=== PATIENT | male | born 1945 | race Caucasian/White ===

== ENCOUNTER 2016-09-02 19:45 | Emergency (ER) | payer MEDICARE, OTHER ==
[~2016-09-02] VITALS: Ht 175.3 cm; Wt 79.4 kg
[~2016-09-02 19:45] MED LIST: APIX5TAB PO; ASP81TEC PO; ASPI-586 PO; CARV12.53 PO; CARV3.122 PO; CHOL10003 PO; CHOL20002 PO; DOXY100C2 PO; DOXY100T61 PO; ENAL10TA PO; ENAL5TAB PO; LOPE2CAP29 PO; LOSA100T7 PO; NF-VAL40T PO; OXYC-12 PO; PHEN100T17 PO; PNT40TEC PO; TAMS0.4C2 PO; TERA5CAP10 PO; TESTOSTERONE CREAM TP; TMSL.4C PO
--- OUTSIDE RECORDS SUMMARY | 2016-09-02 19:51 | XMS REPORT | Continuity of Care Document ---
Author Author [facility] Organization [facility] Address Unknown Phone Unavailable Care Team Providers Care Locomotive Observer Name Role Phone Fiordaliza Galindo PCP [phone] Source Comments Some departments are not documenting in the electronic medical record. If you do not see the information that you expected, contact Release of Information in the Health Information Management department at [phone] for further assistance in locating additional records.[facility] Active Allergies and Adverse Reactions Allergen Noted Date Severity Reactions Comments Floxin 04/13/2012 HIVES, RASH Sulfa (Sulfonamide 04/13/2012 REDNESS "red spot on leg" Antibiotics) Tetracycline 04/13/2012 SEE COMMENTS "yeast infection" Current Medications Prescription Sig. Disp. Refills Start End Date Status Date enalapril (VASOTEC) 5 mg Take 5 mg by mouth daily. Active tablet carvedilol (COREG) 12.5 Take 3.125 mg by mouth Active mg tablet twice daily with meals. LOPERAMIDE HCL (IMODIUM Take 1 Tab by mouth Active PO) daily. aspirin EC 81 mg tablet Take 325 mg by mouth Active daily. tamsulosin (FLOMAX) 0.4 Take 0.4 mg by mouth Active mg capsule daily. metoclopramide HCl Take 10 mg by mouth as Active (REGLAN) 10 mg tablet Needed. cholecalciferol (Vitamin Take 1,000 Units by mouth Active D3) (VITAMIN D-3) 1,000 daily. units tablet ALPRAZolam (XANAX) 0.25 Take 0.25 mg by mouth as Active mg tablet Needed. MELATONIN PO Take 8 mg by mouth. Active doxycycline (VIBRAMYCIN) Take 100 mg by mouth Active 100 mg tablet daily. Patient takes off and on for blisters in mouth when needed Testosterone Propionate 2 Apply to top of skin as 08/13/19 Discontin % Crea directed daily. 17 ued losartan(+) (COZAAR) 100 Take 100 mg by mouth 08/18/19 Discontin mg tablet daily. 17 ued Active Problems Problem Noted Date Renal mass 08/13/2016 Overview: 70 year old male with CKD 3 and newly diagnosed right upper pole 3.2 cm renal mass. We discussed the options for management of a clinical T1 renal mass, which include observation, partial nephrectomy, radical nephrectomy, cryoablation, radiofrequency ablation in detail. I explained the relative merits, advantages, and disadvantages of each option. The patient would like to proceed with renal biopsy and possible cryoablation of his renal mass, as his primary goal is a treatment that will preserve his renal function. We will plan to refer Mr. Pacheco to Interventional Radiology for renal biopsy with possible cryoablation. 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 Orthostatic hypotension 04/13/2012 Weight loss, non-intentional 04/13/2012 Most Recent Encounters Date Type Specialty Providers Description 09/01/2016 Hospital Radiology Lio Lay, CKD (chronic kidney Encounter MD disease) stage 3, GFR Pranav Ardon RN 30-59 ml/min Ken Santoyo MD 09/01/2016 [facility] Catherine Holder MD Illness, unspecified Encounter 09/01/2016 Orders Only Oncology Lio Lay MD 09/01/2016 Ancillary Oncology Lio Lay Renal mass, right Orders (Primary Dx) 09/01/2016 Ancillary Urology Lio Lay Renal mass ( Primary Dx) Orders 08/31/2016 Anesthesia Radiology Jose Cesar, SRNA Event 08/20/2016 Telephone Radiology Karla Aguilar RN 08/18/2016 Ancillary Oncology Lio Lay Renal mass, right Orders (Primary Dx) 08/18/2016 Telephone Radiology Karla Aguilar RN 08/13/2016 Office Visit Urology Lio Lay Renal mass ( Primary Dx) 08/13/2016 Telephone Radiology Karla Aguilar RN 08/08/2016 Ancillary Radiology Outpatient, Radiologist Diagnosis unknown Orders (Primary Dx) 07/31/2016 Telephone Urology Lio Lay, Navigation Assessment 07/30/2016 Hospital Radiology Encounter 07/28/2016 Hospital Radiology Encounter Social History Tobacco Use Types Packs/Day Years Used Date Former Smoker Cigarettes 1 Quit: 08/02/1982 Smokeless Tobacco: Former Snuff User Alcohol Use Drinks/Week oz/Week Comments Yes 14 Glasses of 16.8 wine 14 Shots of liquor Last Filed Vital Signs Vital Sign Reading Time Taken Blood Pressure 146/64 09/01/2016 7:30 PM PSYCHIATRIC CLINICAL NURSE SPECIALIST Pulse 72 09/01/2016 7:30 PM PSYCHIATRIC CLINICAL NURSE SPECIALIST Temperature 36.4 C (97.5 F) 09/01/2016 7:30 PM PSYCHIATRIC CLINICAL NURSE SPECIALIST Respiratory Rate - - Height 1.753 m (5' 9") 08/13/2016 8:08 AM PSYCHIATRIC CLINICAL NURSE SPECIALIST Weight 81.738 kg (180 lb 3.2 oz) 08/13/2016 8:08 AM PSYCHIATRIC CLINICAL NURSE SPECIALIST Body Mass Index 26.6 08/13/2016 8:08 AM PSYCHIATRIC CLINICAL NURSE SPECIALIST Oxygen Saturation 98% 09/01/2016 7:30 PM PSYCHIATRIC CLINICAL NURSE SPECIALIST Plan of Care Health Maintenance Due Date Last Done Comments Physical (Comprehensive) 10/04/1950 Exam Pertussis Vaccine 10/04/1954 Tetanus Vaccine 10/04/1960 Colorectal Cancer 10/04/1993 Screening Shingles Vaccine 2003 Prevnar/Pneumovax (#1) 10/04/2008 Influenza Vaccine 04/02/2016 Procedures from Last 3 Months Procedure Name Priority Date/Time Associated Diagnosis Comments TELEMETRY STRIPS-SCAN 09/02/2016 Results for this 1:23 PM PSYCHIATRIC CLINICAL NURSE SPECIALIST procedure are in the results section. Results from Last 3 Months TELEMETRY STRIPS-SCAN (09/02/2016 1:23 PM) Narrative Ordered by an unspecified provider. BLOOD TYPE CONFIRMATION - ORDER ONLY IF REQUESTED BY LAB (09/01/2016 2:30 PM) Component Value Range ABO/RH(D) A POS TYPE & CROSSMATCH (09/01/2016 2:00 PM) Component Value Range Units Ordered 0 Crossmatch Expires 09/04/2016 Record Check 2ND TYPE REQUIRED ABO/RH(D) A POS Antibody Screen NEG Electronic Crossmatch YES CBC AND DIFF (09/01/2016 2:00 PM) Component Value Range White Blood Cells 8.4 4.5-11.0 K/UL RBC 5.13 4.4-5.5 M/UL Hemoglobin 15.7 13.5-16.5 GM/DL Hematocrit 47.3 40-50 % MCV 92.3 80-100 FL MCH 30.6 26-34 PG MCHC 33.1 32.0-36.0 G/DL RDW 12.7 11-15 % Platelet Count 162 150-400 K/UL MPV 7.8 7-11 FL Neutrophils 68 41-77 % Lymphocytes 21 (L) 24-44 % Monocytes 7 4-12 % Eosinophils 3 0-5 % Basophils 1 0-2 % Absolute Neutrophil Count 5.80 1.8-7.0 K/UL Absolute Lymph Count 1.70 1.0-4.8 K/UL Absolute Monocyte Count 0.60 0-0.80 K/UL Absolute Eosinophil Count 0.20 0-0.45 K/UL Absolute Basophil Count 0.10 0-0.20 K/UL BASIC METABOLIC PANEL (09/01/2016 2:00 PM) Component Value Range Sodium 139 137-147 MMOL/L Potassium 4.4 3.5-5.1 MMOL/L Chloride 106 98-110 MMOL/L CO2 26 21-30 MMOL/L Anion Gap 7 3-12 Glucose 89 70-100 MG/DL Blood Urea Nitrogen 29 (H) 7-25 MG/DL Creatinine 2.16 (H) 0.4-1.24 MG/DL Calcium 9.5 8.5-10.6 MG/DL eGFR Non 30 (L)Comment: >60 mL/min The eGFR is not validated for use in drug dosing adjustments. Continue to use estimated creatinine clearance per dosing reference text. Please contact the Clinical Pharmacist for questions. eGFR 37 (L)Comment: >60 mL/min The eGFR is not validated for use in drug dosing adjustments. Continue to use estimated creatinine clearance per dosing reference text. Please contact the Clinical Pharmacist for questions. POC GLUCOSE (09/01/2016 1:20 PM) Component Value Range Glucose, POC 94 70-100 MG/DL CT ABD/PEL EXTERNAL IMAGING (07/30/2016) Narrative This order has been auto finalized and does not contain a result. US ABDOMEN EXTERNAL IMAGING (07/28/2016) Narrative This order has been auto finalized and does not contain a result.
[2016-09-02] MEDS ORDERED: ASPI-808 PO (19:58)
[2016-09-02] MEDS ORDERED: ALPR0.25 PO (19:58)
[2016-09-02] MEDS ORDERED: MELA10CA2 PO (19:58)
[2016-09-02] MEDS ORDERED: LIDOCAINE UROJET 2% GEL 10 ML PKG ONE (20:25)
[2016-09-02] MEDS ORDERED: LIDOCAINE UROJET 2% GEL 10 ML PKG TOP ONE (20:45)
[2016-09-02 21:14] LABS: BASOPHILS % (AUTO) 0 % (0-10); BILIRUBIN,URINE NEGATIVE (NEGATIVE); EOSINOPHILS # (AUTO) 0.2 10^3/uL (0.0-0.3); EOSINOPHILS % (AUTO) 2 % (0-10); KETONES,URINE NEGATIVE (NEGATIVE); LEUKOCYTE ESTERASE ,URINE NEGATIVE (NEGATIVE); LYMPHOCYTES # (AUTO) 1.6 X 10^3 (1.0-4.0); LYMPHOCYTES % (AUTO) 16 % (12-44); MEAN CORPUSCULAR HEMOGLOBIN 31 PG (25-34); MEAN CORPUSCULAR HGB CONC 35 G/DL (32-36); MEAN CORPUSCULAR VOLUME 88 FL (80-99); MEAN PLATELET VOLUME 10.3 FL (7.4-10.4); MONOCYTES # (AUTO) 1.1 X 10^3 (0.0-1.0); MONOCYTES % (AUTO) 11 % (0-12); NEUTROPHILS % (AUTO) 71 % (42-75); NITRITE,URINE NEGATIVE (NEGATIVE); PH,URINE 5 (5-9); PLATELET COUNT 156 10^3/uL (130-400); PROTEIN,URINE 3+ (NEGATIVE); RED BLOOD COUNT 5.04 10^6/uL (4.35-5.85); RED CELL DISTRIBUTION WIDTH 12.6 % (10.0-14.5); UROBILINOGEN,URINE NORMAL (NORMAL); WHITE BLOOD COUNT 9.9 10^3/uL (4.3-11.0)
[2016-09-02 21:22] LABS: SQUAMOUS EPITHELIAL CELL,UR RARE /HPF
[2016-09-02 21:42] LABS: PROTHROMBIN TIME PATIENT 12.8 SEC (12.2-14.7)
--- NOTE | 2016-09-02 21:59 | Diagnostic Imaging Report ---
INDICATION: Fever. COMPARISON: None available. TECHNIQUE: Single frontal radiograph of the chest dated September 02, 2016. FINDINGS: The cardiac silhouette is within normal limits. No significant pulmonary vascular congestion. Vascular calcifications within the aortic arch. Mild obscuration of the left hemidiaphragm is noted. Otherwise, the lungs appear clear. No significant pleural effusion. No pneumothorax. No acute osseous abnormality with scattered osseous degenerative changes. IMPRESSION: Slight obscuration of the left hemithorax likely relates to mild left lower lobe atelectasis and/or infiltrate. This could be confirmed with frontal and lateral radiographs of the chest. Dictated by: Dictated on workstation # [id number]
[2016-09-02 22:07] LABS: ALBUMIN 3.9 G/DL (3.2-4.5); BILIRUBIN,TOTAL 1.2 MG/DL (0.1-1.0); CALCIUM 8.9 MG/DL (8.5-10.1); CREATININE SERUM 2.51 MG/DL (0.60-1.30); POTASSIUM 4.3 MMOL/L (3.6-5.0); TOTAL PROTEIN 6.1 G/DL (6.4-8.2)
--- NOTE | 2016-09-02 22:56 | ED GU-Male ---
General Chief Complaint: -Male Stated Complaint: CANT URINATE Nursing Triage Note: Pt reports inability to urinate after having kidney ablation done yesterday at [facility]. Pt reports he has had small dribbles of urine but hasn't been able to empty bladder. Source: patient Exam Limitations: no limitations History of Present Illness Time seen by provider: 19:58 Initial Comments This 70-year-old gentleman presents to the emergency room with inability to urinate. He had a procedure performed at [facility] yesterday for ablation of a renal mass presumed to be renal cell carcinoma. He has only been able to dribble since then. Temperature was 100.3 and he feels warm and flushed. He denies any respiratory symptoms, nausea, vomiting, diarrhea, or other symptoms of acute illness. He has had prostate problems in the past and is on Flomax. He denies any recent medications that would exacerbate prostate problems or retention. Allergies and Home Medications Allergies Coded Allergies: Sulfa (Sulfonamide Antibiotics) (Verified Allergy, Severe, 08/16/15) ofloxacin (Verified Allergy, Unknown, 04/02/06) tetracycline (Unverified Allergy, Unknown, 09/02/16) Home Medications Alprazolam 0.25 Mg Tablet 0.25 MG PO PRN (Reported) Aspirin 325 Mg Tablet 325 MG PO DAILY (Reported) Carvedilol 3.125 Mg Tablet 3.125 MG PO BID (Reported) Cefdinir 300 Mg Capsule #7 300 MG PO ONCE Prescribed by: JOEY HALL on 09/02/16 [id number] Cholecalciferol (Vitamin D3) 2,000 Unit Capsule 2,000 UNIT PO HS (Reported) Enalapril Maleate 5 Mg Tablet 5 MG PO DAILY (Reported) Loperamide Hcl 2 Mg Capsule 2 MG PO DAILY (Reported) Melatonin 10 Mg Capsule 8 MG PO HS (Reported) Tamsulosin HCl 0.4 Mg Cap.er.24h 0.4 MG PO HS (Reported) Constitutional: no symptoms reported EENTM: no symptoms reported Respiratory: no symptoms reported Cardiovascular: no symptoms reported Gastrointestinal: see HPI Genitourinary: see HPI Musculoskeletal: no symptoms reported Skin: no symptoms reported Psychiatric/Neurological: No Symptoms Reported Endocrine: No Symptoms Reported Past Wcsxhsj-Wnpwdd-Qgaxzv Hx Patient Social History Recent Foreign Travel: No Contact w/Someone Who Travel: No Recent Infectious Disease Expo: No Recent Hopitalizations: No Immunizations Up To Date Date of Pneumonia Vaccine: Nov 01, 2008 Seasonal Allergies Seasonal Allergies: No Surgeries HX Surgeries: Yes (KIDNEY ABLATION, HERNIA REPAIR) Surgeries: Abdominal, Orthopedic Respiratory Hx Respiratory Disorders: No Cardiovascular Hx Cardiac Disorders: Yes (right bundle branch block) Cardiac Disorders: Hypertension, Irregular Heartbeat Neurological Hx Neurological Disorders: No Reproductive System Hx Reproductive Disorders: No Sexually Transmitted Disease: No HIV/AIDS: No Genitourinary Hx Genitourinary Disorders: Yes ("kidneys are only functioning at 40%"; ENLARGED PROSTATE) Genitourinary Disorders: Prostate Problems, Renal Failure Gastrointestinal Hx Gastrointestinal Disorders: Yes Gastrointestinal Disorders: Gastroesophageal Reflux, Hiatal Hernia, Irritable Bowel Musculoskeletal Hx Musculoskeletal Disorders: Yes (arthritis-knees need to be replaced) Musculoskeletal Disorders: Arthritis Endocrine Hx Endocrine Disorders: No HEENT HX ENT Disorders: No Loss of Vision: Denies Hearing Impairment: Hard of Hearing Cancer Hx Cancer: Yes Cancer: Skin, Kidney Psychosocial Hx Psychiatric Problems: No Integumentary HX Skin/Integumentary Disorder: Yes (MILD ECZEMA) Skin/Integumentary Disorders: Eczema Blood Transfusions Hx Blood Disorders: No Adverse Reaction to a Blood Tr: No Family Medical History Family Medial History: Cardiovascular disease G8 BROTHER FH: breast cancer 19 MOTHER FH: lung cancer 19 FATHER Kidney disease G8 BROTHER (ON DIALYSIS) Pacemaker 19 MOTHER Physical Exam Vital Signs Vital Sign - Last 12Hours 09/02/16 19:53 Temp 99.0 Pulse 94 Resp 18 B/P 137/95 Pulse Ox 95 O2 Delivery Room Air Capillary Refill : Less Than 3 Seconds General Appearance: WD/WN mild distress HEENT: normal ENT inspection Neck: normal inspection Cardiovascular: regular rate, rhythm no edema no murmur Respiratory: lungs clear normal breath sounds no respiratory distress no accessory muscle use Gastrointestinal: normal bowel sounds distended tenderness Extremities: normal inspection 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 no motor/sensory deficits alert normal mood/affect oriented x 3 Skin: normal color warm/dry Progress/Results/Core Measures Results/Orders Lab Results Laboratory Tests Test 09/02/16 20:48 Range/Units Activated Partial Thromboplast Time 26 24-35 SEC Alanine Aminotransferase (ALT/SGPT) 10 0-55 U/L Albumin 3.9 3.2-4.5 G/DL Alkaline Phosphatase 63 40-136 U/L Anion Gap 11 5-14 MMOL/L Aspartate Amino Transf (AST/SGOT) 27 5-34 U/L BUN/Creatinine Ratio 13 Basophils # (Auto) 0.0 0.0-0.1 10^3/uL Basophils (%) (Auto) 0 0-10 % Blood Urea Nitrogen 33 H 7-18 MG/DL C-Reactive Protein High Sensitivity 1.94 H 0.00-0.50 MG/DL Calcium Level 8.9 8.5-10.1 MG/DL Carbon Dioxide Level 23 21-32 MMOL/L Chloride Level 105 98-107 MMOL/L Creatinine 2.51 H 0.60-1.30 MG/DL Eosinophils # (Auto) 0.2 0.0-0.3 10^3/uL Eosinophils (%) (Auto) 2 0-10 % Estimat Glomerular Filtration Rate 25 Glucose Level 116 H 70-105 MG/DL Hematocrit 44 40-54 % Hemoglobin 15.6 13.3-17.7 G/DL INR Comment 1.0 0.8-1.4 Lactic Acid Level 0.8 0.5-2.0 MMOL/L Lymphocytes # (Auto) 1.6 1.0-4.0 X 10^3 Lymphocytes (%) (Auto) 16 12-44 % Mean Corpuscular Hemoglobin 31 25-34 PG Mean Corpuscular Hemoglobin Concent 35 32-36 G/DL Mean Corpuscular Volume 88 80-99 FL Mean Platelet Volume 10.3 7.4-10.4 FL Monocytes # (Auto) 1.1 H 0.0-1.0 X 10^3 Monocytes (%) (Auto) 11 0-12 % Neutrophils # (Auto) 7.0 1.8-7.8 X 10^3 Neutrophils (%) (Auto) 71 42-75 % Platelet Count 156 130-400 10^3/uL Potassium Level 4.3 3.6-5.0 MMOL/L Prothrombin Time 12.8 12.2-14.7 SEC Red Blood Count 5.04 4.35-5.85 10^6/uL Red Cell Distribution Width 12.6 10.0-14.5 % Sodium Level 139 135-145 MMOL/L Total Bilirubin 1.2 H 0.1-1.0 MG/DL Total Protein 6.1 L 6.4-8.2 G/DL Urine Bacteria NONE /HPF Urine Bilirubin NEGATIVE NEGATIVE Urine Casts NONE /LPF Urine Clarity SLIGHTLY CLOUDY Urine Color YELLOW Urine Crystals NONE /LPF Urine Culture Indicated NO Urine Glucose (UA) NEGATIVE NEGATIVE Urine Ketones NEGATIVE NEGATIVE Urine Leukocyte Esterase NEGATIVE NEGATIVE Urine Mucus NEGATIVE /LPF Urine Nitrite NEGATIVE NEGATIVE Urine Protein 3+ H NEGATIVE Urine RBC 5-10 H /HPF Urine RBC (Auto) 2+ H NEGATIVE Urine Specific [place] 1.015 L 1.016-1.022 Urine Squamous Epithelial Cells RARE /HPF Urine Urobilinogen NORMAL NORMAL MG/DL Urine WBC NONE /HPF Urine pH 5 5-9 White Blood Count 9.9 4.3-11.0 10^3/uL Micro Results Microbiology 09/02/16 Influenza Types A,B Antigen (NADEGE) - Final, Complete My Orders Orders-JOEY LIPSCOMB MD Bladder Scan (09/02/16 19:57) Lidocaine 2% (Urojet) (Xylocaine Urojet) (09/02/16 20:25) Cbc With Automated Diff (09/02/16 20:31) Comprehensive Metabolic Panel (09/02/16 20:31) Lactic Acid Analyzer (09/02/16 20:31) Blood Culture (09/02/16 20:31) Ua Culture If Indicated (09/02/16 20:31) Protime With Inr (09/02/16 20:31) Partial Thromboplastin Time (09/02/16 20:31) Chest 1 View, Ap/Pa Only (09/02/16 20:31) Saline Lock/Iv-Start (09/02/16 20:31) Saline Lock/Iv-Start (09/02/16 20:31) Vital Signs Adult Sepsis Patie Q1HR (09/02/16 20:31) Remove Rings In Anticipation O (09/02/16 20:31) Burdick Cath Insertion (09/02/16 20:31) Lidocaine 2% (Urojet) (Xylocaine Urojet) (09/02/16 20:45) Hs C Reactive Protein (09/02/16 21:55) Influenza A And B Antigens (09/02/16 21:55) Chest Pa/Lat (2 View) (09/02/16 22:56) Oxycodone/Apap 5/325mg Tablet (Percocet (09/02/16 23:00) Cefdinir Capsule (Omnicef Capsule) (09/02/16 23:30) Medications Given in ED Current Medications Medications Dose Ordered Sig/Lewis Route Start Time Stop Time Status Last Admin Dose Admin Cefdinir 300 mg ONCE ONCE PO 09/02/16 23:30 09/02/16 23:31 DC 09/02/16 23:27 300 MG Lidocaine HCl 10 ml ONCE ONCE TOP 09/02/16 20:45 09/02/16 20:46 DC 09/02/16 20:34 10 ML Oxycodone/ Acetaminophen 1 tab ONCE ONCE PO 09/02/16 23:00 09/02/16 23:01 DC 09/02/16 23:04 1 TAB Vital Signs/I&O Vital Sign - Last 12Hours 09/02/16 09/02/16 09/02/16 19:53 20:30 23:31 Temp 99.0 100.3 99.1 Pulse 94 94 72 Resp 18 18 18 B/P 137/95 137/95 Pulse Ox 95 95 97 O2 Delivery Room Air Room Air Blood Pressure Mean: 109 Progress Note #1: Progress Note Bladder scan demonstrated more than 1 liter urinary residual. Burdick was placed and yielded more than 1500 ml urine. Patient was noted to have fever. Septic work up was therefore initiated due to his recent invasive procedure and urinary retention. Progress Note #2: Progress Note Septic workup was unremarkable. There was questionable left lower lobe infiltrate identified by the radiologist on the portable chest x-ray. A repeat two-view x-ray was obtained. There is no obvious infiltrate or consolidation on the repeat x-ray. Omnicef was started as a precaution. Diagnostic Imaging Diagonstic Imaging: Xray Plain Films/CT/US/NM/MRI: chest Comments Chest x-ray viewed by me and report reviewed. See report below: NAME: MICHEAL SESAY [facility] REC#: [id number] PT STATUS: REG ER : 1945 PHYSICIAN: JOEY LIPSCOMB MD ADMIT DATE: 09/02/16/ER Signed Date of Exam: 09/02/16 CHEST 1 VIEW, AP/PA ONLY INDICATION: Fever. COMPARISON: None available. TECHNIQUE: Single frontal radiograph of the chest dated September 02, 2016. FINDINGS: The cardiac silhouette is within normal limits. No significant pulmonary vascular congestion. Vascular calcifications within the aortic arch. Mild obscuration of the left hemidiaphragm is noted. Otherwise, the lungs appear clear. No significant pleural effusion. No pneumothorax. No acute osseous abnormality with scattered osseous degenerative changes. IMPRESSION: Slight obscuration of the left hemithorax likely relates to mild left lower lobe atelectasis and/or infiltrate. This could be confirmed with frontal and lateral radiographs of the chest. Dictated by: Dictated on workstation # [id number] Dict: 09/02/162151 Trans: 09/02/162230 PJE [id number] Interpreted by: TIMOTHY OCASIO MD Electronically signed by:TIMOTHY OCASIO MD 09/02/162232 Diagonstic Imaging: Xray Plain Films/CT/US/NM/MRI: chest Comments Two-view chest x-ray viewed by me. Report not yet available. No definite consolidation or infiltrate appreciated. Departure Impression Impression: Primary Impression: Fever Qualified Code: R50.9 - Fever, unspecified Additional Impression: Urinary retention Disposition: HOME, SELF-CARE Condition: Improved Departure-Patient Inst. Decision time for Depature: 23:15 Referrals: GARRICK NICK MD (PCP/Family) Primary Care Physician Patient Instructions: Burdick Catheter, Male Add. Discharge Instructions: Empty your catheter bag frequently. Complete your antibiotics as prescribed. Follow-up with your primary care provider soon as possible. Follow-up with your urologist as soon as possible. Return to the emergency room if symptoms worsen. All discharge instructions reviewed with patient and/or family. Voiced understanding. Scripts Cefdinir 300 Mg [id number] Mg PO ONCE #7 CAP Prov:JOEY LIPSCOMB MD 09/02/16 Copy Copies To 1: GARRICK NICK MD Copies To 2: ERICA PRITCHETT MD, JOSHUA T MD Sep 02, 2016 22:56
[2016-09-02] MEDS ORDERED: oxyCODONE/APAP 5/325MG (PERCOCET 5) TABLET PO ONE (23:00)
[2016-09-02] MEDS ORDERED: CEFD300C3 PO (23:27)
[2016-09-02] MEDS ORDERED: CEFDINIR 300 MG (OMNICEF) CAP PO ONE (23:30)
[2016-09-02 23:31] VITALS: BP 157/89
--- NOTE | 2016-09-03 07:02 | Diagnostic Imaging Report ---
CLINICAL INDICATION: Patient running a fever and has history of recent ablation procedure on kidney. EXAM: Chest x-ray PA and lateral views. COMPARISONS: Chest x-ray dated 09/02/2016 at 2120 hrs. FINDINGS: Lungs/pleura: There is mild left basilar atelectasis. Otherwise, lungs are clear. There is no pneumothorax. There is no pleural effusion. Mediastinum: Unremarkable. Pulmonary vasculature: Unremarkable. Heart: Unremarkable. Bones/extrathoracic soft tissue: Unremarkable. IMPRESSION: Mild left basilar atelectasis. Otherwise, there is no radiographic evidence of acute cardiopulmonary process. Dictated by: Dictated on workstation # [id number]
== END 2016-09-02 23:31 | disposition home or self-care (01) ==
LOC: EDUNIT# 19:45 → ER 19:47
DX: R33.9 Retention of urine, unspecified (principal); R50.9 Fever, unspecified; Z98.890 Other specified postprocedural states
CPT/HCPCS: 36415; 51702; 71010; 71020; 80053; 81000; 83605; 85025; 85610; 85730; 86141; 87040; 87804

== ENCOUNTER → 2016-09-29 | Outpatient (CLI) | payer MEDICARE, OTHER ==
[~2016-09-29] MED LIST changes: +ALPR0.25 PO; +ASPI-808 PO; +CEFD300C3 PO; +MELA10CA2 PO
--- NOTE | 2016-09-29 15:27 | Diagnostic Imaging Report ---
EXAMINATION: PA and lateral views of the chest. INDICATION: Followup pneumonia. COMPARISON: 09/02/2016. FINDINGS: The previously seen mild left basilar infiltrate appears improved with no significant focal consolidation identified. The heart size is normal. No effusion or pneumothorax. The mediastinum and gemma appear unremarkable. IMPRESSION: Unremarkable exam. Dictated by: Dictated on workstation # [id number]
== END ==
LOC: RAD 11:35
PROVIDERS: ATTEND Family Medicine
DX: J18.9 Pneumonia, unspecified organism (principal)
CPT/HCPCS: 71020

== ENCOUNTER 2016-10-12 13:26 | Outpatient (RCR) | payer MEDICARE ==
--- OUTSIDE RECORDS SUMMARY | 2016-10-12 13:30 | XMS REPORT | Continuity of Care Document ---
Author Author [facility] Organization [facility] Address Unknown Phone Unavailable Care Team Providers Care Lab[address] Name Role Phone Fiordaliza Galindo PCP [phone] Source Comments Some departments are not documenting in the electronic medical record. If you do not see the information that you expected, contact Release of Information in the Health Information Management department at [phone] for further assistance in locating additional records.[facility] Active Allergies and Adverse Reactions Allergen Noted [...] daily. aspirin EC 81 mg tablet Take 81 mg by mouth Active daily. tamsulosin (FLOMAX) 0.4 Take 0.4 mg by mouth Active mg capsule daily. ALPRAZolam (XANAX) 0.25 Take 0.25 mg by mouth as Active mg tablet Needed. MELATONIN PO Take 8 mg by mouth. Active doxycycline (VIBRAMYCIN) Take 100 mg by mouth Active 100 mg tablet daily. Patient takes off and on for blisters in mouth when needed ERGOCALCIFEROL (VITAMIN Take by mouth. Active D2) (VITAMIN D2 PO) Indications: 2000 iu finasteride (PROSCAR) 5 Take 5 mg by mouth daily. Active mg tablet metoclopramide HCl Take 10 mg by mouth as 10/10/19 Discontin (REGLAN) 10 mg tablet Needed. 17 ued cholecalciferol (Vitamin Take 1,000 Units by mouth 10/10/19 Discontin D3) (VITAMIN D-3) 1,000 daily. 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 Path: cT1a; Chromophobe renal cell carcinoma. 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 Orthostatic hypotension 04/13/2012 Weight loss, non-intentional 04/13/2012 Most Recent Encounters Date Type Specialty Providers Description 10/09/2016 Office Visit Urology Lio Lay, Renal cancer , unspecified MD laterality (Primary Dx) 10/09/2016 [facility] Radiology Warren Reyna PA-C Arrived Encounter 10/08/2016 Screening Form 09/09/2016 Orders Only UrologLio Virgen Renal cell carcinoma, right (Primary Dx); Renal cell carcinoma of right kidney (HCC) 09/08/2016 Telephone Radiology Karla Aguilar, CRICKET Results 09/03/2016 Telephone Radiology Karla Aguilar, CRICKET 09/01/2016 [facility] Radiology Lio Lay, CKD (chronic kidney Encounter MD disease) stage 3, GFR Pranav Ardon RN 30-59 ml/min Ken Santoyo MD 09/01/2016 [facility] Catherine West MD Illness, unspecified Encounter 09/01/2016 Orders Only Oncology Lio Lay MD 09/01/2016 Ancillary Oncology Lio Lay, Renal mass, right Orders (Primary Dx) 09/01/2016 Ancillary Urology Lio Lay Renal mass ( Primary Dx) Orders 08/31/2016 Anesthesia Radiology Jose Cesar, SRNA Event 08/20/2016 Telephone Radiology Karla Aguilar RN 08/18/2016 Ancillary Oncology Lio Lay Renal mass, right Orders (Primary Dx) 08/18/2016 Telephone Radiology Karla Aguilar RN 08/13/2016 Office Visit UrologLio Virgen, Renal mass ( Primary Dx) 08/13/2016 Telephone Radiology Karla Aguilar RN 08/08/2016 Ancillary Radiology Outpatient, Radiologist Diagnosis unknown Orders (Primary Dx) 07/31/2016 Telephone Lio Otto, Navigation Assessment 07/30/2016 Hospital Radiology Encounter 07/28/2016 Hospital Radiology Encounter Social History Tobacco Use Types Packs/Day Years Used Date Former Smoker Cigarettes 1 Quit: 08/02/1982 Smokeless Tobacco: Former Snuff User Alcohol Use Drinks/Week oz/Week Comments Yes 14 Glasses of 16.8 wine 14 Shots of liquor Last Filed Vital Signs Vital Sign Reading Time Taken Blood Pressure 153/89 10/09/2016 3:10 PM HEALTH S[employer]ETY IN[employer]CTOR Pulse 60 10/09/2016 3:10 PM HEALTH SAFETY IN[employer]CTOR Temperature 36.4 C (97.5 F) 09/01/2016 7:30 PM HEALTH SAFETY IN[employer]CTOR Respiratory Rate - - Height 1.753 m (5' 9") 10/09/2016 3:10 PM HEALTH SAFETY IN[employer]CTOR Weight 79.652 kg (175 lb 9.6 oz) 10/09/2016 3:10 PM HEALTH SAFETY INSTRUCTOR Body Mass Index 25.92 10/09/2016 3:10 PM HEALTH SAFETY INSTRUCTOR Oxygen Saturation 98% 09/01/2016 7:30 PM HEALTH SAFETY IN[employer]CTOR Plan of Care Date Type Specialty Providers Description 04/09/2017 Appointment Radiology Lio Lay MD [address] [place] [address] [phone] (Fax) 04/09/2017 Appointment UrologLio Virgen MD [address] [facility] [address] [place] [address] [phone] (Fax) Health Maintenance Due Date Last Done Comments Physical (Comprehensive) 10/04/1950 Exam Pertussis Vaccine 10/04/1954 Tetanus Vaccine 10/04/1960 Colorectal Cancer 10/04/1993 Screening Shingles Vaccine 2003 Prevnar/Pneumovax (#1) 10/04/2008 Influenza Vaccine 04/02/2017 Procedures from Last 3 Months Procedure Name Priority Date/Time Associated Diagnosis Comments TELEMETRY STRIPS-SCAN 09/02/2016 Results for this 1:23 PM HEALTH SAFETY INSTRUCTOR procedure are in the results section. Results from Last [address] ABDOMEN WO/W CONTRAST (10/09/2016 12:43 PM) Impressions Interval cryoablation of a right renal mass without evidence for residual/ recurrent tumor or abdominal metastatic disease. Approved by Carmelina Hanna M.D. on 10/09/2016 2:37 PM By my electronic signature, I attest that I have personally reviewed the images for this examination and formulated the interpretations and opinions expressed in this report Finalized by Iraj Valdovinos D.O. on 10/09/2016 5:29 PM. Dictated by Carmelina Hanna M.D. on 10/09/2016 1:[address] ABDOMEN Clinical Indication:Male, 71 years old. Renal cell carcinoma status post cryoablation on 09/01/2016 Technique:Multiple contiguous axial images were obtained through the abdomen following the administration of IV contrast material. Noncontrast as well as hepatic arterial, portal venous and delayed imaging was obtained through the abdomen. Post processing coronal and sagittal reconstruction images were made from the axial images. IV contrast: Isovue-370 Bowel contrast:None Comparison: July 30, 2016 FINDINGS: Lower Thorax: Stable scarring in the left lung base. Heart size is normal. Liver and Biliary system: Unremarkable. Spleen: Unremarkable. Adrenal Glands and Kidneys: The adrenal glands are unremarkable. There is mild bilateral renal cortical atrophy with tiny low-density cortical lesions which are too small to characterize. Interval cryoablation of the mid right renal mass which measures 3.3 x 2.6 cm on image 3/33. No definite nodular enhancement is identified to suggest residual/recurrent tumor. Pancreas and Retroperitoneum: Unremarkable. Aorta and Major Vessels: Normal caliber abdominal aorta with mild to moderate aortoiliac calcified plaque. Bowel, Mesentery and Peritoneal space: Unremarkable. Abdominal wall and Osseous Structures: Thoracolumbar spondylosis without destructive osseous lesion. Tiny fat-containing umbilical hernia. Procedure Note Interface, Radiant Results - WedOct 09, 2016 5:32 [address]AFETY IN[employer]CTOR CT ABDOMEN Clinical Indication: Male, 71 years old. Renal cell carcinoma status post cryoablation on 09/01/2016 Technique: Multiple contiguous axial images were obtained through the abdomen following the administration of IV contrast material. Noncontrast as well as hepatic arterial, portal venous and delayed imaging was obtained through the abdomen. Post processing coronal and sagittal reconstruction images were made from the axial images. IV contrast: Isovue-370 Bowel contrast: None Comparison: July 30, 2016 FINDINGS: Lower Thorax: Stable scarring in the left lung base. Heart size is normal. Liver and Biliary system: Unremarkable. Spleen: Unremarkable. Adrenal Glands and Kidneys: The adrenal glands are unremarkable. There is mild bilateral renal cortical atrophy with tiny low-density cortical lesions which are too small to characterize. Interval cryoablation of the mid right renal mass which measures 3.3 x 2.6 cm on image 3/33. No definite nodular enhancement is identified to suggest residual/recurrent tumor. Pancreas and Retroperitoneum: Unremarkable. Aorta and Major Vessels: Normal caliber abdominal aorta with mild to moderate aortoiliac calcified plaque. Bowel, Mesentery and Peritoneal space: Unremarkable. Abdominal wall and Osseous Structures: Thoracolumbar spondylosis without destructive osseous lesion. Tiny fat-containing umbilical hernia. IMPRESSION Interval cryoablation of a right renal mass without evidence for residual/ recurrent tumor or abdominal metastatic disease. Approved by Carmelina Hanna M.D. on 10/09/2016 2:37 PM By my electronic signature, I attest that I have personally reviewed the images for this examination and formulated the interpretations and opinions expressed in this report Finalized by Iraj Valdovinos D.O. on 10/09/2016 5:29 PM. Dictated by Carmelina Hanna M.D. on 10/09/2016 1:37 PM. TELEMETRY STRIPS-SCAN (09/02/2016 1:23 PM) Narrative Ordered by an unspecified provider. SURGICAL PATHOLOGY (09/01/2016 5:30 PM) Component Value Range PATHOLOGY REPORT [facility] [email or web address] Imelda Magdaleno MD, PhD, Director of Anatomic Pathology Department of Pathology and Laboratory Medicine [address] [place] [id number] Surgical Pathology Office: [phone] SURGICAL PATHOLOGY REPORT NAME: CHAPIN SESAY SURG PATH #: [id number] MR #: [id number] SPECIMEN CLASS: SR BILLING #: [id number] ALT ID #: LOCATION: [facility] DATE OF PROCEDURE: 09/01/2016 AGE: 70 SEX: M DATE RECEIVED: 09/01/2016 : 1945 TIME RECEIVED: 17:30 PHYSICIAN: CATHERINE WEST MD DATE OF REPORT: 09/03/2016 COPY TO: DATE OF PRINTIN09/03/2016 ################################################## ###################### Final Diagnosis: A. Kidney, "right kidney", needle core biopsy: Chromophobe renal cell carcinoma. See comment. Comment: Immunohistochemical stains performed on block A1 show the tumor cells are strongly positive for CK7, weakly positive CD117, and negative for CA IX, and CD10. Silva's Colloidal Iron stain is weakly positive. These findings support the above diagnosis. Pursuant to the [employer] at the [facility] Pathology Department, selected slides from this case have been concurrently reviewed by the following pathologist: Dr. Price, who agrees with the final diagnosis. Attestation: By this signature, I attest that I have personally formulated the final interpretation expressed in this report and that the above diagnosis is based upon my examination of the slides and/or other material indicated in this report. +++Electronically Signed Out By+++ b/09/01/2016 Interpreted by: Aaron Ortega M.D. Resident 09/03/2016 ################################################## ###################### Material Received: A: right kidney History: 70-year-old male with a history of chronic kidney disease, 3 cm solid right renal mass. Gross Description: A. Received in formalin labeled "right kidney" is a 1.2 cm in length by 0.2 cm in diameter core of corrigan-red tissue. The specimen is entirely submitted in cassette A1. ([facility]) [facility]/09/01/2016 Martina Brown, M.D. Resident If immunohistochemical stains and/or in situ hybridization are cited in this report, the performance characteristics were determined by the Department of Pathology and Laboratory Medicine of the [facility] ([employer]) in compliance with CLIA'88 regulations. Some of these tests rely on the use of "analyte specific reagents" and are subject to specific labeling requirements by the FDA. Known positive and negative control tissues demonstrate appropriate staining. This testing was developed by the Department of Pathology and Laboratory Medicine of the [facility]. It has not been cleared or approved by the FDA. The FDA has determined that such clearance or approval is not necessary. CT GUIDE FOR RF ABLATION PERC (09/01/2016 5:06 PM) Impressions 1. Successful CT-guided right renal mass biopsy. 2. Technically successful Cryoablation of the right renal tumor as described above. Plan: Follow up cross-sectional imaging will be performed at 1 month, 3 months, 6 months, and 1 year for evaluation of treatment response and local control. Approved by Elidia Grove M.D. on 09/02/2016 9:56 AM By my electronic signature, I attest that I have personally reviewed the images for this examination and formulated the interpretations and opinions expressed in this report Finalized by George Alexander M.D. on 09/03/2016 8:17 AM. Dictated by Elidia Grove M.D. on 09/02/2016 9:48 AM. Narrative PROCEDURE: CT-GUIDED RIGHT RENAL MASS BIOPSY AND CRYOABLATION OF SOLITARY RIGHT RENAL TUMOR Procedure date: 09/01/2016 History: Right renal mass Operators: Elidia Grove MD; Fabián Xie M.D.; Orville Alexander MD Medications: General endotracheal anesthesia Procedure and Findings: I, Orville Alexander M.D, the attending radiologist, was present for the critical and arce portions of the procedure with a midlevel, resident, and/or fellow participating.Overlapping portions were non arce and I was immediately available.I interpret the critical and arce portion of this procedure to have been needle access. The risks, benefits, and alternatives to the procedure and sedation were explained to the patient, and written informed consent obtained. The lesion in the right kidney was localized on the initial non- contrast CT and the dermotomy entrance site marked on the skin. Utilizing usual sterile technique, the site was prepped and draped. A subcutaneous needle was positioned over the site of the lesion in the right kidney and the positioning was confirmed using CT. Lidocaine was then injected in the subcutaneous tissues at this site. Position of the right renal mass was confirmed by CT measurements. A 15 cm 20/22 Temno introducer needle was then advanced into the right renal mass and placement was confirmed by CT. 1 core biopsy was then obtained using 22-gauge Temno needle. The sample was sent to cytology and surgical pathology for analysis. Following cryoablation needle testing, one 15-cm long, cryoablation needle with 5 cm treatment zone, was placed into the lesion and optimally positioned under CT guidance.The needle placement was confirmed under CT and two 10 minute cryotherapy freezes were performed interspace by a 5 minutes of active thaw. A mid therapy CT of the treatment area was performed to confirm initial needle placement and satisfactory treatment zone.Recorded temperature measurements were deemed technically satisfactory and consistent with successful cryoablation.The cryotherapy needle was removed after the measured temperature was above [address] demonstrated low attenuation changes completely surrounding the renal tumor, with at least a 5 mm excess treatment margin involving the superior, lateral and medial aspects of the lesion. These findings are compatible with technically successful cryoablation. There is no evidence of post procedure complication was noted. The patient left the department in stable condition. Procedure Note Interface, Radiant Results - [facility] Sep 03, 2016 8:20 AM HEALTH SAFETY INSTRUCTOR PROCEDURE: CT-GUIDED RIGHT RENAL MASS BIOPSY AND CRYOABLATION OF SOLITARY RIGHT RENAL TUMOR Procedure date: 09/01/2016 History: Right renal mass Operators: Elidia Grove MD; Fabián Xie M.D.; Orville Alexander MD Medications: General endotracheal anesthesia Procedure and Findings: Orville Polanco M.D, the attending radiologist, was present for the critical and arce portions of the procedure with a midlevel, resident, and/or fellow participating. Overlapping portions were non arce and Sherri was immediately available. I interpret the critical and arce portion of this procedure to have been needle access. The risks, benefits, and alternatives to the procedure and sedation were explained to the patient, and written informed consent obtained. The lesion in the right kidney was localized on the initial non- contrast CT and the dermotomy entrance site marked on the skin. Utilizing usual sterile technique, the site was prepped and draped. A subcutaneous needle was positioned over the site of the lesion in the right kidney and the positioning was confirmed using CT. Lidocaine was then injected in the subcutaneous tissues at this site. Position of the right renal mass was confirmed by CT measurements. A 15 cm 20/22 Temno introducer needle was then advanced into the right renal mass and placement was confirmed by CT. 1 core biopsy was then obtained using 22-gauge Temno needle. The sample was sent to cytology and surgical pathology for analysis. Following cryoablation needle testing, one 15-cm long, cryoablation needle with 5 cm treatment zone, was placed into the lesion and optimally positioned under CT guidance. The needle placement was confirmed under CT and two 10 minute cryotherapy freezes were performed interspace by a 5 minutes of active thaw. A mid therapy CT of the treatment area was performed to confirm initial needle placement and satisfactory treatment zone. Recorded temperature measurements were deemed technically satisfactory and consistent with successful cryoablation. The cryotherapy needle was removed after the measured temperature was above [address] procedure [address] demonstrated low attenuation changes completely surrounding the renal tumor, with at least a 5 mm excess treatment margin involving the superior, lateral and medial aspects of the lesion. These findings are compatible with technically successful cryoablation. There is no evidence of post procedure complication was noted. The patient left the department in stable condition. IMPRESSION 1. Successful CT-guided right renal mass biopsy. 2. Technically successful Cryoablation of the right renal tumor as described above. Plan: Follow up cross-sectional imaging will be performed at 1 month, 3 months, 6 months, and 1 year for evaluation of treatment response and local control. Approved by Elidia Grove M.D. on 09/02/2016 9:56 AM By my electronic signature, I attest that I have personally reviewed the images for this examination and formulated the interpretations and opinions expressed in this report Finalized by George Alexander M.D. on 09/03/2016 8:17 AM. Dictated by Elidia Grove M.D. on 09/02/2016 9:[address] GUIDE NEEDLE PLACEMENT (09/01/2016 5:06 PM) Impressions 1. Successful CT-guided right renal mass biopsy. 2. Technically successful Cryoablation of the right renal tumor as described above. Plan: Follow up cross-sectional imaging will be performed at 1 month, 3 months, 6 months, and 1 year for evaluation of treatment response and local control. Approved by Elidia Grove M.D. on 09/02/2016 9:56 AM By my electronic signature, I attest that I have personally reviewed the images for this examination and formulated the interpretations and opinions expressed in this report Finalized by George Alexander M.D. on 09/03/2016 8:17 AM. Dictated by Elidia Grove M.D. on 09/02/2016 9:48 AM. Narrative PROCEDURE: CT-GUIDED RIGHT RENAL MASS BIOPSY AND CRYOABLATION OF SOLITARY RIGHT RENAL TUMOR Procedure date: 09/01/2016 History: Right renal mass Operators: Elidia Grove MD; Fabián Xie M.D.; Orville Alexander MD Medications: General endotracheal anesthesia Procedure and Findings: I, Orville Alexander M.D, the attending radiologist, was present for the critical and arce portions of the procedure with a midlevel, resident, and/or fellow participating.Overlapping portions were non arce and I was immediately available.I interpret the critical and arce portion of this procedure to have been needle access. The risks, benefits, and alternatives to the procedure and sedation were explained to the patient, and written informed consent obtained. The lesion in the right kidney was localized on the initial non- contrast CT and the dermotomy entrance site marked on the skin. Utilizing usual sterile technique, the site was prepped and draped. A subcutaneous needle was positioned over the site of the lesion in the right kidney and the positioning was confirmed using CT. Lidocaine was then injected in the subcutaneous tissues at this site. Position of the right renal mass was confirmed by CT measurements. A 15 cm 20/22 Temno introducer needle was then advanced into the right renal mass and placement was confirmed by CT. 1 core biopsy was then obtained using 22-gauge Temno needle. The sample was sent to cytology and surgical pathology for analysis. Following cryoablation needle testing, one 15-cm long, cryoablation needle with 5 cm treatment zone, was placed into the lesion and optimally positioned under CT guidance.The needle placement was confirmed under CT and two 10 minute cryotherapy freezes were performed interspace by a 5 minutes of active thaw. A mid therapy CT of the treatment area was performed to confirm initial needle placement and satisfactory treatment zone.Recorded temperature measurements were deemed technically satisfactory and consistent with successful cryoablation.The cryotherapy needle was removed after the measured temperature was above [address] procedure [address] demonstrated low attenuation changes completely surrounding the renal tumor, with at least a 5 mm excess treatment margin involving the superior, lateral and medial aspects of the lesion. These findings are compatible with technically successful cryoablation. There is no evidence of post procedure complication was noted. The patient left the department in stable condition. Procedure Note Interface, Radiant Results - [facility] Sep 03, 2016 8:20 AM HEALTH SAFETY INSTRUCTOR PROCEDURE: CT-GUIDED RIGHT RENAL MASS BIOPSY AND CRYOABLATION OF SOLITARY RIGHT RENAL TUMOR Procedure date: 09/01/2016 History: Right renal mass Operators: Elidia Grove MD; Fabián Xie M.D.; Orville Alexander MD Medications: General endotracheal anesthesia Procedure and Findings: I, Orville Alexander M.D, the attending radiologist, was present for the critical and arce portions of the procedure with a midlevel, resident, and/or fellow participating. Overlapping portions were non arce and I was immediately available. I interpret the critical and arce portion of this procedure to have been needle access. The risks, benefits, and alternatives to the procedure and sedation were explained to the patient, and written informed consent obtained. The lesion in the right kidney was localized on the initial non- contrast CT and the dermotomy entrance site marked on the skin. Utilizing usual sterile technique, the site was prepped and draped. A subcutaneous needle was positioned over the site of the lesion in the right kidney and the positioning was confirmed using CT. Lidocaine was then injected in the subcutaneous tissues at this site. Position of the right renal mass was confirmed by CT measurements. A 15 cm 20/22 Temno introducer needle was then advanced into the right renal mass and placement was confirmed by CT. 1 core biopsy was then obtained using 22-gauge Temno needle. The sample was sent to cytology and surgical pathology for analysis. Following cryoablation needle testing, one 15-cm long, cryoablation needle with 5 cm treatment zone, was placed into the lesion and optimally positioned under CT guidance. The needle placement was confirmed under CT and two 10 minute cryotherapy freezes were performed interspace by a 5 minutes of active thaw. A mid therapy CT of the treatment area was performed to confirm initial needle placement and satisfactory treatment zone. Recorded temperature measurements were deemed technically satisfactory and consistent with successful cryoablation. The cryotherapy needle was removed after the measured temperature was above [address] demonstrated low attenuation changes completely surrounding the renal tumor, with at least a 5 mm excess treatment margin involving the superior, lateral and medial aspects of the lesion. These findings are compatible with technically successful cryoablation. There is no evidence of post procedure complication was noted. The patient left the department in stable condition. IMPRESSION 1. Successful CT-guided right renal mass biopsy. 2. Technically successful Cryoablation of the right renal tumor as described above. Plan: Follow up cross-sectional imaging will be performed at 1 month, 3 months, 6 months, and 1 year for evaluation of treatment response and local control. Approved by Elidia Grove M.D. on 09/02/2016 9:56 AM By my electronic signature, I attest that I have personally reviewed the images for this examination and formulated the interpretations and opinions expressed in this report Finalized by George Alexander M.D. on 09/03/2016 8:17 AM. Dictated by Elidia Grove M.D. on 09/02/2016 9:48 AM. BLOOD TYPE CONFIRMATION - ORDER ONLY IF [...]
== END 2017-01-10 | disposition home or self-care (01) ==
LOC: ONC 13:26
PROVIDERS: ATTEND Internal Medicine Hematology & Oncology
DX: C64.1 Malignant neoplasm of right kidney, except renal pelvis (principal); D68.61 Antiphospholipid syndrome; I12.9 Hypertensive chronic kidney disease with stage 1 through stage 4 chronic kidney disease, or unspecified chronic kidney disease; N18.3 Chronic kidney disease, stage 3 (moderate); Z86.718 Personal history of other venous thrombosis and embolism; Z87.891 Personal history of nicotine dependence; Z79.82 Long term (current) use of aspirin
CPT/HCPCS: 99213

== ENCOUNTER → 2016-12-23 | Outpatient (CLI) | payer MEDICARE, OTHER ==
--- NOTE | 2016-12-23 10:27 | Diagnostic Imaging Report ---
PROCEDURE: US left lower extremity venous. TECHNIQUE: Multiple real-time grayscale images were obtained over the left lower extremity in various projections. Additional duplex Doppler and color Doppler images were also obtained. INDICATION: Pain in the posterior lateral aspect of the left calf. FINDINGS: The femoropopliteal segments of the veins in the left lower extremity demonstrates compressibility and venous color flow and waveforms compatible with patency. There is a also patent posterior tibial and peroneal veins. There is an intramuscular deep vein within the mid to posterior lateral aspect of the calf approximately 7 cm long demonstrating no compressibility and no flow compatible with deep venous thrombosis. IMPRESSION: There is a DVT involving about 7 cm segment of an intramuscular vein along the posterior lateral aspect of the mid left calf. The findings on this exam were communicated to nurse practitioner taking care of the patient Michaela Weiss by Mr. Lanza, the technologist who performed the exam at 10:15 AM. Dictated by: Dictated on workstation # [id number]
== END ==
LOC: RAD 09:10
PROVIDERS: ATTEND Nurse Practitioner Family
DX: I82.4Z2 Acute embolism and thrombosis of unspecified deep veins of left distal lower extremity (principal)

== ENCOUNTER → 2017-03-11 | Outpatient (CLI) | payer MEDICARE, OTHER ==
[~2017-03-11] VITALS: Ht 175.3 cm; Wt 74.8 kg
== END ==
LOC: PREOP 06:37
PROVIDERS: ATTEND Surgery
DX: Z01.818 Encounter for other preprocedural examination (principal); K21.9 Gastro-esophageal reflux disease without esophagitis; R11.0 Nausea; Z79.01 Long term (current) use of anticoagulants

== ENCOUNTER → 2017-03-15 | Day surgery (SDC) | payer MEDICARE, OTHER ==
[~2017-03-15] VITALS: Ht 175.3 cm; Wt 74.8 kg
[~2017-03-15] MED LIST changes: +APIX2.5T PO; +FINA5TAB PO; +HURRICAINE EXT TUBE (BENZOCAINE) ONE; +HURRICAINE EXT TUBE (BENZOCAINE) XX PRN; +MIDAZOLAM 2 MG/2 ML (VERSED) VIAL ONE; +NS IV 500 ML 500 ML IV PRN; +NS IV 500 ML 500 ML ONE; +fentaNYL INJECTION 100 MCG/2 ML AMP ONE
--- OUTSIDE RECORDS SUMMARY | 2017-03-15 12:07 | XMS REPORT | Clinical Summary ---
Author Author [facility] Organization [facility] Address Unknown Phone Unavailable Care Team Providers Care Flash Welding Machine Operator Name Role Phone PCP Unavailable Source Comments Some departments are not documenting in the electronic medical record. If you do not see the information that you expected, contact Release of Information in the Health Information Management department at [phone] for further assistance in locating additional records.[facility] Allergies Active Allergy Reactions Severity Noted Date Comments Ofloxacin HIVES, RASH 04/13/2012 Sulfa (Sulfonamide REDNESS 04/13/2012 "red spot on leg" Antibiotics) Tetracycline SEE COMMENTS 04/13/2012 "yeast infection" Current Medications Prescription Sig. Disp. [...] Take by mouth. Active D2) (VITAMIN D2 Indications: 2000 iu PO)Indications: 2000 iu finasteride (PROSCAR) 5 Take 5 mg by mouth daily. Active mg tablet Active Problems Problem Noted Date Renal cell carcinoma of right kidney (HCC) 09/01/2016 Overview: (R) Renal mass bx & cryoablation -- 09/01/2016. Path: cT1a; Chromophobe renal cell carcinoma. 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 Orthostatic hypotension 04/13/2012 Weight loss, non-intentional 04/13/2012 Encounters Date Type Specialty Care Team Description 12/21/2016 Telephone Urology Lio Lay, Follow-up Phone Call from Last 3 Months Family History Medical History Relation Name Comments Cancer Father Relation Name Status Comments Father Social History Tobacco Use Types Packs/Day Years Used Date Former Smoker Cigarettes 1 Quit: 08/02/1982 Smokeless Tobacco: Former Snuff User Alcohol Use Drinks/Week oz/Week Comments Yes 14 Glasses of 16.8 wine 14 Shots of liquor Sex Assigned at Date Recorded Not on file Last Filed Vital Signs Vital Sign Reading Time Taken Blood Pressure 153/89 10/09/2016 3:10 PM BALANCE WHEEL ARM BURNISHER Pulse 60 10/09/2016 3:10 PM BALANCE WHEEL ARM BURNISHER Temperature 36.4 C (97.5 F) 09/01/2016 7:30 PM BALANCE WHEEL ARM BURNISHER Respiratory Rate - - Oxygen Saturation 98% 09/01/2016 7:30 PM BALANCE WHEEL ARM BURNISHER Inhaled Oxygen - - Concentration Weight 79.7 kg (175 lb 9.6 oz) 10/09/2016 3:10 PM BALANCE WHEEL ARM BURNISHER Height 175.3 cm (5' 9") 10/09/2016 3:10 PM [employer]ANCE WHEEL ARM BURNISHER Body Mass Index 25.93 10/09/2016 3:10 PM BALANCE WHEEL ARM BURNISHER Plan of Treatment Health Maintenance Due Date Last Done Comments PHYSICAL (COMPREHENSIVE) 10/04/1950 EXAM PERTUSSIS VACCINE 10/04/1954 TETANUS VACCINE 10/04/1960 COLORECTAL CANCER 10/04/1993 SCREENING SHINGLES VACCINE 2003 ABDOMINAL AORTIC ANEURYSM 10/04/2008 SCREENING PREVNAR/PNEUMOVAX (#1) 10/04/2008 INFLUENZA VACCINE 04/02/2017 Results Not on filefrom Last 3 Months
--- OUTSIDE RECORDS SUMMARY | 2017-03-15 12:07 | XMS REPORT | Encounter Summary ---
Author Author [facility] Organization [facility] Address Unknown Phone Unavailable Care Team Providers Care Barrel Tester Name Role Phone PCP Unavailable Reason for Visit * Reason Comments Follow-up Phone Call Encounter Details Date Type Department Care Team Description 12/21/2016 Telephone [facility] Lio Lay, Follow-up Phone Call Physicians - Urology [address] MED [address] [place] [address] [place] [address] [phone] Social History Tobacco Use Types Packs/Day Years Used Date Former Smoker Cigarettes 1 Quit: 08/02/1982 Smokeless Tobacco: Former Snuff User Alcohol Use Drinks/Week oz/Week Comments Yes 14 Glasses of 16.8 wine 14 Shots of liquor Sex Assigned at Date Recorded Not on file as of this encounter Plan of Treatment Not on fileas of this encounter Visit Diagnoses Not on filein this encounter
--- NOTE | 2017-03-15 12:41 | History & Physicial ---
History of Present Illness History of Present Illness Reason for visit/HPI to undergo an upper endoscopy regarding epigastric pain and nausea and symptoms of reflux disease. Date of Admission Date Seen by Provider: Mar 15, 2017 Time Seen by Provider: 12:40 I consulted on this patient on 03/15/17 12:39 Attending Physician Eliezer Ac MD Admitting Physician Ruthann Galindo MD Consult Allergies and Home Medications Allergies Coded Allergies: Sulfa (Sulfonamide Antibiotics) (Verified Allergy, Severe, 03/11/17) ofloxacin (Verified Allergy, Unknown, 03/11/17) tetracycline (Unverified Allergy, Unknown, 03/11/17) Home Medications Alprazolam 0.25 Mg Tablet, 0.25 MG PO PRN, (Reported) Apixaban 2.5 Mg Tablet, 2.5 MG PO BID, (Reported) Carvedilol 3.125 Mg Tablet, 3.125 MG PO BID, (Reported) Cholecalciferol (Vitamin D3) 2,000 Unit Capsule, 2,000 UNIT PO HS, (Reported) Enalapril Maleate 5 Mg Tablet, 5 MG PO DAILY, (Reported) Finasteride 5 Mg Tablet, 5 MG PO DAILY, (Reported) Loperamide Hcl 2 Mg Capsule, 2 MG PO DAILY, (Reported) Melatonin 10 Mg Capsule, 8 MG PO HS, (Reported) Tamsulosin HCl 0.4 Mg Cap.er.24h, 0.4 MG PO HS, (Reported) Past Xwqstlp-Jbatnn-Cekwvl Hx Patient Social History Recent Foreign Travel: No Contact w/other who traveled: No Recent Hopitalizations: No Immunizations Up To Date Tetanus Booster (TDap): Unknown Date of Pneumonia Vaccine: Aug 19, 2015 Date of Influenza Vaccine: May 11, 2016 Seasonal Allergies Seasonal Allergies: No Surgeries HX Surgeries: Yes (KIDNEY ABLATION, HIATAL HERNIA REPAIR, ELBOW, RECTAL FISSURE ) Surgeries: Orthopedic Respiratory Hx Respiratory Disorders: Yes Cardiovascular Hx Cardiovascular Disorders: Yes (right bundle branch block) Cardiac Disorders: Deep Vein Thrombosis, Hypertension, Irregular Heartbeat Neurological Hx Neurological Disorders: No Reproductive System Hx Reproductive Disorders: No Sexually Transmitted Disease: No HIV/AIDS: No Genitourinary Hx Genitourinary Disorders: Yes ("kidneys are only functioning at 40%") Genitourinary Disorders: Benign Prostatic Hyperpl, Prostate Problems, Renal Failure Gastrointestinal Hx Gastrointestinal Disorders: Yes Gastrointestinal Disorders: Irritable Bowel Musculoskeletal Hx Musculoskeletal Disorders: Yes (arthritis-knees need to be replaced) Musculoskeletal Disorders: Arthritis Endocrine Hx Endocrine Disorders: No HEENT HX ENT Disorders: Yes (READING GLASSES) Loss of Vision: Denies Hearing Impairment: Hard of Hearing Cancer Hx Cancer: Yes Cancer: Skin, Kidney Psychosocial Hx Psychiatric Problems: No Integumentary HX Skin/Integumentary Disorder: Yes (MILD ECZEMA) Skin/Integumentary Disorders: Eczema Blood Transfusions Hx Blood Disorders: No Adverse Reaction to a Blood Tr: No (N/A) Family Medical History Family Hx: Cardiovascular disease G8 BROTHER FH: breast cancer 19 MOTHER FH: lung cancer 19 FATHER Kidney disease G8 BROTHER (ON DIALYSIS) Pacemaker 19 MOTHER Constitutional: no symptoms reported EENTM: no symptoms reported Respiratory: no symptoms reported Cardiovascular: no symptoms reported Gastrointestinal: abdominal pain (RUQ), nausea Genitourinary: no symptoms reported Musculoskeletal: no symptoms reported Skin: no symptoms reported Psychiatric/Neurological: Anxiety Physical Exam Vital Signs Capillary Refill : General Appearance: Anxious Neck: Normal Inspection Respiratory: Lungs Clear Cardiovascular: Regular Rate, Rhythm Gastrointestinal: Non Tender, Soft Extremity: Normal Inspection Neurologic/Psychiatric: Alert, Oriented x3 Assessment/Plan Assessment and Plan epigastric pain, heartburn and nausea. For upper endoscopy. Problems: ELIEZER AC MD Mar 15, 2017 12:41 pm
--- NOTE | 2017-03-15 12:41 | Conscious Sedation/ASA ---
Conscious Sedation Pre-Proced Time Reviewed: 12:41 ASA Class: 2 Airway Mallampati Classification: ([place] appropriate class) I. II. III, IV Lungs Heart ASA score ASA 1: a normal healthy patient ASA 2: a patient with a mild systemic disease (mid diabetes, controlled hypertension, obesity ASA 3: a patient with a severe systemic disease that limits activity (angina , COPD, prior Myocardial infarction) ASA 4: a patient with an incapacitating disease that is a constant threat to life (CHF, renal failure) ASA 5: a moribund patient not expected to survive 24 hrs. (ruptured aneurysm) ASA 6: a declared brain patient whose organs are being harvested. For emergent operations, add the letter E after the classification Grade 2 Sedation Plan: Discussed options with patient/fam Note The patient is an appropriate candidate to undergo the planned procedure, sedation, and anesthesia. The patient immediately re-assessed prior to indication. ELIEZER GONZALES MD Mar 15, 2017 12:41 pm
[2017-03-15 13:01] VITALS: BP 100/81
[2017-03-15] MEDS: fentaNYL INJECTION 100 MCG/2 ML AMP IVP PRN ×2 (13:30→13:34)
[2017-03-15] MEDS: MIDAZOLAM 2 MG/2 ML (VERSED) VIAL IVP PRN ×4 (13:33→13:38)
--- NOTE | 2017-03-15 13:48 | Endo Procedure Record ---
Endo Procedure Report Date of Procedure Mar 15, 2017 Surgeon (s) ELIEZER GONZALES MD Post Procedure/Op Diagnosis Esophagitis. Intact fundoplication Procedure Performed EGD with antral biopsy Description of Procedure Anesthesia Type: Conscious Sedation Specimen(s) collected/removed Antral mucosa Description of the Procedure Indication for the procedure: This gentleman had undergone fundoplication to manage reflux years ago, and received therapeutic benefit. Quite recently, he has developed nausea and occasional heartburn and therefore performing an upper endoscopy was felt to be reasonable. Informed consent was obtained after reviewing the procedure in detail. Description of the procedure: She was placed in left lateral decubitus position and his vital signs were monitored. Conscious sedation was achieved using Versed and fentanyl. The flexible gastroscope was introduced down the esophagus , past the stomach, into the proximal duodenum Findings Esophagus: Grade 2 esophagitis. Fundoplication itself was intact. Stomach and duodenum where normal. Due to nausea, and antral biopsy was obtained for Helicobacter status He he tolerated the procedure well and was taken back to the nursing area in a stable condition. Impression: Intact fundoplication. Minimal esophagitis. Helicobacter status pending Copies To: GARRICK NICK MD,ELIEZER Arnold MD Mar 15, 2017 1:48 pm
--- NOTE | 2017-03-15 13:49 | Discharge Inst-Simple/Standard ---
Discharge Inst-Standard Discharge Medications New, Converted or Re-Newed RX: Other Patient Instructions/Follow Up Plan of Care/Instructions/FU: follow up with his primary physician Activity as Tolerated: Yes Discharge Diet: No Restrictions ELIEZER GONZALES MD Mar 15, 2017 1:49 pm
[2017-03-15 14:10] VITALS: BP 100/60
[2017-03-15 14:36] VITALS: BP 126/78
[2017-03-15 14:45] VITALS: BP 126/78
== END | disposition home or self-care (01) ==
LOC: ENDO 12:02
PROVIDERS: ATTEND Surgery
DX: K20.9 Esophagitis, unspecified (principal); I12.9 Hypertensive chronic kidney disease with stage 1 through stage 4 chronic kidney disease, or unspecified chronic kidney disease; N18.9 Chronic kidney disease, unspecified; I45.10 Unspecified right bundle-branch block; N40.0 Benign prostatic hyperplasia without lower urinary tract symptoms; M17.0 Bilateral primary osteoarthritis of knee; L30.9 Dermatitis, unspecified; Z79.899 Other long term (current) drug therapy; Z86.718 Personal history of other venous thrombosis and embolism
CPT/HCPCS: 88305

== ENCOUNTER 2017-04-23 10:25 | Outpatient (RCR) | payer MEDICARE, OTHER ==
[~2017-04-23 10:25] MED LIST changes: -HURRICAINE EXT TUBE (BENZOCAINE) ONE; -HURRICAINE EXT TUBE (BENZOCAINE) XX PRN; -MIDAZOLAM 2 MG/2 ML (VERSED) VIAL ONE; -NS IV 500 ML 500 ML IV PRN; -NS IV 500 ML 500 ML ONE; -fentaNYL INJECTION 100 MCG/2 ML AMP ONE
[2017-04-23 11:00] LABS: BASOPHILS % (AUTO) 0 % (0-10); EOSINOPHILS # (AUTO) 0.2 10^3/uL (0.0-0.3); EOSINOPHILS % (AUTO) 2 % (0-10); LYMPHOCYTES # (AUTO) 1.5 X 10^3 (1.0-4.0); LYMPHOCYTES % (AUTO) 21 % (12-44); MEAN CORPUSCULAR HEMOGLOBIN 31 PG (25-34); MEAN CORPUSCULAR HGB CONC 34 G/DL (32-36); MEAN CORPUSCULAR VOLUME 90 FL (80-99); MEAN PLATELET VOLUME 10.4 FL (7.4-10.4); MONOCYTES # (AUTO) 0.6 X 10^3 (0.0-1.0); MONOCYTES % (AUTO) 8 % (0-12); NEUTROPHILS # (AUTO) 4.8 X 10^3 (1.8-7.8); NEUTROPHILS % (AUTO) 68 % (42-75); PLATELET COUNT 165 10^3/uL (130-400); RED BLOOD COUNT 4.82 10^6/uL (4.35-5.85); WHITE BLOOD COUNT 7.1 10^3/uL (4.3-11.0)
[2017-04-23 11:07] LABS: ALBUMIN 3.7 GM/DL (3.2-4.5); CALCIUM 8.7 MG/DL (8.5-10.1); CREATININE SERUM 2.1 MG/DL (0.60-1.30); POTASSIUM 4.9 MMOL/L (3.6-5.0); TOTAL PROTEIN 6.2 GM/DL (6.4-8.2)
== END 2017-05-01 | disposition home or self-care (01) ==
LOC: ONC 10:25
PROVIDERS: ATTEND Internal Medicine Hematology & Oncology
DX: C64.1 Malignant neoplasm of right kidney, except renal pelvis (principal); D68.61 Antiphospholipid syndrome; I12.9 Hypertensive chronic kidney disease with stage 1 through stage 4 chronic kidney disease, or unspecified chronic kidney disease; N18.3 Chronic kidney disease, stage 3 (moderate); Z86.718 Personal history of other venous thrombosis and embolism; Z87.891 Personal history of nicotine dependence; Z79.82 Long term (current) use of aspirin
CPT/HCPCS: 36415; 80053; 83615; 85025; 99213

== ENCOUNTER → 2017-07-27 | Outpatient (CLI) | payer MEDICARE, OTHER ==
--- NOTE | 2017-07-27 10:59 | Diagnostic Imaging Report ---
INDICATION: Right leg pain. COMPARISON: None. TECHNIQUE: Duplex, lorenzo-scale and color-flow imaging of the right lower extremity venous system was performed. FINDINGS: The common femoral vein, superficial femoral vein, profunda femoris, and popliteal veins are normal. These vessels show normal compressibility, color flow, and doppler augmentation. The deep calf veins, although not very well seen, demonstrate no distinct intraluminal thrombus. IMPRESSION: Negative venous Doppler of the right lower extremity. Dictated by: Dictated on workstation # [id number]
== END ==
LOC: RAD 10:20
PROVIDERS: ATTEND Nurse Practitioner Family
DX: M79.604 Pain in right leg (principal); Z86.718 Personal history of other venous thrombosis and embolism

== ENCOUNTER 2017-08-15 08:23 | Emergency (ER) | payer MEDICARE, OTHER ==
[~2017-08-15] VITALS: Ht 172.7 cm; Wt 77.1 kg
--- OUTSIDE RECORDS SUMMARY | 2017-08-15 08:28 | XMS REPORT | Clinical Summary ---
Author Author [facility] Organization [facility] Address Unknown Phone Unavailable Care Team Providers Care Hogshead Opener Name Role Phone PCP Unavailable Source Comments Some departments are not documenting in the electronic medical record. If you do not see the information that you expected, contact Release of Information in the Health Information Management department at [phone] for further assistance in locating additional records.[facility] Allergies Active Allergy Reactions Severity Noted [...] 1 Tab by mouth Active PO) daily. tamsulosin (FLOMAX) 0.4 Take 0.4 mg [...] mg by mouth daily. Active mg tablet ELIQUIS 2.5 mg tablet twice daily. 03/26/20 Active 17 Active Problems Problem Noted Date Renal cell carcinoma of right kidney (HCC) 09/01/2016 Overview: (R) Renal mass bx & cryoablation -- 09/01/2016. Path: cT1a; Chromophobe renal cell carcinoma. 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 Orthostatic hypotension 04/13/2012 Weight loss, non-intentional 04/13/2012 Family History Medical History Relation Name Comments [...] Vital Sign Reading Time Taken Blood Pressure 133/79 04/14/2017 1:01 PM CDT Pulse 54 04/14/2017 1:01 PM CDT Temperature 36.7 C (98 F) 04/14/2017 12:54 PM CDT Respiratory Rate - - Oxygen Saturation 98% 09/01/2016 7:30 PM FILAMENT WOUND PARTS FABRICATOR Inhaled Oxygen - - Concentration Weight 78.2 kg (172 lb 6.4 oz) 04/14/2017 12:54 PM CDT Height 175.3 cm (5' 9") 04/14/2017 12:54 PM CDT Body Mass Index 25.46 04/14/2017 12:54 PM CDT Plan of Treatment Health Maintenance Due Date Last Done Comments PHYSICAL (COMPREHENSIVE) 10/04/1950 EXAM PERTUSSIS VACCINE 10/04/1954 TETANUS VACCINE 10/04/1960 COLORECTAL CANCER 10/04/1993 SCREENING SHINGLES VACCINE 2003 ABDOMINAL AORTIC ANEURYSM 10/04/2008 SCREENING PREVNAR/PNEUMOVAX (#1) 10/04/2008 INFLUENZA VACCINE 03/02/2017 Results Not on filefrom Last 3 Months
--- OUTSIDE RECORDS SUMMARY | 2017-08-15 08:28 | XMS REPORT | Continuity of Care Document ---
Author Author [facility] Organization [facility] Address Unknown Phone Unavailable Care Team Providers Care Senior Security Analyst Name Role Phone [employer] Unavailable Unavailable Problems Medications Allergies, Adverse Reactions, Alerts Immunizations Results Vital Signs Encounters Location Location Details Encounter Type Encounter Number Reason For Visit Attending Provider ADM Date DC Date Status Source SPECIMEN [id number] [facility] 09/01/2016 09/01/2016 Active [facility] OUTPATIENT [id number] [place] 10/09/20162016 Active [facility] SPECIMEN [id number] JOAQUINA NDIAYE 04/09/201703/2017 Active [facility] SPECIMEN [id number] JOAQUINA NDIAYE 04/09/2017 Active [facility] Phill AGARWAL Active [facility] OP SURGERY [id number] Active [facility] Procedures Plan of Care Social History Assessment and Plan Family History Advance Directives Functional Status
--- OUTSIDE RECORDS SUMMARY | 2017-08-15 08:30 | XMS REPORT | Continuity of Care Document ---
Author Author [facility] Organization [facility] Address Unknown Phone Unavailable Allergies Active Description Code Type Severity Reaction Onset Reported/Identified Relationship to Patient Clinical Status Yes Sulfa (Sulfonamide Antibiotics) [id number] Drug Allergy Severe N/A 2016 Yes ofloxacin [id number] Drug Allergy Unknown N/A 03/11/2017 Yes tetracycline [id number] Drug Allergy Unknown N/A 03/11/2017 Medications There is no data. Problems Date Dx Coded Attending Type Code Diagnosis Diagnosed By 11/01/2012 Ot 562.10 DIVERTICULOSIS COLON (W/O MENT OF HEMORR 11/01/2012 Ot 600.00 HYPERTROPHY (BENIGN) OF PROSTATE W/O URI 11/01/2014 Ot 414.00 11/01/2014 Ot 427.81 11/01/2014 Ot 447.9 11/01/2014 Ot 585.9 11/01/2014 Ot 780.4 11/01/2014 Ot 414.00 11/01/2014 Ot 427.81 11/01/2014 Ot 447.9 11/01/2014 Ot 530.81 11/01/2014 Ot 585.9 11/01/2014 Ot 600.90 11/01/2014 Ot 715.90 11/01/2014 Ot 780.4 11/01/2014 Ot 784.7 11/01/2014 Ot 785.1 11/09/2014 Ot 414.00 11/09/2014 Ot 427.81 11/09/2014 Ot 447.9 11/09/2014 Ot 585.9 11/09/2014 Ot 780.4 11/09/2014 Ot 414.00 11/09/2014 Ot 427.81 11/09/2014 Ot 447.9 11/09/2014 Ot 530.81 11/09/2014 Ot 585.9 11/09/2014 Ot 600.90 11/09/2014 Ot 715.90 11/09/2014 Ot 780.4 11/09/2014 Ot 784.7 11/09/2014 Ot 785.1 11/26/2014 QUENTIN MD FACC, ALI FACP CCDS Ot 414.00 11/26/2014 QUENTIN MD FACC, ALI FACP CCDS Ot 427.81 11/26/2014 QUENTIN MD FACC, ALI FACP CCDS Ot 447.9 11/26/2014 QUENTIN FACC, ALI FACP CCDS Ot 530.81 11/26/2014 QUENTIN FACC, ALI FACP CCDS Ot 585.9 11/26/2014 QUENTIN MD FACC, ALI FACP CCDS Ot 600.90 11/26/2014 QUENTIN FACC, ALI FACP CCDS Ot 715.90 11/26/2014 QUENTIN FACC, ALI FACP CCDS Ot 780.4 11/26/2014 QUENTIN FACC, ALI FACP CCDS Ot 784.7 11/26/2014 QUENTIN FACC, ALI FACP CCDS Ot 414.00 11/26/2014 QUENTIN FACC, ALI FACP CCDS Ot 427.81 11/26/2014 [facility] FACC, ALI FACP CCDS Ot 447.9 11/26/2014 QUENTIN FACC, ALI FACP CCDS Ot 530.81 11/26/2014 QUENTIN FACC, ALI FACP CCDS Ot 585.9 11/26/2014 [facility] FACC, ALI FACP CCDS Ot 600.90 11/26/2014 [facility] FACC, ALI FACP CCDS Ot 715.90 11/26/2014 QUENTIN FACC, ALI FACP CCDS Ot 780.4 11/26/2014 [facility] FACC, ALI FACP CCDS Ot 784.7 06/20/2015 MELANIA VIDAL APRN Ot M79.89 06/20/2015 MELANIA VIDAL FELLING BUCKING SUPERVISOR Ot S80.12XA 06/20/2015 MELANIA VIDAL FELLING BUCKING SUPERVISOR Ot W10.9XXA 06/20/2015 MELANIA VIDAL FELLING BUCKING SUPERVISOR Ot Y92.009 06/20/2015 MELANIA VIDAL FELLING BUCKING SUPERVISOR Ot Y99.8 07/02/2015 MELANIA VIDAL APRN Ot M79.89 07/02/2015 MELANIA VIDAL FELLING BUCKING SUPERVISOR Ot S80.12XA 07/02/2015 MELANIA VIDAL FELLING BUCKING SUPERVISOR Ot W10.9XXA 07/02/2015 MELANIA VIDAL FELLING BUCKING SUPERVISOR Ot Y92.009 07/02/2015 MELANIA VIDAL FELLING BUCKING SUPERVISOR Ot Y99.8 08/20/2015 GARRICK NICK MD Ot E78.0 PURE HYPERCHOLESTEROLEMIA 08/20/2015 GARRICK NICK MD Ot I10 ESSENTIAL (PRIMARY) HYPERTENSION 08/20/2015 GARRICK NICK MD Ot I12.9 HYPERTENSIVE CHRONIC KIDNEY DISEASE W ST 08/20/2015 GARRICK NICK MD, Ot I82.411 ACUTE EMBOLISM AND THROMBOSIS OF RIGHT F 08/20/2015 GARRICK NICK MD Ot I82.431 ACUTE EMBOLISM AND THROMBOSIS OF RIGHT P 08/20/2015 GARRICK NICK MD Ot I83.893 VARICOSE VEINS OF BI LOW EXTREM W OTH CO 08/20/2015 GARRICK NICK MD Ot K58.9 IRRITABLE BOWEL SYNDROME WITHOUT DIARRHE 08/20/2015 GARRICK NICK MD Ot M17.0 BILATERAL PRIMARY OSTEOARTHRITIS OF KNEE 08/20/2015 GARRICK NICK MD Ot N18.3 CHRONIC KIDNEY DISEASE, STAGE 3 (MODERAT 08/20/2015 GARRICK NICK MD Ot N40.0 ENLARGED PROSTATE WITHOUT LOWER URINARY 08/20/2015 GARRICK NICK MD Ot R06.00 DYSPNEA, UNSPECIFIED 08/20/2015 GARRICK NICK MD Ot R07.1 CHEST PAIN ON BREATHING 08/20/2015 GARRICK NICK MD Ot Z23 ENCOUNTER FOR IMMUNIZATION 10/22/2015 NAOMY SAM Ot I12.9 10/22/2015 NAOMY SAM N Ot I82.411 10/22/2015 NAOMY SAM N Ot I82.431 10/22/2015 NAOMY SAM N Ot N18.3 10/22/2015 NAOMY SAM N Ot Z79.01 10/22/2015 NAOMY SAM N Ot Z87.891 12/19/2015 NAOMY SAM N Ot I12.9 HYPERTENSIVE CHRONIC KIDNEY DISEASE W ST 12/19/2015 NAOMY SAM N Ot I82.411 ACUTE EMBOLISM AND THROMBOSIS OF RIGHT F 12/19/2015 FLACO, BOBAN N Ot I82.431 ACUTE EMBOLISM AND THROMBOSIS OF RIGHT P 12/19/2015 NAOMY SAM N Ot N18.3 CHRONIC KIDNEY DISEASE, STAGE 3 (MODERAT 12/19/2015 FLACONAOMY LEUNG N Ot 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 12/19/2015 NAOMY SAM N Ot Z87.891 PERSONAL HISTORY OF NICOTINE DEPENDENCE 02/05/2016 NAOMY SAM N Ot I12.9 HYPERTENSIVE CHRONIC KIDNEY DISEASE W ST 02/05/2016 NAOMY SAM N Ot I82.411 ACUTE EMBOLISM AND THROMBOSIS OF RIGHT F 02/05/2016 NAOMY SAM N Ot I82.431 ACUTE EMBOLISM AND THROMBOSIS OF RIGHT P 02/05/2016 NAOMY SAM N Ot N18.3 CHRONIC KIDNEY DISEASE, STAGE 3 (MODERAT 02/05/2016 NAOMY SAM N Ot Z79.01 HALF-WAY (CURRENT) USE OF ANTICOAGULANT 02/05/2016 NAOMY SAM N Ot Z87.891 PERSONAL HISTORY OF NICOTINE DEPENDENCE 02/18/2016 NAOMY SAM N Ot I12.9 HYPERTENSIVE CHRONIC KIDNEY DISEASE W ST 02/18/2016 NAOMY SAM N Ot I82.411 ACUTE EMBOLISM AND THROMBOSIS OF RIGHT F 02/18/2016 FLACONAOMY LEUNG N Ot I82.431 ACUTE EMBOLISM AND THROMBOSIS OF RIGHT P 02/18/2016 NAOMY SAM N Ot N18.3 CHRONIC KIDNEY DISEASE, STAGE 3 (MODERAT 02/18/2016 FLACONAOMY LEUNG N Ot 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 02/18/2016 NAOMY SAM N Ot Z87.891 PERSONAL HISTORY OF NICOTINE DEPENDENCE 03/12/2016 MELANIA VIDAL FELLING BUCKING SUPERVISOR Ot M79.661 PAIN IN RIGHT LOWER LEG 03/12/2016 MELANIA VIDAL FELLING BUCKING SUPERVISOR Ot M79.661 PAIN IN RIGHT LOWER LEG 03/16/2016 MELANIA VIDAL FELLING BUCKING SUPERVISOR Ot M79.661 PAIN IN RIGHT LOWER LEG 03/16/2016 MELANIA VIDAL FELLING BUCKING SUPERVISOR Ot Z86.718 PERSONAL HISTORY OF OTHER VENOUS THROMBO 03/24/2016 NAOMY SAM N Ot I12.9 HYPERTENSIVE CHRONIC KIDNEY DISEASE W ST 03/24/2016 FLACONAOMY LEUNG N Ot I82.411 ACUTE EMBOLISM AND THROMBOSIS OF RIGHT F 03/24/2016 FLACO, BOBAN N Ot I82.431 ACUTE EMBOLISM AND THROMBOSIS OF RIGHT P 03/24/2016 FLACO, NIDHIAN N Ot N18.3 CHRONIC KIDNEY DISEASE, STAGE 3 (MODERAT 03/24/2016 FLACO BOBAN N Ot 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 03/24/2016 FLACO, BOBAN N Ot Z87.891 PERSONAL HISTORY OF NICOTINE DEPENDENCE 04/03/2016 MELANIA VIDAL APRN Ot M79.661 PAIN IN RIGHT LOWER LEG 04/03/2016 MELANIA VIDAL FELLING BUCKING SUPERVISOR Ot Z86.718 PERSONAL HISTORY OF OTHER VENOUS THROMBO 05/06/2016 PARK HURLEY, GARRICK Mancera Ot I12.9 HYPERTENSIVE CHRONIC KIDNEY DISEASE W ST 05/06/2016 GARRICK NICK MD Ot N18.4 CHRONIC KIDNEY DISEASE, STAGE 4 (SEVERE) 05/17/2016 NIDHI SAMAN N Ot C64.1 MALIGNANT NEOPLASM OF RIGHT KIDNEY, EXCE 05/17/2016 NAOMY SAM N Ot D68.61 ANTIPHOSPHOLIPID SYNDROME 05/17/2016 NIDHI SAMAN N Ot I12.9 HYPERTENSIVE CHRONIC KIDNEY DISEASE W ST 05/17/2016 FLACO BOBAN N Ot I82.411 ACUTE EMBOLISM AND THROMBOSIS OF RIGHT F 05/17/2016 FLACO, BOBAN N Ot I82.431 ACUTE EMBOLISM AND THROMBOSIS OF RIGHT P 05/17/2016 FLACO, BOBAN N Ot N18.3 CHRONIC KIDNEY DISEASE, STAGE 3 (MODERAT 05/17/2016 FLACO BOBAN N Ot Z79.01 HALF-WAY (CURRENT) USE OF ANTICOAGULANT 05/17/2016 FLACONIDHIAN N Ot Z87.891 PERSONAL HISTORY OF NICOTINE DEPENDENCE 05/18/2016 FLACO BOBAN N Ot I12.9 HYPERTENSIVE CHRONIC KIDNEY DISEASE W ST 05/18/2016 FLACO BOBAN N Ot I82.411 ACUTE EMBOLISM AND THROMBOSIS OF RIGHT F 05/18/2016 FLACO, BOBAN N Ot I82.431 ACUTE EMBOLISM AND THROMBOSIS OF RIGHT P 05/18/2016 FLACO, BOBAN N Ot N18.3 CHRONIC KIDNEY DISEASE, STAGE 3 (MODERAT 05/18/2016 FLACO BOBAN N Ot 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 05/18/2016 FLACO BOBAN N Ot Z87.891 PERSONAL HISTORY OF NICOTINE DEPENDENCE 07/24/2016 Ot 780.94 EARLY SATIETY 07/24/2016 Ot 783.21 LOSS OF WEIGHT 07/24/2016 Ot 787.20 DYSPHAGIA, UNSPECIFIED 07/24/2016 Ot 530.85 JOHNSON'S ESOPHAGUS 07/24/2016 Ot 536.3 GASTROPARESIS 07/24/2016 Ot V45.89 POSTSURGICAL STATES NEC 07/24/2016 Ot V72.84 EXAM PRE- OPERATIVE NOS 07/24/2016 Ot V72.84 EXAM PRE- OPERATIVE NOS 07/24/2016 Ot 414.00 CORON ATHEROSCLER NOS TYPE VESSEL, NATIV 07/24/2016 Ot 427.81 SINOATRIAL NODE DYSFUNCT 07/24/2016 Ot 447.9 ARTERIAL DISEASE NOS 07/24/2016 Ot 585.9 CHRONIC KIDNEY DISEASE, UNSPECIFIED 07/24/2016 Ot 780.4 DIZZINESS AND GIDDINESS 07/24/2016 QUENTIN HURLEY FACC, ALI FACP CCDS Ot 414.00 CORON ATHEROSCLER NOS TYPE VESSEL, NATIV 07/24/2016 QUENTIN HURLEY FACC, ALI FACP CCDS Ot 427.81 SINOATRIAL NODE DYSFUNCT 07/24/2016 QUENTIN HURLEY FACC, ALI FACP CCDS Ot 447.9 ARTERIAL DISEASE NOS 07/24/2016 QUENTIN HURLEY FACC, ALI FACP CCDS Ot 530.81 ESOPHAGEAL REFLUX 07/24/2016 QUENTIN HURLEY FACC, ALI FACP CCDS Ot 585.9 CHRONIC KIDNEY DISEASE, UNSPECIFIED 07/24/2016 QUENTIN HURLEY FACC, ALI FACP CCDS Ot 600.90 HYPERPLASIA OF PROSTATE, UNSPEC, W/O URI 07/24/2016 QUENTIN HURLEY FACC, ALI FACP CCDS Ot 715.90 OSTEOARTHROS NOS-UNSPEC 07/24/2016 QUENTIN HURLEY FACC, ALI FACP CCDS Ot 780.4 DIZZINESS AND GIDDINESS 07/24/2016 QUENTIN HURLEY FACC, ALI FACP CCDS Ot 784.7 EPISTAXIS 07/24/2016 Ot 414.00 CORON ATHEROSCLER NOS TYPE VESSEL, NATIV 07/24/2016 Ot 427.81 SINOATRIAL NODE DYSFUNCT 07/24/2016 Ot 447.9 ARTERIAL DISEASE NOS 07/24/2016 Ot 530.81 ESOPHAGEAL REFLUX 07/24/2016 Ot 585.9 CHRONIC KIDNEY DISEASE, UNSPECIFIED 07/24/2016 Ot 600.90 HYPERPLASIA OF PROSTATE, UNSPEC, W/O URI 07/24/2016 Ot 715.90 OSTEOARTHROS NOS-UNSPEC 07/24/2016 Ot 780.4 DIZZINESS AND GIDDINESS 07/24/2016 Ot 784.7 EPISTAXIS 07/24/2016 Ot 785.1 PALPITATIONS 07/24/2016 MELANIA VIDAL APRN Ot M79.89 OTHER SPECIFIED SOFT TISSUE DISORDERS 07/24/2016 MELANIA VIDAL APRN Ot S80.12XA CONTUSION OF LEFT LOWER LEG, INITIAL ENC 07/24/2016 MELANIA VIDAL APRN Ot W10.9XXA FALL (ON) (FROM) UNSPECIFIED STAIRS AND 07/24/2016 MELANIA VIDAL APRN Ot Y92.[address] IN [facility] NON-INST[facility] PRIVATE 07/24/2016 MELANIA VIDAL APRN Ot Y99.8 OTHER EXTERNAL CAUSE STATUS 07/24/2016 MELANIA VIDAL APRN Ot M79.661 PAIN IN RIGHT LOWER LEG 07/24/2016 MELANIA VIDAL APRN Ot Z86.718 PERSONAL HISTORY OF OTHER VENOUS THROMBO 07/24/2016 PARK HURLEY, GARRICK Mancera Ot I12.9 HYPERTENSIVE CHRONIC KIDNEY DISEASE W ST 07/24/2016 PARK HURLEY, GARRICK Mancera Ot N18.4 CHRONIC KIDNEY DISEASE, STAGE 4 (SEVERE) 07/24/2016 NAOMY SAM Ot I12.9 HYPERTENSIVE CHRONIC KIDNEY DISEASE W ST 07/24/2016 NAOMY SAM Ot I82.411 ACUTE EMBOLISM AND THROMBOSIS OF RIGHT F 07/24/2016 NAOMY SAM Ot I82.431 ACUTE EMBOLISM AND THROMBOSIS OF RIGHT P 07/24/2016 NAOMY SAM Ot N18.3 CHRONIC KIDNEY DISEASE, STAGE 3 (MODERAT 07/24/2016 NAOMY SAM Ot 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 07/24/2016 NAOMY SAM Ot Z87.891 PERSONAL HISTORY OF NICOTINE DEPENDENCE 07/24/2016 MELANIA VIDAL APRN Ot I11.0 HYPERTENSIVE HEART DISEASE WITH HEART FA 07/28/2016 MELANIA VIDAL APRN Ot I10 ESSENTIAL (PRIMARY) HYPERTENSION 07/29/2016 MELANIA VIDAL APRN Ot I12.9 HYPERTENSIVE CHRONIC KIDNEY DISEASE W ST 07/29/2016 MELANIA VIDAL FELLING BUCKING SUPERVISOR Ot I12.9 HYPERTENSIVE CHRONIC KIDNEY DISEASE W ST 07/29/2016 MELANIA VIDAL FELLING BUCKING SUPERVISOR Ot N28.89 OTHER SPECIFIED DISORDERS OF KIDNEY AND 07/29/2016 MELANIA VIDAL FELLING BUCKING SUPERVISOR Ot I12.9 HYPERTENSIVE CHRONIC KIDNEY DISEASE W ST 07/29/2016 MELANIA VIDAL FELLING BUCKING SUPERVISOR Ot N28.89 OTHER SPECIFIED DISORDERS OF KIDNEY AND 07/31/2016 GERTRUDIS MCGINNIS CARPENTER LABOR SUPERVISOR Ot K57.30 DVRTCLOS OF LG INT W/O PERFORATION OR AB 07/31/2016 GERTRUDIS MCGINNIS CARPENTER LABOR SUPERVISOR Ot N28.89 OTHER SPECIFIED DISORDERS OF KIDNEY AND 08/03/2016 MELANIA VIDAL APRN Ot I12.9 HYPERTENSIVE CHRONIC KIDNEY DISEASE W ST 08/03/2016 MELANIA VIDAL FELLING BUCKING SUPERVISOR Ot N28.89 OTHER SPECIFIED DISORDERS OF KIDNEY AND 08/03/2016 MELANIA VIDAL FELLING BUCKING SUPERVISOR Ot I12.9 HYPERTENSIVE CHRONIC KIDNEY DISEASE W ST 08/03/2016 MELANIA VIDAL FELLING BUCKING SUPERVISOR Ot N28.89 OTHER SPECIFIED DISORDERS OF KIDNEY AND 08/04/2016 MELANIA VIDAL FELLING BUCKING SUPERVISOR Ot I10 ESSENTIAL (PRIMARY) HYPERTENSION 08/20/2016 GERTRUDIS MCGINNIS CARPENTER LABOR SUPERVISOR Ot K57.30 DVRTCLOS OF LG INT W/O PERFORATION OR AB 08/20/2016 GERTRUDIS MCGINNIS CARPENTER LABOR SUPERVISOR Ot N28.89 OTHER SPECIFIED DISORDERS OF KIDNEY AND 08/21/2016 MELANIA VIDAL FELLING BUCKING SUPERVISOR Ot I12.9 HYPERTENSIVE CHRONIC KIDNEY DISEASE W ST 08/21/2016 MELANIA VIDAL FELLING BUCKING SUPERVISOR Ot N28.89 OTHER SPECIFIED DISORDERS OF KIDNEY AND 09/02/2016 NAOMY SAM Ot I12.9 HYPERTENSIVE CHRONIC KIDNEY DISEASE W ST 09/02/2016 NAOMY SAM Ot I82.411 ACUTE EMBOLISM AND THROMBOSIS OF RIGHT F 09/02/2016 NAOMY SAM Ot I82.431 ACUTE EMBOLISM AND THROMBOSIS OF RIGHT P 09/02/2016 NAOMY SAM Ot N18.3 CHRONIC KIDNEY DISEASE, STAGE 3 (MODERAT 09/02/2016 NAOMY SAM Ot Z79.01 HALF-WAY (CURRENT) USE OF ANTICOAGULANT 09/02/2016 NAOMY SAM Ot Z87.891 PERSONAL HISTORY OF NICOTINE DEPENDENCE 09/02/2016 RUEL HURLEY, JOEY [place] Ot R33.9 RETENTION OF URINE, UNSPECIFIED 09/02/2016 RUEL HURLEY, JOEY [place] Ot R50.9 FEVER, UNSPECIFIED 09/02/2016 RUEL HURLEY, JOEY [place] Ot Z98.890 OTHER SPECIFIED POSTPROCEDURAL STATES 09/29/2016 Ot 780.94 EARLY SATIETY 09/29/2016 Ot 783.21 LOSS OF WEIGHT 09/29/2016 Ot 787.20 DYSPHAGIA, UNSPECIFIED 09/29/2016 Ot 530.85 JOHNSON'S ESOPHAGUS 09/29/2016 Ot 536.3 GASTROPARESIS 09/29/2016 Ot V45.89 POSTSURGICAL STATES NEC 09/29/2016 Ot V72.84 EXAM PRE- OPERATIVE NOS 09/29/2016 Ot V72.84 EXAM PRE- OPERATIVE NOS 09/29/2016 Ot 414.00 CORON ATHEROSCLER NOS TYPE VESSEL, NATIV 09/29/2016 Ot 427.81 SINOATRIAL NODE DYSFUNCT 09/29/2016 Ot 447.9 ARTERIAL DISEASE NOS 09/29/2016 Ot 585.9 CHRONIC KIDNEY DISEASE, UNSPECIFIED 09/29/2016 Ot 780.4 DIZZINESS AND GIDDINESS 09/29/2016 QUENTIN HURLEY FACC, ALI FACP CCDS Ot 414.00 CORON ATHEROSCLER NOS TYPE VESSEL, NATIV 09/29/2016 QUENTIN HURLEY FACC, ALI FACP CCDS Ot 427.81 SINOATRIAL NODE DYSFUNCT 09/29/2016 QUENTIN HURLEY FACC, ALI FACP CCDS Ot 447.9 ARTERIAL DISEASE NOS 09/29/2016 QUENTIN HURLEY FACC, ALI FACP CCDS Ot 530.81 ESOPHAGEAL REFLUX 09/29/2016 QUENTIN HURLEY FACC, ALI FACP CCDS Ot 585.9 CHRONIC KIDNEY DISEASE, UNSPECIFIED 09/29/2016 QUENTIN HURLEY FACC, ALI FACP CCDS Ot 600.90 HYPERPLASIA OF PROSTATE, UNSPEC, W/O URI 09/29/2016 QUENTIN HURLEY FACC, ALI FACP CCDS Ot 715.90 OSTEOARTHROS NOS-UNSPEC 09/29/2016 QUENTIN HURLEY FACC, ALI FACP CCDS Ot 780.4 DIZZINESS AND GIDDINESS 09/29/2016 QUENTIN HURLEY FACC, ALI FACP CCDS Ot 784.7 EPISTAXIS 09/29/2016 Ot 414.00 CORON ATHEROSCLER NOS TYPE VESSEL, NATIV 09/29/2016 Ot 427.81 SINOATRIAL NODE DYSFUNCT 09/29/2016 Ot 447.9 ARTERIAL DISEASE NOS 09/29/2016 Ot 530.81 ESOPHAGEAL REFLUX 09/29/2016 Ot 585.9 CHRONIC KIDNEY DISEASE, UNSPECIFIED 09/29/2016 Ot 600.90 HYPERPLASIA OF PROSTATE, UNSPEC, W/O URI 09/29/2016 Ot 715.90 OSTEOARTHROS NOS-UNSPEC 09/29/2016 Ot 780.4 DIZZINESS AND GIDDINESS 09/29/2016 Ot 784.7 EPISTAXIS 09/29/2016 Ot 785.1 PALPITATIONS 09/29/2016 MELANIA VIDAL APRN Ot M79.89 OTHER SPECIFIED SOFT TISSUE DISORDERS 09/29/2016 MELANIA VIDAL APRN Ot S80.12XA CONTUSION OF LEFT LOWER LEG, INITIAL ENC 09/29/2016 MELANIA VIDAL APRN Ot W10.9XXA FALL (ON) (FROM) UNSPECIFIED STAIRS AND 09/29/2016 MELANIA VIDAL APRN Ot Y92.[address] IN [facility] NON-[facility] (PRIVATE 09/29/2016 MELANIA VIDAL APRN Ot Y99.8 OTHER EXTERNAL CAUSE STATUS 09/29/2016 MELANIA VIDAL APRN Ot M79.661 PAIN IN RIGHT LOWER LEG 09/29/2016 MELANIA VIDAL APRN Ot Z86.718 PERSONAL HISTORY OF OTHER VENOUS THROMBO 09/29/2016 GARRICK NICK MD Ot I12.9 HYPERTENSIVE CHRONIC KIDNEY DISEASE W ST 09/29/2016 GARRICK NICK MD Ot N18.4 CHRONIC KIDNEY DISEASE, STAGE 4 (SEVERE) 09/29/2016 NAOMY SAM Ot I12.9 HYPERTENSIVE CHRONIC KIDNEY DISEASE W ST 09/29/2016 NAOMY SAM Ot I82.411 ACUTE EMBOLISM AND THROMBOSIS OF RIGHT F 09/29/2016 NAOMY SAM Ot I82.431 ACUTE EMBOLISM AND THROMBOSIS OF RIGHT P 09/29/2016 NAOMY SAM Ot N18.3 CHRONIC KIDNEY DISEASE, STAGE 3 (MODERAT 09/29/2016 NAOMY SAM Ot Z79.01 HALF-WAY (CURRENT) USE OF ANTICOAGULANT 09/29/2016 NAOMY SAM Ot Z87.891 PERSONAL HISTORY OF NICOTINE DEPENDENCE 09/29/2016 MELANIA VIDAL FELLING BUCKING SUPERVISOR Ot I10 ESSENTIAL (PRIMARY) HYPERTENSION 09/29/2016 MELANIA VIDAL FELLING BUCKING SUPERVISOR Ot I12.9 HYPERTENSIVE CHRONIC KIDNEY DISEASE W ST 09/29/2016 MELANIA VDIAL FELLING BUCKING SUPERVISOR Ot N28.89 OTHER SPECIFIED DISORDERS OF KIDNEY AND 09/29/2016 GERTRUDIS MCGINNIS CARPENTER LABOR SUPERVISOR Ot K57.30 DVRTCLOS OF LG INT W/O PERFORATION OR AB 09/29/2016 GERTRUDIS MCGINNIS CARPENTER LABOR SUPERVISOR Ot N28.89 OTHER SPECIFIED DISORDERS OF KIDNEY AND 09/30/2016 PARK HURLEY, GARRICK Mancera Ot J18.9 PNEUMONIA, UNSPECIFIED ORGANISM 09/30/2016 PARK HURLEY, GARRICK Mancera Ot J18.9 PNEUMONIA, UNSPECIFIED ORGANISM 10/13/2016 NAOMY SAM N Ot I12.9 HYPERTENSIVE CHRONIC KIDNEY DISEASE W ST 10/13/2016 NAOMY SAM N Ot I82.411 ACUTE EMBOLISM AND THROMBOSIS OF RIGHT F 10/13/2016 NAOMY SAM N Ot I82.431 ACUTE EMBOLISM AND THROMBOSIS OF RIGHT P 10/13/2016 FLACO BOBAN N Ot N18.3 CHRONIC KIDNEY DISEASE, STAGE 3 (MODERAT 10/13/2016 NAOMY SAM N Ot 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 10/13/2016 NAOMY SAM N Ot Z87.891 PERSONAL HISTORY OF NICOTINE DEPENDENCE 10/20/2016 PARK HURLEY, GARRICK Mancera Ot J18.9 PNEUMONIA, UNSPECIFIED ORGANISM 10/22/2016 NAOMY SAM N Ot C64.1 MALIGNANT NEOPLASM OF RIGHT KIDNEY, EXCE 10/22/2016 NAOMY SAM N Ot D68.61 ANTIPHOSPHOLIPID SYNDROME 10/22/2016 NAOMY SAM N Ot I12.9 HYPERTENSIVE CHRONIC KIDNEY DISEASE W ST 10/22/2016 FLACONAOMY LEUNG N Ot I82.411 ACUTE EMBOLISM AND THROMBOSIS OF RIGHT F 10/22/2016 FLACO BOBJAIRO N Ot I82.431 ACUTE EMBOLISM AND THROMBOSIS OF RIGHT P 10/22/2016 FLACO BOBAN N Ot N18.3 CHRONIC KIDNEY DISEASE, STAGE 3 (MODERAT 10/22/2016 FLACONAOMY LEUNG N Ot 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 10/22/2016 NAOMY SAM N Ot Z87.891 PERSONAL HISTORY OF NICOTINE DEPENDENCE 10/22/2016 NAOMY SAM Ira Ot C64.1 MALIGNANT NEOPLASM OF RIGHT KIDNEY, EXCE 10/22/2016 NAOMY SAM N Ot D68.61 ANTIPHOSPHOLIPID SYNDROME 10/22/2016 NAOMY SAM N Ot I12.9 HYPERTENSIVE CHRONIC KIDNEY DISEASE W ST 10/22/2016 NAMOY SAM N Ot I82.411 ACUTE EMBOLISM AND THROMBOSIS OF RIGHT F 10/22/2016 FLACO NIDHIJAIRO N Ot I82.431 ACUTE EMBOLISM AND THROMBOSIS OF RIGHT P 10/22/2016 NAOMY SAM N Ot N18.3 CHRONIC KIDNEY DISEASE, STAGE 3 (MODERAT 10/22/2016 NAOMY SAM N Ot 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 10/22/2016 NAOMY SAM N Ot Z87.891 PERSONAL HISTORY OF NICOTINE DEPENDENCE 11/23/2016 NAOMY SAM Ira Ot C64.1 MALIGNANT NEOPLASM OF RIGHT KIDNEY, EXCE 11/23/2016 NAOMY SAM N Ot D68.61 ANTIPHOSPHOLIPID SYNDROME 11/23/2016 NAOMY SAM N Ot I12.9 HYPERTENSIVE CHRONIC KIDNEY DISEASE W ST 11/23/2016 NAOMY SAM N Ot N18.3 CHRONIC KIDNEY DISEASE, STAGE 3 (MODERAT 11/23/2016 NAOMY SAM N Ot 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 11/23/2016 NAOMY SAM N Ot Z86.718 PERSONAL HISTORY OF OTHER VENOUS THROMBO 11/23/2016 NAOMY SAM [place] Ot Z87.891 PERSONAL HISTORY OF NICOTINE DEPENDENCE 12/23/2016 MELANIA VIDAL FELLING BUCKING SUPERVISOR Ot M79.605 PAIN IN LEFT LEG 12/23/2016 MELANIA VIDAL FELLING BUCKING SUPERVISOR Ot M79.605 PAIN IN LEFT LEG 12/23/2016 MELANIA VIDAL FELLING BUCKING SUPERVISOR Ot M79.605 PAIN IN LEFT LEG 12/25/2016 MELANIA VIDAL FELLING BUCKING SUPERVISOR Ot I82.4Z2 AC EMBLSM AND THOMBOS UNSP DEEP VEINS OF 01/07/2017 MELANIA VIDAL FELLING BUCKING SUPERVISOR Ot I82.4Z2 AC EMBLSM AND THOMBOS UNSP DEEP VEINS OF 01/10/2017 FLACO, BOBAN N Ot C64.1 MALIGNANT NEOPLASM OF RIGHT KIDNEY, EXCE 01/10/2017 NAOMY SAM N Ot D68.61 ANTIPHOSPHOLIPID SYNDROME 01/10/2017 NAOMY SAM N Ot I12.9 HYPERTENSIVE CHRONIC KIDNEY DISEASE W ST 01/10/2017 NAOMY SAM Ot N18.3 CHRONIC KIDNEY DISEASE, STAGE 3 (MODERAT 01/10/2017 NAOMY SAM N Ot 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 01/10/2017 NAOMY SAM N Ot Z86.718 PERSONAL HISTORY OF OTHER VENOUS THROMBO 01/10/2017 NAOMY SAM N Ot Z87.891 PERSONAL HISTORY OF NICOTINE DEPENDENCE 01/16/2017 NAOMY SAM N Ot C64.1 MALIGNANT NEOPLASM OF RIGHT KIDNEY, EXCE 01/16/2017 NAOMY SAM N Ot D68.61 ANTIPHOSPHOLIPID SYNDROME 01/16/2017 NAOMY SAM N Ot I12.9 HYPERTENSIVE CHRONIC KIDNEY DISEASE W ST 01/16/2017 NAOMY SAM N Ot N18.3 CHRONIC KIDNEY DISEASE, STAGE 3 (MODERAT 01/16/2017 NAOMY SAM N Ot 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 01/16/2017 NAOMY SAM N Ot Z86.718 PERSONAL HISTORY OF OTHER VENOUS THROMBO 01/16/2017 NAOMY SAM N Ot Z87.891 PERSONAL HISTORY OF NICOTINE DEPENDENCE 02/13/2017 Ot 780.94 EARLY SATIETY 02/13/2017 Ot 783.21 LOSS OF WEIGHT 02/13/2017 Ot 787.20 DYSPHAGIA, UNSPECIFIED 02/13/2017 Ot 530.85 JOHNSON'S ESOPHAGUS 02/13/2017 Ot 536.3 GASTROPARESIS 02/13/2017 Ot V45.89 POSTSURGICAL STATES NEC 02/13/2017 Ot V72.84 EXAM PRE- OPERATIVE NOS 02/13/2017 Ot V72.84 EXAM PRE- OPERATIVE NOS 02/13/2017 Ot 414.00 CORON ATHEROSCLER NOS TYPE VESSEL, NATIV 02/13/2017 Ot 427.81 SINOATRIAL NODE DYSFUNCT 02/13/2017 Ot 447.9 ARTERIAL DISEASE NOS 02/13/2017 Ot 585.9 CHRONIC KIDNEY DISEASE, UNSPECIFIED 02/13/2017 Ot 780.4 DIZZINESS AND GIDDINESS 02/13/2017 QUENTIN HURLEY FACC, ALI FACP CCDS Ot 414.00 CORON ATHEROSCLER NOS TYPE VESSEL, NATIV 02/13/2017 QUENTIN HURLEY FACC, ALI FACP CCDS Ot 427.81 SINOATRIAL NODE DYSFUNCT 02/13/2017 QUENTIN HURLEY FACC, ALI FACP CCDS Ot 447.9 ARTERIAL DISEASE NOS 02/13/2017 QUENTIN HURLEY FACC, ALI FACP CCDS Ot 530.81 ESOPHAGEAL REFLUX 02/13/2017 QUENTIN HURLEY FACC, ALI FACP CCDS Ot 585.9 CHRONIC KIDNEY DISEASE, UNSPECIFIED 02/13/2017 QUENTIN MD FACC, ALI FACP CCDS Ot 600.90 HYPERPLASIA OF PROSTATE, UNSPEC, W/O URI 02/13/2017 QUENTIN HURLEY FACC, ALI FACP CCDS Ot 715.90 OSTEOARTHROS NOS-UNSPEC 02/13/2017 QUENTIN HURLEY FAC, ALI FACP CCDS Ot 780.4 DIZZINESS AND GIDDINESS 02/13/2017 QUENTIN HURLEY FACC, ALI FACP CCDS Ot 784.7 EPISTAXIS 02/13/2017 Ot 414.00 CORON ATHEROSCLER NOS TYPE VESSEL, NATIV 02/13/2017 Ot 427.81 SINOATRIAL NODE DYSFUNCT 02/13/2017 Ot 447.9 ARTERIAL DISEASE NOS 02/13/2017 Ot 530.81 ESOPHAGEAL REFLUX 02/13/2017 Ot 585.9 CHRONIC KIDNEY DISEASE, UNSPECIFIED 02/13/2017 Ot 600.90 HYPERPLASIA OF PROSTATE, UNSPEC, W/O URI 02/13/2017 Ot 715.90 OSTEOARTHROS NOS-UNSPEC 02/13/2017 Ot 780.4 DIZZINESS AND GIDDINESS 02/13/2017 Ot 784.7 EPISTAXIS 02/13/2017 Ot 785.1 PALPITATIONS 02/13/2017 MELANIA 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 (PRIVATE 02/13/2017 MELANIA VIDAL APRN Ot Y99.8 OTHER EXTERNAL CAUSE STATUS 02/13/2017 MELANIA VIDAL APRN Ot M79.661 PAIN IN RIGHT LOWER LEG 02/13/2017 MELANIA VIDAL APRN Ot Z86.718 PERSONAL HISTORY OF OTHER VENOUS THROMBO 02/13/2017 PARK HURLEY, GARRICK Mancera Ot I12.9 HYPERTENSIVE CHRONIC KIDNEY DISEASE W ST 02/13/2017 GARRICK NICK MD Ot N18.4 CHRONIC KIDNEY DISEASE, STAGE 4 (SEVERE) 02/13/2017 MELANIA VIDAL APRN Ot I10 ESSENTIAL (PRIMARY) HYPERTENSION 02/13/2017 MELANIA VIDAL APRN Ot I12.9 HYPERTENSIVE CHRONIC KIDNEY DISEASE W ST 02/13/2017 MELANIA VIDAL APRN Ot N28.89 OTHER SPECIFIED DISORDERS OF KIDNEY AND 02/13/2017 GERTRUDIS MCGINNIS Ot K57.30 DVRTCLOS OF LG INT W/O PERFORATION OR AB 02/13/2017 GERTRUDIS MCGINNIS Ot N28.89 OTHER SPECIFIED DISORDERS OF KIDNEY AND 02/13/2017 GARRICK NICK MD, Ot J18.9 PNEUMONIA, UNSPECIFIED ORGANISM 02/13/2017 MELANIA VIDAL APRN Ot I82.4Z2 AC EMBLSM AND THOMBOS UNSP DEEP VEINS OF 02/13/2017 NAOMY SAM Ot C64.1 MALIGNANT NEOPLASM OF RIGHT KIDNEY, EXCE 02/13/2017 NAOMY SAM Ot D68.61 ANTIPHOSPHOLIPID SYNDROME 02/13/2017 NAOMY SAM Ot I12.9 HYPERTENSIVE CHRONIC KIDNEY DISEASE W ST 02/13/2017 NAOMY SAM Ot N18.3 CHRONIC KIDNEY DISEASE, STAGE 3 (MODERAT 02/13/2017 NAOMY SAM Ot Z79.82 HALF-WAY (CURRENT) USE OF ASPIRIN 02/13/2017 NAOMY SAM Ot Z86.718 PERSONAL HISTORY OF OTHER VENOUS THROMBO 02/13/2017 NAOMY SAM Ot Z87.891 PERSONAL HISTORY OF NICOTINE DEPENDENCE 03/11/2017 ELIEZER GONZALES MD, Ot K21.9 GASTRO-ESOPHAGEAL REFLUX DISEASE WITHOUT 03/11/2017 JANET HURLEY, ELIEZER Arnold Ot R11.0 NAUSEA 03/11/2017 ELIEZER GONZALES MD, Ot Z01.818 ENCOUNTER FOR OTHER PREPROCEDURAL EXAMIN 03/11/2017 ELIEZER GONZALES MD Ot Z79.01 HALF-WAY (CURRENT) USE OF ANTICOAGULANT 03/11/2017 NAOMY SAM Ira Ot C64.1 MALIGNANT NEOPLASM OF RIGHT KIDNEY, EXCE 03/11/2017 NAOMY SAM Ira Ot D68.61 ANTIPHOSPHOLIPID SYNDROME 03/11/2017 FLACO, NAOMY Roth Ot I12.9 HYPERTENSIVE CHRONIC KIDNEY DISEASE W ST 03/11/2017 FLACO, NAOMY Roth Ot N18.3 CHRONIC KIDNEY DISEASE, STAGE 3 (MODERAT 03/11/2017 FLACO, NAOMY Roth Ot Z79.82 HALF-WAY (CURRENT) USE OF ASPIRIN 03/11/2017 FLACO, NAOMY Roth Ot Z86.718 PERSONAL HISTORY OF OTHER VENOUS THROMBO 03/11/2017 FLACONAOMY Ot Z87.891 PERSONAL HISTORY OF NICOTINE DEPENDENCE 03/11/2017 ELIEZER GONZALES MD Ot K21.9 GASTRO-ESOPHAGEAL REFLUX DISEASE WITHOUT 03/11/2017 ELIEZER GONZALES MD Ot R11.0 NAUSEA 03/11/2017 ELIEZER GONZALES MD Ot Z01.818 ENCOUNTER FOR OTHER PREPROCEDURAL EXAMIN 03/11/2017 ELIEZER GONZALES MD Ot 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 03/17/2017 ELIEZER GONZALES MD Ot I12.9 HYPERTENSIVE CHRONIC KIDNEY DISEASE W ST 03/17/2017 ELIEZER GONZALES MD Ot I45.10 UNSPECIFIED RIGHT BUNDLE-BRANCH BLOCK 03/17/2017 ELIEZER GONZALES MD Ot K20.9 ESOPHAGITIS, UNSPECIFIED 03/17/2017 ELIEZER GONZALES MD Ot L30.9 DERMATITIS, UNSPECIFIED 03/17/2017 ELIEZER GONZALES MD Ot M17.0 BILATERAL PRIMARY OSTEOARTHRITIS OF KNEE 03/17/2017 ELIEZER GONZALES MD Ot N18.9 CHRONIC KIDNEY DISEASE, UNSPECIFIED 03/17/2017 ELIEZER GONZALES MD Ot N40.0 BENIGN PROSTATIC HYPERPLASIA WITHOUT LOW 03/17/2017 ELIEZER GONZALES MD Ot Z79.899 OTHER HALF-WAY (CURRENT) DRUG THERAPY 03/17/2017 ELIEZER GONZALES MD Ot Z86.718 PERSONAL HISTORY OF OTHER VENOUS THROMBO 03/17/2017 ELIEZER GONZALES MD Ot I12.9 HYPERTENSIVE CHRONIC KIDNEY DISEASE W ST 03/17/2017 JANET HURLEY, ELIEZER Arnold Ot I45.10 UNSPECIFIED RIGHT BUNDLE-BRANCH BLOCK 03/17/2017 JANET HURLEY, ELIEZER Arnold Ot K20.9 ESOPHAGITIS, UNSPECIFIED 03/17/2017 JANET HURLEY, ELIEZER Arnold Ot L30.9 DERMATITIS, UNSPECIFIED 03/17/2017 JANET HURLEY, ELIEZER Arnold Ot M17.0 BILATERAL PRIMARY OSTEOARTHRITIS OF KNEE 03/17/2017 JANET HURLEY, ELIEZER Arnold Ot N18.9 CHRONIC KIDNEY DISEASE, UNSPECIFIED 03/17/2017 JANET HURLEY, ELIEZER Arnold Ot N40.0 BENIGN PROSTATIC HYPERPLASIA WITHOUT LOW 03/17/2017 JANET HURLEY, ELIEZER Arnold Ot Z79.899 OTHER HALF-WAY (CURRENT) DRUG THERAPY 03/17/2017 JANET HURLEY, ELIEZER Arnold Ot Z86.718 PERSONAL HISTORY OF OTHER VENOUS THROMBO 03/26/2017 MELANIA VIDAL APRN Ot I82.4Z2 AC EMBLSM AND THOMBOS UNSP DEEP VEINS OF 04/26/2017 NAOMY SAM Ot C64.1 MALIGNANT NEOPLASM OF RIGHT KIDNEY, EXCE 04/26/2017 NAOMY SAM N Ot D68.61 ANTIPHOSPHOLIPID SYNDROME 04/26/2017 NAOMY SAM N Ot I12.9 HYPERTENSIVE CHRONIC KIDNEY DISEASE W ST 04/26/2017 NAOMY SAM N Ot N18.3 CHRONIC KIDNEY DISEASE, STAGE 3 (MODERAT 04/26/2017 NAOMY SAM N Ot Z79.82 HALF-WAY (CURRENT) USE OF ASPIRIN 04/26/2017 NAOMY SAM N Ot Z86.718 PERSONAL HISTORY OF OTHER VENOUS THROMBO 04/26/2017 NAOMY SAM N Ot Z87.891 PERSONAL HISTORY OF NICOTINE DEPENDENCE 05/01/2017 NAOMY SAM N Ot C64.1 MALIGNANT NEOPLASM OF RIGHT KIDNEY, EXCE 05/01/2017 NAOMY SAM N Ot D68.61 ANTIPHOSPHOLIPID SYNDROME 05/01/2017 NAOMY SAM N Ot I12.9 HYPERTENSIVE CHRONIC KIDNEY DISEASE W ST 05/01/2017 NAOMY SAM N Ot N18.3 CHRONIC KIDNEY DISEASE, STAGE 3 (MODERAT 05/01/2017 NAOMY SAM N Ot Z79.82 HALF-WAY (CURRENT) USE OF ASPIRIN 05/01/2017 NAOMY SAM N Ot Z86.718 PERSONAL HISTORY OF OTHER VENOUS THROMBO 05/01/2017 NAOMY SAM Ira Ot Z87.891 PERSONAL HISTORY OF NICOTINE DEPENDENCE 05/04/2017 ELIEZER GONZALES MD Ot I12.9 HYPERTENSIVE CHRONIC KIDNEY DISEASE W ST 05/04/2017 ELIEZER GONZALES MD Ot I45.10 UNSPECIFIED RIGHT BUNDLE-BRANCH BLOCK 05/04/2017 ELIEZER GONZALES MD Ot K20.9 ESOPHAGITIS, UNSPECIFIED 05/04/2017 ELIEZER GONZALES MD, Ot L30.9 DERMATITIS, UNSPECIFIED 05/04/2017 ELIEZER GONZALES MD, Ot M17.0 BILATERAL PRIMARY OSTEOARTHRITIS OF KNEE 05/04/2017 ELIEZER GONZALES MD, Ot N18.9 CHRONIC KIDNEY DISEASE, UNSPECIFIED 05/04/2017 ELIEZER GONZALES MD, Ot N40.0 BENIGN PROSTATIC HYPERPLASIA WITHOUT LOW 05/04/2017 ELIEZER GONZALES MD, Ot Z79.899 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 Results Test Result Range Comprehensive metabolic panel - 04/13/16 11:24 Serum or plasma sodium measurement (moles/volume) 139 mmol/L 135-145 Serum or plasma potassium measurement (moles/volume) 5.0 mmol/L 3.6-5.0 Serum or plasma chloride measurement (moles/volume) 106 mmol/L 98-107 Carbon dioxide 25 mmol/L 21-32 Serum or plasma anion gap determination (moles/volume) 8 mmol/L 5-14 Serum or plasma urea nitrogen measurement (mass/volume) 26 mg/dL 7-18 Serum or plasma creatinine measurement (mass/volume) 1.99 mg/dL 0.60-1.30 Serum or plasma urea nitrogen/creatinine mass ratio 13 NRG Serum or plasma creatinine measurement with calculation of estimated glomerular filtration rate 33 NRG Serum or plasma glucose measurement (mass/volume) 96 mg/dL 70-105 Serum or plasma calcium measurement (mass/volume) 9.0 mg/dL 8.5-10.1 Serum or plasma total bilirubin measurement (mass/volume) 0.8 mg/dL 0.1-1.0 Serum or plasma alkaline phosphatase measurement (enzymatic activity/volume) 52 U/L 40-136 Serum or plasma aspartate aminotransferase measurement (enzymatic activity/ volume) 19 U/L 5-34 Serum or plasma alanine aminotransferase measurement (enzymatic activity/volume ) 21 U/L 0-55 Serum or plasma protein measurement (mass/volume) 5.9 g/dL 6.4-8.2 Serum or plasma albumin measurement (mass/volume) 3.8 g/dL 3.2-4.5 Complete blood count (CBC) with automated white blood cell (WBC) differential - 09/02/16 20:48 Blood leukocytes automated count (number/volume) 9.9 10*3/uL 4.3-11.0 Blood erythrocytes automated count (number/volume) 5.04 10*6/uL 4.35-5.85 Venous blood hemoglobin measurement (mass/volume) 15.6 g/dL 13.3-17.7 Blood hematocrit (volume fraction) 44 % 40-54 Automated erythrocyte mean corpuscular volume 88 [foz_us] 80-99 Automated erythrocyte mean corpuscular hemoglobin (mass per erythrocyte) 31 pg 25-34 Automated erythrocyte mean corpuscular hemoglobin concentration measurement ( mass/volume) 35 g/dL 32-36 Automated erythrocyte distribution width ratio 12.6 % 10.0-14.5 Automated blood platelet count (count/volume) 156 10*3/uL 130-400 Automated blood platelet mean volume measurement 10.3 [foz_us] 7.4-10.4 Automated blood neutrophils/100 leukocytes 71 % 42-75 Automated blood lymphocytes/100 leukocytes 16 % 12-44 Blood monocytes/100 leukocytes 11 % 0-12 Automated blood eosinophils/100 leukocytes 2 % 0-10 Automated blood basophils/100 leukocytes 0 % 0-10 Blood neutrophils automated count (number/volume) 7.0 10*3 1.8-7.8 Blood lymphocytes automated count (number/volume) 1.6 10*3 1.0-4.0 Blood monocytes automated count (number/volume) 1.1 10*3 0.0-1.0 Automated eosinophil count 0.2 10*3/uL 0.0-0.3 Automated blood basophil count (count/volume) 0.0 10*3/uL 0.0-0.1 Complete urinalysis with reflex to culture - 09/02/16 20:48 Urine color determination YELLOW NRG Urine clarity determination SLIGHTLY CLOUDY NRG Urine pH measurement by test strip 5 5-9 Specific gravity of urine by test strip 1.015 1.016- 1.022 Urine protein assay by test strip, semi-quantitative 3+ NEGATIVE Urine glucose detection by automated test strip NEGATIVE NEGATIVE Erythrocytes detection in urine sediment by light microscopy 2+ NEGATIVE Urine ketones detection by automated test strip NEGATIVE NEGATIVE Urine nitrite detection by test strip NEGATIVE NEGATIVE Urine total bilirubin detection by test strip NEGATIVE NEGATIVE Urine urobilinogen measurement by automated test strip (mass/volume) NORMAL NORMAL Urine leukocyte esterase detection by dipstick NEGATIVE NEGATIVE Automated urine sediment erythrocyte count by microscopy (number/high power field) [HPF] NRG Automated urine sediment leukocyte count by microscopy (number/high power field ) NONE NRG Bacteria detection in urine sediment by light microscopy NONE NRG Squamous epithelial cells detection in urine sediment by light microscopy RARE NRG Crystals detection in urine sediment by light microscopy NONE NRG Casts detection in urine sediment by light microscopy NONE NRG Mucus detection in urine sediment by light microscopy NEGATIVE NRG Complete urinalysis with reflex to culture NO NRG PT panel in platelet poor plasma by coagulation assay - 09/02/16 20:48 Prothrombin time (PT) in platelet poor plasma by coagulation assay 12.8 s 12.2-14.7 INR in platelet poor plasma or blood by coagulation assay 1.0 0.8-1.4 Activated partial thromboplastin time (aPTT) in platelet poor plasma bycoagulation assay - 09/02/16 20:48 Activated partial thromboplastin time (aPTT) in platelet poor plasma bycoagulation assay 26 s 24-35 Blood lactic acid measurement (moles/volume) - 09/02/16 20:48 Blood lactic acid measurement (moles/volume) 0.8 mmol/L 0.5-2.0 Comprehensive metabolic panel - 09/02/16 20:48 Serum or plasma sodium measurement (moles/volume) 139 mmol/L 135-145 Serum or plasma potassium measurement (moles/volume) 4.3 mmol/L 3.6-5.0 Serum or plasma chloride measurement (moles/volume) 105 mmol/L 98-107 Carbon dioxide 23 mmol/L 21-32 Serum or plasma anion gap determination (moles/volume) 11 mmol/L 5-14 Serum or plasma urea nitrogen measurement (mass/volume) 33 mg/dL 7-18 Serum or plasma creatinine measurement (mass/volume) 2.51 mg/dL 0.60-1.30 Serum or plasma urea nitrogen/creatinine mass ratio 13 NRG Serum or plasma creatinine measurement with calculation of estimated glomerular filtration rate 25 NRG Serum or plasma glucose measurement (mass/volume) 116 mg/dL 70-105 Serum or plasma calcium measurement (mass/volume) 8.9 mg/dL 8.5-10.1 Serum or plasma total bilirubin measurement (mass/volume) 1.2 mg/dL 0.1-1.0 Serum or plasma alkaline phosphatase measurement (enzymatic activity/volume) 63 U/L 40-136 Serum or plasma aspartate aminotransferase measurement (enzymatic activity/ volume) 27 U/L 5-34 Serum or plasma alanine aminotransferase measurement (enzymatic activity/volume ) 10 U/L 0-55 Serum or plasma protein measurement (mass/volume) 6.1 g/dL 6.4-8.2 Serum or plasma albumin measurement (mass/volume) 3.9 g/dL 3.2-4.5 Serum or plasma C reactive protein measurement (mass/volume) - 09/02/16 20:48 Serum or plasma C reactive protein measurement (mass/volume) 1.94 mg /dL 0.00-0.50 Bacterial blood culture - 09/02/16 20:59 Bacterial blood culture NG NRG Bacterial blood culture - 09/02/16 21:21 Bacterial blood culture NG NRG Influenza virus A and B antigen detection - 09/02/16 21:58 FLU RESULT NEGATIVE FOR INFLUENZA A AND B ANTIGENS BY IA NRG Encounters ACCT No. Visit Date/Time Discharge Status Pt. Type Provider Facility Loc./Unit Complaint [id number] 07/27/2017 10:20:00 07/27/2017 23:59:59 CLS Outpatient MELANIA VIDAL APRN [facility] RAD HX OF DVT, RIGHT LEG PAIN [id number] 05/02/2017 02:58:00 05/02/2017 23:59:59 CLS Preadmit NAOMY SAM [facility] ONC [id number] 04/23/2017 10:25:00 05/01/2017 00:01:00 DIS Outpatient NAOMY SAM [facility] ONC [id number] 03/15/2017 12:02:00 03/15/2017 23:59:59 CLS Outpatient ELIEZER GONZALES MD [facility] ENDO REFLUX, NAUSEA [id number] 03/11/2017 06:37:00 03/11/2017 23:59:59 CLS Outpatient ELIEZER GONZALES MD [facility] PREOP REFLUX/NAUSEA [id number] 10/12/2016 13:26:00 01/10/2017 00:01:00 DIS Outpatient NAOMY SAM [facility] ONC [id number] 12/23/2016 09:10:00 12/23/2016 23:59:59 CLS Outpatient MELANIA VIDAL APRN [facility] RAD LEFT LEG PAIN, HX OF BLOOD CLOTS [id number] 09/29/2016 11:35:00 09/29/2016 23:59:59 CLS Outpatient GARRICK NICK MD [facility] RAD PNEUMONIA FOLLOWUP [id number] 09/02/2016 19:47:00 09/02/2016 23:31:00 DIS Emergency RUEL HURLEY, JOEY [place] [facility] ER CAN'T URINATE [id number] 07/30/2016 08:09:00 07/30/2016 23:59:59 CLS Outpatient GERTRUDIS MCGINNIS [facility] RAD R RENAL MASS [id number] 07/28/2016 08:38:00 07/28/2016 23:59:59 CLS Outpatient MELANIA VIDAL APRN [facility] RAD HTN [id number] 07/24/2016 08:42:00 07/24/2016 23:59:59 CLS Outpatient MELANIA VIDAL APRN [facility] RAD HTN [id number] 04/28/2016 16:16:00 05/17/2016 00:01:00 DIS Outpatient NAOMY SAM [facility] ONC [id number] 04/13/2016 10:54:00 04/13/2016 23:59:59 CLS Outpatient GARRICK NICK MD [facility] LAB [id number] 03/12/2016 14:58:00 03/12/2016 23:59:59 CLS Outpatient MELANIA VIDAL APRN [facility] RAD HX OF DVT, LEG PAIN [id number] 09/20/2015 09:26:00 12/19/2015 00:01:00 DIS Outpatient NAOMY SAM Ira [facility] ONC [id number] 08/16/2015 11:31:00 08/20/2015 14:50:00 DIS Inpatient GARRICK NICK MD [facility] 4TH DVT, POSSIBLE PE [id number] 08/16/2015 11:34:00 08/16/2015 23:59:59 CLS Preadmit GARRICK NICK MD DVT, Possible PE [id number] 05/08/2015 10:14:00 05/08/2015 23:59:59 CLS Outpatient MELANIA VIDAL APRN [facility] RAD SWELLING AND BRUISING POST FALL [id number] 10/25/2014 13:45:00 10/25/2014 23:59:59 CLS Outpatient QUENTIN HURLEY FACC, KONG DIAZ CCDS [facility] CARD CAD [id number] 08/15/2017 08:24:00 ACT Emergency RUEL HURLEY, JOEY [place] [facility] ER LOW BP, FAINTNESS [id number] 11/01/2014 13:46:00 Document Registration [id number] 10/08/2014 12:04:00 Document Registration [id number] 11/01/2012 08:34:00 Document Registration [id number] 10/27/2012 07:48:00 Document Registration [id number] 04/29/2012 08:22:00 Document Registration [id number] 04/28/2012 08:10:00 Document Registration [id number] 04/20/2012 08:53:00 Document Registration
[2017-08-15] MEDS ORDERED: ONDANSETRON 4 MG/2 ML (SDV) Z0FRAN IVP ONE (09:00)
[2017-08-15] MEDS ORDERED: NS IV 1000 ML 1,000 ML IV ONE (09:06)
--- NOTE | 2017-08-15 09:15 | ED General ---
General Chief Complaint: General Problems/Pain Stated Complaint: LOW BP, FAINTNESS Nursing Triage Note: c/o feeling of indigestion/hypotension and feeling of tightness in his neck. Claims the BP monitor was unable to detect this BP. Numerous stools reported. Nursing Sepsis Screen: No Definite Risk (ACACIA POLANCO MEDICAL STUDENT) History of Present Illness Time Seen by Provider: 09:11 Initial Comments Pt is a 71 yo male with a PMH of DVT and PE and is currently on Eliquis who presents to the ED with his via PV c/o a near syncopal episode with 4/10 CP onset this AM. Pt got out of bed this AM and immediately felt that he was going to pass out, walking around makes it worse and lying down makes it better. He has never felt like this before. Pt also reports that he has had feelings of nausea, indigestion, and "burping" since 0100 this AM and a "tightness in his neck." Tried to take his BP at home and they were initially unable to get a reading, finally after a dozen or so times it was in the 70's systolic. States that he feels like he needs to have a bowel movement but was only able to get out "rabbit pellets." Pt has also been sick with a cold for the past 2 weeks but denies any fevers, chills. Pt denies any vomitting, constipation, diarrhea, fevers, chills, or any other associated sx. (ACACIA POLANCO MEDICAL STUDENT) Allergies and Home Medications Allergies Coded Allergies: Sulfa (Sulfonamide Antibiotics) (Verified Allergy, Severe, 03/11/17) ofloxacin (Verified Allergy, Unknown, 03/11/17) tetracycline (Unverified Allergy, Unknown, 03/11/17) Home Medications Alprazolam 0.25 Mg Tablet, 0.25 MG PO PRN, (Reported) Apixaban 2.5 Mg Tablet, 2.5 MG PO BID, (Reported) Carvedilol 3.125 Mg Tablet, 3.125 MG PO BID, (Reported) Cholecalciferol (Vitamin D3) 2,000 Unit Capsule, 2,000 UNIT PO HS, (Reported) Enalapril Maleate 5 Mg Tablet, 5 MG PO DAILY, (Reported) Finasteride 5 Mg Tablet, 5 MG PO DAILY, (Reported) Loperamide Hcl 2 Mg Capsule, 2 MG PO DAILY, (Reported) Melatonin 10 Mg Capsule, 8 MG PO HS, (Reported) Tamsulosin HCl 0.4 Mg Cap.er.24h, 0.4 MG PO HS, (Reported) Constitutional: No chills, dizziness, No fever, weakness EENTM: other (Bilat neck pain), No blurred vision, No eye pain, No vision loss , No mouth pain, No throat pain Respiratory: no symptoms reported, No cough, No short of breath Cardiovascular: chest pain, No edema, No palpitations Gastrointestinal: no symptoms reported, No abdominal pain, No constipation, No diarrhea, nausea, No vomiting, other (Indigestion/belching) Musculoskeletal: no symptoms reported, No back pain, No joint swelling, No muscle stiffness Skin: no symptoms reported, No change in color, No dryness (ACACIA POLANCO MEDICAL STUDENT) All Other Systems Reviewed Negative Unless Noted: Yes (Negative excepted noted.) (ACACIA POLANCO MEDICAL STUDENT) Past Lgtpkgd-Xjvbko-Ajwodm Hx Patient Social History Alcohol Use: Denies Use Number of Drinks Today: Alcohol Beverage of Choice: Scotch, Wine Recreational Drug Use: No Smoking Status: Current Everyday Smoker Type Used: Cigarettes Former Smoker, Quit: Mar 11, 1985 2nd Hand Smoke Exposure: No Recent Foreign Travel: No Contact w/Someone Who Travel: No Recent Infectious Disease Expo: No Recent Hopitalizations: No (ACACIA POLANCO MEDICAL STUDENT) Immunizations Up To Date Tetanus Booster (TDap): Unknown Date of Pneumonia Vaccine: Aug 19, 2015 Date of Influenza Vaccine: May 11, 2016 (ACACIA POLANCO MEDICAL STUDENT) Seasonal Allergies Seasonal Allergies: No (ACACIA POLANCO MEDICAL STUDENT) Surgeries History of Surgeries: Yes (KIDNEY ABLATION, HIATAL HERNIA REPAIR, ELBOW, RECTAL FISSURE) Surgeries: Orthopedic (ACACIA POLANCO MEDICAL STUDENT) Surgeries: Abdominal (EGD, gastropexy or fundoplication) (JOEY LIPSCOMB MD) Respiratory History of Respiratory Disorde: Yes Respiratory Disorders: Pulmonary Embolism (ACACIA POLANCO MEDICAL STUDENT) Cardiovascular History of Cardiac Disorders: Yes (right bundle branch block) Cardiac Disorders: Deep Vein Thrombosis, Hypertension, Irregular Heartbeat (ACACIA POLACNO MEDICAL STUDENT) Neurological History of Neurological Disord: No (ACACIA POLANCO MEDICAL STUDENT) Reproductive System Hx Reproductive Disorders: No Sexually Transmitted Disease: No HIV/AIDS: No (ACACIA POLANCO MEDICAL STUDENT) Genitourinary Genitourinary Disorders: Benign Prostatic Hyperpl, Prostate Problems, Renal Failure (ACACIA POLANCO MEDICAL STUDENT) Gastrointestinal History of Gastrointestinal Di: Yes Gastrointestinal Disorders: Irritable Bowel (ACACIA POLANCO MEDICAL STUDENT) History of Gastrointestinal Di: Yes Gastrointestinal Disorders: Abdominal Hernia, Gastroesophageal Reflux (JOEY LIPSCOMB MD) Musculoskeletal History of Musculoskeletal Dis: Yes (arthritis-knees need to be replaced) Musculoskeletal Disorders: Arthritis (ACACIA POLANCO MEDICAL STUDENT) Endocrine History of Endocrine Disorders: No (ACACIA POLANCO STUDENT) HEENT Loss of Vision: Denies Hearing Impairment: Hard of Hearing (ACACIA POLANCO MEDICAL STUDENT) Cancer History of Cancer: Yes Cancer: Skin, Kidney (ACACIA POLANCO MEDICAL STUDENT) History of Cancer: Yes Cancer: Kidney (Renal cell carcinoma) (JOEY LIPSCOMB MD) Psychosocial History of Psychiatric Problem: No (ACACIA POLANCO STUDENT) Integumentary History of Skin or Integumenta: Yes (MILD ECZEMA) Skin/Integumentary Disorders: Eczema (ACACIA POLANCO STUDENT) Blood Transfusions History of Blood Disorders: No Adverse Reaction to a Blood Tr: No (N/A) (ACACIA POLANCO STUDENT) Family Medical History Family Medial History: Cardiovascular disease G8 BROTHER FH: breast cancer 19 MOTHER FH: lung cancer 19 FATHER Kidney disease G8 BROTHER (ON DIALYSIS) Pacemaker 19 MOTHER (ACACIA POLANCO MEDICAL STUDENT) Family Medial History: Cardiovascular disease G8 BROTHER FH: breast cancer 19 MOTHER FH: lung cancer 19 FATHER Kidney disease G8 BROTHER (ON DIALYSIS) Pacemaker 19 MOTHER (JOEY LIPSCOMB MD) Physical Exam Vital Signs Vital Sign - Last 12Hours 08/15/17 08:30 Temp 98.5 Pulse 65 Resp 16 B/P (MAP) 109/64 (79) Pulse Ox 99 O2 Delivery Room Air (JOEY LIPSCOMB MD) Vital Signs Capillary Refill : Less Than 3 Seconds (ACACIA POLANCO MEDICAL STUDENT) General Appearance: No Apparent Distress, WD/WN HEENT: PERRL/EOMI, TMs Normal, Normal ENT Inspection, Pharynx Normal Neck: Full Range of Motion, Normal Inspection, Non Tender, Supple, No Carotid Bruit Respiratory: Lungs Clear, Normal Breath Sounds, No Accessory Muscle Use, No Respiratory Distress, No Crackles, No Rales, No Respiratory Distress, No Rhonci , No Stridor, No Wheezing Cardiovascular: Regular Rate, Rhythm, No No Edema, No Gallop, No No JVD, No No Murmur, Normal Peripheral Pulses Gastrointestinal: Normal Bowel Sounds, Non Tender, Soft, No Guarding, No Rebound Extremity: Normal Capillary Refill, Normal Inspection, Non Tender, No Calf Tenderness, No Pedal Edema Neurologic/Psychiatric: Alert, Oriented x3, Normal Mood/Affect Skin: Normal Color, Warm/Dry (ACACIA POLANCO MEDICAL STUDENT) Progress/Results/Core Measures Suspected Sepsis Recent Fever Within 48 Hours: No Infection Criteria Present: Suspected New Infection New/Unexplained Altered Menta: No Sepsis Screen: No Definite Risk Sepsis Diagnosis: SIRS Temperature:98.5 Pulse: 65 Respiratory Rate: 16 Laboratory Tests 08/15/17 10:05: White Blood Count 9.2 Blood Pressure 109 /64 Mean: 79 Laboratory Tests 08/15/17 10:05: Creatinine 2.23H, INR Comment 1.1, Platelet Count 218, Total Bilirubin 0.6 (ACACIA POLANCO MEDICAL STUDENT) Results/Orders Lab Results Laboratory Tests Test 08/15/17 10:05 08/15/17 11:10 Range/Units White Blood Count 9.2 4.3-11.0 10^3/uL Red Blood Count 4.90 4.35-5.85 10^6/uL Hemoglobin 15.1 13.3-17.7 G/DL Hematocrit 43 40-54 % Mean Corpuscular Volume 88 80-99 FL Mean Corpuscular Hemoglobin 31 25-34 PG Mean Corpuscular Hemoglobin Concent 35 32-36 G/DL Red Cell Distribution Width 12.5 10.0-14.5 % Platelet Count 218 130-400 10^3/uL Mean Platelet Volume 9.8 7.4-10.4 FL Neutrophils (%) (Auto) 77 H 42-75 % Lymphocytes (%) (Auto) 15 12-44 % Monocytes (%) (Auto) 7 0-12 % Eosinophils (%) (Auto) 2 0-10 % Basophils (%) (Auto) 0 0-10 % Neutrophils # (Auto) 7.0 1.8-7.8 X 10^3 Lymphocytes # (Auto) 1.3 1.0-4.0 X 10^3 Monocytes # (Auto) 0.6 0.0-1.0 X 10^3 Eosinophils # (Auto) 0.2 0.0-0.3 10^3/uL Basophils # (Auto) 0.0 0.0-0.1 10^3/uL Prothrombin Time 14.0 12.2-14.7 SEC INR Comment 1.1 0.8-1.4 Activated Partial Thromboplast Time 33 24-35 SEC Sodium Level 141 135-145 MMOL/L Potassium Level 5.0 3.6-5.0 MMOL/L Chloride Level 108 H 98-107 MMOL/L Carbon Dioxide Level 24 21-32 MMOL/L Anion Gap 9 5-14 MMOL/L Blood Urea Nitrogen 26 H 7-18 MG/DL Creatinine 2.23 H 0.60-1.30 MG/DL Estimat Glomerular Filtration Rate 29 BUN/Creatinine Ratio 12 Glucose Level 105 70-105 MG/DL Calcium Level 9.2 8.5-10.1 MG/DL Magnesium Level 1.9 1.8-2.4 MG/DL Total Bilirubin 0.6 0.1-1.0 MG/DL Aspartate Amino Transf (AST/SGOT) 18 5-34 U/L Alanine Aminotransferase (ALT/SGPT) 17 0-55 U/L Alkaline Phosphatase 68 40-136 U/L Myoglobin 142.4 H 10.0-92.0 NG/ML Troponin I < 0.30 <0.30 NG/ML B-Type Natriuretic Peptide 308.7 H <100.0 PG/ML Total Protein 6.0 L 6.4-8.2 GM/DL Albumin 3.4 3.2-4.5 GM/DL Urine Color YELLOW Urine Clarity CLEAR Urine pH 6 5-9 Urine Specific [place] 1.010 L 1.016-1.022 Urine Protein 3+ H NEGATIVE Urine Glucose (UA) NEGATIVE NEGATIVE Urine Ketones NEGATIVE NEGATIVE Urine Nitrite NEGATIVE NEGATIVE Urine Bilirubin NEGATIVE NEGATIVE Urine Urobilinogen NORMAL NORMAL MG/DL Urine Leukocyte Esterase NEGATIVE NEGATIVE Urine RBC (Auto) NEGATIVE NEGATIVE Urine RBC NONE /HPF Urine WBC RARE /HPF Urine Crystals NONE /LPF Urine Bacteria TRACE /HPF Urine Casts NONE /LPF Urine Mucus NEGATIVE /LPF Urine Culture Indicated NO (JOEY LIPSCOMB MD) Micro Results Microbiology 08/15/17 Influenza Types A,B Antigen (NADEGE) - Final, Complete (JOEY LIPSCOMB MD) My Orders Orders - JOEY LIPSCOMB MD Continuous Ekg Monitoring (08/15/17 08:41) Ekg Tracing (08/15/17 08:41) Cbc With Automated Diff (08/15/17 08:53) Magnesium (08/15/17 08:53) Chest 1 View, Ap/Pa Only (08/15/17 08:53) Cardiac Profile 1 (08/15/17 08:53) Comprehensive Metabolic Panel (08/15/17 08:53) Myoglobin Serum (08/15/17 08:53) Protime With Inr (08/15/17 08:53) Partial Thromboplastin Time (08/15/17 08:53) O2 (08/15/17 08:53) Monitor-Rhythm Ecg Trace Only (08/15/17 08:53) Saline Lock/Iv-Start (08/15/17 08:53) BNP (08/15/17 08:53) Ondansetron Injection (Zofran Injectio (08/15/17 09:00) Ns Iv 1000 Ml (Sodium Chloride 0.9%) (08/15/17 09:06) Influenza A And B Antigens (08/15/17 09:07) Ua Culture If Indicated (08/15/17 09:47) Us Carotid Lesly Complete 06501 (08/15/17 11:02) Lidocaine 2% Viscous 15 Ml (Xylocaine Vi (08/15/17 11:45) Antacid Suspension (Mylanta Suspension (08/15/17 11:45) (JOEY LIPSCOMB MD) Medications Given in ED (JOEY LIPSCOMB MD) Vital Signs/I&O (JOEY LIPSCOMB MD) Vital Signs/I&O Capillary Refill : Less Than 3 Seconds (ACACIA POLANCO MEDICAL STUDENT) Blood Pressure Mean: 79 Progress Note : Progress Note This patient was seen, interviewed, and examined along with Acacia Polanco, MS4. Patient reports a vague feeling of discomfort in his upper chest and neck associated with excessive belching. He is reluctant to call this sensation a pain. He rates the discomfort as 4/10. He denies shortness of air, fever, vomiting, cough, or other signs or symptoms of acute illness. He did recently have cold symptoms for about 2 weeks. He reports having low blood pressure at home with systolic blood pressures as low as the 70s. His blood pressure is normal here. Patient denies any history of heart disease. He does have hypertension and acid reflux. His history of DVT and pulmonary embolus. He also has a history of fundoplication or gastropexy. On exam patient was found to be alert and oriented and in no acute distress. Heart was regular rate and rhythm without murmur. Chest was clear to auscultation bilaterally with normal effort. Chest was nontender. Abdomen soft, nontender, normal bowel sounds. Extremities were normal to inspection with no edema. Neck exam revealed no carotid bruits. Patient was found have no significant change in blood pressure upon standing although heart rate did increase. He received a liter of IV fluids with some improvement in his symptoms. Carotid ultrasound was performed and revealed no stenosis. Chest x-ray was unremarkable. Troponin and EKG were negative. Patient eventually received a GI cocktail which improved his discomfort. He was reexamined multiple times and gradually improved throughout his ER stay. He never had any abdominal pain or tenderness. He then requested to return home. He was dismissed with return precautions. (JOEY LIPSCOMB MD) ECG Initial ECG Impression Date: Aug 15, 2017 Initial ECG Impression Time: 08:44 Initial ECG Rate: 56 Initial ECG Rhythm: Normal Sinus Initial ECG Comparisson: Unchanged Comment Sinus rhythm with no ST elevation or depression. No axis deviation. Right bundle branch block by automated read. Unchanged from prior. (JOEY LIPSCOMB MD) Diagnostic Imaging Diagonstic Imaging: Xray Plain Films/CT/US/NM/MRI: chest Comments Chest x-ray viewed by me and report reviewed. See report below: NAME: MICHEAL SESAY [facility] REC#: [id number] PT STATUS: REG ER : 1945 PHYSICIAN: JOEY LIPSCOMB MD ADMIT DATE: 08/15/17/ER Signed Date of Exam: 08/15/17 CHEST 1 VIEW, AP/PA ONLY INDICATION: Cough COMPARISON: 09/29/2016 FINDINGS: Single view of the chest demonstrates clear lungs bilaterally. The heart is normal. There is no pneumothorax. The osseous structures normal. IMPRESSION: Negative chest Dictated by: Dictated on workstation # [id number] Dict: 08/15/17 0920 Trans: 08/15/17 0934 Interpreted by: ALY CLAY Electronically signed by: ALY CLAY 08/15/17 0934 Diagonstic Imaging: Ultrasound Comments Carotid ultrasound report reviewed. See report below: NAME: MICHEAL SESAY [facility] REC#: [id number] PT STATUS: REG ER : 1945 PHYSICIAN: JOEY LIPSCOMB MD ADMIT DATE: 08/15/17/ER Signed Date of Exam: 08/15/17 US CAROTID LESLY COMPLETE [id number] PROCEDURE: US Carotid Duplex Bilateral. TECHNIQUE: Multiple real-time grayscale images were obtained over the carotid arteries in various projections bilaterally. Additional duplex Doppler and color Doppler images were also obtained. INDICATION: Dizziness. COMPARISON: None. FINDINGS: Minimal atherosclerosis is seen in the carotid bulbs. There is no stenosis or occlusion. Peak systolic velocities and ratios are normal. Flow in the vertebral arteries is antegrade. IMPRESSION: Minimal carotid atherosclerosis without stenosis. Dictated by: Dictated on workstation # [id number] Dict: 08/15/17 1213 Trans: 08/15/17 1224 Interpreted by: ALY CLAY Electronically signed by: ALY CLAY 08/15/17 1224 (JOEY LIPSCOMB MD) Departure Impression Impression: Primary Impression: Atypical chest pain Additional Impression: Lightheadedness Disposition: 01 HOME, SELF-CARE Condition: Improved Departure-Patient Inst. Decision time for Depature: 12:45 (JOEY LIPSCOMB MD) Referrals: GARRICK NICK MD (PCP/Family) Primary Care Physician Patient Instructions: Chest Pain Add. Discharge Instructions: Continue your usual medications as previously prescribed. Follow-up with your primary care provider this week. Return to the emergency room promptly if symptoms worsen. You may take Pepcid (famotidine) 20 mg daily until your symptoms of belching and discomfort resolved. All discharge instructions reviewed with patient and/or family. Voiced understanding. Copy Copies To 1: GARRICK NICK MD, ROSS MEDICAL STUDENT Aug 15, 2017 09:15 JOEY LIPSCOMB MD Aug 15, 2017 12:48
--- NOTE | 2017-08-15 09:31 | Diagnostic Imaging Report ---
INDICATION: Cough COMPARISON: 09/29/2016 FINDINGS: Single view of the chest demonstrates clear lungs bilaterally. The heart is normal. There is no pneumothorax. The osseous structures normal. IMPRESSION: Negative chest Dictated by: Dictated on workstation # [id number]
[2017-08-15 10:25] LABS: INR 1.1 (0.8-1.4)
[2017-08-15 10:30] LABS: BASOPHILS % (AUTO) 0 % (0-10); EOSINOPHILS # (AUTO) 0.2 10^3/uL (0.0-0.3); EOSINOPHILS % (AUTO) 2 % (0-10); HEMATOCRIT 43 % (40-54); HEMOGLOBIN 15.1 G/DL (13.3-17.7); LYMPHOCYTES # (AUTO) 1.3 X 10^3 (1.0-4.0); LYMPHOCYTES % (AUTO) 15 % (12-44); MEAN CORPUSCULAR HEMOGLOBIN 31 PG (25-34); MEAN CORPUSCULAR HGB CONC 35 G/DL (32-36); MEAN CORPUSCULAR VOLUME 88 FL (80-99); MEAN PLATELET VOLUME 9.8 FL (7.4-10.4); MONOCYTES # (AUTO) 0.6 X 10^3 (0.0-1.0); MONOCYTES % (AUTO) 7 % (0-12); NEUTROPHILS % (AUTO) 77 % (42-75); PLATELET COUNT 218 10^3/uL (130-400); RED CELL DISTRIBUTION WIDTH 12.5 % (10.0-14.5); WHITE BLOOD COUNT 9.2 10^3/uL (4.3-11.0)
[2017-08-15 10:35] LABS: ALANINE AMINOTRANSFERASE 17 U/L (0-55); ALBUMIN 3.4 GM/DL (3.2-4.5); ALKALINE PHOSPHATASE 68 U/L (40-136); BILIRUBIN,TOTAL 0.6 MG/DL (0.1-1.0); BUN/CREATININE RATIO 12; CALCIUM 9.2 MG/DL (8.5-10.1); CARBON DIOXIDE 24 MMOL/L (21-32); CHLORIDE 108 MMOL/L (98-107); CREATININE SERUM 2.23 MG/DL (0.60-1.30); GFR ESTIMATED 29; GLUCOSE 105 MG/DL (70-105); MAGNESIUM 1.9 MG/DL (1.8-2.4); SODIUM 141 MMOL/L (135-145)
[2017-08-15 10:42] LABS: MYOGLOBIN SERUM 142.4 NG/ML (10.0-92.0)
[2017-08-15 11:15] LABS: BILIRUBIN,URINE NEGATIVE (NEGATIVE); CLARITY,URINE CLEAR; COLOR,URINE YELLOW; GLUCOSE, URINE (UA) NEGATIVE (NEGATIVE); KETONES,URINE NEGATIVE (NEGATIVE); LEUKOCYTE ESTERASE ,URINE NEGATIVE (NEGATIVE); NITRITE,URINE NEGATIVE (NEGATIVE); PH,URINE 6 (5-9); PROTEIN,URINE 3+ (NEGATIVE); UROBILINOGEN,URINE NORMAL (NORMAL)
[2017-08-15 11:22] LABS: BACTERIA,URINE TRACE /HPF; WBC,URINE RARE /HPF
[2017-08-15] MEDS ORDERED: ANTACID SUSP 30 ML UDC (MYLANTA) PO ONE (11:45)
[2017-08-15] MEDS ORDERED: LIDOCAINE 2% VISCOUS 15 ML UDC PO ONE (11:45)
--- NOTE | 2017-08-15 12:22 | Diagnostic Imaging Report ---
PROCEDURE: US Carotid Duplex Bilateral. TECHNIQUE: Multiple real-time grayscale images were obtained over the carotid arteries in various projections bilaterally. Additional duplex Doppler and color Doppler images were also obtained. INDICATION: Dizziness. COMPARISON: None. FINDINGS: Minimal atherosclerosis is seen in the carotid bulbs. There is no stenosis or occlusion. Peak systolic velocities and ratios are normal. Flow in the vertebral arteries is antegrade. IMPRESSION: Minimal carotid atherosclerosis without stenosis. Dictated by: Dictated on workstation # [id number]
[2017-08-15 12:52] VITALS: BP 112/68
== END 2017-08-15 12:52 | disposition home or self-care (01) ==
LOC: EDUNIT# 08:23 → ER 08:24
DX: R07.89 Other chest pain (principal); R42 Dizziness and giddiness; I10 Essential (primary) hypertension; N40.0 Benign prostatic hyperplasia without lower urinary tract symptoms; K21.9 Gastro-esophageal reflux disease without esophagitis; M17.0 Bilateral primary osteoarthritis of knee; F17.210 Nicotine dependence, cigarettes, uncomplicated; Z86.718 Personal history of other venous thrombosis and embolism; Z96.653 Presence of artificial knee joint, bilateral; Z85.828 Personal history of other malignant neoplasm of skin; Z85.528 Personal history of other malignant neoplasm of kidney; Z80.3 Family history of malignant neoplasm of breast; Z80.1 Family history of malignant neoplasm of trachea, bronchus and lung; Z82.49 Family history of ischemic heart disease and other diseases of the circulatory system; Z87.448 Personal history of other diseases of urinary system; Z87.19 Personal history of other diseases of the digestive system; Z79.01 Long term (current) use of anticoagulants
CPT/HCPCS: 36415; 71045; 80053; 81000; 83735; 83874; 83880; 84484; 85025; 85610; 85730; 87804; 93005; 93041; 93880

== ENCOUNTER 2017-10-25 10:54 | Outpatient (RCR) | payer MEDICARE, OTHER ==
[2017-10-25 11:08] LABS: BASOPHILS % (AUTO) 0 % (0-10); EOSINOPHILS # (AUTO) 0.2 10^3/uL (0.0-0.3); EOSINOPHILS % (AUTO) 3 % (0-10); HEMATOCRIT 44 % (40-54); HEMOGLOBIN 15.2 G/DL (13.3-17.7); LYMPHOCYTES # (AUTO) 1.4 X 10^3 (1.0-4.0); LYMPHOCYTES % (AUTO) 19 % (12-44); MEAN CORPUSCULAR HEMOGLOBIN 31 PG (25-34); MEAN CORPUSCULAR HGB CONC 35 G/DL (32-36); MEAN CORPUSCULAR VOLUME 89 FL (80-99); MEAN PLATELET VOLUME 9.8 FL (7.4-10.4); MONOCYTES # (AUTO) 0.6 X 10^3 (0.0-1.0); MONOCYTES % (AUTO) 8 % (0-12); NEUTROPHILS # (AUTO) 5.3 X 10^3 (1.8-7.8); NEUTROPHILS % (AUTO) 70 % (42-75); PLATELET COUNT 168 10^3/uL (130-400); RED BLOOD COUNT 4.92 10^6/uL (4.35-5.85); RED CELL DISTRIBUTION WIDTH 13.2 % (10.0-14.5); WHITE BLOOD COUNT 7.6 10^3/uL (4.3-11.0)
[2017-10-25 11:38] LABS: POTASSIUM 4.7 MMOL/L (3.6-5.0)
[2017-10-25 11:39] LABS: ALBUMIN 3.9 GM/DL (3.2-4.5); BILIRUBIN,TOTAL 1.2 MG/DL (0.1-1.0); CALCIUM 9.3 MG/DL (8.5-10.1); CREATININE SERUM 2.34 MG/DL (0.60-1.30); TOTAL PROTEIN 6.3 GM/DL (6.4-8.2)
== END 2018-01-23 | disposition home or self-care (01) ==
LOC: ONC 10:54
PROVIDERS: ATTEND Internal Medicine Hematology & Oncology
DX: C64.1 Malignant neoplasm of right kidney, except renal pelvis (principal); D68.61 Antiphospholipid syndrome; I12.9 Hypertensive chronic kidney disease with stage 1 through stage 4 chronic kidney disease, or unspecified chronic kidney disease; N18.3 Chronic kidney disease, stage 3 (moderate); Z86.718 Personal history of other venous thrombosis and embolism; Z87.891 Personal history of nicotine dependence; Z79.82 Long term (current) use of aspirin
CPT/HCPCS: 36415; 80053; 83615; 85025; 99213

== ENCOUNTER → 2017-10-28 | Outpatient (CLI) | payer MEDICARE, OTHER | LOC: CARD 12:49 | PROVIDERS: ATTEND Internal Medicine Cardiovascular Disease | DX: I25.10 Atherosclerotic heart disease of native coronary artery without angina pectoris (principal); I10 Essential (primary) hypertension; C64.1 Malignant neoplasm of right kidney, except renal pelvis; D68.61 Antiphospholipid syndrome; I82.411 Acute embolism and thrombosis of right femoral vein; R79.89 Other specified abnormal findings of blood chemistry | CPT/HCPCS: 93306 ==

== ENCOUNTER → 2017-12-13 | Outpatient (CLI) | payer MEDICARE, OTHER ==
--- NOTE | 2017-12-13 12:33 | Diagnostic Imaging Report ---
CLINICAL INDICATION: Patient with neck pain on left side x1 month. COMPARISONS: None. FINDINGS: THYROID NODULES: There is a 4 mm hypoechoic nodule involving the midportion of the right thyroid gland. There is a 7 mm solid and cystic and hypoechoic nodule within the inferior portion of the right thyroid gland. There is a 6 mm slightly hypoechoic nodule involving the upper pole the left thyroid gland. There is a 5 mm solid and cystic nodule within the mid portion of the left thyroid gland. None of these thyroid nodules demonstrate significant central Doppler flow. THYROID GLAND: Besides the thyroid nodules, the thyroid gland has normal size, shape and echogenicity. The right lobe measures 5.9 cm x 2.0 cm x 1.9 cm and the left lobe measures 4.8 cm x 1.7 cm x 1.5 cm in their three dimensions. ISTHMUS: The isthmus is unremarkable and measures 3 mm in thickness. IMPRESSION: There is multiple subcentimeter bilateral thyroid gland nodules. Otherwise, unremarkable thyroid ultrasound. Dictated by: Dictated on workstation # [id number]
== END ==
LOC: RAD 10:47
PROVIDERS: ATTEND Nurse Practitioner Family
DX: E04.2 Nontoxic multinodular goiter (principal); R49.0 Dysphonia
CPT/HCPCS: 76536

== ENCOUNTER → 2018-04-21 | Outpatient (CLI) | payer MEDICARE, OTHER ==
[~2018-04-21] MED LIST changes: +CARV6.252 PO; +LOPE2TAB64 PO
--- NOTE | 2018-04-21 15:39 | Diagnostic Imaging Report ---
PROCEDURE: CT abdomen and pelvis without contrast. TECHNIQUE: Multiple contiguous axial images were obtained through the abdomen and pelvis without the use of intravenous contrast. INDICATION: Right-sided abdominal pain, nausea. FINDINGS: This study was compared to the prior exam of 04/09/2017 performed at [facility]. That exam did note a 2.7 x 2.1 cm renal mass on the right. Reportedly, this mass had undergone a prior ablation procedure. This exam is limited in the evaluation of that mass due to the absence of intravenous contrast. Even so, there does not appear to have been any significant adverse change since the prior exam. If further evaluation is desired and if the patient cannot tolerate intravenous contrast, then MRI would be recommended for further study. The left kidney is stable in appearance when compared to the prior exam. The liver, spleen, pancreas, adrenals, gallbladder, aorta, and inferior vena cava are unremarkable for an acute abnormality. There is a 3.8 x 3.9 cm soft tissue density along the left lateral aspect of the gastric fundus. This finding is more conspicuous than on the prior exam. I suspect that this is related to a paraesophageal hernia and not to a mass lesion. There is no pelvic mass or free fluid collection evident. There is diverticulosis of the sigmoid colon but there is no sign of acute diverticulitis. The urinary bladder is grossly unremarkable. The prostate gland is at the upper limits of normal. The appendix was not well visualized but there are no indirect signs of acute appendicitis. The bone windows show no sign of a fracture or of a destructive lesion. The lung bases are generally clear. In the interval since the prior study however, a small 0.7 x 1.3 cm area of increased density has developed near the lateral aspect of the left hemidiaphragm. I suspect that this is secondary to scar formation and/or fibrosis and not to a neoplastic mass. Even so, it may prove worthwhile to have a short-term (three-month) followup CT chest exam for further study. IMPRESSION: 1. There is no evidence for an acute abnormality of the abdomen or pelvis. 2. The lesion associated with the right kidney seen previously is difficult to assess on this study due to the absence of intravenous contrast. There does not appear to have been any significant adverse change. Recommendations as above. 3. The soft tissue density along the left lateral aspect of the gastric fundus may represent a paraesophageal hernia. If further study is desired, then either an upper GI exam or endoscopy would be recommended. 4. The small area of increased density near left hemidiaphragm is more likely due to scar formation/fibrosis than to a parenchymal neoplasm. Recommendations as above. Dictated by: Dictated on workstation # [id number]
== END ==
LOC: RAD 12:51
PROVIDERS: ATTEND Family Medicine
DX: K31.89 Other diseases of stomach and duodenum (principal); K57.30 Diverticulosis of large intestine without perforation or abscess without bleeding; J98.6 Disorders of diaphragm
CPT/HCPCS: 74176

== ENCOUNTER 2018-04-27 07:14 | Outpatient (CLI) | payer MEDICARE, OTHER ==
[~2018-04-27] VITALS: Ht 175.3 cm; Wt 77.1 kg
[~2018-04-27 07:14] MED LIST changes: -CARV6.252 PO; -LOPE2TAB64 PO
[2018-04-27] MEDS ORDERED: LOPE2TAB64 PO (15:09)
[2018-04-27] MEDS ORDERED: CARV6.252 PO (15:09)
== END 2018-04-27 15:22 | disposition home or self-care (01) ==
LOC: PREOP 07:14
PROVIDERS: ATTEND Surgery
DX: Z01.818 Encounter for other preprocedural examination (principal)

== ENCOUNTER 2018-05-02 09:19 | Day surgery (SDC) | payer MEDICARE, OTHER ==
[~2018-05-02] VITALS: Ht 175.3 cm; Wt 77.1 kg
[~2018-05-02 09:19] MED LIST changes: +CARV6.252 PO; +LOPE2TAB64 PO
[2018-05-02 09:30] VITALS: BP 151/85
[2018-05-02] MEDS ORDERED: NS IV 500 ML 500 ML IV PRN (09:31)
[2018-05-02] MEDS ORDERED: MIDAZOLAM 2 MG/2 ML (VERSED) VIAL IVP ONE (09:45)
[2018-05-02] MEDS ORDERED: HURRICAINE EXT TUBE (BENZOCAINE) XX PRN (09:45)
[2018-05-02] MEDS ORDERED: fentaNYL INJECTION 100 MCG/2 ML AMP IVP ONE (09:45)
[2018-05-02] MEDS ORDERED: fentaNYL INJECTION 100 MCG/2 ML AMP ONE (12:07)
[2018-05-02] MEDS ORDERED: HURRICAINE EXT TUBE (BENZOCAINE) ONE (12:08)
[2018-05-02] MEDS ORDERED: MIDAZOLAM 2 MG/2 ML (VERSED) VIAL ONE ×6 (12:08→12:21)
--- NOTE | 2018-05-02 12:12 | Conscious Sedation/ASA ---
Conscious Sedation Pre-Proced Time 12:12 ASA Score 2 For ASA 3 and 4: Consider anesthesia and medical clearance. Also, for patients with a history of failed moderate sedation consider anesthesia. Airway Lungs Heart ASA score ASA 1: a normal healthy patient ASA 2: a patient with a mild systemic disease (mid diabetes, controlled hypertension, obesity ASA 3: a patient with a severe systemic disease that limits activity (angina , COPD, prior Myocardial infarction) ASA 4: a patient with an incapacitating disease that is a constant threat to life (CHF, renal failure) ASA 5: a moribund patient not expected to survive 24 hrs. (ruptured aneurysm) ASA 6: a declared brain patient whose organs are being harvested. For emergent operations, add the letter E after the classification Mallampati Classification Grade 1 Sedation Plan Discussed options with patient/fam The patient is an appropriate candidate to undergo the planned procedure, sedation, and anesthesia. The patient immediately re-assessed prior to indication. ELIEZER GONZALES MD May 02, 2018 12:12
--- NOTE | 2018-05-02 12:12 | History & Physicial ---
History of Present Illness History of Present Illness Reason for visit/HPI to undergo an upper endoscopy regarding nausea and an abnormality found on a CT scan, reported to be a paraesophageal hernia. Previous endoscopy showed intactness of the fundoplication that had been performed before. Date of Admission 05/02/18 Date Seen by a Provider: May 02, 2018 Time Seen by a Provider: 12:10 I consulted on this patient on 05/02/18 12:09 Attending Physician Eliezer Ac MD Admitting Physician Ruthann Galindo MD Consult Allergies and Home Medications Allergies Coded Allergies: Sulfa (Sulfonamide Antibiotics) (Verified Allergy, Severe, 04/27/18) ofloxacin (Verified Allergy, Unknown, 04/27/18) tetracycline (Unverified Allergy, Unknown, 04/27/18) Home Medications Alprazolam 0.25 Mg Tablet, 0.25 MG PO PRN, (Reported) Apixaban 2.5 Mg Tablet, 2.5 MG PO BID, (Reported) Carvedilol 6.25 Mg Tablet, 6.25 MG PO BID, (Reported) Cholecalciferol (Vitamin D3) 2,000 Unit Capsule, 2,000 UNIT PO HS, (Reported) Finasteride 5 Mg Tablet, 5 MG PO DAILY, (Reported) Loperamide HCl 2 Mg Tablet, 2 MG PO DAILY, (Reported) Melatonin 10 Mg Capsule, 8 MG PO HS, (Reported) Tamsulosin HCl 0.4 Mg Cap.er.24h, 0.4 MG PO HS, (Reported) Patient Home Medication List Home Medication List Reviewed: Yes Past Bbfmdfx-Zhlpfv-Pvzuek Hx Patient Social History Marrital Status: Employed/Student: retired Alcohol Use: Occasionally Uses Number of Drinks Today: EE Alcohol Beverage of Choice: Scotch, Wine Recreational Drug Use: No Smoking Status: Former Smoker Former Smoker, Quit: Mar 11, 1985 Type Used: Cigarettes 2nd Hand Smoke Exposure: No Recent Foreign Travel: No Contact w/other who traveled: No Recent Hopitalizations: No Recent Infectious Disease Expo: No Immunizations Up To Date Tetanus Booster (TDap): Unknown Date of Pneumonia Vaccine: Aug 19, 2015 Date of Influenza Vaccine: May 17, 2017 Seasonal Allergies Seasonal Allergies: No Surgeries Yes (KIDNEY ABLATION, HIATAL HERNIA REPAIR, ELBOW, RECTAL FISSURE) Abdominal Respiratory Yes Cardiovascular Yes (right bundle branch block) Deep Vein Thrombosis, Hypertension, Irregular Heartbeat Neurological No Reproductive System Hx Reproductive Disorders: No Sexually Transmitted Disease: No HIV/AIDS: No Genitourinary Benign Prostatic Hyperpl, Prostate Problems, Renal Failure Gastrointestinal Yes Gastroesophageal Reflux, Chronic Diarrhea, Hiatal Hernia, Irritable Bowel Musculoskeletal Yes (arthritis-knees need to be replaced) Arthritis Endocrine History of Endocrine Disorders: No HEENT Loss of Vision: Bilateral Hearing Impairment: Hard of Hearing Cancer Yes Kidney Type of Treatment: Surgical Intervention Psychosocial History of Psychiatric Problem: No Integumentary History of Skin or Integumenta: Yes (MILD ECZEMA) Skin/Integumentary Disorders: Eczema Blood Transfusions History of Blood Disorders: No Adverse Reaction to a Blood Tr: No (N/A) Family Medical History Family Hx: Cardiovascular disease G8 BROTHER FH: breast cancer 19 MOTHER FH: lung cancer 19 FATHER Kidney disease G8 BROTHER (ON DIALYSIS) Pacemaker 19 MOTHER Review of Systems Constitutional: no symptoms reported EENTM: no symptoms reported Respiratory: no symptoms reported Cardiovascular: no symptoms reported Gastrointestinal: see HPI Genitourinary: no symptoms reported Musculoskeletal: no symptoms reported Skin: no symptoms reported Psychiatric/Neurological: No Symptoms Reported Physical Exam Vital Signs Vital Signs - First Documented 05/02/18 09:30 Temp 97.9 Pulse 57 Resp 18 B/P (MAP) 151/85 (107) Pulse Ox 98 O2 Delivery Room Air Capillary Refill : Height, Weight, BMI Height: 5'9.00" Weight: 170lbs. 0.0oz. 77.112224tg; 25.1 BMI Method:Estimated General Appearance: No Apparent Distress Neck: Normal Inspection Respiratory: Lungs Clear Cardiovascular: Regular Rate, Rhythm Gastrointestinal: Non Tender, Soft Neurologic/Psychiatric: Alert, Oriented x3 Skin: Warm/Dry Assessment/Plan Assessment and Plan gentleman with nausea and epigastric discomfort. Previous fundoplication. For upper endoscopy Admission Diagnosis Admission Status: Other (Outpt Proc) ELIEZER AC MD May 02, 2018 12:12
--- NOTE | 2018-05-02 12:42 | Endo Procedure Record ---
Endo Procedure Report Date of Procedure Last Colonoscopy: Yes (2012) May 02, 2018 Surgeon (s) ELIEZER GONZALES MD Post Procedure/Op Diagnosis intact fundoplication. No mucosal lesions identified Procedure Performed upper GI endoscopy Description of Procedure Anesthesia Type: Conscious Sedation Specimen(s) collected/removed none Description of the Procedure Indication for the procedure: This gentleman had undergone fundoplication to manage reflux disease, some years ago, with resolution of his symptoms. Over the last few months, he has developed epigastric discomfort and nausea, to the point he could not maintain normal eating. a CT scan showed abnormalities outside the gastric fundus, with concern about migration of the wrap into the mediastinum. It was felt reasonable to perform an upper endoscopy first. Informed consent was obtained after reviewing the procedure in detail. Description of procedure: He was placed in left lateral decubitus position and his vital signs were monitored. Conscious sedation was achieved using Versed and fentanyl. The flexible gastroscope was then introduced down the esophagus, past the stomach, into the proximal duodenum. Findings: Esophagus: Intact fundoplication with no mucosal abnormalities. Stomach: Configuration of fundoplication with no mucosal changes. I could not ascertain whether the wrap itself had migrated into the mediastinum by conventional endoscopy. Should be clarified further using an endoscopic ultrasound. Duodenum: Normal. He tolerated the procedure well and was taken back to the nursing area in a stable condition. Impression: Epigastric discomfort and nausea. Abnormal CT scan. No mucosal lesions identified on upper endoscopy. Endoscopic ultrasound would be arranged for further evaluation. Copy Copies To 1: GARRICK NICK MD,ELIEZER Arnold MD May 02, 2018 12:42
--- NOTE | 2018-05-02 12:44 | Discharge Inst-Simple/Standard ---
Discharge Inst-Standard Discharge Medications New, Converted or Re-Newed RX: Other Patient Instructions/Follow Up Plan of Care/Instructions/FU: my office staff will arrange an endoscopic ultrasound and contact him directly Activity as Tolerated: Yes Discharge Diet: No Restrictions ELIEZER GONZALES MD May 02, 2018 12:44
[2018-05-02 12:55] VITALS: BP 116/66
[2018-05-02 13:25] VITALS: BP 133/82
[2018-05-02 13:32] VITALS: BP 133/82
== END 2018-05-02 13:32 | disposition home or self-care (01) ==
LOC: ENDO 09:19
PROVIDERS: ATTEND Surgery
DX: R10.13 Epigastric pain (principal); R11.0 Nausea; Z87.891 Personal history of nicotine dependence; Z86.718 Personal history of other venous thrombosis and embolism; I10 Essential (primary) hypertension; I49.9 Cardiac arrhythmia, unspecified; N40.0 Benign prostatic hyperplasia without lower urinary tract symptoms; N19 Unspecified kidney failure; K21.9 Gastro-esophageal reflux disease without esophagitis; K58.0 Irritable bowel syndrome with diarrhea; M17.0 Bilateral primary osteoarthritis of knee; H91.90 Unspecified hearing loss, unspecified ear; Z98.890 Other specified postprocedural states

== ENCOUNTER 2018-06-02 13:28 | Outpatient (RCR) | payer MEDICARE, OTHER ==
[2018-06-02 13:41] LABS: BASOPHILS % (AUTO) 0 % (0-10); EOSINOPHILS # (AUTO) 0.2 10^3/uL (0.0-0.3); EOSINOPHILS % (AUTO) 2 % (0-10); HEMATOCRIT 44 % (40-54); HEMOGLOBIN 14.8 G/DL (13.3-17.7); LYMPHOCYTES # (AUTO) 1.4 X 10^3 (1.0-4.0); LYMPHOCYTES % (AUTO) 18 % (12-44); MEAN CORPUSCULAR HEMOGLOBIN 31 PG (25-34); MEAN CORPUSCULAR HGB CONC 34 G/DL (32-36); MEAN CORPUSCULAR VOLUME 91 FL (80-99); MEAN PLATELET VOLUME 10.2 FL (7.4-10.4); MONOCYTES # (AUTO) 0.7 X 10^3 (0.0-1.0); MONOCYTES % (AUTO) 9 % (0-12); NEUTROPHILS # (AUTO) 5.5 X 10^3 (1.8-7.8); NEUTROPHILS % (AUTO) 71 % (42-75); PLATELET COUNT 132 10^3/uL (130-400); RED CELL DISTRIBUTION WIDTH 13.5 % (10.0-14.5); WHITE BLOOD COUNT 7.7 10^3/uL (4.3-11.0)
[2018-06-02 14:05] LABS: ALBUMIN 3.8 GM/DL (3.2-4.5); BILIRUBIN,TOTAL 0.8 MG/DL (0.1-1.0); CALCIUM 9.1 MG/DL (8.5-10.1); CREATININE SERUM 2.35 MG/DL (0.60-1.30); TOTAL PROTEIN 6.3 GM/DL (6.4-8.2)
== END 2018-08-31 | disposition home or self-care (01) ==
LOC: ONC 13:28
PROVIDERS: ATTEND Internal Medicine Hematology & Oncology
DX: C64.1 Malignant neoplasm of right kidney, except renal pelvis (principal); D68.61 Antiphospholipid syndrome; I82.5Z1 Chronic embolism and thrombosis of unspecified deep veins of right distal lower extremity; I27.82 Chronic pulmonary embolism; I12.9 Hypertensive chronic kidney disease with stage 1 through stage 4 chronic kidney disease, or unspecified chronic kidney disease; N18.3 Chronic kidney disease, stage 3 (moderate); N40.1 Benign prostatic hyperplasia with lower urinary tract symptoms; R33.8 Other retention of urine; Z87.891 Personal history of nicotine dependence; Z79.82 Long term (current) use of aspirin; Z79.01 Long term (current) use of anticoagulants
CPT/HCPCS: 36415; 80053; 83615; 85025; 99213

== ENCOUNTER → 2018-07-22 | Outpatient (CLI) | payer MEDICARE, OTHER ==
--- NOTE | 2018-07-22 11:55 | Diagnostic Imaging Report ---
INDICATION: Nontraumatic neck pain of 4 weeks' duration greatest on the right. FINDINGS: Cervical body heights are maintained. The alignment is anatomic. There is degenerative disc space narrowing, endplate sclerosis, and osteophytes anterior greater than posterior at the C5-C6, C6-C7, and C7-T1 levels. There is sclerotic hypertrophy and facet arthrosis at the [id number] cervical levels. The prevertebral space appears normal. The odontoid is intact. On the AP view, the facet disease is asymmetric greater right than left. IMPRESSION: Substantial spondylosis and asymmetric facet arthrosis. Given the severity of the disease if there is radiculopathy or as otherwise indicated MRI of the cervical spine may provide additional utility. Dictated by: Dictated on workstation # [id number]
== END ==
LOC: RAD 09:59
PROVIDERS: ATTEND Nurse Practitioner Family
DX: M47.812 Spondylosis without myelopathy or radiculopathy, cervical region (principal); M46.82 Other specified inflammatory spondylopathies, cervical region
CPT/HCPCS: 72040

== ENCOUNTER → 2018-09-19 | Outpatient (CLI) | payer MEDICARE, OTHER ==
--- NOTE | 2018-09-19 15:41 | Diagnostic Imaging Report ---
INDICATION: Left hand pain and swelling. Time of exam 1:30 p.m. FINDINGS: Three views of the left hand were obtained. Metacarpals and phalanges appear to be intact. No fractures are seen. There are some degenerative changes at the first CMC joint. Soft tissues are unremarkable. There are some generalized degenerative changes of the interphalangeal joints as well as the second MCP joint. IMPRESSION: Chronic changes. No acute bony abnormality is detected. Dictated by: Dictated on workstation # [id number]
--- NOTE | 2018-09-19 15:56 | Diagnostic Imaging Report ---
INDICATION: Left wrist pain. Time of exam 1:34 p.m. Three views of the left wrist were obtained. FINDINGS: Distal radius and ulna are intact. There are triscaphe and first CMC joint degenerative changes with joint space narrowing and spurring. No fractures are identified. IMPRESSION: Degenerative changes. No acute bony abnormality is detected. Dictated by: Dictated on workstation # [id number]
== END ==
LOC: RAD 13:20
PROVIDERS: ATTEND Nurse Practitioner Family
DX: M19.032 Primary osteoarthritis, left wrist (principal); M19.042 Primary osteoarthritis, left hand
CPT/HCPCS: 73110; 73130

== ENCOUNTER → 2019-01-17 | Outpatient (CLI) | payer MEDICARE, OTHER ==
--- NOTE | 2019-01-17 13:01 | Diagnostic Imaging Report ---
PROCEDURE: CT abdomen and pelvis without contrast. TECHNIQUE: Multiple contiguous axial images were obtained through the abdomen and pelvis without the use of intravenous contrast. Auto Exposure Controls were utilized during the CT exam to meet ALARA standards for radiation dose reduction. INDICATION: 12-pound unintentional weight loss. Patient does have a history of renal carcinoma. COMPARISON: Comparison is made with prior CT from 04/21/2018. FINDINGS: Imaging through the lung bases demonstrates a calcified granuloma in the left lower lobe. There is some scarring in the lateral aspect of the left base as well, similar to prior study. No discrete liver mass is detected. Gallbladder is unremarkable. No biliary ductal dilatation is seen. The pancreas and spleen are unremarkable. No adrenal mass is detected. Renal evaluation is limited without intravenous contrast, but no discrete renal mass is detected. No hydronephrosis is seen. Aorta is calcified but nonaneurysmal. No central retroperitoneal or mesenteric lymphadenopathy is detected. Bowel loops appear to be nonobstructed. There is some diverticulosis of the sigmoid, but no evidence of acute diverticulitis. Bladder is unremarkable. Prostate gland is unremarkable. No definite pelvic lymphadenopathy is seen. No osteolytic lesions are detected. IMPRESSION: Stable noncontrast CT abdomen and pelvis when compared with study dating back to 04/21/2018. No abdominal or pelvic mass or lymphadenopathy is detected. Dictated by: Dictated on workstation # [id number]
== END ==
LOC: RAD 12:26
PROVIDERS: ATTEND Family Medicine
DX: R63.4 Abnormal weight loss (principal); Z85.528 Personal history of other malignant neoplasm of kidney
CPT/HCPCS: 74176

== ENCOUNTER → 2019-05-29 | Outpatient (CLI) | payer MEDICARE, OTHER ==
--- NOTE | 2019-05-29 14:38 | Diagnostic Imaging Report ---
PROCEDURE: CT chest, abdomen, and pelvis without contrast. TECHNIQUE: Multiple contiguous axial images were obtained through the chest, abdomen, and pelvis without the use of intravenous contrast. Auto Exposure Controls were utilized during the CT exam to meet ALARA standards for radiation dose reduction. INDICATION: Unexplained weight loss since October. COMPARISON: Prior CT abdomen and pelvis study from 01/17/2019. FINDINGS: CT CHEST: No axillary lymphadenopathy is identified. Mediastinal and hilar evaluation is limited without intravenous contrast but no gross abnormality is seen apart from some calcified lymph nodes in the subcarinal region, consistent with prior granulomatous exposure. No pericardial or pleural fluid is detected. Parenchymal evaluation does show a 5 mm right upper lobe nodule on image 21, indeterminate. No other pulmonary nodules are identified. No infiltrates are seen. IMPRESSION: There is a 5 mm right upper lobe nodule, indeterminate. A followup CT chest in 6 months could be performed to confirm stability. The study is otherwise unremarkable. CT ABDOMEN AND PELVIS: No discrete liver mass is identified. The gallbladder appears unremarkable. No biliary ductal dilatation is seen. There is fullness in the pancreatic head region which is indeterminate. This could be secondary to overlapping bowel. A dedicated CT with intravenous and oral contrast would be useful. The pancreatic body and tail are unremarkable. The spleen is unremarkable. No adrenal mass is detected. The left kidney demonstrates some atrophy. No definite calculi or hydronephrosis is seen. The aorta is heavily calcified but nonaneurysmal. The small and large bowel loops are of normal caliber. There is no obstruction. There is moderate stool in the colon. There is diverticulosis of the sigmoid but no evidence of acute diverticulitis. No free fluid or fluid collection is seen. The bladder and prostate are unremarkable. No definite abdominal or pelvic lymphadenopathy is seen. IMPRESSION: 1. There is some soft tissue fullness in the region of the pancreatic head, indeterminate. Repeat CT with IV and oral contrast would be useful for further characterization. 2. Uncomplicated diverticulosis. 3. No other significant abnormality is seen. Dictated by: Dictated on workstation # [id number]
[2019-05-29 14:45] LABS: CALCIUM 8.8 MG/DL (8.5-10.1); CREATININE SERUM 2.29 MG/DL (0.60-1.30); POTASSIUM 5.1 MMOL/L (3.6-5.0)
[2019-05-29 15:07] LABS: FREE T4 (FREE THYROXINE) 0.98 NG/DL (0.70-1.48)
== END ==
LOC: RAD 13:27
PROVIDERS: ATTEND Nurse Practitioner Family
DX: K57.30 Diverticulosis of large intestine without perforation or abscess without bleeding (principal); R63.4 Abnormal weight loss; K86.89 Other specified diseases of pancreas
CPT/HCPCS: 36415; 71250; 74176; 80048; 83036; 84439; 84443

== ENCOUNTER → 2019-06-02 | Outpatient (CLI) | payer MEDICARE, OTHER ==
[~2019-06-02] MED LIST changes: -ENAL5TAB PO; +ENLP5T PO
--- NOTE | 2019-06-02 09:13 | Diagnostic Imaging Report ---
INDICATION: Fullness in the region of the pancreatic head on recent CT. Study is performed for further evaluation. COMPARISON: Correlation is made with recent CT study from 05/29/2019. FINDINGS: The pancreatic body and tail are unremarkable. The pancreatic head is not as well seen due to overlying bowel gas. No discrete mass is seen. No peripancreatic fluid collection is identified. IMPRESSION: Limited study due to bowel gas. No definite pancreatic mass is detected. Since the patient cannot receive IV contrast, consideration could be given to performance of a noncontrast MRI of the abdomen to further evaluate the pancreatic head region. Dictated by: Dictated on workstation # [id number]
== END ==
LOC: RAD 07:48
PROVIDERS: ATTEND Family Medicine
DX: K86.89 Other specified diseases of pancreas (principal); R63.4 Abnormal weight loss
CPT/HCPCS: 76705

== ENCOUNTER 2019-06-05 12:56 | Outpatient (RCR) | payer MEDICARE, OTHER ==
[2019-06-05 13:09] LABS: BASOPHILS % (AUTO) 0 % (0-10); EOSINOPHILS # (AUTO) 0.2 10^3/uL (0.0-0.3); EOSINOPHILS % (AUTO) 2 % (0-10); HEMATOCRIT 44 % (40-54); HEMOGLOBIN 14.8 G/DL (13.3-17.7); LYMPHOCYTES # (AUTO) 1.1 X 10^3 (1.0-4.0); LYMPHOCYTES % (AUTO) 11 % (12-44); MEAN CORPUSCULAR HEMOGLOBIN 31 PG (25-34); MEAN CORPUSCULAR HGB CONC 34 G/DL (32-36); MEAN CORPUSCULAR VOLUME 92 FL (80-99); MEAN PLATELET VOLUME 9.7 FL (7.4-10.4); MONOCYTES # (AUTO) 0.6 X 10^3 (0.0-1.0); MONOCYTES % (AUTO) 6 % (0-12); NEUTROPHILS # (AUTO) 8.1 X 10^3 (1.8-7.8); NEUTROPHILS % (AUTO) 81 % (42-75); PLATELET COUNT 171 10^3/uL (130-400); RED CELL DISTRIBUTION WIDTH 13.4 % (10.0-14.5)
[2019-06-05 13:36] LABS: ALBUMIN 3.7 GM/DL (3.2-4.5); BILIRUBIN,TOTAL 0.5 MG/DL (0.1-1.0); CALCIUM 8.7 MG/DL (8.5-10.1); CREATININE SERUM 2.31 MG/DL (0.60-1.30); POTASSIUM 5.3 MMOL/L (3.6-5.0); TOTAL PROTEIN 6.4 GM/DL (6.4-8.2)
== END 2019-09-03 | disposition home or self-care (01) ==
LOC: ONC 12:56
PROVIDERS: ATTEND Internal Medicine Hematology & Oncology
DX: C64.1 Malignant neoplasm of right kidney, except renal pelvis (principal); I26.99 Other pulmonary embolism without acute cor pulmonale; I12.9 Hypertensive chronic kidney disease with stage 1 through stage 4 chronic kidney disease, or unspecified chronic kidney disease; N18.4 Chronic kidney disease, stage 4 (severe); D68.59 Other primary thrombophilia; I82.401 Acute embolism and thrombosis of unspecified deep veins of right lower extremity; Z79.899 Other long term (current) drug therapy; Z79.01 Long term (current) use of anticoagulants
CPT/HCPCS: 36415; 80053; 83615; 85025; 99213

== ENCOUNTER → 2019-08-08 | Outpatient (CLI) | payer MEDICARE, OTHER ==
[~2019-08-08] VITALS: Ht 174 cm; Wt 71.0 kg
[~2019-08-08] MED LIST changes: +CATHETER FLUSH 10 ML SYR IV PRN; +ENAL5TAB PO; -ENLP5T PO; +REGADENOSON 0.4 MG/5 ML SYR (LEXISCAN) IV ONE
[2019-08-08 08:29] VITALS: BP 150/92
--- NOTE | 2019-08-08 12:02 | STRESS TEST ---
DATE OF SERVICE: 08/08/2019 RESTING AND POST REGADENOSON TECHNETIUM-99M TETROFOSMIN SPECT CT IMAGING ORDERING PHYSICIAN: Dr. Sher. PRIMARY PHYSICIAN: Dr. Galindo. CLINICAL DIAGNOSIS: Coronary artery disease, chronic kidney disease, stage IV. Baseline images were carried out after injection of 10.51 mCi of technetium-99m Tetrofosmin. This was followed by 0.4 mg regadenoson and 32.2 mCi of technetium-99m Tetrofosmin for stress imaging. The electrocardiogram showed sinus rhythm with right bundle branch block and left anterior fascicular block. The electrocardiogram did not change significantly with the regadenoson infusion. The patient noted mild shortness of breath following regadenoson infusion, which resolved in a few minutes. Review of images at rest and following stress does not indicate any significant perfusion defects consistent with myocardial ischemia or infarction. Gated images showed normal global left ventricular systolic function with normal regional wall motion. Left ventricular ejection fraction is calculated to be 79%. Left ventricular end diastolic volume is 51 mL. TID is absent (0.99). CONCLUSIONS: 1. No evidence of any significant myocardial ischemia or infarction on this study. 2. Normal regional wall motion. 3. Normal global left ventricular systolic function with a calculated ejection fraction of 79%. Job ID: [id number] DocumentID: [id number] Dictated Date: 08/08/2019 10:32:06 Digital Account Supervisor Date: 08/08/2019 12:02:12 Dictated By: KONG SHER MD, MA, FACP, FACC,
== END ==
LOC: CARD 06:43
PROVIDERS: ATTEND Internal Medicine Cardiovascular Disease
DX: I25.10 Atherosclerotic heart disease of native coronary artery without angina pectoris (principal); N18.4 Chronic kidney disease, stage 4 (severe)
CPT/HCPCS: 78452; 93017

== ENCOUNTER 2019-10-18 12:57 | Outpatient (RCR) | payer MEDICARE, OTHER ==
[~2019-10-18 12:57] MED LIST changes: -CATHETER FLUSH 10 ML SYR IV PRN; -ENAL5TAB PO; +ENLP5T PO; -REGADENOSON 0.4 MG/5 ML SYR (LEXISCAN) IV ONE
== END 2019-11-28 | disposition home or self-care (01) ==
PROVIDERS: ATTEND Orthopaedic Surgery
DX: Z98.890 Other specified postprocedural states (principal); M19.91 Primary osteoarthritis, unspecified site; M81.0 Age-related osteoporosis without current pathological fracture; I10 Essential (primary) hypertension

== ENCOUNTER → 2019-11-23 | Outpatient (CLI) | payer MEDICARE, OTHER ==
--- NOTE | 2019-11-23 11:53 | Diagnostic Imaging Report ---
PROCEDURE: CT chest without contrast. TECHNIQUE: Multiple contiguous axial images were obtained through the chest without the use of intravenous contrast. Auto Exposure Controls were utilized during the CT exam to meet ALARA standards for radiation dose reduction. INDICATION: Right lung nodule COMPARISON: CT dated 05/29/2019 FINDINGS: Left shoulder arthroplasty is in place. Calcified mediastinal and left hilar lymph nodes are present. No pathologically enlarged lymph nodes within the chest. Mild scattered vascular calcifications. No aneurysmal dilatation of the thoracic aorta. The heart is within normal limits in size. Trace pericardial fluid. No significant pleural effusion. No pneumothorax. Calcified granuloma within the left lower lobe. Mild scarring within the inferior left lower lobe. Stable 5 mm groundglass right upper lobe pulmonary nodule. The lungs are otherwise clear. Trachea is patent. Decreased fullness about the head of the pancreas with several loops of gas containing bowel within the region. No acute osseous abnormality with scattered osseous degenerative changes present. IMPRESSION: Stable 6 mm groundglass right upper lobe pulmonary nodule. This remains indeterminate though is unchanged in the past 6 months. Recommend a follow-up CT of the chest in 12-18 months to reevaluate. No new pulmonary nodules. Previously noted fullness about the pancreatic head appears improved. This is favored to have related to decompressed loops of bowel on the prior examination. Evidence of chronic granulomatous disease. Additional findings as above. Dictated by: Dictated on workstation # [id number]
== END ==
LOC: RAD 11:14
PROVIDERS: ATTEND Family Medicine
DX: R91.1 Solitary pulmonary nodule (principal)
CPT/HCPCS: 71250

== ENCOUNTER 2021-01-15 11:48 | Outpatient (RCR) | payer MEDICARE, OTHER ==
[2021-01-13 16:10] VITALS: BP 130/75
[2021-01-13 17:45] VITALS: BP 130/75
[2021-01-14 11:55] VITALS: BP 117/83
[~2021-01-15] VITALS: Ht 175.3 cm; Wt 62.3 kg
[~2021-01-15 11:48] MED LIST changes: +NS IV 1000 ML 1,000 ML IV SCH; +NS IV 1000 ML 1,000 ML ONE
[2021-01-15 13:15] VITALS: BP 117/83
[2021-01-15] MEDS ORDERED: NS IV 1000 ML 1,000 ML IV SCH (16:00)
== END 2021-01-15 13:15 | disposition home or self-care (01) ==
LOC: SDC 11:48
PROVIDERS: ATTEND Family Medicine
DX: E86.0 Dehydration (principal); I95.9 Hypotension, unspecified
CPT/HCPCS: 96360

== ENCOUNTER → 2021-01-30 | Outpatient (CLI) | payer MEDICARE, OTHER ==
[~2021-01-30] MED LIST changes: -NS IV 1000 ML 1,000 ML IV SCH; -NS IV 1000 ML 1,000 ML ONE
--- NOTE | 2021-01-30 15:18 | Diagnostic Imaging Report ---
PROCEDURE: CT head and CT cervical spine without contrast. TECHNIQUE: Multiple contiguous axial images were obtained through the brain and cervical spine without the use of intravenous contrast. Sagittal and coronal reformations through the cervical spine were then performed. Auto Exposure Controls were utilized during the CT exam to meet ALARA standards for radiation dose reduction. INDICATION: Fall with head and neck pain. No prior studies are available for comparison. CT HEAD: The ventricles and sulci are within normal limits. No sulcal effacement or midline shift is identified. No acute intra-axial or extra-axial hemorrhage is detected. Cisterns are patent. Visualized paranasal sinuses are clear. IMPRESSION: No acute intracranial process is detected. CT CERVICAL SPINE: Curvature and alignment of the cervical spine is normal. There is multilevel degenerative disc and facet disease. There is significant hypertrophic facet changes particularly right-sided facets. No fracture is seen. The prevertebral tissues are within normal limits. Odontoid is intact. IMPRESSION: Cervical spondylosis. No acute bony abnormality is detected. Dictated by: Dictated on workstation # [id number]
== END ==
LOC: RAD 14:45
PROVIDERS: ATTEND Family Medicine
DX: S09.90XA Unspecified injury of head, initial encounter (principal); M47.812 Spondylosis without myelopathy or radiculopathy, cervical region; W19.XXXA Unspecified fall, initial encounter
CPT/HCPCS: 70450; 72125

== ENCOUNTER 2021-02-28 13:36 | Outpatient (RCR) | payer MEDICARE, OTHER | END 2021-03-26 15:10 | disposition home or self-care (01) | PROVIDERS: ATTEND Orthopaedic Surgery | DX: Z47.1 Aftercare following joint replacement surgery (principal); I10 Essential (primary) hypertension; Z96.651 Presence of right artificial knee joint ==

== ENCOUNTER → 2021-02-28 | Outpatient (CLI) | payer MEDICARE, OTHER ==
--- NOTE | 2021-03-01 08:18 | Diagnostic Imaging Report ---
EXAMINATION: MRI of the abdomen without contrast. TECHNIQUE: Multiplanar, multisequence MR images of the abdomen were obtained without intravenous contrast. HISTORY: Renal cell cancer, pancreatic fullness COMPARISON: None available. FINDINGS: Study quality is diminished by respiratory motion. The liver is normal without steatosis. No suspicious liver lesions are seen. No surface nodularity. Gallbladder is normal. There is no biliary ductal dilation. No stricture or filling defect is seen. The pancreatic duct is normal. Pancreas is normal. Spleen is normal. Adrenal glands are normal. Kidneys are normal without hydronephrosis. Visualized bowel is normal. No lymphadenopathy is seen. Lung bases are clear. No osseus lesions are seen. IMPRESSION: 1. Normal pancreas. Dictated by: Dictated on workstation # [id number]
--- NOTE | 2021-03-01 08:19 | Diagnostic Imaging Report ---
PROCEDURE: MRI pelvis without contrast. TECHNIQUE: Multiplanar, multisequence MRI of the pelvis was performed without contrast. INDICATION: Pancreatic fullness COMPARISON: None available. FINDINGS: Bladder is normal. Visualized bowel is normal. No free fluid is seen. Small amount of fluid is present along the right iliopsoas tendon. Vasculature is unremarkable. There is no lymphadenopathy in the pelvis. There is no pelvic mass. Bones are normal. IMPRESSION: 1. No acute abnormality in the pelvis. Dictated by: Dictated on workstation # [id number]
== END ==
LOC: RAD 14:45
PROVIDERS: ATTEND Family Medicine
DX: K86.89 Other specified diseases of pancreas (principal); R63.4 Abnormal weight loss; R10.9 Unspecified abdominal pain; Z85.528 Personal history of other malignant neoplasm of kidney
CPT/HCPCS: 72195; 74181

== ENCOUNTER → 2021-11-12 | Outpatient (CLI) | payer MEDICARE, OTHER ==
[~2021-11-12] MED LIST changes: -DOXY100C2 PO; +DOXY100C5 PO
--- NOTE | 2021-11-12 13:52 | Diagnostic Imaging Report ---
INDICATION: Right breast pain. COMPARISON: Correlation is made with the diagnostic mammogram from earlier this same day. FINDINGS: Sonographic interrogation of the retroareolar right breast was performed. No sonographic abnormality is seen. No mass is detected. IMPRESSION: No sonographic abnormality is seen. The findings mammographically were consistent with gynecomastia. ACR BI-RADS Category 1: Negative. Result letter will be mailed to the patient. Note: At least 10% of breast cancer is not imaged by mammography. Dictated by: Dictated on workstation # [id number]
--- NOTE | 2021-11-12 15:58 | Diagnostic Imaging Report ---
Indication: Pain on the right breast. Unilateral right 2-D and 3-D diagnostic mammography was performed with CAD. CAD is utilized. The current study was also evaluated with a Computer Aided Detection (CAD) system. CAD is utilized. There is some mild density in the retroareolar right breast, suggestive of gynecomastia. No discrete mass is seen. No malignant-appearing microcalcifications are identified. Right axilla is unremarkable. IMPRESSION: BI-RADS 0 Features most consistent with gynecomastia. Even so, directed sonographic interrogation of the retroareolar right breast is recommended and will be performed today. ACR BI-RADS Category 0: Incomplete. (Needs additional imaging evaluation). Result letter will be mailed to the patient. Note: At least 10% of breast cancer is not imaged by mammography. Dictated by: Dictated on workstation # [id number]
== END ==
LOC: RAD 13:15
PROVIDERS: ATTEND Family Medicine
DX: N64.4 Mastodynia (principal)
CPT/HCPCS: 76642; 77065; G0279

== ENCOUNTER → 2022-05-18 | Outpatient (CLI) | payer MEDICARE, OTHER | LOC: CARD 11:05 | PROVIDERS: ATTEND Internal Medicine Cardiovascular Disease | DX: I34.0 Nonrheumatic mitral (valve) insufficiency (principal); I50.31 Acute diastolic (congestive) heart failure | CPT/HCPCS: 93306 ==

== ENCOUNTER 2022-11-02 13:09 | Inpatient (IN) | payer MEDICARE, OTHER ==
[~2022-11-02] VITALS: Ht 175.3 cm; Wt 74.3 kg
[~2022-11-02 13:09] MED LIST changes: +ENAL-66 PO; -ENLP5T PO
--- NOTE | 2022-11-02 13:37 | ED Lower Extremity ---
General Chief Complaint: Trauma-Non Activation Stated Complaint: FALL | RT HIP AND RT KNEE INJ Source: patient Exam Limitations: no limitations History of Present Illness Date Seen by Provider: Nov 02, 2022 Time Seen by Provider: 13:33 Initial Comments Patient is a 77-year-old male who presents to the ED for right hip right and knee pain after a mechanical fall. Around 1130 today patient was climbing over a doggy door inside their house when he tripped and fell directly on the right hip. Patient states he did hit his right knee. History of bilateral total knee replacements. Patient was not able to stand or bear weight. Attempted for 1 hour. Patient was brought to ED by POV. He denies history of hip replacement. Patient denies of any swelling or bruising of the knee. No obvious shortening. Patient took oxycodone 5 mg and Tylenol around 12:00 today. Denies of any bowel or urine incontinence, saddle paresthesia, head injury, back pain. Patient also reports hitting the right elbow with a small skin abrasion but denies of any pain to this location. Applied bandage. GCS 15. Alert and orient x3. Allergies and Home Medications Allergies Coded Allergies: Sulfa (Sulfonamide Antibiotics) (Verified Allergy, Severe, 04/27/18) ofloxacin (Verified Allergy, Unknown, 04/27/18) tetracycline (Unverified Allergy, Unknown, 04/27/18) Patient Home Medication List Home Medication List Reviewed: Yes Alprazolam (Xanax) 0.25 Mg Tablet, 0.25 MG PO PRN, (Reported) Entered as Reported by: JENNIFER LANCASTER on 09/02/161957 Apixaban (Eliquis) 2.5 Mg Tablet, 2.5 MG PO BID, (Reported) Entered as Reported by: AMADOR CHAVIS on 03/15/17 1233 Carvedilol (Carvedilol) 6.25 Mg Tablet, 6.25 MG PO BID, (Reported) Entered as Reported by: RUCHI MILLER on 04/27/18 1509 Cholecalciferol (Vitamin D3) (Vitamin D-3) 2,000 Unit Capsule, 2,000 UNIT PO HS, (Reported) Entered as Reported by: MARIANNE MERAZ on 08/16/15 1308 Finasteride (Proscar) 5 Mg Tablet, 5 MG PO DAILY, (Reported) Entered as Reported by: AMADOR CHAVIS on 03/15/17 1233 Loperamide HCl (Anti-Diarrhea) 2 Mg Tablet, 2 MG PO DAILY, (Reported) Entered as Reported by: RUCHI MILLER on 04/27/18 1509 Melatonin (Melatonin) 10 Mg Capsule, 8 MG PO HS, (Reported) Entered as Reported by: JENNIFER LANCASTER on 09/02/16 195 Tamsulosin HCl (Tamsulosin HCl) 0.4 Mg Cap.er.24h, 0.4 MG PO HS, (Reported) Entered as Reported by: MARIANNE MERAZ on 08/16/15 1308 Review of Systems Constitutional: No chills, No diaphoresis, No malaise, No weakness EENTM: No ear pain, No blurred vision, No double vision Respiratory: No cough, No dyspnea on exertion, No short of breath, No stridor, No wheezing Cardiovascular: No chest pain Gastrointestinal: No abdominal pain, No diarrhea, No nausea, No vomiting Genitourinary: No decreased output, No discharge Musculoskeletal: No back pain; joint pain, joint swelling, muscle pain Skin: No change in color, No change in hair/nails All Other Systems Reviewed Negative Unless Noted: Yes Past Cpxvlbu-Joggaf-Xcnecn Hx Patient Social History Tobacco Use?: No Use of E-Cig and/or Vaping dev: No Substance use?: No Alcohol Use?: Yes Alcohol type: Wine Alcohol Frequency: Daily Pt feels they are or have been: No Immunizations Up To Date Tetanus Booster (TDap): Unknown Seasonal Allergies Seasonal Allergies: No Past Medical History Surgeries: Yes (KIDNEY ABLATION, HIATAL HERNIA REPAIR, ELBOW, RECTAL FISSURE) Abdominal Respiratory: Yes Pulmonary Embolism Cardiac: Yes (right bundle branch block) Deep Vein Thrombosis, Hypertension, Irregular Heartbeat Neurological: No Reproductive Disorders: No Sexually Transmitted Disease: No HIV/AIDS: No Benign Prostatic Hyperpl, Prostate Problems, Renal Failure Gastrointestinal: Yes Gastroesophageal Reflux, Chronic Diarrhea, Hiatal Hernia, Irritable Bowel Musculoskeletal: Yes (arthritis-knees need to be replaced) Arthritis Endocrine: No Loss of Vision: Bilateral Hearing Impairment: Hard of Hearing Cancer: Yes Kidney What Type of Treatment Did You: Surgical Intervention Psychosocial: No Integumentary: Yes (MILD ECZEMA) Eczema Blood Disorders: No Adverse Reaction/Blood Tranf: No (N/A) Family Medical History Cardiovascular disease G8 BROTHER FH: breast cancer 19 MOTHER FH: lung cancer 19 FATHER Kidney disease G8 BROTHER (ON DIALYSIS) Pacemaker 19 MOTHER Physical Exam Vital Signs Vital Signs - First Documented 11/02/22 13:22 Pulse 54 Resp 16 B/P (MAP) 184/91 (122) Pulse Ox 95 O2 Delivery Room Air Capillary Refill : Height, Weight, BMI Height: 5'9.00" Weight: 170lbs. 0.0oz. [id number]; 23.45 BMI Method:Estimated General Appearance: WD/WN, no apparent distress HEENT: PERRL/EOMI, normal ENT inspection, TMs normal, pharynx normal Neck: non-tender, full range of motion, supple Cardiovascular: regular rate, rhythm, no edema, no gallop, no JVD Respiratory: chest non-tender, lungs clear, normal breath sounds, no respiratory distress, no accessory muscle use Gastrointestinal: normal bowel sounds, non tender, soft, no organomegaly Back: normal inspection, no CVA tenderness Hips: bilateral hip non-tender; right hip limited range of motion (Decreased passive and active range of motion right hip.), right hip pain (Tenderness to palpate right lateral hip), right hip soft tissue tenderness Legs: right leg limited range of motion, right leg pain, right leg soft tissue tenderness (Tenderness to palpate right lateral hip) Knees: right knee pain, right knee soft tissue tenderness, right knee other (Limited range of motion of the right knee without swelling, redness.) Neurologic/Psychiatric: 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 parole 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 aide II-XII nml as tested, no motor/sensory deficits, alert, normal mood/affect, oriented x 3 Progress/Results/Core Measures Results/Orders Lab Results Laboratory Tests Test 11/02/22 16:25 Range/Units White Blood Count 9.5 4.3-11.0 10^3/uL Red Blood Count 4.05 L 4.30-5.52 10^6/uL Hemoglobin 12.6 L 13.3-17.7 g/dL Hematocrit 37 L 40-54 % Mean Corpuscular Volume 92 80-99 fL Mean Corpuscular Hemoglobin 31 25-34 pg Mean Corpuscular Hemoglobin Concent 34 32-36 g/dL Red Cell Distribution Width 12.6 10.0-14.5 % Platelet Count 145 130-400 10^3/uL Mean Platelet Volume 10.0 9.0-12.2 fL Immature Granulocyte % (Auto) 1 % Neutrophils (%) (Auto) 84 H 42-75 % Lymphocytes (%) (Auto) 8 L 12-44 % Monocytes (%) (Auto) 7 0-12 % Eosinophils (%) (Auto) 1 0-10 % Basophils (%) (Auto) 0 0-10 % Neutrophils # (Auto) 8.0 H 1.8-7.8 10^3/uL Lymphocytes # (Auto) 0.8 L 1.0-4.0 10^3/uL Monocytes # (Auto) 0.7 0.0-1.0 10^3/uL Eosinophils # (Auto) 0.1 0.0-0.3 10^3/uL Basophils # (Auto) 0.0 0.0-0.1 10^3/uL Immature Granulocyte # (Auto) 0.1 0.0-0.1 10^3/uL Prothrombin Time 15.9 H 12.2-14.7 SEC INR Comment 1.2 0.8-1.4 Activated Partial Thromboplast Time 36 H 24-35 SEC Sodium Level 138 135-145 MMOL/L Potassium Level 5.3 H 3.6-5.0 MMOL/L Chloride Level 108 H 98-107 MMOL/L Carbon Dioxide Level 22 21-32 MMOL/L Anion Gap 8 5-14 MMOL/L Blood Urea Nitrogen 45 H 7-18 MG/DL Creatinine 3.28 H 0.60-1.30 MG/DL Estimat Glomerular Filtration Rate 18 BUN/Creatinine Ratio 14 Glucose Level 90 70-105 MG/DL Calcium Level 8.5 8.5-10.1 MG/DL Corrected Calcium 9.0 8.5-10.1 MG/DL Total Bilirubin 0.6 0.1-1.0 MG/DL Aspartate Amino Transf (AST/SGOT) 19 5-34 U/L Alanine Aminotransferase (ALT/SGPT) 17 0-55 U/L Alkaline Phosphatase 85 40-136 U/L Total Protein 6.0 L 6.4-8.2 GM/DL Albumin 3.4 3.2-4.5 GM/DL My Orders Orders - FLORA BARAHONA Hip, Right, 2 Views (11/02/22 13:30) Knee, Right, 3 Views (11/02/22 13:30) Fentanyl Inj (Sublimaze Injection) (11/02/22 13:45) Fentanyl Inj (Sublimaze Injection) (11/02/22 13:47) Ketorolac Injection (Toradol Injection) (11/02/22 14:15) Orphenadrine Inj (Ed Only) (Norflex Inje (11/02/22 14:15) Ct Pelvis Wo (11/02/22 14:48) Cbc With Automated Diff (11/02/22 16:17) Comprehensive Metabolic Panel (11/02/22 16:17) Partial Thromboplastin Time (11/02/22 16:25) Protime With Inr (11/02/22 16:25) Chest 1 View, Ap/Pa Only (11/02/22 16:25) Ekg Tracing (11/02/22 16:25) Ns Iv 1000 Ml (Sodium Chloride 0.9%) (11/02/22 17:14) Ns Iv 1000 Ml (Sodium Chloride 0.9%) (11/02/22 17:16) Medications Given in ED Current Medications Medications Dose Ordered Sig/Lewis Route Start Time Stop Time Status Last Admin Dose Admin Ketorolac Tromethamine 30 mg ONCE ONCE IVP 11/02/22 14:15 11/02/22 14:16 DC 11/02/22 14:19 30 MG Orphenadrine Citrate 60 mg ONCE ONCE IM 11/02/22 14:15 11/02/22 14:16 DC 11/02/22 14:22 60 MG Vital Signs/I&O 11/02/22 13:22 Pulse 54 Resp 16 B/P (MAP) 184/91 (122) Pulse Ox 95 O2 Delivery Room Air Comment Sinus bradycardia with arrhythmia, right bundle branch block, left anterior fascicular block. 53 bpm, QRS duration 139 MS, QTc 428 MS Departure Communication (PCP) Reviewed previous visits, H&P, lab testing. Patient with a mechanical fall landing on the right hip and right knee. No evidence of shortening or rotation noted on exam. Differential diagnosis of right hip fracture, right knee fracture, right hip contusion. Patient has no thoracic or lumbar midline tenderness. No neurological red flag findings. Brought to ED by POV. Patient was given IV fentanyl, Toradol and Norflex with improvement of pain. X-ray of the right hip concerning for impacted fracture of the right femoral neck. X-ray of the right knee without evidence of acute fracture. Recommended CT scan for further evaluation. CT scan shows a acute, minimally impacted subcapital fracture of the right femoral neck. Patient with a history of stage IV kidney disease, DVT, PE, hypertension. Discussed patient with Dr. Orozco who recommended admission to his primary care physician and consult. Discussed patient with Dr. NICK his primary care physician who accepts patient. Stop Elimcis. Patient agrees with admission at this time. Preop CBC, CMP, EKG and chest x-ray was ordered. Patient will be admitted to medical floor. Dr. Orozco recommends no Lovenox. We will fix his fracture with cannulated screws tomorrow morning. N.p.o. after midnight Impression Primary Impression: Hip fracture Disposition: ADMITTED INPATIENT Condition: Stable Admissions Decision to Admit Reason: Admit from ER (General) Decision to Admit/Date: Nov 02, 2022 Time/Decision to Admit Time: 16:23 Departure-Patient Inst. Referrals: GARRICK NICK MD (PCP/Family) Primary Care Physician FLORA BARAHONA Nov 02, 2022 13:37
[2022-11-02] MEDS ORDERED: fentaNYL INJ 100 MCG/2 ML AMP IVP STA (13:45)
[2022-11-02] MEDS ORDERED: fentaNYL INJ 100 MCG/2 ML AMP ONE (13:47)
[2022-11-02] MEDS ORDERED: KETOROLAC 30 MG/ML VIAL IVP ONE (14:15)
[2022-11-02] MEDS ORDERED: ORPHENADRINE 60 MG/2 ML (NORFLEX) AMP (ED ONLY) IM ONE (14:15)
--- NOTE | 2022-11-02 14:30 | Diagnostic Imaging Report ---
INDICATION: Right knee pain. COMPARISON: None available. TECHNIQUE: Three radiographs of the right knee dated 11/02/2022. FINDINGS: Right total knee arthroplasty is in place without evidence of hardware complication. No acute fracture or dislocation. No destructive osseous process. Mild background vascular calcifications. No suspicious radiopaque foreign body. IMPRESSION: Right total knee arthroplasty and minimal vascular calcifications without hardware complication or acute osseous abnormality. Dictated by: Dictated on workstation # [id number]
--- NOTE | 2022-11-02 14:34 | Diagnostic Imaging Report ---
INDICATION: Hip pain. COMPARISON: 02/28/2021 and 05/29/2019. TECHNIQUE: Two radiographs of the right hip dated 11/02/2022. FINDINGS: An impacted essentially nondisplaced right femoral neck fracture is identified. No additional fracture or dislocation. No destructive osseous process. Mild degenerative changes of the right hip joint. The right sacroiliac joint appears intact. No suspicious radiopaque foreign body. IMPRESSION: Suspected slightly impacted though not significantly displaced right femoral neck fracture. This could be confirmed with a CT of the pelvis. Mild degenerative changes of the right hip. Dictated by: Dictated on workstation # [id number]
--- NOTE | 2022-11-02 16:06 | Diagnostic Imaging Report ---
PROCEDURE: CT pelvis without contrast. TECHNIQUE: Multiple contiguous axial images were obtained through the pelvis without the use of intravenous contrast. Sagittal and coronal reformations were performed. Auto Exposure Controls were utilized during the CT exam to meet ALARA standards for radiation dose reduction. INDICATION: Right hip pain. COMPARISON: MRI pelvis from 02/28/2021. FINDINGS: There is an acute, mildly impacted simple transverse fracture in the subcapital region of the right femoral neck. No rotation of the femoral shaft. No additional acute fracture within the pelvis. SI joints are normal in alignment. No avascular necrosis of the femoral heads. No free pelvic fluid or pelvic hematoma. Urinary bladder is normal in appearance. A small amount of fluid is seen in the right iliopsoas bursa, and this could be from intra-articular fluid directly communicating with the bursa and insinuating from the acute intra-articular fracture. IMPRESSION: 1. CT confirms the presence of an acute, minimally impacted subcapital fracture of the right femoral neck. Dictated by: Dictated on workstation # [id number]
[2022-11-02 16:36] LABS: BASOPHILS % (AUTO) 0 % (0-10); EOSINOPHILS # (AUTO) 0.1 10^3/uL (0.0-0.3); EOSINOPHILS % (AUTO) 1 % (0-10); HEMATOCRIT 37 % (40-54); HEMOGLOBIN 12.6 g/dL (13.3-17.7); LYMPHOCYTES # (AUTO) 0.8 10^3/uL (1.0-4.0); LYMPHOCYTES % (AUTO) 8 % (12-44); MEAN CORPUSCULAR HEMOGLOBIN 31 pg (25-34); MEAN CORPUSCULAR HGB CONC 34 g/dL (32-36); MEAN CORPUSCULAR VOLUME 92 fL (80-99); MONOCYTES # (AUTO) 0.7 10^3/uL (0.0-1.0); MONOCYTES % (AUTO) 7 % (0-12); NEUTROPHILS % (AUTO) 84 % (42-75); PLATELET COUNT 145 10^3/uL (130-400); WHITE BLOOD COUNT 9.5 10^3/uL (4.3-11.0)
[2022-11-02 16:45] LABS: ALBUMIN 3.4 GM/DL (3.2-4.5); INR 1.2 (0.8-1.4); PROTHROMBIN TIME PATIENT 15.9 SEC (12.2-14.7)
[2022-11-02 16:46] LABS: POTASSIUM 5.3 MMOL/L (3.6-5.0)
--- NOTE | 2022-11-02 16:46 | Diagnostic Imaging Report ---
INDICATION: Preop for right hip fracture. Frontal chest obtained at 04:30 p.m. and compared to 08/15/2017. Heart and mediastinal silhouette are normal in appearance. The lungs are clear. There is no pneumothorax or pleural fluid. IMPRESSION: No acute process in the chest. Dictated by: Dictated on workstation # [id number]
[2022-11-02 16:47] LABS: CALCIUM 8.5 MG/DL (8.5-10.1)
[2022-11-02 16:50] LABS: BILIRUBIN,TOTAL 0.6 MG/DL (0.1-1.0)
[2022-11-02 16:51] LABS: CREATININE SERUM 3.28 MG/DL (0.60-1.30)
[2022-11-02] MEDS ORDERED: NS IV 1000 ML 1,000 ML IV STA ×2 (17:14→17:16)
[2022-11-02 18:03] VITALS: BP 189/88
[2022-11-02] MEDS ORDERED: CATHETER FLUSH 10 ML SYR IVP PRN (18:15)
[2022-11-02] MEDS: morphine INJ 4 MG/ML 1 ML (VIAL/SYRINGE) IV PRN ×2 (18:51→21:34)
[2022-11-02] MEDS: NS IV 1000 ML 1,000 ML IV SCH (20:09)
[2022-11-02 20:23] VITALS: BP 158/92
[2022-11-02] MEDS: CATHETER FLUSH 10 ML SYR IVP SCH ×2 (20:45→23:06)
[2022-11-02 23:52] VITALS: BP 174/84
[2022-11-03] VITALS (18 sets, daily range): BP systolic 127–186; BP diastolic 75–95
[2022-11-03] MEDS: morphine INJ 4 MG/ML 1 ML (VIAL/SYRINGE) IV PRN ×3 (01:12→08:21)
[2022-11-03 05:35] LABS: BASOPHILS % (AUTO) 1 % (0-10); EOSINOPHILS # (AUTO) 0.3 10^3/uL (0.0-0.3); EOSINOPHILS % (AUTO) 5 % (0-10); HEMATOCRIT 38 % (40-54); HEMOGLOBIN 12.7 g/dL (13.3-17.7); LYMPHOCYTES % (AUTO) 16 % (12-44); MEAN CORPUSCULAR HEMOGLOBIN 31 pg (25-34); MEAN CORPUSCULAR HGB CONC 34 g/dL (32-36); MEAN CORPUSCULAR VOLUME 92 fL (80-99); MEAN PLATELET VOLUME 9.8 fL (9.0-12.2); MONOCYTES # (AUTO) 0.5 10^3/uL (0.0-1.0); MONOCYTES % (AUTO) 9 % (0-12); NEUTROPHILS # (AUTO) 4.3 10^3/uL (1.8-7.8); NEUTROPHILS % (AUTO) 70 % (42-75); PLATELET COUNT 145 10^3/uL (130-400); WHITE BLOOD COUNT 6.2 10^3/uL (4.3-11.0)
[2022-11-03] MEDS: NS IV 1000 ML 1,000 ML IV SCH ×2 (05:56→20:45)
[2022-11-03] MEDS ORDERED: LACTATED RINGERS 1,000 ML IV PRN (08:15)
--- NOTE | 2022-11-03 08:24 | Consultation - Ortho ---
Consult - Ortho Subjective Date of Exam 11/03/22 Chief Complaint Right hip injury HPI/Events since last exam fall from standing height yesterday, landed on right side, ER eval demonstrated nondisplaced, impacted femoral neck fracture, I was asked to evaluate and treat the fracture Medical, Surgical History Surgeries: Yes (KIDNEY ABLATION, HIATAL HERNIA REPAIR, ELBOW, RECTAL FISSURE) Abdominal Respiratory: Yes Pulmonary Embolism Cardiac: Yes (right bundle branch block) Deep Vein Thrombosis, Hypertension, Irregular Heartbeat Neurological: No Reproductive Disorders: No Sexually Transmitted Disease: No HIV/AIDS: No Benign Prostatic Hyperpl, Prostate Problems, Renal Failure Gastrointestinal: Yes Gastroesophageal Reflux, Chronic Diarrhea, Hiatal Hernia, Irritable Bowel Musculoskeletal: Yes (arthritis-knees need to be replaced) Arthritis Endocrine: No Loss of Vision: Bilateral Hearing Impairment: Hard of Hearing Cancer: Yes Kidney What Type of Treatment Did You: Surgical Intervention Psychosocial: No Integumentary: Yes (MILD ECZEMA) Eczema Blood Disorders: No Social History - Family History - Review of Systems - Allergies: Coded Allergies: Sulfa (Sulfonamide Antibiotics) (Verified Allergy, Severe, 04/27/18) ofloxacin (Verified Allergy, Unknown, 04/27/18) tetracycline (Unverified Allergy, Unknown, 04/27/18) Home Meds Reported Medications Carvedilol (Carvedilol) 6.25 Mg Tablet, 6.25 MG PO BID, TAB 04/27/18 Loperamide HCl (Anti-Diarrhea) 2 Mg Tablet, 2 MG PO DAILY, TAB 04/27/18 Finasteride (Proscar) 5 Mg Tablet, 5 MG PO DAILY, TAB 03/15/17 Apixaban (Eliquis) 2.5 Mg Tablet, 2.5 MG PO BID, TAB 03/15/17 Melatonin (Melatonin) 10 Mg Capsule, 8 MG PO HS, CAP 09/02/16 Alprazolam (Xanax) 0.25 Mg Tablet, 0.25 MG PO PRN, TAB 09/02/16 Tamsulosin HCl (Tamsulosin HCl) 0.4 Mg Cap.er.24h, 0.4 MG PO HS 08/16/15 Cholecalciferol (Vitamin D3) (Vitamin D-3) 2,000 Unit Capsule, 2000 UNIT PO HS 08/16/15 Objective Exam Right leg: no shortening, normal rotation, +DF of ankle, pulses palpable, sensation grossly intact to light touch Vital Signs Vital Signs Date Time Temp Pulse Resp B/P (MAP) Pulse Ox O2 Delivery O2 Flow Rate FiO2 11/03/22 08:08 60 174/84 (114) 11/03/22 07:09 36.5 56 18 178/81 (113) 95 Room Air 11/03/22 04:29 37.2 66 16 167/89 (115) 96 Room Air 11/02/22 23:52 37.1 60 16 174/84 (114) 95 Room Air 11/02/22 20:48 Room Air 11/02/22 20:23 37.7 60 16 158/92 (114) 97 Room Air 11/02/22 18:45 Room Air 11/02/22 18:03 37.2 64 16 189/88 (121) 98 Room Air 11/02/22 17:45 71 16 169/103 98 Room Air 11/02/22 13:22 54 16 184/91 (122) 95 Room Air I & O 11/03/22 07:00 Intake Total 150 ml Output Total 1000 ml Balance -850 ml Lab Results Laboratory Tests 11/02/22 16:25: White Blood Count 9.5, Red Blood Count 4.05L, Hemoglobin 12.6L, Hematocrit 37L, Mean Corpuscular Volume 92, Mean Corpuscular Hemoglobin 31, Mean Corpuscular Hemoglobin Concent 34, Red Cell Distribution Width 12.6, Platelet Count 145, Mean Platelet Volume 10.0, Immature Granulocyte % (Auto) 1, Neutrophils (%) (Auto) 84H, Lymphocytes (%) (Auto) 8L, Monocytes (%) (Auto) 7, Eosinophils (%) (Auto) 1, Basophils (%) (Auto) 0, Neutrophils # (Auto) 8.0H, Lymphocytes # (Auto) 0.8L, Monocytes # (Auto) 0.7, Eosinophils # (Auto) 0.1, Basophils # (Auto) 0.0, Immature Granulocyte # (Auto) 0.1, Prothrombin Time 15.9H, INR Comment 1.2, Activated Partial Thromboplast Time 36H, Sodium Level 138, Potassium Level 5.3H, Chloride Level 108H, Carbon Dioxide Level 22, Anion Gap 8, Blood Urea Nitrogen 45H, Creatinine 3.28H, Estimat Glomerular Filtration Rate 18, BUN/Creatinine Ratio 14, Glucose Level 90, Calcium Level 8.5, Corrected Calcium 9.0, Total Bilirubin 0.6, Aspartate Amino Transf (AST/SGOT) 19, Alanine Aminotransferase (ALT/SGPT) 17, Alkaline Phosphatase 85, Total Protein 6.0L, Albumin 3.4 11/03/22 05:18: White Blood Count 6.2, Red Blood Count 4.11L, Hemoglobin 12.7L, Hematocrit 38L, Mean Corpuscular Volume 92, Mean Corpuscular Hemoglobin 31, Mean Corpuscular Hemoglobin Concent 34, Red Cell Distribution Width 12.5, Platelet Count 145, Mean Platelet Volume 9.8, Immature Granulocyte % (Auto) 0, Neutrophils (%) (Auto) 70, Lymphocytes (%) (Auto) 16, Monocytes (%) (Auto) 9, Eosinophils (%) (Auto) 5, Basophils (%) (Auto) 1, Neutrophils # (Auto) 4.3, Lymphocytes # (Auto) 1.0, Monocytes # (Auto) 0.5, Eosinophils # (Auto) 0.3, Basophils # (Auto) 0.0, Immature Granulocyte # (Auto) 0.0 Imaging Plain xray and CT reviewed and demonstrated nondisplaced right femoral neck fracture with some impaction Assessment and Plan Assessment Nondisplaced right femoral neck fracture Problem List Nondisplaced right femoral neck fracture Plan Reviewed injury and options. I have recommended proceeding with in situ pinning of nondisplaced right femoral neck fracture. Nature of the procedure and the postoperative course were discussed. Risks and benefits were discussed. Tentatively on the schedule for noon today. Final Diagonsis Nondisplaced right femoral neck fracture Level of the visit: Level 3 (preop) MARGOT HAYDEN MD Nov 03, 2022 08:24
[2022-11-03] MEDS ORDERED: hydrALAZINE (APESOLINE) 20 MG/ML VIAL IV NR ×2 (08:30→15:15)
--- NOTE | 2022-11-03 09:23 | History & Physical ---
History of Present Illness History of Present Illness Reason for visit/HPI Pt reports that he was attempting to step over a baby gate behind which he had his dogs, he was trying to avoid opening the gate and letting his dogs out. He reports that his leg got caught and he tipped over onto his hip. He denies dizziness, chest pain, shortness of breath, just the pain in his right groin/hip region. Date of Admission Nov 02, 2022 at 17:44 Date Seen by a Provider: Nov 03, 2022 Time Seen by a Provider: 08:30 Attending Physician Garrick Galindo MD Admitting Physician Admitting Physician: Garrick Galindo MD Attending Physician: Garrick Galindo MD Consult Dr. Pam Pendleton Allergies and Home Medications Allergies Coded Allergies: Sulfa (Sulfonamide Antibiotics) (Verified Allergy, Severe, 04/27/18) ofloxacin (Verified Allergy, Unknown, 04/27/18) tetracycline (Unverified Allergy, Unknown, 04/27/18) Patient Home Medication List Home Medication List Reviewed: Yes Acetaminophen (Tylenol Extra Strength) 500 Mg Tablet, 500 MG PO Q6H PRN for PAIN-MILD (1-4), (Reported) Entered as Reported by: ANDREW MAK on 11/03/221153 Last Action: Held Alprazolam (Alprazolam) 0.5 Mg Tablet, 0.5 MG PO DAILY PRN for ANXIETY, (Reported) Entered as Reported by: ANDREW MAK on 11/03/221153 Last Action: Continued Alprazolam (Alprazolam) 0.5 Mg Tablet, 0.5 MG PO HS, (Reported) Entered as Reported by: ANDREW MAK on 11/03/221153 Last Action: Continued Apixaban (Eliquis) 2.5 Mg Tablet, 2.5 MG PO BID, (Reported) Entered as Reported by: AMADOR CHAVIS on 03/15/17 1233 Last Action: Continued Carvedilol (Carvedilol) 25 Mg Tablet, 25 MG PO BID, (Reported) Entered as Reported by: ANDREW MAK on 11/03/221153 Last Action: Converted Cholecalciferol (Vitamin D3) (Vitamin D3) 50 Mcg (2000 Unit) Capsule, 50 MCG PO 1900, (Reported) Entered as Reported by: ANDREW MAK on 11/03/221153 Last Action: Held Diphenhydramine HCl (Benadryl Allergy) 25 Mg Tablet, 25 MG PO Q6H PRN for ALLERGY SYMPTOMS, (Reported) Entered as Reported by: ANDREW MAK on 11/03/221153 Last Action: Held Diphenoxylate HCl/Atropine (Diphenoxylate-Atrop 2.5-0.025) 2.5 Mg-0.025 Mg Tablet, 1 EA PO BID PRN for DIARRHEA, (Reported) Entered as Reported by: ANDREW MAK on 11/03/221153 Last Action: Continued Empagliflozin (Jardiance) 10 Mg Tablet, 10 MG PO DAILY, (Reported) Entered as Reported by: ANDREW MAK on 11/03/221153 Last Action: Continued Finasteride (Finasteride) 5 Mg Tablet, 5 MG PO DAILY, (Reported) Entered as Reported by: ANDREW MAK on 11/03/221153 Last Action: Continued Melatonin (Melatonin) 3 Mg Tablet, 3 MG PO HS, (Reported) Entered as Reported by: ANDREW MAK on 11/03/221153 Last Action: Continued Melatonin (Melatonin) 5 Mg Tablet, 5 MG PO HS, (Reported) Entered as Reported by: ANDREW MAK on 11/03/221153 Last Action: Reviewed Ondansetron (Ondansetron Odt) 4 Mg Tab.rapdis, 4 MG PO QID PRN for NAUSEA/VOMITING-1ST LINE, (Reported) Entered as Reported by: ANDREW MAK on 11/03/221153 Last Action: Reviewed Tamsulosin HCl (Flomax) 0.4 Mg Cap, 0.4 MG PO 1899, (Reported) Entered as Reported by: ANDREW MAK on 11/03/221153 Last Action: Continued Discontinued Medications Alprazolam (Xanax) 0.25 Mg Tablet, 0.25 MG PO PRN, (Reported) Discontinued Reason: Prescription changed Entered as Reported by: JENNIFER LANCASTER on 09/02/161957 Carvedilol (Carvedilol) 6.25 Mg Tablet, 6.25 MG PO BID, (Reported) Discontinued Reason: No Longer Taking Entered as Reported by: RUCHI MILLER on 04/27/18 1509 Last Action: Discontinued Cholecalciferol (Vitamin D3) (Vitamin D-3) 2,000 Unit Capsule, 2,000 UNIT PO HS, (Reported) Discontinued Reason: No Longer Taking Entered as Reported by: MARIANNE MERAZ on 08/16/15 1308 Last Action: Discontinued Finasteride (Proscar) 5 Mg Tablet, 5 MG PO DAILY, (Reported) Discontinued Reason: No Longer Taking Entered as Reported by: AMADOR CHAVIS on 03/15/17 1233 Last Action: Discontinued Loperamide HCl (Anti-Diarrhea) 2 Mg Tablet, 2 MG PO DAILY, (Reported) Discontinued Reason: No Longer Taking Entered as Reported by: RUCHI MILLER on 04/27/18 1509 Last Action: Discontinued Melatonin (Melatonin) 10 Mg Capsule, 8 MG PO HS, (Reported) Discontinued Reason: No Longer Taking Entered as Reported by: JENNIFER LANCASTER on 09/02/16 195 Last Action: Discontinued Tamsulosin HCl (Tamsulosin HCl) 0.4 Mg Cap.er.24h, 0.4 MG PO HS, (Reported) Discontinued Reason: No Longer Taking Entered as Reported by: MARIANNE MERAZ on 08/16/15 1308 Last Action: Discontinued Past Bvxzwdo-Lqjdcd-Lodplb Hx Patient Social History Marrital Status: Living Status: lives with spouse in their home in [place] Employed/Student: retired Tobacco Use?: No Use of E-Cig and/or Vaping dev: No Substance use?: No Alcohol Use?: Yes Alcohol type: Wine Alcohol Frequency: Daily Pt feels they are or have been: No Immunizations Up To Date Date of Influenza Vaccine: May 17, 2017 Tetanus Booster (TDap): Unknown Date of Pneumonia Vaccine: Aug 19, 2015 Seasonal Allergies Seasonal Allergies: No Current Status Advance Directives: No Communicates: Verbally Primary Language: Surinamese Preferred Spoken Language: Surinamese Implanted or Applied Medical D: Orthopedic hardware Past Medical History Surgeries: Abdominal, Orthopedic Pulmonary Embolism Currently Using CPAP: No Currently Using BIPAP: No Coronary Artery Disease, Deep Vein Thrombosis, Hypertension, Irregular Heartbeat Sexually Transmitted Disease: No HIV/AIDS: No Benign Prostatic Hyperpl, Prostate Problems, Renal Failure Gastroesophageal Reflux, Chronic Diarrhea, Hiatal Hernia, Irritable Bowel Arthritis Loss of Vision: Bilateral Hearing Impairment: Hard of Hearing Kidney What Type of Treatment Did You: Surgical Intervention Anxiety Eczema Blood Disorders: No Adverse Reaction/Blood Tranf: No (N/A) Family Medical History Reviewed Nursing Family Hx Cardiovascular disease G8 BROTHER FH: breast cancer 19 MOTHER FH: lung cancer 19 FATHER Kidney disease G8 BROTHER (ON DIALYSIS) Pacemaker 19 MOTHER Review of Systems Constitutional: No chills, No diaphoresis, No fever, No malaise, No weakness EENTM: No hoarseness, No throat pain Respiratory: No cough, No dyspnea on exertion, No short of breath Cardiovascular: No chest pain, No edema, No palpitations Gastrointestinal: No abdominal pain, No constipation; diarrhea (chronic intermittent); No nausea, No vomiting Genitourinary: no symptoms reported Musculoskeletal: joint pain (right hip) Skin: no symptoms reported Psychiatric/Neurological: Anxiety; Denies Weakness All Other Systems Reviewed Negative Unless Noted: Yes Physical Exam Vital Signs Vital Signs - First Documented 11/02/22 11/02/22 13:22 18:03 Temp 37.2 Pulse 54 Resp 16 B/P (MAP) 184/91 (122) Pulse Ox 95 O2 Delivery Room Air Capillary Refill : Less Than 3 Seconds Height, Weight, BMI Height: 5'9.00" Weight: 170lbs. 0.0oz. [id number]; 24.17 BMI Method:Estimated General Appearance: WD/WN, Mild Distress (due to pain) HEENT: PERRL/EOMI, Pharynx Normal Neck: Full Range of Motion, Supple Respiratory: Chest Non Tender, Lungs Clear, Normal Breath Sounds, No Accessory Muscle Use, No Respiratory Distress Cardiovascular: Regular Rate, Rhythm, Normal Peripheral Pulses Gastrointestinal: Normal Bowel Sounds, Non Tender, Soft Rectal: Deferred Extremity: Normal Capillary Refill, Non Tender, Pedal Edema (trace at ankles), Other (pain in right lateral hip) Neurologic/Psychiatric: Alert, Oriented x3, No Motor/Sensory Deficits, Normal Mood/Affect Skin: Normal Color, Warm/Dry Lymphatic: No Adenopathy Assessment/Plan Assessment and Plan Right hip fracture Hypertension Chronic Stage 4 renal failure Generalized Anxiety BPH Chronic Diarrhea Insomnia Chronic coronary artery disease Chronic Carotid artery disease Hx of DVT Chronic NOAC use Right hip fracture - defer to Dr. Orozco - planning pinning on the hip fx today - I would like to see [facility] arteaga on irf for rehabilitation after his surgery Hypertension - resume home regimen, monitor symptoms/pressure, pt given hydralazine IV today due to NPO status. Chronic Stage 4 renal failure - pt started on jardiance by his Nursing Faculty, monitor labs - anticipate improved creatinine to baseline at the 2.5 range after hydration. Generalized Anxiety - resume benzodiazpine for PRN use. BPH - resume flomax and proscar Chronic Diarrhea - pt uses prn imodium Insomnia - resume melatonin, Chronic coronary artery disease, Chronic Carotid artery disease supportive care. Hx of DVT - resume elqius tomorrow morning. dvt prophylaxis with eliquis, bhargavi hose gi prophylaxis with pepcid Chronic NOAC use Admission Diagnosis Right hip fracture Hypertension Chronic Stage 4 renal failure Generalized Anxiety BPH Chronic Diarrhea Insomnia Chronic coronary artery disease Chronic Carotid artery disease Hx of DVT Chronic NOAC use Admission Status: Inpatient Order (span 2 midnights) Reason for Inpatient Admission: inpatient admission for right hip fracture - will require at least 2-3 midnights for stabilization, treatment, and therapy GARRICK GALINDO MD Nov 03, 2022 09:23
[2022-11-03] MEDS ORDERED: ceFAZolin INJECTION 1,000 MG VIAL IV ONE (11:30)
[2022-11-03] MEDS ORDERED: CARV25TA PO (11:54)
[2022-11-03] MEDS ORDERED: CHOL20003 PO (11:54)
[2022-11-03] MEDS ORDERED: DIPH25TA65 PO (11:54)
[2022-11-03] MEDS ORDERED: MELA5TAB14 PO (11:54)
[2022-11-03] MEDS ORDERED: EMPA10TA PO (11:54)
[2022-11-03] MEDS ORDERED: ACET-2267 PO (11:54)
[2022-11-03] MEDS ORDERED: TMSL.4C PO (11:54)
[2022-11-03] MEDS ORDERED: MELA3TAB39 PO (11:54)
[2022-11-03] MEDS ORDERED: FINA5TAB6 PO (11:54)
[2022-11-03] MEDS ORDERED: ONDA4TAB11 PO (11:54)
[2022-11-03] MEDS ORDERED: ALPR0.5T7 PO ×2 (11:54)
[2022-11-03] MEDS ORDERED: DIPH1TAB25 PO (11:54)
[2022-11-03] MEDS ORDERED: proPOfol 200 MG/20 ML (DIPRIVAN) VIAL IV ONE (12:00)
[2022-11-03] MEDS ORDERED: fentaNYL INJ 100 MCG/2 ML AMP ONE (12:11)
[2022-11-03] MEDS ORDERED: GLYCOPYRROLATE 0.2 MG/ML (ROBINUL) 2 ML VIAL ONE (12:34)
[2022-11-03] MEDS ORDERED: LIDOCAINE PF 2% 5 ML (XYLOCAINE) VIAL ONE (12:34)
[2022-11-03] MEDS ORDERED: SEVOFLURANE (ULTANE) 15 ML INHAL SOLN ONE ×2 (12:34→13:13)
[2022-11-03] MEDS ORDERED: ROPIVACAINE 5MG/ML 30ML VIAL ONE (12:56)
--- NOTE | 2022-11-03 12:56 | Operative Report - Ortho ---
Operative Report Surgeon (s)/Veterinary Poultry Inspector (s) Surgeon MARGOT HAYDEN MD Veterinary Poultry Inspector n/a Pre-Operative Diagnosis Right Femoral Neck Fracture Post-Operative Diagnosis same Operative Report Date of Procedure: Nov 03, 2022 Name of Procedure Performed: Closed Reduction and Percutaneous Pinning of Right Femoral Neck Fracture Description & Findings After obtaining informed consent and marking the patient in the preoperative holding area, IV antibiotics were administered. Patient was taken to the operating room and general anesthesia was induced. Right leg was placed in the traction spar. Left leg was placed in the well leg pena. Surgical timeout was taken. The right lower extremity was prepped and draped in the usual sterile fashion. Initially a guidewire was placed in the calcar position and posteriorly in the femoral neck. C-arm was used to evaluate position of the wire. 2nd wire was placed more superiorly and anteriorly. A 3rd wire was placed posterior to the second wire. Position of the wires were confirmed on C- arm. Measurements were taken. A 100 mm calcar screw was placed, first by power and then seated by hand, the more superior screws were placed and measured 90 mm each. Wires were removed. Final AP and lateral images were obtained using C- arm and transferred to PACS. Images demonstrated maintained reduction of the femoral neck fracture and appropriate position of the screws. Wound was lavaged with normal saline. Subcutaneous layer was closed with 2-0 vicryl and skin was closed with mega. Wound was dressed with xeroform, 4x4s, and tape. Patient tolerated the procedure well and was stable to the recovery room. Anesthesia Type General Estimated Blood Loss minimal Specimen(s) collected/removed None MARGOT HAYDEN MD Nov 03, 2022 12:56
--- NOTE | 2022-11-03 13:17 | Diagnostic Imaging Report ---
INDICATION: Right hip fracture. Surgical repair. Fluoroscopic guidance. COMPARISON: Radiographs dated 11/02/2022. TOTAL FLUOROSCOPY TIME: 41 seconds. TOTAL NUMBER OF FLUOROSCOPIC IMAGES SAVED: 2. FINDINGS: Multiple intraoperative image intensifier views of the right hip were obtained. Images provided show multiple partially threaded screws traversing the right femoral head and neck. Static alignment appears appropriate. Please note, the interpreting radiologist was not present during the procedure. IMPRESSION: Fluoroscopic guidance provided intraoperatively as above. Dictated by: Dictated on workstation # [id number]
[2022-11-03] MEDS ORDERED: ONDANSETRON 4 MG/2 ML (SDV) Z0FRAN ONE ×2 (13:28→14:12)
[2022-11-03] MEDS ORDERED: morphine INJ 10 MG/ML 1ML (SYR OR VIAL) ONE (13:28)
[2022-11-03] MEDS: CATHETER FLUSH 10 ML SYR IVP SCH ×2 (13:37→20:42)
[2022-11-03] MEDS ORDERED: HYDROmorphone 2 MG/ML VIAL (DILAUDID) ONE (14:05)
[2022-11-03] MEDS ORDERED: morphine INJ 10 MG/ML 1ML (SYR OR VIAL) IVP ONE (14:15)
[2022-11-03] MEDS ORDERED: HYDROmorphone 2 MG/ML VIAL (DILAUDID) IV ONE (14:15)
[2022-11-03] MEDS ORDERED: ONDANSETRON 4 MG/2 ML (SDV) Z0FRAN IVP PRN (14:15)
--- NOTE | 2022-11-03 14:16 | Physical Therapy Progress Note ---
Therapy Progress Note PT to begin 11/04/2022. Patient currently in surgery. SAMEERA FARAH PT Nov 03, 2022 14:16
--- NOTE | 2022-11-03 15:25 | Occ Therapy Progress Note ---
Therapy Progress Note OT order received, OT to complete eval post op day 2 SHEY THOMPSON OT Nov 03, 2022 15:25
[2022-11-03] MEDS ORDERED: ALPRAZolam 0.5 MG (XANAX) TAB PO PRN (18:45)
[2022-11-03] MEDS ORDERED: RX-DIPHENO./ATROP. 2.5/0.25 MG (LOMOTIL) TAB PPK#4 PO PRN (18:45)
[2022-11-03] MEDS ORDERED: DIPHENOXYLATE/ATROPINE 2.5MG/0.025MG (LOMOTIL) TAB PO PRN (19:00)
[2022-11-03] MEDS: TAMSULOSIN 0.4 MG (FLOMAX) CAP PO SCH (20:40)
[2022-11-03] MEDS: MELATONIN 3 MG TABLET PO SCH (20:40)
[2022-11-03] MEDS: ALPRAZolam 0.5 MG (XANAX) TAB PO SCH (20:41)
[2022-11-03] MEDS: hydrALAZINE (APRESOLINE) 25 MG TAB PO SCH (20:41)
[2022-11-03] MEDS ORDERED: FAMOTIDINE 20 MG (PEPCID) TABLET PO SCH (21:00)
[2022-11-03] MEDS ORDERED: NON-FORMULARY MEDICATION 1 EA EA (Carvedilol 25 MG) PO SCH (21:00)
[2022-11-04 03:29] VITALS: BP 147/72
[2022-11-04 05:44] LABS: HEMATOCRIT 38 % (40-54); HEMOGLOBIN 12.3 g/dL (13.3-17.7); MEAN CORPUSCULAR HEMOGLOBIN 30 pg (25-34); MEAN CORPUSCULAR HGB CONC 33 g/dL (32-36); MEAN CORPUSCULAR VOLUME 93 fL (80-99); MEAN PLATELET VOLUME 9.9 fL (9.0-12.2); PLATELET COUNT 149 10^3/uL (130-400); WHITE BLOOD COUNT 7.1 10^3/uL (4.3-11.0)
[2022-11-04 05:58] LABS: POTASSIUM 5.3 MMOL/L (3.6-5.0)
[2022-11-04 05:59] LABS: CALCIUM 8.1 MG/DL (8.5-10.1)
[2022-11-04 06:00] LABS: TOTAL PROTEIN 5.2 GM/DL (6.4-8.2)
[2022-11-04 06:02] LABS: BILIRUBIN,TOTAL 0.7 MG/DL (0.1-1.0)
[2022-11-04 06:04] LABS: CREATININE SERUM 3.37 MG/DL (0.60-1.30)
[2022-11-04] MEDS: hydrALAZINE (APRESOLINE) 25 MG TAB PO SCH ×3 (06:11→20:59)
[2022-11-04] MEDS: CATHETER FLUSH 10 ML SYR IVP SCH ×3 (06:12→19:33)
[2022-11-04 08:42] VITALS: BP 175/81
[2022-11-04] MEDS ORDERED: FAMOTIDINE 20 MG (PEPCID) TABLET PO SCH (09:00)
[2022-11-04] MEDS: APIXABAN 2.5 MG (ELIQUIS) TABLET PO SCH ×2 (09:48→19:33)
[2022-11-04] MEDS: FINASTERIDE (PROSCAR) 5 MG TAB PO SCH (09:48)
[2022-11-04] MEDS: NS IV 1000 ML 1,000 ML IV SCH ×2 (09:48→19:33)
[2022-11-04] MEDS: EMPAGLIFLOZIN 10 MG TABLET (JARDIANCE) PO SCH (09:50)
--- NOTE | 2022-11-04 09:59 | Progress Note - Ortho ---
Progress Note Subjective Date of Exam 11/04/22 Chief Complaint POD #1 CRPP of R FN Fx HPI/Events since last exam doing well, concerned about bowels, pain controlled, anxious to get moving Review of Systems - Allergies: Coded Allergies: Sulfa (Sulfonamide Antibiotics) (Verified Allergy, Severe, 04/27/18) ofloxacin (Verified Allergy, Unknown, 04/27/18) tetracycline (Unverified Allergy, Unknown, 04/27/18) Home Meds Reported Medications Melatonin (Melatonin) 5 Mg Tablet, 5 MG PO HS, TAB TAKES 3MG +5MG TO EQUAL 8MG 11/03/22 Melatonin (Melatonin) 3 Mg Tablet, 3 MG PO HS, TAB TAKES 3MG +5MG TO EQUAL 8MG 11/03/22 Acetaminophen (Tylenol Extra Strength) 500 Mg Tablet, 500 MG PO Q6H PRN for PAIN-MILD (1-4), TAB 11/03/22 Diphenhydramine HCl (Benadryl Allergy) 25 Mg Tablet, 25 MG PO Q6H PRN for ALL ERGY SYMPTOMS, TAB 11/03/22 Cholecalciferol (Vitamin D3) (Vitamin D3) 50 Mcg (2000 Unit) Capsule, 50 MCG PO 1900, CAP 11/03/22 Tamsulosin HCl (Flomax) 0.4 Mg Cap, 0.4 MG PO 1900, CAP 11/03/22 Ondansetron (Ondansetron Odt) 4 Mg Tab.rapdis, 4 MG PO QID PRN for NAUSEA/VOMITING-1ST LINE, TAB 11/03/22 Alprazolam (Alprazolam) 0.5 Mg Tablet, 0.5 MG PO HS, TAB 11/03/22 Empagliflozin (Jardiance) 10 Mg Tablet, 10 MG PO DAILY, TAB 11/03/22 Finasteride (Finasteride) 5 Mg Tablet, 5 MG PO DAILY, TAB 11/03/22 Carvedilol (Carvedilol) 25 Mg Tablet, 25 MG PO BID, TAB 11/03/22 Diphenoxylate HCl/Atropine (Diphenoxylate-Atrop 2.5-0.025) 2.5 Mg-0.025 Mg Tablet, 1 EA PO BID PRN for DIARRHEA, TAB 11/03/22 Alprazolam (Alprazolam) 0.5 Mg Tablet, 0.5 MG PO DAILY PRN for ANXIETY, TAB 11/03/22 Apixaban (Eliquis) 2.5 Mg Tablet, 2.5 MG PO BID, TAB LAST FILLED 07-20-2021 #180/90 DAY SUPPLY 03/15/17 Discontinued Reported Medications Carvedilol (Carvedilol) 6.25 Mg Tablet, 6.25 MG PO BID, TAB 04/27/18 Loperamide HCl (Anti-Diarrhea) 2 Mg Tablet, 2 MG PO DAILY, TAB 04/27/18 Finasteride (Proscar) 5 Mg Tablet, 5 MG PO DAILY, TAB 03/15/17 Melatonin (Melatonin) 10 Mg Capsule, 8 MG PO HS, CAP 09/02/16 Alprazolam (Xanax) 0.25 Mg Tablet, 0.25 MG PO PRN, TAB 09/02/16 Tamsulosin HCl (Tamsulosin HCl) 0.4 Mg Cap.er.24h, 0.4 MG PO HS 08/16/15 Cholecalciferol (Vitamin D3) (Vitamin D-3) 2,000 Unit Capsule, 2000 UNIT PO HS 08/16/15 Objective Exam R Hip: Dressing C/D/I, +DF of ankle, no s/s of DVT Vital Signs Vital Signs Date Time Temp Pulse Resp B/P (MAP) Pulse Ox O2 Delivery O2 Flow Rate FiO2 11/04/22 08:42 37.7 93 20 175/81 (112) 92 Room Air 11/04/22 03:29 37.3 76 16 147/72 (97) 92 Room Air 11/03/22 23:43 37.2 69 18 167/78 (107) 93 Room Air 11/03/22 20:00 Room Air 11/03/22 19:28 37.3 80 20 146/84 (104) 93 Room Air 11/03/22 15:46 36.8 83 19 164/84 (110) 95 Room Air 11/03/22 14:33 36.4 70 18 186/86 (119) 96 Room Air 11/03/22 14:30 Room Air 11/03/22 14:30 37.0 20 172/90 (117) 96 Room Air 11/03/22 14:20 20 167/89 (115) 97 Room Air 11/03/22 14:15 Room Air 11/03/22 14:10 20 167/89 (115) 96 Room Air 11/03/22 14:00 Room Air 11/03/22 14:00 20 171/89 (116) 96 Room Air 11/03/22 13:50 20 153/95 (114) 98 OxyMask 2.00 11/03/22 13:45 OxyMask 2.00 11/03/22 13:40 20 149/81 (103) 98 OxyMask 3.00 11/03/22 13:30 20 172/90 (117) 100 OxyMask 6.00 11/03/22 13:30 OxyMask 4.00 11/03/22 13:20 20 134/76 (95) 100 OxyMask 6.00 11/03/22 13:14 37.3 20 127/75 (92) 100 OxyMask 6.00 11/03/22 13:14 OxyMask 6.00 11/03/22 11:03 36.6 59 18 170/84 (112) 96 Room Air I & O 11/04/22 07:00 Intake Total 1040 ml Output Total 1400 ml Balance -360 ml Lab Results Laboratory Tests 11/04/22 05:03: White Blood Count 7.1, Red Blood Count 4.05L, Hemoglobin 12.3L, Hematocrit 38L, Mean Corpuscular Volume 93, Mean Corpuscular Hemoglobin 30, Mean Corpuscular Hemoglobin Concent 33, Red Cell Distribution Width 12.7, Platelet Count 149, Mean Platelet Volume 9.9, Sodium Level 141, Potassium Level 5.3H, Chloride Level 112H, Carbon Dioxide Level 20L, Anion Gap 9, Blood Urea Nitrogen 44H, Creatinine 3.37H, Estimat Glomerular Filtration Rate 18, BUN/Creatinine Ratio 13, Glucose Level 84, Calcium Level 8.1L, Corrected Calcium 8.9, Total Bilirubin 0.7, As partate Amino Transf (AST/SGOT) 15, Alanine Aminotransferase (ALT/SGPT) 10, Alkaline Phosphatase 77, Total Protein 5.2L, Albumin 3.0L Microbiology 11/03/22 MRSA Screen - Final, Complete MRSA not isolated Assessment and Plan Assessment Nondisplaced Right Femoral Neck Fracture s/p CRPP Problem List Nondisplaced Right Femoral Neck Fracture s/p CRPP Plan PT/OT DVT Prophylaxis Final Diagonsis Nondisplaced Right Femoral Neck Fracture s/p CRPP Level of the visit: Level 3 (global postop) MARGOT HAYDEN MD Nov 04, 2022 09:59
--- NOTE | 2022-11-04 10:12 | Anesthesia-General Post-Op ---
General Patient Condition Mental Status/LOC: Same as Preop Cardiovascular: Satisfactory Nausea/Vomiting: Absent Respiratory: Satisfactory Pain: Controlled Complications: Absent Post Op Complications Complications None Follow Up Care/Instructions Patient Instructions None needed. Anesthesia/Patient Condition Patient Condition Patient is doing well, no complaints, stable vital signs, no apparent adverse anesthesia problems. No complications reported per nursing. FÉLIX SANTOS CRNA Nov 04, 2022 10:12
[2022-11-04 11:35] VITALS: BP 157/76
--- NOTE | 2022-11-04 12:13 | Progress Note ---
Subjective Date Seen by a Provider: Nov 04, 2022 Time Seen by a Provider: 08:30 Subjective/Events-last exam Fwup right femoral neck fracture--S/P pinning, HTN, chronic stage 4 renal failure. C/O wants catheter out. Also c/o nausea. Is concerned about IBS and having to get up quick to get to bathroom. Objective Exam Vital Signs Date Time Temp Pulse Resp B/P (MAP) Pulse Ox O2 Delivery O2 Flow Rate FiO2 11/04/22 11:35 36.8 64 20 157/76 (103) 95 Room Air 11/04/22 08:42 37.7 93 20 175/81 (112) 92 Room Air 11/04/22 08:00 Room Air 11/04/22 03:29 37.3 76 16 147/72 (97) 92 Room Air 11/03/22 23:43 37.2 69 18 167/78 (107) 93 Room Air 11/03/22 20:00 Room Air 11/03/22 19:28 37.3 80 20 146/84 (104) 93 Room Air 11/03/22 15:46 36.8 83 19 164/84 (110) 95 Room Air 11/03/22 14:33 36.4 70 18 186/86 (119) 96 Room Air 11/03/22 14:30 Room Air 11/03/22 14:30 37.0 20 172/90 (117) 96 Room Air 11/03/22 14:20 20 167/89 (115) 97 Room Air 11/03/22 14:15 Room Air 11/03/22 14:10 20 167/89 (115) 96 Room Air 11/03/22 14:00 Room Air 11/03/22 14:00 20 171/89 (116) 96 Room Air 11/03/22 13:50 20 153/95 (114) 98 OxyMask 2.00 11/03/22 13:45 OxyMask 2.00 11/03/22 13:40 20 149/81 (103) 98 OxyMask 3.00 11/03/22 13:30 20 172/90 (117) 100 OxyMask 6.00 11/03/22 13:30 OxyMask 4.00 11/03/22 13:20 20 134/76 (95) 100 OxyMask 6.00 11/03/22 13:14 37.3 20 127/75 (92) 100 OxyMask 6.00 11/03/22 13:14 OxyMask 6.00 I & O 11/04/22 07:00 Intake Total 1040 ml Output Total 1400 ml Balance -360 ml Capillary Refill : Less Than 3 SecondsLess Than 3 Seconds General Appearance: No Apparent Distress Respiratory: Lungs Clear Cardiovascular: Regular Rate, Rhythm Gastrointestinal: normal bowel sounds, non tender, soft Extremity: Non Tender, No Calf Tenderness, No Pedal Edema Neurologic/Psychiatric: Alert, Oriented x3 Skin: Warm/Dry (with dry dressing in place to right lateral hip) Results Lab Laboratory Tests 11/04/22 05:03: White Blood Count 7.1, Red Blood Count 4.05L, Hemoglobin 12.3L, Hematocrit 38L, Mean Corpuscular Volume 93, Mean Corpuscular Hemoglobin 30, Mean Corpuscular Hemoglobin Concent 33, Red Cell Distribution Width 12.7, Platelet Count 149, Mean Platelet Volume 9.9, Sodium Level 141, Potassium Level 5.3H, Chloride Level 112H, Carbon Dioxide Level 20L, Anion Gap 9, Blood Urea Nitrogen 44H, Creatinine 3.37H, Estimat Glomerular Filtration Rate 18, BUN/Creatinine Ratio 13, Glucose Level 84, Calcium Level 8.1L, Corrected Calcium 8.9, Total Bilirubin 0.7, Aspartate Amino Transf (AST/SGOT) 15, Alanine Aminotransferase (ALT/SGPT) 10, Alkaline Phosphatase 77, Total Protein 5.2L, Albumin 3.0L Microbiology 11/03/22 MRSA Screen - Final, Complete MRSA not isolated Assessment/Plan Assessment/Plan Assess & Plan/Chief Complaint 1. Right Femoral Neck Fracture--S/P pinning, pain control, DVT prophylaxis, DC faria catheter, start PT/OT, will need IRF or SNF for discharge 2. Hypertension--stable 3. Chronic Stage 4 Renal Failure 4. Dyspepsia/Nausea--change pepcid to protonix and use zofran prn, may be due to pain meds 5. IBS--patient hesitant about laxatives so will monitor with pain meds and start stool softener if needed BUBBA GROSS DO Nov 04, 2022 12:13
[2022-11-04] MEDS ORDERED: PANTOPRAZOLE 20 MG TABLET (PROTONIX) PO NR (12:15)
--- NOTE | 2022-11-04 12:32 | Physical Therapy Evaluation ---
PT Evaluation-General Medical Diagnosis Admission Date Nov 02, 2022 at 17:44 Medical Diagnosis: Right femoral neck fracture Onset Date: Nov 02, 2022 Therapy Diagnosis Therapy Diagnosis: Gait deficit, strength deficit Height/Weight Height (Feet): 5 Height (Inches): 9.00 Weight (Pounds): 170 Weight (Ounces): 0.0 Precautions Precautions/Isolations: Fall Prevention, Standard Precautions Weight Bear Status Right Lower Extremity: Right Partial Weight Bearing Left Lower Extremity: Left Full Weight Bearing 30 to 50 pounds on right leg Referral Physician: Dr. Orozco Reason for Referral: Evaluation/Treatment Medical History Reviewed History: Yes Social History Home: [facility] Current Living Status: Spouse Entry Into Home: Stairs With Railing PT Steps Into Home: 2 PT Steps Inside Home: 13 Prior Prior Level of Function SCALE: Activities may be completed with or without assistive devices. 0-Hqmqgxbnre-ycazxcq completes the activity by him/herself with no assistance f rom a helper. 5-Set-up or Clean-up Assistance-helper sets up or cleans up; patient completes activity. [place] assists only prior to or following the activity. 4-Supervision or Touching Assistance-helper provides verbal cues and/or touching/steadying and/or contact guard assistance as patient completes activity. Assistance may be provided throughout the activity or intermittently. 3-Partial/Moderate Assistance-helper does LESS THAN HALF the effort. [place] lifts, holds or supports trunk or limbs, but provides less than half the effort. 2-Substantial/Maximal Assistance-helper does MORE THAN HALF the effort. [place] lifts or holds trunk or limbs and provides more than half the effort. 9-Kckxzsptc-siuxac does ALL the effort. Patient does none of the effort to complete the activity. Or, the assistance of 2 or more helpers is required for the patient to complete the activity. If activity was not attempted, code reason: 7-Patient Refused. 9-Not Applicable-not attempted and the patient did not perform the activity before the current illness, exacerbation or injury. 10-Not Attempted due to Environmental Limitations-(lack of equipment, weather restraints, etc.). 88-Not Attempted due to Medical Conditions or Safety Concerns. Bed Mobility: 6 Transfers (B,C,W/C): 6 Gait: 6 Stairs: 6 Indoor Mobility (Ambulation): Independent Stairs: Independent Prior Devices Use: None PT Evaluation-Current Subjective Patient lying supine in bed upon PT arrival, agreeable to treatment. Patient rates pain currently at 5/10 in right hip. Objective Patient Orientation: Person, Place, Time, Situation Attachments: [place] Catheter, IV ROM/Strength ROM Lower Extremities Right LE limited all planes, Left LE WFLs all planes. Strength Lower Extremities Right hip 3-/5 all planes; all other right LE planes 3+/5, Left LE 4/5 all planes Sensory Vision: Wears Glasses Hearing: Impaired Sensation Right Lower Extremit: Intact Sensation Left Lower Extremity: Intact Transfers Roll Left to Right (QC): 3 Sit to Lying (QC): 3 Lying to Sitting/Side of Bed(Q: 3 Sit to Stand (QC): 3 Chair/Jpu-ei-Qjskq Xfer(QC): 3 Gait Does the Patient Walk?: Yes Mode of Locomotion: Walk Anticipated Mode of Locomotion: Walk Walk 10 feet (QC): 88 Distance: 5 feet Gait Assistive Device: FWW Comments/Gait Description Min A with verbal cues for progression, posture and safety. Balance Sitting Static: Good Sitting Dynamic: Good Standing Static: Fair Standing Dynamic: Fair Assessment/Needs Patient tolerated treatment well. He performs all bed mobility and transfers with min/mod A. He demonstrates difficulty moving the right LE. Patient ambulates 5 feet to the chair with FWW, with Min A with verbal cues for progression, posture and safety. Patient in chair post treatment with all needs met, nursing notified, call light in hand. Rehab Potential: Good PT Senior Living Goals Senior Living Goals PT Tax Staff Accountant Goals Time Frame: Nov 28, 2022 Roll Left & Right (QC): 6 Sit to Lying (QC): 6 Lying-Sitting on Side/Bed(QC): 6 Sit to Stand (QC): 6 Chair/Vgx-ye-[place] Xfer(QC): 6 Toilet Transfer (QC): 6 Car Transfer (QC): 6 Does the Patient Walk: Yes Walk 10 feet (QC): 6 Walk 50ft with 2 Turns (QC): 6 Walk 150 ft (QC): 6 1 Step (curb) (QC): 4 4 Steps (QC): 4 12 Steps (QC): 4 PT Plan Problem List Problem List: Activity Tolerance, Functional Strength, Safety, Balance, Gait, Transfer, Bed Mobility, ROM Treatment/Plan Treatment Plan: Continue Plan of Care Treatment Plan: Bed Mobility, Education, Functional Activity Jamey, Functional Strength, Group Therapy, Gait, Safety, Therapeutic Exercise, Transfers Treatment Duration: Nov 28, 2022 Frequency: 11 times per week Estimated Hrs Per Day: .25 hour per day Patient and/or Family Agrees t: Yes Safety Risks/Education Patient Education: Gait Training, Transfer Techniques Teaching Recipient: Patient Teaching Methods: Demonstration, Discussion Response to Teaching: Verbalize Understanding, Return Demonstration Time Time In: 911 Time Out: 935 DATE: Nov 04, 2022 Total Billed Treatment Time: 24 Total Billed Treatment Visit, GT, EX DIVYA MEDINA PT Nov 04, 2022 12:32
--- NOTE | 2022-11-04 14:51 | Physical Therapy Daily Note ---
PT Daily Note-Current Subjective Patient lying supine in bed upon PT arrival, agreeable to treatment. Patient rates pain in right hip at 6/10 currently. Pain Section J - Health Conditions 1. Rarely or not at all 2. Occasionally 3. Frequently 4. Almost constantly 8. Unable to answer Pain Effect on Sleep: 1 Pain Interference with Therapy: 2 Pain Interference w/Day-to-Day: 2 Transfers SCALE: Activities may be completed with or without assistive devices. 1-Ymkekneced-ifvvgyf completes the activity by him/herself with no assistance from a helper. 5-Set-up or Clean-up Assistance-helper sets up or cleans up; patient completes activity. [place] assists only prior to or following the activity. 4-Supervision or Touching Assistance-helper provides verbal cues and/or touching/steadying and/or contact guard assistance as patient completes activity. Assistance may be provided throughout the activity or intermittently. 3-Partial/Moderate Assistance-helper does LESS THAN HALF the effort. [place] lifts, holds or supports trunk or limbs, but provides less than half the effort. 2-Substantial/Maximal Assistance-helper does MORE THAN HALF the effort. [place] lifts or holds trunk or limbs and provides more than half the effort. 1-Igaxtlthy-bietmd does ALL the effort. Patient does none of the effort to complete the activity. Or, the assistance of 2 or more helpers is required for the patient to complete the activity. If activity was not attempted, code reason: 7-Patient Refused. 9-Not Applicable-not attempted and the patient did not perform the activity before the current illness, exacerbation or injury. 10-Not Attempted due to Environmental Limitations-(lack of equipment, weather restraints, etc.). 88-Not Attempted due to Medical Conditions or Safety Concerns. Roll Left & Right (QC): 3 Sit to Lying (QC): 3 Lying to Sitting/Side of Bed(Q: 3 Sit to Stand (QC): 3 Chair/Svg-kd-Mteuf Xfer(QC): 3 Weight Bearing Right Lower Extremity: Right Partial Weight Bearing Left Lower Extremity: Left Full Weight Bearing 30 to 50 pounds on right leg Gait Training Does the Patient Walk?: Yes Distance: 100 Walk 10 feet (QC): 4 Walk 50 ft with 2 Turns(QC): 4 Gait Persons Needed: 1 Gait Assistive Device: FWW Assessment Current Status: Good Progress Patient tolerated treatment well. He demonstrates min/mod A for all observed bed mobility and transfers. Patient ambulates 100 feet with FWW, with CGA and verbal cues for safety, progression, PWB right LE. Patient appears to be compliant with PWB right LE. Patient in bed post treatment with all needs met, nursing notified, call light in hand. PT Information Assurance Goals Skilled Nursing Goals PT Information Assurance Goals Time Frame: Nov 28, 2022 Roll Left & Right (QC): 6 Sit to Lying (QC): 6 Lying-Sitting on Side/Bed(QC): 6 Sit to Stand (QC): 6 Chair/Xfr-rv-Hqlht Xfer(QC): 6 Toilet Transfer (QC): 6 Car Transfer (QC): 6 Does the Patient Walk: Yes Walk 10 feet (QC): 6 Walk 50ft with 2 Turns (QC): 6 Walk 150 ft (QC): 6 1 Step (curb) (QC): 4 4 Steps (QC): 4 12 Steps (QC): 4 PT Plan Treatment/Plan Treatment Plan: Continue Plan of Care Treatment Plan: Bed Mobility, Education, Functional Activity Jamey, Functional Strength, Group Therapy, Gait, Safety, Therapeutic Exercise, Transfers Treatment Duration: Nov 28, 2022 Frequency: 11 times per week Estimated Hrs Per Day: .25 hour per day Patient and/or Family Agrees t: Yes Safety Risks/Education Patient Education: Gait Training, Transfer Techniques, Reviewed Precautions Teaching Recipient: Patient Teaching Methods: Demonstration, Discussion Response to Teaching: Verbalize Understanding, Return Demonstration Time Time In: 1435 Time Out: 1445 DATE: Nov 04, 2022 Total Billed Treatment Time: 10 Total Billed Treatment Visit, Gait DIVYA MEDINA PT Nov 04, 2022 14:51
--- NOTE | 2022-11-04 15:12 | Occupational Therapy Eval ---
OT Evaluation-General/PLF Medical Diagnosis Admission Date Nov 02, 2022 at 17:44 Medical Diagnosis: Right femoral neck fracture Onset Date: Nov 02, 2022 Therapy Diagnosis Therapy Diagnosis: weakness Height/Weight Height (Feet): 5 Height (Inches): 9.00 Weight (Pounds): 170 Weight (Ounces): 0.0 Precautions Precautions/Isolations: Fall Prevention, Standard Precautions Weight Bear Status Weight Bearing Restriction: Partial Weight Bearing Location Restriction: R LE unable to sustain PWB w/ ambulation, MMT appropriate however fatigues w/ mobility Referral Physician: Dr. Orozco Referral Reason: Activity Tolerance, Self Care, Evaluation/Treatment, Strengthening/ROM Medical History Additional Medical History Kidney failure Current History Fell over doggy gate, has 4 dogs at home w/ . Reviewed History: Yes Social History Home: Multilevel (basement finished and uses) Current Living Status: Spouse Entry Into Home: Stairs With Railing Steps Into Home: 2 Steps Inside Home: 13 ADL-Prior Level of Function SCALE: Activities may be completed with or without assistive devices. 7-Mpxiohptmn-qofdzwt completes the activity by him/herself with no assistance from a helper. 5-Set-up or Clean-up Assistance-helper sets up or cleans up; patient completes activity. [place] assists only prior to or following the activity. 4-Supervision or Touching Assistance-helper provides verbal cues and/or touching/steadying and/or contact guard assistance as patient completes activity. Assistance may be provided throughout the activity or intermittently. 3-Partial/Moderate Assistance-helper does LESS THAN HALF the effort. [place] lifts, holds or supports trunk or limbs, but provides less than half the effort. 2-Substantial/Maximal Assistance-helper does MORE THAN HALF the effort. [place] lifts or holds trunk or limbs and provides more than half the effort. 8-Rtkouinlt-hnpzib does ALL the effort. Patient does none of the effort to complete the activity. Or, the assistance of 2 or more helpers is required for the patient to complete the activity. If activity was not attempted, code reason: 7-Patient Refused. 9-Not Applicable-not attempted and the patient did not perform the activity before the current illness, exacerbation or injury. 10-Not Attempted due to Environmental Limitations-(lack of equipment, weather restraints, etc.). 88-Not Attempted due to Medical Conditions or Safety Concerns. Self Care: Independent Functional Cognition: Independent DME/Equipment: Shower (walk in shower in basement), Tub/Shower Patient reports fall to OT, fell down the stairs summer 2021 no acute medical visit, hit head Drive Self: Yes OT Current Status Subjective Relaxing in bed, agreeable to OT Mental Status/Objective Patient Orientation: Person, Place, Time, Situation Attachments: IV Current Upper Extremity ROM BUE ROM WFLS Upper Extremity Strength BUE WFLs 4/5 ADL-Treatment Eating (QC): 6 Oral Hygiene (QC): 5 (sitting up and set up) Shower/Bathe Self (QC): 88 (incision) Upper Body Dressing (QC): 5 Lower Body Dressing (QC): 3 On/Off Footwear (QC): 2 Toileting Hygiene (QC): 3 Education OT Patient Education: Correct positioning, Energy conservation, Exercise program, Modified ADL techniques, Progress toward Goal/Update tx plan, Purpose of tx/functional activities, Reviewed precautions, Rehab process, Safety issues, Transfer techniques, Use of adapted equipment Teaching Recipient: Patient Teaching Methods: Demonstration Response to Teaching: Verbalize Understanding, Reinforcement Needed OT Cytogenetic Technician Goals Assisted Goals Eating (QC): 6 Oral Hygiene (QC): 6 Toileting Hygiene (QC): 5 Shower/Bathe Self (QC): 4 Upper Body Dressing (QC): 6 Lower Body Dressing (QC): 5 On/Off Footwear (QC): 6 1=Demonstrate adherence to instructed precautions during ADL tasks. 2=Patient will verbalize/demonstrate understanding of assistive dev ices/modifications for ADL. 3=Patient will improve strength/tolerance for activity to enable patient to perform ADL's. OT Education/Plan Problem List/Assessment Assessment: Decreased Activ Tolerance, Decreased UE Strength, Impaired Funct Balance, Impaired Self-Care Skills Discharge Recommendations Plan/Recommendations: Continue POC Treatment Plan/Plan of Care Treatment,Training & Education: Yes Patient would benefit from OT for education, treatment and training to promote independence in ADL's, mobility, safety and/or upper extremity function for ADL's. Plan of Care: ADL Retraining, Concurrent Therapy, Functional Mobility, Group Exercise/Act as Ind, UE Funct Exercise/Act Treatment Duration: Nov 14, 2022 Frequency: 3 times per week (3-5 times per week) Estimated Hrs Per Day: .25 hour per day Agreement: Yes Rehab Potential: Good Remains in bed w/ all needs met, PCT to take vitals Time Start Time: 14:55 Stop Time: 15:35 DATE: Nov 04, 2022 Total Time Billed (hr/min): 40 Billed Treatment Time EVM, ADL 2 40 min SHEY THOMPSON OT Nov 04, 2022 15:12
[2022-11-04 15:36] VITALS: BP 171/81
[2022-11-04] MEDS: TAMSULOSIN 0.4 MG (FLOMAX) CAP PO SCH (18:04)
[2022-11-04 19:28] VITALS: BP 167/78
[2022-11-04] MEDS: MELATONIN 3 MG TABLET PO SCH (19:32)
[2022-11-04] MEDS: ALPRAZolam 0.5 MG (XANAX) TAB PO SCH (19:32)
[2022-11-04 23:59] VITALS: BP 139/68
[2022-11-05] MEDS: CATHETER FLUSH 10 ML SYR IVP SCH (04:47)
[2022-11-05 04:59] VITALS: BP 149/72
[2022-11-05] MEDS: hydrALAZINE (APRESOLINE) 25 MG TAB PO SCH (05:06)
[2022-11-05 06:02] LABS: POTASSIUM 4.9 MMOL/L (3.6-5.0)
[2022-11-05 06:03] LABS: CALCIUM 8.3 MG/DL (8.5-10.1)
[2022-11-05 06:08] LABS: CREATININE SERUM 3.2 MG/DL (0.60-1.30)
[2022-11-05 07:30] VITALS: BP 131/68
--- NOTE | 2022-11-05 08:07 | Progress Note - Ortho ---
Progress Note Subjective Date of Exam 11/05/22 Chief Complaint POD #2 CRPP of R FN Fx HPI/Events since last exam doing well, pain controlled, has been able to mobilize with therapy Review of Systems - Allergies: Coded Allergies: Sulfa (Sulfonamide Antibiotics) (Verified Allergy, Severe, 04/27/18) ofloxacin (Verified Allergy, Unknown, 04/27/18) tetracycline (Unverified Allergy, Unknown, 04/27/18) Home Meds Reported Medications Melatonin (Melatonin) 5 Mg Tablet, 5 MG PO HS, TAB TAKES 3MG +5MG TO EQUAL 8MG 11/03/22 Melatonin (Melatonin) 3 Mg Tablet, 3 MG PO HS, TAB TAKES 3MG +5MG TO EQUAL 8MG 11/03/22 Acetaminophen (Tylenol Extra Strength) 500 Mg Tablet, 500 MG PO Q6H PRN for PAIN-MILD (1-4), TAB 11/03/22 Diphenhydramine HCl (Benadryl Allergy) 25 Mg Tablet, 25 MG PO Q6H PRN for ALLERGY SYMPTOMS, TAB 11/03/22 Cholecalciferol (Vitamin D3) (Vitamin D3) 50 Mcg (2000 Unit) Capsule, 50 MCG PO 1900, CAP 11/03/22 Tamsulosin HCl (Flomax) 0.4 Mg Cap, 0.4 MG PO 1900, CAP 11/03/22 Ondansetron (Ondansetron Odt) 4 Mg Tab.rapdis, 4 MG PO QID PRN for NAUSEA/VOMITING-1ST LINE, TAB 11/03/22 Alprazolam (Alprazolam) 0.5 Mg Tablet, 0.5 MG PO HS, TAB 11/03/22 Empagliflozin (Jardiance) 10 Mg Tablet, 10 MG PO DAILY, TAB 11/03/22 Finasteride (Finasteride) 5 Mg Tablet, 5 MG PO DAILY, TAB 11/03/22 Carvedilol (Carvedilol) 25 Mg Tablet, 25 MG PO BID, TAB 11/03/22 Diphenoxylate HCl/Atropine (Diphenoxylate-Atrop 2.5-0.025) 2.5 Mg-0.025 Mg Tablet, 1 EA PO BID PRN for DIARRHEA, TAB 11/03/22 Alprazolam (Alprazolam) 0.5 Mg Tablet, 0.5 MG PO DAILY PRN for ANXIETY, TAB 11/03/22 Apixaban (Eliquis) 2.5 Mg Tablet, 2.5 MG PO BID, TAB LAST FILLED 07-20-2021 #180/90 DAY SUPPLY 03/15/17 Discontinued Reported Medications Carvedilol (Carvedilol) 6.25 Mg Tablet, 6.25 MG PO BID, TAB 04/27/18 Loperamide HCl (Anti-Diarrhea) 2 Mg Tablet, 2 MG PO DAILY, TAB 04/27/18 Finasteride (Proscar) 5 Mg Tablet, 5 MG PO DAILY, TAB 03/15/17 Melatonin (Melatonin) 10 Mg Capsule, 8 MG PO HS, CAP 09/02/16 Alprazolam (Xanax) 0.25 Mg Tablet, 0.25 MG PO PRN, TAB 09/02/16 Tamsulosin HCl (Tamsulosin HCl) 0.4 Mg Cap.er.24h, 0.4 MG PO HS 08/16/15 Cholecalciferol (Vitamin D3) (Vitamin D-3) 2,000 Unit Capsule, 2000 UNIT PO HS 08/16/15 Objective Exam R Leg: Incision C/D/I, +DF, no s/s of DVT Vital Signs Vital Signs Date Time Temp Pulse Resp B/P (MAP) Pulse Ox O2 Delivery O2 Flow Rate FiO2 11/05/22 07:30 37.0 88 18 131/68 (89) Room Air 11/05/22 04:59 36.8 71 18 149/72 (97) 93 Room Air 11/04/22 23:59 36.7 62 20 139/68 (91) 93 Room Air 11/04/22 19:32 Room Air 11/04/22 19:28 36.9 65 18 167/78 (107) 93 Room Air 11/04/22 15:36 36.8 18 171/81 (111) 96 Room Air 11/04/22 11:35 36.8 64 20 157/76 (103) 95 Room Air 11/04/22 08:42 37.7 93 20 175/81 (112) 92 Room Air I & O 11/05/22 07:00 Intake Total 2500 ml Output Total 700 ml Balance 1800 ml Lab Results Laboratory Tests 11/05/22 05:28: Sodium Level 140, Potassium Level 4.9, Chloride Level 113H, Carbon Dioxide Level 18L, Anion Gap 9, Blood Urea Nitrogen 38H, Creatinine 3.20H, Estimat Glomerular Filtration Rate 19, BUN/Creatinine Ratio 12, Glucose Level 91, Calcium Level 8.3L Microbiology 11/03/22 MRSA Screen - Final, Complete MRSA not isolated Assessment and Plan Assessment Nondisplaced Right Femoral Neck Fracture s/p CRPP Problem List Nondisplaced Right Femoral Neck Fracture s/p CRPP Plan PT/OT DVT Prophylaxis Will need mega out at 2 weeks (11/17/22) Final Diagonsis Nondisplaced Right Femoral Neck Fracture s/p CRPP Level of the visit: Level 3 (global postop) MARGOT HAYDEN MD Nov 05, 2022 08:07
--- NOTE | 2022-11-05 08:18 | Discharge Summary ---
Diagnosis/Chief Complaint Date of Admission Nov 02, 2022 at 17:44 Date of Discharge Reason Hospital Visit Pt reports that he was attempting to step over a baby gate behind which he had his dogs, he was trying to avoid opening the gate and letting his dogs out. He reports that his leg got caught and he tipped over onto his hip. He denies dizziness, chest pain, shortness of breath, just the pain in his right groin/hip region. Discharge Summary Discharge Physical Examination Allergies: Coded Allergies: Sulfa (Sulfonamide Antibiotics) (Verified Allergy, Severe, 04/27/18) ofloxacin (Verified Allergy, Unknown, 04/27/18) tetracycline (Unverified Allergy, Unknown, 04/27/18) Vitals & I&Os Vital Signs Date Time Temp Pulse Resp B/P (MAP) Pulse Ox O2 Delivery O2 Flow Rate FiO2 11/05/22 07:30 37.0 88 18 131/68 (89) Room Air 11/05/22 04:59 93 11/03/22 13:50 2.00 Hospital Course Pending Labs Laboratory Tests 11/05/22 05:28: Sodium Level 140, Potassium Level 4.9, Chloride Level 113, Carbon Dioxide Level 18, Anion Gap 9, Blood Urea Nitrogen 38, Creatinine 3.20, Estimat Glomerular Filtration Rate 19, BUN/Creatinine Ratio 12, Glucose Level 91, Calcium Level 8.3 Discharge Instructions to patient/family Please see electronic discharge instructions given to patient. Discharge Medications Reviewed and agree with Discharge Medication list on patient's Discharge Instruc tion sheet GARRICK NICK MD Nov 05, 2022 08:18
--- NOTE | 2022-11-05 08:20 | Discharge Inst-Simple/Standard ---
Discharge Inst-Standard Reconcile Patient Problems Problems Reviewed?: Yes Patient Instructions/Follow Up Plan of Care/Instructions/FU: DC TO IRF Activity as Tolerated: Yes Discharge Diet: Regular Diet GARRICK NICK MD Nov 05, 2022 08:19
[2022-11-05] MEDS ORDERED: PANTOPRAZOLE 20 MG TABLET (PROTONIX) PO SCH (09:00)
[2022-11-05] MEDS: FINASTERIDE (PROSCAR) 5 MG TAB PO SCH (09:08)
[2022-11-05] MEDS: EMPAGLIFLOZIN 10 MG TABLET (JARDIANCE) PO SCH (09:08)
[2022-11-05] MEDS: APIXABAN 2.5 MG (ELIQUIS) TABLET PO SCH (09:08)
== END 2022-11-05 09:55 | DRG 481 ==
LOC: EDUNIT# 13:09 → ER 13:12 → 4TH 17:44
PROVIDERS: ADMIT Family Medicine; ATTEND Family Medicine
PROC: 0QS634Z Reposition Right Upper Femur with Internal Fixation Device, Percutaneous Approach (ICD-10-PCS; principal; 2022-11-03 12:12)
DX: S72.011A Unspecified intracapsular fracture of right femur, initial encounter for closed fracture (principal); I45.2 Bifascicular block; N18.4 Chronic kidney disease, stage 4 (severe); M25.561 Pain in right knee; I12.9 Hypertensive chronic kidney disease with stage 1 through stage 4 chronic kidney disease, or unspecified chronic kidney disease; F41.1 Generalized anxiety disorder; I25.10 Atherosclerotic heart disease of native coronary artery without angina pectoris; N40.0 Benign prostatic hyperplasia without lower urinary tract symptoms; K58.0 Irritable bowel syndrome with diarrhea; K21.9 Gastro-esophageal reflux disease without esophagitis; H54.3 Unqualified visual loss, both eyes; H91.90 Unspecified hearing loss, unspecified ear; R10.13 Epigastric pain; G47.00 Insomnia, unspecified; Z85.528 Personal history of other malignant neoplasm of kidney; Z96.653 Presence of artificial knee joint, bilateral; Z86.711 Personal history of pulmonary embolism; Z86.718 Personal history of other venous thrombosis and embolism; Z79.01 Long term (current) use of anticoagulants; Z88.1 Allergy status to other antibiotic agents; Z88.2 Allergy status to sulfonamides; W01.0XXA Fall on same level from slipping, tripping and stumbling without subsequent striking against object, initial encounter; Y92.009 Unspecified place in unspecified non-institutional (private) residence as the place of occurrence of the external cause
CPT/HCPCS: 36415; 71045; 72192; 73502; 73562; 76000; 80048; 80053; 85025; 85027; 85610; 85730; 87081; 93005; 94664

== ENCOUNTER 2022-11-05 09:11 | Inpatient (IN) | payer MEDICARE, OTHER ==
[~2022-11-05] VITALS: Ht 175 cm; Wt 72.9 kg
[~2022-11-05 09:11] MED LIST changes: +ACET-2267 PO; +ALPR0.5T7 PO; +CARV25TA PO; +CHOL20003 PO; +DIPH1TAB25 PO; +DIPH25TA65 PO; +EMPA10TA PO; +FINA5TAB6 PO; +MELA3TAB39 PO; +MELA5TAB14 PO; +ONDA4TAB11 PO
--- NOTE | 2022-11-05 10:25 | Occupational Therapy Eval ---
OT Evaluation-General/PLF Medical Diagnosis Admission Date Nov 05, 2022 at 10:00 Medical Diagnosis: R hip fx s/p pinning Onset Date: Nov 03, 2022 Therapy Diagnosis Therapy Diagnosis: decreased ADL status Height/Weight Height (Feet): 5 Height (Inches): 9.00 Weight (Pounds): 170 Weight (Ounces): 0.0 Weight Bear Status Weight Bearing Restriction: Partial Weight Bearing Location Restriction: R LE Referral Physician: Jeremiah Referral Reason: Evaluation/Treatment Medical History Additional Medical History PE, CAD, DVT, HTN, BPH, GERD, IBS, Arthritis, anxiety, b/l knee replacement, L shoulder replacement. Current History trip over baby gate and fall resulting in R hip fx, s/p pinning 11/03/22. Pt admitted to ARU 11/05/22 Social History Home: Multilevel Current Living Status: Spouse Entry Into Home: Stairs With Railing Steps Into Home: 2 (with rails) Steps Inside Home: 13 (4-5" tall steps with rails) Pt has 13 steps into the basement, 4-5" tall steps. ADL-Prior Level of Function SCALE: Activities may be completed with or without assistive devices. 3-Wcipugjqyz-ymxngdu completes the activity by him/herself with no assistance from a helper. 5-Set-up or Clean-up Assistance-helper sets up or cleans up; patient completes activity. [place] assists only prior to or following the activity. 4-Supervision or Touching Assistance-helper provides verbal cues and/or touching/steadying and/or contact guard assistance as patient completes activity. Assistance may be provided throughout the activity or intermittently. 3-Partial/Moderate Assistance-helper does LESS THAN HALF the effort. [place] lifts, holds or supports trunk or limbs, but provides less than half the effort. 2-Substantial/Maximal Assistance-helper does MORE THAN HALF the effort. [place] lifts or holds trunk or limbs and provides more than half the effort. 8-Xjzrgpdav-tokjst does ALL the effort. Patient does none of the effort to complete the activity. Or, the assistance of 2 or more helpers is required for the patient to complete the activity. If activity was not attempted, code reason: 7-Patient Refused. 9-Not Applicable-not attempted and the patient did not perform the activity before the current illness, exacerbation or injury. 10-Not Attempted due to Environmental Limitations-(lack of equipment, weather restraints, etc.). 88-Not Attempted due to Medical Conditions or Safety Concerns. ADL PLOF Comments Pt reports IND with ADLS and functional mobility at PLOF, no AD. He completed yard work and laundry, cooks and cleans. Pt has 2 tub/shower combos on 1st level of house, walk in shower in basement, no SC. Self Care: Independent Functional Cognition: Independent DME/Equipment Comments owns walker from prior knee surgeries. OT Current Status Subjective Pt in w/c, agreeable to OT Tx. Mental Status/Objective Patient Orientation: Person, Place, Time, Situation Current Glasses/Contacts: Yes Hand Dominance: Right Upper Extremity ROM WFL, BUE shoulder flexion to approx 160 degrees Upper Extremity Coordination WFL Upper Extremity Sensation Pt reports numbness and coldness in L hand ulnar nerve distribution Upper Extremity Strength grossly 4-/5 ADL-Treatment Eating (QC): 6 Oral Hygiene (QC): 4 (SBA standing at sink.) Shower/Bathe Self (QC): 3 (assist with bilaterall feet) Upper Body Dressing (QC): 5 Lower Body Dressing (QC): 3 (assist with threading RLE) On/Off Footwear (QC): 3 (Mod A. Pt able to doff, assist to don) Toileting Hygiene (QC): 4 (CGA in stand.) Other Treatments OT evaluation complete [id number]. [id number] OT/PT cotreat due to skill of 2 clinicians required which a psychosocial rehabilitation counselor could not perform in order to increase BUE Strength and activity tolerance, decrease fall risk, and due to pt's limitations in strength, activity tolerance, mobility and strength. OT focused on ADLs, cues for sequencing and safety, and U E placement, PT focused on LE placement, gross overall movement, mobility and transfers. Pt donned clothes, difficulty reaching BLEs lower legs/feet during LBD. Pt then completed functional mobility and transfers, including bed mobility, functional mobility using FWW (even and uneven surface), car transfer. Post tx, pt in therapy gym with PT, all needs met. IND rolling, IND supine to sit, min A sit to supine when fatigued, CGA car transfer, CGA sit to stand as pt fatigues.CGA with functional mobility using FWW (max distance 150') cues required for safety and to maintain PWB. Education OT Patient Education: Correct positioning, Energy conservation, Modified ADL techniques, Progress toward Goal/Update tx plan, Purpose of tx/functional activities, Reviewed precautions, Rehab process Teaching Recipient: Patient Teaching Methods: Discussion Response to Teaching: Verbalize Understanding BIMS CAM BIMS Expression of Ideas and Wants: Without Difficulty Understanding Verbal Content: Understands Brief Interview/Mental Status: Yes IRF NIKKY BIMS: IRF NIKKY BIMS Response (Comments) Value Repitition of Three Words Three 3 Recalls Socks Yes, No Cue Required 2 Recalls Blue Yes, No Cue Required 2 Recalls Bed Yes, No Cue Required 2 Year Correct 3 Month Accurate Within 5 Days 2 Day Correct 1 Total 15 [address] Mental [address] No CAM Mental Status Change/Baseline: 0 Inattention: 0 Disorganized thinkin Altered level of consciousness: 0 OT Short Term Goals Short Term Goals Time Frame: Nov 13, 2022 Shower/bathe self: 5 Lower body dressin Putting on/taking off footwear: 5 OT Flat Breakdown Processor Goals Flat Breakdown Processor Goals Time Frame: Nov 27, 2022 Eating (QC): 6 Oral Hygiene (QC): 6 Toileting Hygiene (QC): 6 Shower/Bathe Self (QC): 6 Upper Body Dressing (QC): 6 Lower Body Dressing (QC): 6 On/Off Footwear (QC): 6 Additional Goals: 1-Demonstrate ADL Tasks, 2-Verbalize Understanding, 3- ImproveStrength/Jamey 1=Demonstrate adherence to instructed precautions during ADL tasks. 2=Patient will verbalize/demonstrate understanding of assistive devices/modifications for ADL. 3=Patient will improve strength/tolerance for activity to enable patient to perform ADL's. OT Education/Plan Problem List/Assessment Assessment: Decreased Activ Tolerance, Decreased UE Strength, Impaired Funct Balance, Impaired I ADL's, Impaired Self-Care Skills Discharge Recommendations Plan/Recommendations: Continue POC Equpiment Recommendations-D/C: Extended Bath Bench, Bath Chair Comment bath bench vs shower chair depending on which bathroom pt prefers to use. Treatment Plan/Plan of Care Patient would benefit from OT for education, treatment and training to promote independence in ADL's, mobility, safety and/or upper extremity function for ADL 's. Plan of Care: ADL Retraining, Functional Mobility, Group Exercise/Act as Ind, UE Funct Exercise/Act Treatment Duration: Nov 27, 2022 Frequency: At least 5 of 7 days/Wk (IRF) Estimated Hrs Per Day: 1.5 hours per day Agreement: Yes Rehab Potential: Good Time Start Time: 10:00 (0522-2031 OT eval) Stop Time: 11:00 ([id number] Cotreat) DATE: Nov 05, 2022 Total Time Billed (hr/min): 50 Billed Treatment Time OT eval 10' [id number], PT eval [id number] (not billed), cotreat x50' [id number] 1, EVM (10'), ADL (20'), FA (20') THOR COWAN OT Nov 05, 2022 10:25
[2022-11-05] MEDS ORDERED: ONDANSETRON 4 MG/2 ML (SDV) Z0FRAN IVP PRN (10:45)
[2022-11-05] MEDS ORDERED: CALCIUM CARBONATE 500 MG (TUMS) TAB.CHEW PO PRN (10:45)
[2022-11-05] MEDS ORDERED: ALPRAZolam 0.25 MG (XANAX) TAB PO PRN (10:45)
[2022-11-05] MEDS ORDERED: guaiFENesin/CODEINE (ROBITUSSIN AC) 10ML UDC PO PRN (10:45)
[2022-11-05] MEDS ORDERED: BISACODYL 10 MG SUPP (DULCOLAX) PR PRN (10:45)
[2022-11-05] MEDS ORDERED: diphenhydrAMINE 25 MG TAB (BENADRYL) PO PRN (10:45)
[2022-11-05] MEDS ORDERED: LACTULOSE SYRUP 10GM/15ML (ENULOSE) 30ML UDC PO PRN (10:45)
[2022-11-05] MEDS ORDERED: MELATONIN 3 MG TABLET PO PRN (10:45)
[2022-11-05] MEDS ORDERED: FLEET ENEMA ADULT 1 EA BTL PR PRN (10:45)
[2022-11-05] MEDS ORDERED: DOCUSATE SODIUM 100 MG (COLACE) CAP PO PRN (10:45)
[2022-11-05] MEDS ORDERED: morphine INJ 4 MG/ML 1 ML (VIAL/SYRINGE) IV PRN (10:45)
--- NOTE | 2022-11-05 10:50 | PM&R Post Admission Assessment ---
PM&R HP Date of Visit: Nov 05, 2022 Time of Visit: 10:45 History of Present Illness CC: Right hip fracture with residual debility HPI: This is a 77yoWM who presents to ARU with debility following right hip fracture. He has a h/o Stage IV CKD and multiple bowel issues including chronic constipation along with IBS. He is doing pretty well overall and will receive aggressive therapy in order to regain function and return to baseline function at home independently. I have reviewed his labs and meds. Constipation is noted and he needs more laxatives. Past Khfvbqh-Bmardu-Eihwzd Hx Past Med/Social Hx: Reviewed Nursing Past Med/Soc Hx, Reviewed and Corrections made Patient Social History Marrital Status: single Employed/Student: retired Alcohol Use: Occasionally Uses Alcohol Beverage of Choice: Scotch, Wine Smoking Status: Former Smoker Former Smoker, Quit: Mar 11, 1985 Type Used: Cigarettes 2nd Hand Smoke Exposure: No Recent Hopitalizations: No Immunizations Up To Date Tetanus Booster (TDap): Unknown Date of Pneumonia Vaccine: Aug 19, 2015 Date of Influenza Vaccine: May 17, 2017 Seasonal Allergies Seasonal Allergies: No Past Medical History Surgeries: Abdominal, Orthopedic Currently Using CPAP: No Currently Using BIPAP: No Cardiac: Coronary Artery Disease, Deep Vein Thrombosis, Hypertension, Irregular Heartbeat Reproductive: No Sexually Transmitted Disease: No HIV/AIDS: No Genitourinary: Benign Prostatic Hyperpl, Prostate Problems, Renal Failure Gastrointestinal: Gastroesophageal Reflux, Chronic Diarrhea, Hiatal Hernia, Irritable Bowel Musculoskeletal: Arthritis Loss of Vision: Bilateral Hearing Impairment: Hard of Hearing Cancer: Kidney What Type of Treatment Did You: Surgical Intervention Psychosocial: Anxiety Skin/Integumentary: Eczema History of Blood Disorders: No Adverse Reaction to Blood Kelsey: No (N/A) Family History Cardiovascular disease G8 BROTHER FH: breast cancer 19 MOTHER FH: lung cancer 19 FATHER Kidney disease G8 BROTHER (ON DIALYSIS) Pacemaker 19 MOTHER Self Care: Independent Functional Cognition: Independent Eatin Oral Hygiene: 5 Shower/Bathe Self: 3 (assist with bilaterall feet) Upper Body Dressin Lower Body Dressin (assist with threading RLE) PM&R Allergy/Meds/Data Review Allergies Coded Allergies: Sulfa (Sulfonamide Antibiotics) (Verified Allergy, Severe, 04/27/18) ofloxacin (Verified Allergy, Unknown, 04/27/18) tetracycline (Unverified Allergy, Unknown, 04/27/18) Home Medications Scheduled Alprazolam (Alprazolam), 0.5 MG PO HS, (Reported) Apixaban (Eliquis), 2.5 MG PO BID, (Reported) Carvedilol (Carvedilol), 25 MG PO BID, (Reported) Cholecalciferol (Vitamin D3) (Vitamin D3), 50 MCG PO 1900, (Reported) Empagliflozin (Jardiance), 10 MG PO DAILY, (Reported) Finasteride (Finasteride), 5 MG PO DAILY, (Reported) Melatonin (Melatonin), 3 MG PO HS, (Reported) Melatonin (Melatonin), 5 MG PO HS, (Reported) Tamsulosin HCl (Flomax), 0.4 MG PO 1900, (Reported) Scheduled PRN Acetaminophen (Tylenol Extra Strength), 500 MG PO Q6H PRN for PAIN-MILD (1-4), (Reported) Alprazolam (Alprazolam), 0.5 MG PO DAILY PRN for ANXIETY, (Reported) Diphenhydramine HCl (Benadryl Allergy), 25 MG PO Q6H PRN for ALLERGY SYMPTOMS, (Reported) Diphenoxylate HCl/Atropine (Diphenoxylate-Atrop 2.5-0.025), 1 EA PO BID PRN for DIARRHEA, (Reported) Ondansetron (Ondansetron Odt), 4 MG PO QID PRN for NAUSEA/VOMITING-1ST LINE, (Reported) Discontinued Medications Alprazolam (Xanax), 0.25 MG PO PRN, (Reported) Discontinued Reason: Prescription changed Carvedilol (Carvedilol), 6.25 MG PO BID, (Reported) Discontinued Reason: No Longer Taking Cholecalciferol (Vitamin D3) (Vitamin D-3), 2,000 UNIT PO HS, (Reported) Discontinued Reason: No Longer Taking Finasteride (Proscar), 5 MG PO DAILY, (Reported) Discontinued Reason: No Longer Taking Loperamide HCl (Anti-Diarrhea), 2 MG PO DAILY, (Reported) Discontinued Reason: No Longer Taking Melatonin (Melatonin), 8 MG PO HS, (Reported) Discontinued Reason: No Longer Taking Tamsulosin HCl (Tamsulosin HCl), 0.4 MG PO HS, (Reported) Discontinued Reason: No Longer Taking Current Medications Current Medications Reviewed Review of Systems Constitutional: see HPI, malaise, weakness EENTM: no symptoms reported Respiratory: no symptoms reported Cardiovascular: no symptoms reported Gastrointestinal: constipation Genitourinary: no symptoms reported Musculoskeletal: back pain, joint pain Skin: no symptoms reported Psychiatric/Neurological: Depressed All Other Systems Reviewed Negative Unless Noted: Yes Physical Exam Physical Exam Vital Signs Capillary Refill : Height, Weight, BMI Height: 5'9.00" Weight: 170lbs. 0.0oz. [id number]; 24.17 BMI Method:Estimated General Appearance: No Apparent Distress, WD/WN Eyes: Bilateral Eye Normal Inspection, Bilateral Eye PERRL HEENT: PERRL/EOMI, Normal ENT Inspection, Pharynx Normal Neck: Full Range of Motion, Normal Inspection, Non Tender, Supple, Carotid Bruit Respiratory: Chest Non Tender, Lungs Clear, Normal Breath Sounds, No Accessory Muscle Use, No Respiratory Distress Cardiovascular: Regular Rate, Rhythm, No Edema, No Gallop, No JVD, No Murmur, Normal Peripheral Pulses Gastrointestinal: Normal Bowel Sounds, No Organomegaly, No Pulsatile Mass, Non Tender, Soft Back: Normal Inspection, No CVA Tenderness, No Vertebral Tenderness Extremity: Normal Capillary Refill, Normal Inspection, Normal Range of Motion (except right leg), Non Tender, No Calf Tenderness, No Pedal Edema Neurologic/Psychiatric: Alert, Oriented x3, No Motor/Sensory Deficits, Normal Mood/Affect Skin: Normal Color, Warm/Dry Lymphatic: No Adenopathy PM&R Medical Assessment & Plan REHAB/MEDICAL ASSESSMENT AND PLAN: REHAB IMPAIRMENT GROUP: Right femoral neck fracture ETIOLOGIC DIAGNOSIS: Right femoral neck fracture The comorbidities that impact the patients function and/or functional outcome by: stage IV CKD, fall risk, IBS REHAB PLAN: The patient is being admitted to our comprehensive inpatient rehabilitation facility and can tolerate the intensity of service consisting of at least: 180 minutes of therapy a day, 5 out of 7 days a week Rehab treatment will consist of: PT OT will focus on regaining function with use of AD in order to regain baseline function and be able to return home to live independently The patient/family has a good understanding of our discharge process and will benefit from an interdisciplinary inpatient rehabilitation program. The patient has potential to make improvement and is in need of at least two of the following multidisciplinary therapies including but not limited to physical, occupational, speech, and prosthetics and orthotics. Additionally the patient will need services from respiratory, nutritional services, wound care, psychology, etc. (Customize this to each patient). Given the patients complex condition and risk of further medical complications, rehabilitation services cannot be safely or effectively provided at a lower level of care such as a retirement facility. BARRIERS TO DISCHARGE: Fall risk ESTIMATED LOS: 7 days DISPOSITION: Home RELEVANT CHANGES SINCE PREADMISSION SCREENING: I have compared the patients medical and functional status at the time of the preadmission screening and there are: no changes PROGNOSIS: Good REHABILITATION GOALS: 1. PT OT will focus on regaining function with use of AD in order to regain baseline function and be able to return home to live independently All the above goals were reviewed with the patient and he/she is in agreement. By signing this document, I acknowledge that I have personally performed a full physical examination on this patient within 24 hours of admission to this inpatient rehabilitation facility and have determined the patient to be able to tolerate the above course of treatment at an intensive level for a reasonable period of time. I will be completing a detailed individualized Plan of Care for this patient by day #4 of the patients stay based upon the Preadmission Screen, the Post-Admission Evaluation, and the therapy evaluations. Admission Dx/Comorbidities: (1) Fracture of femoral neck, right ICD Codes: S72.001A - Fracture of unspecified part of neck of right femur, initial encounter for closed fracture Assessment/Plan Assessment and Plan Assess & Plan/Chief Complaint Assessment: Right hip fracture with residual debility HTN CKD h/o DVT on renal dosed OAC Plan: Home meds Pain control Laxatives SRIKANTH DOMINIQUE DO Nov 05, 2022 10:50
[2022-11-05] MEDS: ONDANSETRON 4 MG (ZOFRAN) ORAL DISSOLVE TAB PO PRN (10:52)
--- NOTE | 2022-11-05 11:34 | Speech Therapy Progress Note ---
Therapy Progress Note ST received consultation for cognitive services. At this time, speech pathology has not been contacted with specific concerns which would warrant skilled speech pathology evaluation and treatment. Please re-consult speech pathology as needed and appropriate. Thank you. RUCHI HAMPTON Nov 05, 2022 11:34
[2022-11-05] MEDS: BISACODYL 5 MG (DULCOLAX) TABLET PO SCH (12:00)
--- NOTE | 2022-11-05 12:01 | Physical Therapy Evaluation ---
PT Evaluation-General Medical Diagnosis Admission Date Nov 05, 2022 at 10:00 Medical Diagnosis: R hip fx s/p pinning Onset Date: Nov 03, 2022 Therapy Diagnosis Therapy Diagnosis: hip fx with immobility Height/Weight Height (Feet): 5 Height (Inches): 9.00 Weight (Pounds): 170 Weight (Ounces): 0.0 Precautions Precautions/Isolations: Fall Prevention, Standard Precautions Weight Bear Status Right Lower Extremity: Right Partial Weight Bearing Left Lower Extremity: Left Full Weight Bearing 30 to 50 pounds on right leg Referral Physician: Jeremiah Reason for Referral: Evaluation/Treatment Medical History Additional Medical History B total knee replacements, nausea, IBS Current History Pt fell while stepping over a dog gate in his home. He fx the right proximal femur and underwent ORIF. Social History Home: Multilevel Current Living Status: Spouse Entry Into Home: Stairs With Railing PT Steps Into Home: 2 (with rails) PT Steps Inside Home: 13 (4-5" tall steps with rails) Prior Prior Level of Function SCALE: Activities may be completed with or without assistive devices. 8-Ylvnyddulb-aaydslx completes the activity by him/herself with no assistance from a helper. 5-Set-up or Clean-up Assistance-helper sets up or cleans up; patient completes activity. [place] assists only prior to or following the activity. 4-Supervision or Touching Assistance-helper provides verbal cues and/or touching/steadying and/or contact guard assistance as patient completes activity. Assistance may be provided throughout the activity or intermittently. 3-Partial/Moderate Assistance-helper does LESS THAN HALF the effort. [place] lifts, holds or supports trunk or limbs, but provides less than half the effort. 2-Substantial/Maximal Assistance-helper does MORE THAN HALF the effort. [place] lifts or holds trunk or limbs and provides more than half the effort. 8-Alksktqpc-jakvpa does ALL the effort. Patient does none of the effort to complete the activity. Or, the assistance of 2 or more helpers is required for the patient to complete the activity. If activity was not attempted, code reason: 7-Patient Refused. 9-Not Applicable-not attempted and the patient did not perform the activity before the current illness, exacerbation or injury. 10-Not Attempted due to Environmental Limitations-(lack of equipment, weather restraints, etc.). 88-Not Attempted due to Medical Conditions or Safety Concerns. Bed Mobility: 6 Transfers (B,C,W/C): 6 Gait: 6 Stairs: 6 Indoor Mobility (Ambulation): Independent (6) Stairs: Independent PT Evaluation-Current Subjective Pt notes no pain at rest, 5/10 pain right hip and knee during activity Pain Section J - Health Conditions 1. Rarely or not at all 2. Occasionally 3. Frequently 4. Almost constantly 8. Unable to answer Pain Effect on Sleep: 1 Pain Interference with Therapy: 2 Pain Interference w/Day-to-Day: 2 Objective Patient Orientation: Normal For Age ROM/Strength ROM Lower Extremities left LE is WFLs throughout right hip flexion 75 degrees, hip abduction 10 degrees, hip extension neutral Strength Lower Extremities left 5/5 throughout right hip flex 2/5, hip abd 2/5, hip ext 2/5, quads 4/5, ankle 5/5 Sensory Vision: Wears Glasses Hearing: Functional Hand Dominance: Right Sensation Right Upper Extremit: Intact Sensation Left Upper Extremity: Intact Sensation Right Lower Extremit: Intact Sensation Left Lower Extremity: Intact Transfers Roll Left & Right (QC): 6 Sit to Lying (QC): 4 Lying to Sitting/Side of Bed(Q: 6 Sit to Stand (QC): 4 Chair/Qqj-de-Uvmls Xfer(QC): 4 Toilet Transfer (QC): 4 Car Transfer (QC): 4 Need Min Assist to raise the leg back into bed once fatigued; touching to lift right leg into car, sit to stand from low surface required light physical assist upon patient fatigue Gait Does the Patient Walk?: Yes Mode of Locomotion: Walk Anticipated Mode of Locomotion: Walk Walk 10 feet (QC): 4 Walk 50 ft with 2 Turns(QC): 4 Walk 150 ft (QC): 4 Walking 10ft/uneven surface-QC: 4 Distance: 150 Gait Assistive Device: FWW Comments/Gait Description Ambulate max distance 150ft with FWW using a step to sequence and PWB. Pt required frequent cueing for sequence and wt bearning and touching for safety/stability. Wheelchair Training Does the Pt Use a Wheelchair?: No Wheel 50 ft with 2 turns (QC): 9 Wheel 150 ft (QC): 9 Stairs #of Steps: 12 1 Step (curb) (QC): 4 4 Steps (QC): 4 12 Steps (QC): 4 touching assist for stability and verbal cues for wt bearing sequence. Balance Sitting Static: Normal Sitting Dynamic: Normal Standing Static: Good Standing Dynamic: Fair Picking up an Object (QC): 6 Special Test Comments used a exercise planner and walker to pick item up from floor Treatment Ther ex of supine LE ROM and strength exercise x 15 reps, standing right hip 3 way x 15 reps, Nu step level 5 x 6 minutes Gait and stair training with verbal cues for wt bearing. Co Tx with OT for FA training to incorporate UE and LE dual task planning with both disciplines focusing on distinct movements, safety issues, and tactile feedback. Assessment/Needs Patient shows good potential for return to full functional independence. He needs light physical assist for the right leg for bed mobility and verbal cuing for wt bearing sequence. Pt will benefit form skilled therapy intervention to return to prior level of function. Rehab Potential: Good PT Short Term Goals Short Term Goals Time Frame: Nov 09, 2022 Roll Left & Right: 6 Sit to lyin Lying to sitting on side of be: 6 Sit to stand: 6 Chair/rfa-fc-kwjnu transfer: 5 Toilet transfer: 5 Car transfer: 5 Walk 10 feet: 6 Walk 50 feet with two turns: 6 Walk 150 feet: 4 Walking 10ft on uneven surface: 6 1 step (curb): 5 4 steps: 4 12 steps: 4 Picking up objects: 6 PT Group Home Goals Group Home Goals PT Group Home Goals Time Frame: Nov 18, 2022 Roll Left to Right (QC): 6 Sit to Lying (QC): 6 Lying-Sitting on Side/Bed(QC): 6 Sit to Stand (QC): 6 Chair/Yyn-ur-[place]tu[place] Xfer(QC): 6 Toilet/Commode Transfer (QC): 6 Car Transfer (QC): 6 Walk 10 feet (QC): 6 Walk 10ft-Uneven Surface(QC): 6 Walk 50ft with 2 Turns (QC): 6 Walk 150 ft (QC): 6 Wheel 50 feet with 2 turns (QC: 9 Wheel 150 feet: 9 1 Step (curb) (QC): 6 4 Steps (QC): 6 12 Steps (QC): 6 Picking up an Object (QC): 6 PT Plan Problem List Problem List: Functional Strength, Safety, Balance, Gait, Transfer, Bed Mobility Treatment/Plan Treatment Plan: Continue Plan of Care Treatment Plan: Bed Mobility, Concurrent Therapy, Education, Functional Activity Jamey, Functional Strength, Group Therapy, Gait, Safety, Therapeutic Exercise, Transfers Treatment Duration: Nov 18, 2022 Frequency: At least 5 of 7 days/Wk (IRF) Estimated Hrs Per Day: 1.5 hours per day Patient and/or Family Agrees t: Yes Safety Risks/Education Patient Education: Gait Training, Transfer Techniques, Steps, Reviewed Precautions Teaching Recipient: Patient Teaching Methods: Demonstration, Discussion Response to Teaching: Verbalize Understanding, Return Demonstration Discharge Recommendations Target Placement Home Time Time In: 1010 Time Out: 1130 DATE: Nov 05, 2022 Total Billed Treatment Time: 80 Total Billed Treatment visit, Evaluation 10:10am -10:20am Co Tx with OT 10:21 - 11:00am Individual tx 11:01-11:30 am: Gait 15 min, Ther ex 19 DARIEN CARDENAS PT Nov 05, 2022 12:01
[2022-11-05] MEDS ORDERED: CATHETER FLUSH 10 ML SYR IVP SCH (14:00)
[2022-11-05 14:48] VITALS: BP 149/85
[2022-11-05] MEDS: hydrALAZINE (APRESOLINE) 25 MG TAB PO SCH ×2 (14:49→20:54)
[2022-11-05] MEDS: LOPERAMIDE 2 MG (IMODIUM) TABLET PO PRN ×3 (14:49→21:10)
--- NOTE | 2022-11-05 14:51 | Occupational Ther Daily Note ---
OT Current Status-Daily Note Subjective Pt in bed, agreeable to OT Tx. Pt states he was constipated earlier today, but now has been having diarrhea. Mental Status/Objective Patient Orientation: Person, Place, Time, Situation ADL-Treatment Therapy Code Descriptions/Definitions Functional [place] Measure: 0=Not Assessed/NA 4=Minimal Assistance 1=Total Assistance 5=Supervision or Setup 2=Maximal Assistance 6=Modified [place] 3=Moderate Assistance 7=Complete IndependenceSCALE: Activities may be completed with or without assistive devices. 3-Gmhugwydob-eivmlwk completes the activity by him/herself with no assistance from a helper. 5-Set-up or Clean-up Assistance-helper sets up or cleans up; patient completes activity. [place] assists only prior to or following the activity. 4-Supervision or Touching Assistance-helper provides verbal cues and/or touching/steadying and/or contact guard assistance as patient completes activity. Assistance may be provided throughout the activity or intermittently. 3-Partial/Moderate Assistance-helper does LESS THAN HALF the effort. [place] lifts, holds or supports trunk or limbs, but provides less than half the effort. 2-Substantial/Maximal Assistance-helper does MORE THAN HALF the effort. [place] lifts or holds trunk or limbs and provides more than half the effort. 7-Cgcpkiwsq-inxtfa does ALL the effort. Patient does none of the effort to complete the activity. Or, the assistance of 2 or more helpers is required for the patient to complete the activity. If activity was not attempted, code reason: 7-Patient Refused. 9-Not Applicable-not attempted and the patient did not perform the activity before the current illness, exacerbation or injury. 10-Not Attempted due to Environmental Limitations-(lack of equipment, weather restraints, etc.). 88-Not Attempted due to Medical Conditions or Safety Concerns. Oral Hygiene (QC): 4 (SBA standing at sink.) Toileting Hygiene (QC): 4 (CGA) Toilet Transfer (QC): 4 (CGA) Other Treatment Pt in bed, transferred supine to sit EOB independently. CGA sit to stand from EOB, then CGA using FWW to transfer into bathroom. Pt stood at sink to complete oral care, after task, pt states he urgently needed to use toilet. Pt transferred to toilet with CGA, completed toileting wiht CGA, then returned to EOB, CGA. Pt transferred sit to supine with SBA. Post tx, pt in bed, call light in reach and all needs met. OT Short Term Goals Short Term Goals Time Frame: Nov 13, 2022 Shower/bathe self: 5 Lower body dressin Putting on/taking off footwear: 5 OT Nursing Home Goals Nursing Home Goals Time Frame: Nov 27, 2022 Acute change in mental status: 0 Inattention: 0 Disorganized thinkin Altered level of consciousness: 0 Eating (QC): 6 Oral Hygiene (QC): 6 Toileting Hygiene (QC): 6 Shower/Bathe Self (QC): 6 Upper Body Dressing (QC): 6 Lower Body Dressing (QC): 6 On/Off Footwear (QC): 6 Additional Goals: 1-Demonstrate ADL Tasks, 2-Verbalize Understanding, 3- ImproveStrength/Jamey 1=Demonstrate adherence to instructed precautions during ADL tasks. 2=Patient will verbalize/demonstrate understanding of assistive devices/modifications for ADL. 3=Patient will improve strength/tolerance for activity to enable patient to perform ADL's. OT Education/Plan Problem List/Assessment Assessment: Decreased Activ Tolerance, Decreased UE Strength, Impaired Funct Balance, Impaired I ADL's, Impaired Self-Care Skills Discharge Recommendations Plan/Recommendations: Continue POC Treatment Plan/Plan of Care Patient would benefit from OT for education, treatment and training to promote independence in ADL's, mobility, safety and/or upper extremity function for ADL's. Plan of Care: ADL Retraining, Functional Mobility, Group Exercise/Act as Ind, UE Funct Exercise/Act Treatment Duration: Nov 27, 2022 Frequency: At least 5 of 7 days/Wk (IRF) Estimated Hrs Per Day: 1.5 hours per day Agreement: Yes Rehab Potential: Good Time Start Time: 14:10 Stop Time: 14:50 DATE: Nov 05, 2022 Total Time Billed (hr/min): 40 Billed Treatment Time 1, ADL 3 THOR COWAN OT Nov 05, 2022 14:51
--- NOTE | 2022-11-05 15:39 | Physical Therapy Daily Note ---
PT Daily Note-Current Subjective Pt reports he's been struggling with diarrhea all afternoon. Everytime he gets up he has to go. Pain Section J - Health Conditions 1. Rarely or not at all 2. Occasionally 3. Frequently 4. Almost constantly 8. Unable to answer Pain Effect on Sleep: 1 Pain Interference with Therapy: 2 Pain Interference w/Day-to-Day: 2 Transfers SCALE: Activities may be completed with or without assistive devices. 0-Qxafyopxjm-icruvtx completes the activity by him/herself with no assistance from a helper. 5-Set-up or Clean-up Assistance-helper sets up or cleans up; patient completes activity. [place] assists only prior to or following the activity. 4-Supervision or Touching Assistance-helper provides verbal cues and/or touching/steadying and/or contact guard assistance as patient completes activity. Assistance may be provided throughout the activity or intermittently. 3-Partial/Moderate Assistance-helper does LESS THAN HALF the effort. [place] lifts, holds or supports trunk or limbs, but provides less than half the effort. 2-Substantial/Maximal Assistance-helper does MORE THAN HALF the effort. [place] lifts or holds trunk or limbs and provides more than half the effort. 0-Fffbdopbk-taanux does ALL the effort. Patient does none of the effort to complete the activity. Or, the assistance of 2 or more helpers is required for the patient to complete the activity. If activity was not attempted, code reason: 7-Patient Refused. 9-Not Applicable-not attempted and the patient did not perform the activity before the current illness, exacerbation or injury. 10-Not Attempted due to Environmental Limitations-(lack of equipment, weather restraints, etc.). 88-Not Attempted due to Medical Conditions or Safety Concerns. Roll Left & Right (QC): 4 Sit to Lying (QC): 4 Lying to Sitting/Side of Bed(Q: 4 Sit to Stand (QC): 4 Chair/Hpm-dl-Dslnk Xfer(QC): 4 Toilet Transfer (QC): 4 Min Assist to come to standing and assist for the right leg into bed. Min Assist for toilet transfer and managing clothes/walker in bathroom. Weight Bearing Right Lower Extremity: Right Partial Weight Bearing Left Lower Extremity: Left Full Weight Bearing 30 to 50 pounds on right leg Gait Training Gait Assistive Device: FWW Ambulate 150ft with FWW and education on step sequence and wt bearing. Stair Training 4 Steps (QC): 4 Up/down 4 stairs using both rails min assist with education for wt bearing. Assessment Current Status: Good Progress Pt showing improved gait distance, stability, and adherance to wt bearing PT Short Term Goals Short Term Goals Time Frame: Nov 09, 2022 Roll Left & Right: 6 Sit to lyin Lying to sitting on side of be: 6 Sit to stand: 6 Chair/apq-uz-vmbsn transfer: 5 Toilet transfer: 5 Car transfer: 5 Walk 10 feet: 6 Walk 50 feet with two turns: 6 Walk 150 feet: 4 Walking 10ft on uneven surface: 6 1 step (curb): 5 4 steps: 4 12 steps: 4 Picking up objects: 6 PT Carpet Or Rug Layer Helper Goals Carpet Or Rug Layer Helper Goals PT Carpet Or Rug Layer Helper Goals Time Frame: Nov 18, 2022 Roll Left & Right (QC): 6 Sit to Lying (QC): 6 Lying-Sitting on Side/Bed(QC): 6 Sit to Stand (QC): 6 Chair/Zhu-jf-Hmxue Xfer(QC): 6 Toilet Transfer (QC): 6 Car Transfer (QC): 6 Does the Patient Walk: Yes Walk 10 feet (QC): 6 Walk 50ft with 2 Turns (QC): 6 Walk 150 ft (QC): 6 Walking 10ft on Uneven Surface: 6 1 Step (curb) (QC): 6 4 Steps (QC): 6 12 Steps (QC): 6 Picking up an Object (QC): 6 Wheel 50 feet with 2 turns (QC: 9 Wheel 150 feet: 9 PT Plan Treatment/Plan Treatment Plan: Continue Plan of Care Treatment Plan: Bed Mobility, Concurrent Therapy, Education, Functional Activity Jamey, Functional Strength, Group Therapy, Gait, Safety, Therapeutic Exercise, Transfers Treatment Duration: Nov 18, 2022 Frequency: At least 5 of 7 days/Wk (IRF) Estimated Hrs Per Day: 1.5 hours per day Patient and/or Family Agrees t: Yes Time Time In: 1510 Time Out: 153 DATE: Nov 05, 2022 Total Billed Treatment Time: 25 Total Billed Treatment visit, gait 20 min, FA 15 min DARIEN CARDENAS PT Nov 05, 2022 15:39
[2022-11-05] MEDS: DIPHENOXYLATE/ATROPINE 2.5MG/0.025MG (LOMOTIL) TAB PO PRN (18:38)
[2022-11-05] MEDS: TAMSULOSIN 0.4 MG (FLOMAX) CAP PO SCH (18:38)
[2022-11-05] MEDS: polyethylene glycoL POWDER 17 GM (MIRALAX) PACK PO SCH (20:10)
[2022-11-05] MEDS: DOCUSATE SODIUM 100 MG (COLACE) CAP PO SCH (20:10)
[2022-11-05] MEDS: SENNA W/DOCUSATE (SENOKOT S) TABLET PO SCH (20:10)
[2022-11-05 20:14] VITALS: BP 168/79
[2022-11-05] MEDS: MELATONIN 3 MG TABLET PO SCH (20:54)
[2022-11-05] MEDS: ALPRAZolam 0.5 MG (XANAX) TAB PO SCH (20:54)
[2022-11-05] MEDS: APIXABAN 2.5 MG (ELIQUIS) TABLET PO SCH (20:54)
[2022-11-06] MEDS: hydrALAZINE (APRESOLINE) 25 MG TAB PO SCH ×3 (05:23→21:21)
--- NOTE | 2022-11-06 05:42 | Individualized Plan of Care ---
Individualized Plan of Care Rehab Nursing IPOC Order Admission Date Nov 05, 2022 at 10:00 Current Orders Orders Admission Arrival Bed Request (11/05/22 10:06) General/Regular (11/05/22 Breakfast) Admission Order(Inpt,Obs,Sdc) (11/05/22 10:39) Vital Signs: Per Unit Policy ( 08,16,00 (11/05/22 10:39) Wilmer Hose 09,21 (11/05/22 10:39) Sequential Compression Device (11/05/22 10:39) Extractor Operator Helper-Inpt Rehab Con (11/05/22 10:39) Rehab Nursing Orders-Ipoc (11/05/22 10:39) Physical Therapy Rehab Orders (11/05/22 10:39) Occupational Therapy Rehab Ord (11/05/22 10:39) Speech Therapy Rehab Orders (11/05/22 10:39) Cbc With Automated Diff (11/06/22 06:00) Comprehensive Metabolic Panel (11/06/22 06:00) Precautions (Aru) (11/05/22 10:39) Weekly Weight WEEK (11/05/22 10:39) Rehab-Intensity Of Therapy (11/05/22 10:39) Initiate Admission Nursing Pro .admission (11/05/22 10:39) Alprazolam Tablet (Xanax Tablet) (11/05/22 10:45) Calcium Carbonate Chew Tablet (Antacid C (11/05/22 10:45) Diphenhydramine Tablet (Benadryl Tablet) (11/05/22 10:45) Docusate Sodium Capsule (Colace Capsule) (11/05/22 21:00) Docusate Sodium Capsule (Colace Capsule) (11/05/22 10:45) Bisacodyl Suppository (Dulcolax Supposit (11/05/22 10:45) Lactulose Oral Solution (Enulose Oral So (11/05/22 10:45) Na Phos/Na Biphos Enema (Fleet Enema Ivan (11/05/22 10:45) Guaifenesin/Codeine Syrup (Robitussin Ac (11/05/22 10:45) Loperamide Tablet (Imodium Tablet) (11/05/22 10:45) Melatonin Tablet (Melatonin Tablet) (11/05/22 10:45) Polyethylene Glycol Powder Pkt (Miralax (11/05/22 21:00) Ondansetron Oral Dissolve Tab (Zofran (11/05/22 10:45) Senna S Tablet (Senokot S Tablet) (11/05/22 21:00) Acetaminophen Tablet/Caplet (Tylenol T (11/05/22 10:45) Initiate Admission Nursing Pro .admission (11/05/22 10:39) Code/Resuscitation (11/05/22 10:44) Dressing Order (Intervention) DAILY (11/05/22 10:44) Follow-Up Appointment (11/05/22 10:44) Incentive Spirometry (Nursing) Q2H (11/05/22 10:44) Sequential Compression Device (11/05/22 10:44) Wilmer Hose (11/05/22 10:44) Weight Bearing Restrictions (11/05/22 10:44) General/Regular (11/05/22 Lunch) Alprazolam Tablet (Xanax Tablet) (11/05/22 21:00) Apixaban Tablet (Eliquis Tablet) (11/05/22 21:00) Diphenoxylate/Atropine Tablet (Lomotil T (11/05/22 10:45) Finasteride Tablet (Proscar Tablet) (11/06/22 09:00) Melatonin Tablet (Melatonin Tablet) (11/05/22 21:00) Pantoprazole Tablet (Protonix Tablet) (11/06/22 09:00) Tamsulosin Capsule (Flomax Capsule) (11/05/22 19:00) Ondansetron Injection (Zofran Injectio (11/05/22 10:45) Carvedilol Tablet (Coreg Tablet) (11/05/22 21:00) Hydralazine Tablet (Apresoline Tablet) (11/05/22 14:00) Morphine Injection (Morphine Injection (11/05/22 10:45) Oxycodone Immediate Rel Tablet (Oxyir Ta (11/05/22 10:45) Consult Orthopedic Surgery (11/05/22 10:44) Incentive Spirometry Initial (11/05/22 10:44) Physical Therapy Order (11/05/22 10:44) Incentive Spirometry (Nursing) Q2H (11/05/22 10:44) Bladder Scan-Straight Cath-Pos (11/05/22 10:44) Bisacodyl Tablet (Dulcolax Tablet) (11/05/22 12:00) Patient Visit (11/05/22 ) Pt Eval Moderate Complexity (11/05/22 ) Functional Activities, Ea 15 (11/05/22 ) Exercise Therap, Ea 15 Min (11/05/22 ) Gait Training, Ea 15 Min (11/05/22 ) Follow-Up Appointment D/C (11/05/22 17:51) Patient Visit (11/05/22 ) Exercise Therap, Ea 15 Min (11/05/22 ) Functional Activities, Ea 15 (11/05/22 ) Patient Visit (11/06/22 ) Exercise Therap, Ea 15 Min (11/06/22 ) Gait Training, Ea 15 Min (11/06/22 ) Patient Visit (11/06/22 ) Therapeutic, Group (11/06/22 ) Rehab Nursing Orders: Ongoing Assess. of Cognitive Status, Ongoing Assess. of Function Status, Bladder Management, Bladder Scan, Bladder Training, Bowel Management, Bowel Training, Disease Management & Educaiton, DVT Prophylaxis, Fall Prevention, Fluid/Electrolyte/Nutrition Mgmt, Infection Prevention, Medication Management & Education, Management of Risks & Complications, Management of Skin Intergrity, Nutrition Management, Pain Management, Patient/Family Support, Safety Management, Swallow Precautions, Wound Management Intensity of Therapy to be met Patient to be seen: Min.3h per day/5 of 7d PT IPOC Problem List: Functional Strength, Safety, Balance, Gait, Transfer, Bed Mobility Treatment Plan: Continue Plan of Care Bed Mobility, Concurrent Therapy, Education, Functional Activity Jamey, Functional Strength, Group Therapy, Gait, Safety, Therapeutic Exercise, Transfers Treatment Duration: Nov 18, 2022 Frequency: At least 5 of 7 days/Wk (IRF) Estimated Hrs Per Day: 1.5 hours per day OT IPOC Problems: Decreased Activ Tolerance, Decreased UE Strength, Impaired Funct Balance, Impaired I ADL's, Impaired Self-Care Skills OT Treatment, Training and Edu: Yes Plan of Care: ADL Retraining, Functional Mobility, Group Exercise/Act as Ind, UE Funct Exercise/Act Treatment Duration: Nov 27, 2022 Frequency: At least 5 of 7 days/Wk (IRF) Estimated Hrs Per Day: 1.[address] IPOC Speech Therapy Treatment Plan: Discontinue ST Treatment Duration: Nov 06, 2022 Frequency: Modified Program (IRF) Estimated Hrs Per Day: Other Extractor Operator Helper/Case Mgmt Extractor Operator Helper/Case Managemen: Discharge Planning Dietitian/Hotel Or Motel Room Service Supervisor Dietitian/Hotel Or Motel Room Service Supervisor to monitor nutritional status and make changes and/or recommendations as needed and work with speech pathology on dietary upgrades as the occur. Physician IPOC Medical Issues being managed closely and that require the 24 hour availability of a physician: Recent hip fracture with CKD with high risk for decompensation will require close monitoring in order to regain function to return home Medical Issues: Bowel/Bladder Function, DVT Prophylaxis, Falls Precautions, Fluid/Electrolyte/Nutrition Balance, Infection Protection, Pain Management, Wound Care Brief Synthesis of Preadmission Screen, Post-Admission Evaluation, and Therapy Evaluations: PT OT will initiate protocol therapy in order to regain function in order to return home with use of AD. Medical Prognosis: Good Anticipated Length of Stay: 7 days SRIKANTH DOMINIQUE DO Nov 06, 2022 05:42
--- NOTE | 2022-11-06 05:42 | PM&R Progress Note ---
Subjective HPI/CC On Admission Date Seen by Provider: Nov 06, 2022 Time Seen by Provider: 12:00 Subjective/Events-last exam 11/06/2022: Doing well No issues Pain controlled Labs reviewed No falls BM+ Review of Systems General: Fatigue, Malaise Objective Exam Vital Signs Vital Signs Date Time Temp Pulse Resp B/P (MAP) Pulse Ox O2 Delivery O2 Flow Rate FiO2 11/06/22 20:27 Room Air 11/06/22 19:31 36.8 65 20 168/75 (106) 95 Capillary Refill : General Appearance: No Apparent Distress, WD/WN HEENT: PERRL/EOMI, Normal ENT Inspection, Pharynx Normal Neck: Full Range of Motion, Normal Inspection, Non Tender, Supple, Carotid Bruit Respiratory: Chest Non Tender, Lungs Clear, Normal Breath Sounds, No Accessory Muscle Use, No Respiratory Distress Cardiovascular: Regular Rate, Rhythm, No Edema, No Gallop, No JVD, No Murmur, Normal Peripheral Pulses Gastrointestinal: Normal Bowel Sounds, No Organomegaly, No Pulsatile Mass, Non Tender, Soft Back: Normal Inspection, No CVA Tenderness, No Vertebral Tenderness Extremity: Normal Capillary Refill, Normal Inspection, Normal Range of Motion (except right leg), Non Tender, No Calf Tenderness, No Pedal Edema Neurologic/Psychiatric: Alert, Oriented x3, No Motor/Sensory Deficits, Normal Mood/Affect Skin: Normal Color, Warm/Dry Lymphatic: No Adenopathy Results/Procedures Lab Patient resulted labs reviewed. FIM Transfers Therapy Code Descriptions/Definitions Functional [place] Measure: 0=Not Assessed/NA 4=Minimal Assistance 1=Total Assistance 5=Supervision or Setup 2=Maximal Assistance 6=Modified [place] 3=Moderate Assistance 7=Complete IndependenceSCALE: Activities may be completed with or without assistive devices. 0-Zvpweyuqeb-nmjbeim completes the activity by him/herself with no assistance from a helper. 5-Set-up or Clean-up Assistance-helper sets up or cleans up; patient completes activity. [place] assists only prior to or following the activity. 4-Supervision or Touching Assistance-helper provides verbal cues and/or touching/steadying and/or contact guard assistance as patient completes activity. Assistance may be provided throughout the activity or intermittently. 3-Partial/Moderate Assistance-helper does LESS THAN HALF the effort. [place] lifts, holds or supports trunk or limbs, but provides less than half the effort. 2-Substantial/Maximal Assistance-helper does MORE THAN HALF the effort. [place] lifts or holds trunk or limbs and provides more than half the effort. 1-Kgvqfjlsk-pfwhes does ALL the effort. Patient does none of the effort to complete the activity. Or, the assistance of 2 or more helpers is required for the patient to complete the activity. If activity was not attempted, code reason: 7-Patient Refused. 9-Not Applicable-not attempted and the patient did not perform the activity before the current illness, exacerbation or injury. 10-Not Attempted due to Environmental Limitations-(lack of equipment, weather restraints, etc.). 88-Not Attempted due to Medical Conditions or Safety Concerns. Roll Left to Right (QC): 4 Sit to Lying (QC): 4 Sit to Stand (QC): 4 Chair/Vpq-lu-Cdioh Xfer(QC): 4 Car Transfer (QC): 4 Gait Training Does the Patient Walk?: Yes Walk 10 feet (QC): 4 Walk 50 ft with 2 Turns(QC): 4 Walk 150 ft (QC): 4 Walking 10ft/uneven surface-QC: 4 Gait Assistive Device: FWW Wheelchair Training Does the Pt Use a Wheelchair?: No Wheel 50 ft with 2 turns (QC): 9 Wheel 150 ft (QC): 9 Stair Training #of Steps: 12 1 Step (curb) (QC): 4 4 Steps (QC): 4 12 Steps (QC): 4 Balance Picking up an Object (QC): 6 ADL-Treatment Eating (QC): 6 Oral Hygiene (QC): 4 (SBA standing at sink.) Shower/Bathe Self (QC): 3 (assist with bilaterall feet) Upper Body Dressing (QC): 5 Lower Body Dressing (QC): 3 (assist with threading RLE) On/Off Footwear (QC): 3 (Mod A. 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
[2022-11-06 06:17] LABS: BASOPHILS % (AUTO) 0 % (0-10); EOSINOPHILS # (AUTO) 0.3 10^3/uL (0.0-0.3); EOSINOPHILS % (AUTO) 5 % (0-10); HEMATOCRIT 38 % (40-54); HEMOGLOBIN 12.6 g/dL (13.3-17.7); LYMPHOCYTES % (AUTO) 15 % (12-44); MEAN CORPUSCULAR HEMOGLOBIN 31 pg (25-34); MEAN CORPUSCULAR HGB CONC 33 g/dL (32-36); MEAN CORPUSCULAR VOLUME 93 fL (80-99); MEAN PLATELET VOLUME 10.3 fL (9.0-12.2); MONOCYTES # (AUTO) 0.6 10^3/uL (0.0-1.0); MONOCYTES % (AUTO) 9 % (0-12); NEUTROPHILS # (AUTO) 4.7 10^3/uL (1.8-7.8); NEUTROPHILS % (AUTO) 70 % (42-75); PLATELET COUNT 155 10^3/uL (130-400); WHITE BLOOD COUNT 6.7 10^3/uL (4.3-11.0)
[2022-11-06 06:35] LABS: ALBUMIN 3.2 GM/DL (3.2-4.5); BILIRUBIN,TOTAL 0.8 MG/DL (0.1-1.0); CALCIUM 8.6 MG/DL (8.5-10.1); CREATININE SERUM 3.12 MG/DL (0.60-1.30); POTASSIUM 4.7 MMOL/L (3.6-5.0)
[2022-11-06 08:00] VITALS: BP 146/75
--- NOTE | 2022-11-06 10:01 | Occupational Ther Daily Note ---
OT Current Status-Daily Note Subjective Pt seated EOB, agreeable to OT Tx with focus on ADLs. Mental Status/Objective Patient Orientation: Normal For Age ADL-Treatment Therapy Code Descriptions/Definitions Functional [place] Measure: 0=Not Assessed/NA 4=Minimal Assistance 1=Total Assistance 5=Supervision or Setup 2=Maximal Assistance 6=Modified [place] 3=Moderate Assistance 7=Complete IndependenceSCALE: Activities may be completed with or without assistive devices. 7-Byefikjvpy-gtoqslu completes the activity by him/herself with no assistance from a helper. 5-Set-up or Clean-up Assistance-helper sets up or cleans up; patient completes activity. [place] assists only prior to or following the activity. 4-Supervision or Touching Assistance-helper provides verbal cues and/or touching/steadying and/or contact guard assistance as patient completes activity. Assistance may be provided throughout the activity or intermittently. 3-Partial/Moderate Assistance-helper does LESS THAN HALF the effort. [place] lifts, holds or supports trunk or limbs, but provides less than half the effort. 2-Substantial/Maximal Assistance-helper does MORE THAN HALF the effort. [place] lifts or holds trunk or limbs and provides more than half the effort. 0-Owupdeqdw-nitvgx does ALL the effort. Patient does none of the effort to complete the activity. Or, the assistance of 2 or more helpers is required for the patient to complete the activity. If activity was not attempted, code reason: 7-Patient Refused. 9-Not Applicable-not attempted and the patient did not perform the activity before the current illness, exacerbation or injury. 10-Not Attempted due to Environmental Limitations-(lack of equipment, weather restraints, etc.). 88-Not Attempted due to Medical Conditions or Safety Concerns. Eating (QC): 6 Oral Hygiene (QC): 6 (seated) Shower/Bathe Self (QC): 5 Upper Body Dressing (QC): 5 Lower Body Dressing (QC): 4 (VCs for safety, SBA for pant hike) On/Off Footwear: 3 (Min A overall. Education on lacquer sizer and sock aide provided) Toileting Hygiene (QC): 4 (SBA) Toilet Transfer (QC): 4 (SBA) Other Treatment Pt up EOB, used FWW to perform functional mobility to closet and gather clothes, then to toilet in bathroom, SBA. Pt completed toileting, doffed clothes utilizing lacquer sizer as needed. Pt then transferred to [place], completed showering and dressing. OT provided education on AE for LE dressing/showering (LH sponge, lacquer sizer, sock aide). Pt sat at sink to complete grooming tasks, then used FWW to return to EOB, SBA. Post tx, pt seated EOB, call light in reach and all needs met. Education OT Patient Education: Correct positioning, Energy conservation, Modified ADL techniques, Progress toward Goal/Update tx plan, Purpose of tx/functional activities, Rehab process Teaching Recipient: Patient Teaching Methods: Discussion Response to Teaching: Verbalize Understanding OT Short Term Goals Short Term Goals Time Frame: Nov 13, 2022 Shower/bathe self: 5 Lower body dressin Putting on/taking off footwear: 5 OT Urban Gardening Specialist Goals Mcfp Goals Time Frame: Nov 27, 2022 Acute change in mental status: 0 Inattention: 0 Disorganized thinkin Altered level of consciousness: 0 Eating (QC): 6 Oral Hygiene (QC): 6 Toileting Hygiene (QC): 6 Shower/Bathe Self (QC): 6 Upper Body Dressing (QC): 6 Lower Body Dressing (QC): 6 On/Off Footwear (QC): 6 Additional Goals: 1-Demonstrate ADL Tasks, 2-Verbalize Understanding, 3-ImproveStrength/Jamey 1=Demonstrate adherence to instructed precautions during ADL tasks. 2=Patient will verbalize/demonstrate understanding of assistive devices/modifications for ADL. 3=Patient will improve strength/tolerance for activity to enable patient to perform ADL's. OT Education/Plan Problem List/Assessment Assessment: Decreased Activ Tolerance, Decreased UE Strength, Impaired Funct Balance, Impaired I ADL's, Impaired Self-Care Skills Discharge Recommendations Plan/Recommendations: Continue POC Equpiment Recommendations-D/C: Extended Bath Bench, Bath Chair, Hip Kit Treatment Plan/Plan of Care Patient would benefit from OT for education, treatment and training to promote independence in ADL's, mobility, safety and/or upper extremity function for ADL's. Plan of Care: ADL Retraining, Functional Mobility, Group Exercise/Act as Ind, UE Funct Exercise/Act Treatment Duration: Nov 27, 2022 Frequency: At least 5 of 7 days/Wk (IRF) Estimated Hrs Per Day: 1.5 hours per day Agreement: Yes Rehab Potential: Good Time Start Time: 09:30 Stop Time: 10:35 DATE: Nov 06, 2022 Total Time Billed (hr/min): 65 Billed Treatment Time 1, ADL 4 THOR COWAN OT Nov 06, 2022 10:01
--- NOTE | 2022-11-06 10:45 | Physical Therapy Daily Note ---
PT Daily Note-Current Subjective Pt reports he had the best night's sleep in weeks, despite several bouts of diarrhea. Pain Section J - Health Conditions 1. Rarely or not at all 2. Occasionally 3. Frequently 4. Almost constantly 8. Unable to answer Pain Effect on Sleep: 1 Pain Interference with Therapy: 2 Pain Interference w/Day-to-Day: 2 Transfers SCALE: Activities may be completed with or without assistive devices. 3-Oyagpngpzs-fajujcv completes the activity by him/herself with no assistance from a helper. 5-Set-up or Clean-up Assistance-helper sets up or cleans up; patient completes activity. [place] assists only prior to or following the activity. 4-Supervision or Touching Assistance-helper provides verbal cues and/or to uching/steadying and/or contact guard assistance as patient completes activity. Assistance may be provided throughout the activity or intermittently. 3-Partial/Moderate Assistance-helper does LESS THAN HALF the effort. [place] lifts, holds or supports trunk or limbs, but provides less than half the effort. 2-Substantial/Maximal Assistance-helper does MORE THAN HALF the effort. [place] lifts or holds trunk or limbs and provides more than half the effort. 8-Korvkmcnh-fcktaj does ALL the effort. Patient does none of the effort to complete the activity. Or, the assistance of 2 or more helpers is required for the patient to complete the activity. If activity was not attempted, code reason: 7-Patient Refused. 9-Not Applicable-not attempted and the patient did not perform the activity before the current illness, exacerbation or injury. 10-Not Attempted due to Environmental Limitations-(lack of equipment, weather restraints, etc.). 88-Not Attempted due to Medical Conditions or Safety Concerns. Roll Left & Right (QC): 6 Sit to Lying (QC): 6 Lying to Sitting/Side of Bed(Q: 6 Sit to Stand (QC): 6 Chair/Sbu-hz-Vnoru Xfer(QC): 4 Toilet Transfer (QC): 4 Min physical assist to steady during transfers. Verbal cues for wt bearing. Weight Bearing Right Lower Extremity: Right Partial Weight Bearing Left Lower Extremity: Left Full Weight Bearing 30 to 50 pounds on right leg Gait Training Walk 150 ft (QC): 4 Gait Assistive Device: FWW Gait train 150ft x 2 trials both CGA with FWW and education on partial weight bearing. Exercises Supine Ex: Bridging, Ankle pumps, Quad Set, Rolling, Glut sets, Lower trunk rotation, Heel Slides, Short Arc Quads, Straight leg raise, Hip abd/add Supine Reps: 20 Seated Therapy Exercises: Long arc quads Seated Reps: 20 Supine ex: end range hip flexion and abduction stretching, LTR with exercise ball under knees, bridging with ball and bolster under knees, sidelying passive hip extension, sidelying right clamshell NuStep Minutes: 10 NuStep Workload: 5 Assessment Current Status: Good Progress pt showed good improvement from yesterday with bed mobility and ambulation while maintaining partial wt bearing. 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 Operator Semiautomatic Goals Correction Goals PT Correction Goals Time Frame: Nov 18, 2022 Roll Left & Right (QC): 6 Sit to Lying (QC): 6 Lying-Sitting on Side/Bed(QC): 6 Sit to Stand (QC): 6 Chair/Rbv-be-Wqela Xfer(QC): 6 Toilet Transfer (QC): 6 Car Transfer (QC): 6 Does the Patient Walk: Yes Walk 10 feet (QC): 6 Walk 50ft with 2 Turns (QC): 6 Walk 150 ft (QC): 6 Walking 10ft on Uneven Surface: 6 1 Step (curb) (QC): 6 4 Steps (QC): 6 12 Steps (QC): 6 Picking up an Object (QC): 6 Wheel 50 feet with 2 turns (QC: 9 Wheel 150 feet: 9 PT Plan Treatment/Plan Treatment Plan: Continue Plan of Care Treatment Plan: Bed Mobility, Concurrent Therapy, Education, Functional Activity Jamey, Functional Strength, Group Therapy, Gait, Safety, Therapeutic Exercise, Transfers Treatment Duration: Nov 18, 2022 Frequency: At least 5 of 7 days/Wk (IRF) Estimated Hrs Per Day: 1.5 hours per day Patient and/or Family Agrees t: Yes Time Time In: 800 Time Out: 900 DATE: Nov 06, 2022 Total Billed Treatment Time: 60 Total Billed Treatment visit, gait 15 min, Ther ex 45 min DARIEN CARDENAS PT Nov 06, 2022 10:45
[2022-11-06] MEDS: PANTOPRAZOLE 20 MG TABLET (PROTONIX) PO SCH (11:33)
[2022-11-06] MEDS: APIXABAN 2.5 MG (ELIQUIS) TABLET PO SCH ×2 (11:33→20:04)
[2022-11-06] MEDS: FINASTERIDE (PROSCAR) 5 MG TAB PO SCH (11:33)
[2022-11-06] MEDS: DIPHENOXYLATE/ATROPINE 2.5MG/0.025MG (LOMOTIL) TAB PO PRN ×2 (11:36→20:06)
[2022-11-06] MEDS: ONDANSETRON 4 MG (ZOFRAN) ORAL DISSOLVE TAB PO PRN (13:19)
--- NOTE | 2022-11-06 14:14 | Therapy Group Daily Note ---
Therapy Daily Group Note Patient Education Topic Fall Prevention, Home Safety, Exercises Exercises LE Seated Exercise, UE Exercise Session Ratio (pt:therapist): 3:1 Goal of Session: Education on ARU Expectations, Home Safety Strategies, UE/LE Strengthing, Safety with Transfers, Use of Adaptive Equipment Goal Met for this Session: Yes Pt Benefit of Group: Contributions to Others, F/U Use of Strategies @Home, Increased Functional Safety, Increased Functional Strength, Improved Cognition, Recognition of Peers, Socialization Other/Notes Pt ambulates to therapy gym with FWW for OT/PT group. Group consisted on introductions (name, place living, home fall history), socialization, B UE/LE seated exercises and education on home safety. Pt introduced self appropriately and actively listened to peers. Pt able to complete B UE/LE seated exercises, tolerated well. Pt acknowledged understanding of educational topic by answering questions on subject through Advise Only game. After session, pt lying in bed with call light/phone in reach. All needs met in room. Start Time: 13:00 Stop Time: 14:15 Total Billed Treatment Time: 75 Total Billed Treatment 1 visit GRP x 1 CANDIDA MADERA CATERPILLAR OPERATOR Nov 06, 2022 14:14
[2022-11-06] MEDS: polyethylene glycoL POWDER 17 GM (MIRALAX) PACK PO SCH ×2 (15:30→19:35)
[2022-11-06] MEDS: SENNA W/DOCUSATE (SENOKOT S) TABLET PO SCH ×2 (15:30→19:35)
[2022-11-06] MEDS: BISACODYL 5 MG (DULCOLAX) TABLET PO SCH (15:30)
[2022-11-06] MEDS: DOCUSATE SODIUM 100 MG (COLACE) CAP PO SCH ×2 (15:30→19:35)
[2022-11-06] MEDS: ACETAMINOPHEN 325 MG TABLET PO PRN (16:45)
[2022-11-06] MEDS: TAMSULOSIN 0.4 MG (FLOMAX) CAP PO SCH (18:24)
[2022-11-06 19:31] VITALS: BP 168/75
[2022-11-06] MEDS: ALPRAZolam 0.5 MG (XANAX) TAB PO SCH (20:04)
[2022-11-06] MEDS: MELATONIN 3 MG TABLET PO SCH (20:04)
[2022-11-07] MEDS: ACETAMINOPHEN 325 MG TABLET PO PRN ×3 (03:14→18:45)
[2022-11-07] MEDS: hydrALAZINE (APRESOLINE) 25 MG TAB PO SCH ×3 (06:18→19:32)
[2022-11-07 07:15] VITALS: BP 136/83
--- NOTE | 2022-11-07 07:25 | PM&R Progress Note ---
Subjective HPI/CC On Admission Date Seen by Provider: Nov 07, 2022 Time Seen by Provider: 12:00 Subjective/Events-last exam 11/07/2022: Doing really well Pain controlled No falls Improved overall 11/06/2022: Doing well No issues Pain controlled Labs reviewed No falls BM+ Review of Systems General: Fatigue, Malaise Objective Exam Vital Signs Vital Signs Date Time Temp Pulse Resp B/P (MAP) Pulse Ox O2 Delivery O2 Flow Rate FiO2 11/07/22 20:05 Room Air 11/07/22 19:31 36.1 73 16 166/84 (111) 99 Capillary Refill : General Appearance: No Apparent Distress, WD/WN HEENT: PERRL/EOMI, Normal ENT Inspection, Pharynx Normal Neck: Full Range of Motion, Normal Inspection, Non Tender, Supple, Carotid Bruit Respiratory: Chest Non Tender, Lungs Clear, Normal Breath Sounds, No Accessory Muscle Use, No Respiratory Distress Cardiovascular: Regular Rate, Rhythm, No Edema, No Gallop, No JVD, No Murmur, Normal Peripheral Pulses Gastrointestinal: Normal Bowel Sounds, No Organomegaly, No Pulsatile Mass, Non Tender, Soft Back: Normal Inspection, No CVA Tenderness, No Vertebral Tenderness Extremity: Normal Capillary Refill, Normal Inspection, Normal Range of Motion (except right leg), Non Tender, No Calf Tenderness, No Pedal Edema Neurologic/Psychiatric: Alert, Oriented x3, No Motor/Sensory Deficits, Normal Mood/Affect Skin: Normal Color, Warm/Dry Lymphatic: No Adenopathy Results/Procedures Lab Patient resulted labs reviewed. FIM Transfers Therapy Code Descriptions/Definitions Functional [place] Measure: 0=Not Assessed/NA 4=Minimal Assistance 1=Total Assistance 5=Supervision or Setup 2=Maximal Assistance 6=Modified [place] 3=Moderate Assistance 7=Complete IndependenceSCALE: Activities may be completed with or without assistive devices. 5-Havfvnzkto-wgmfxou completes the activity by him/herself with no assistance from a helper. 5-Set-up or Clean-up Assistance-helper sets up or cleans up; patient completes activity. [place] assists only prior to or following the activity. 4-Supervision or Touching Assistance-helper provides verbal cues and/or touching/steadying and/or contact guard assistance as patient completes activity. Assistance may be provided throughout the activity or intermittently. 3-Partial/Moderate Assistance-helper does LESS THAN HALF the effort. [place] lifts, holds or supports trunk or limbs, but provides less than half the effort. 2-Substantial/Maximal Assistance-helper does MORE THAN HALF the effort. [place] lifts or holds trunk or limbs and provides more than half the effort. 7-Rzrrxfgzg-hmkkmj does ALL the effort. Patient does none of the effort to c omplete the activity. Or, the assistance of 2 or more helpers is required for the patient to complete the activity. If activity was not attempted, code reason: 7-Patient Refused. 9-Not Applicable-not attempted and the patient did not perform the activity before the current illness, exacerbation or injury. 10-Not Attempted due to Environmental Limitations-(lack of equipment, weather restraints, etc.). 88-Not Attempted due to Medical Conditions or Safety Concerns. Roll Left to Right (QC): 6 Sit to Lying (QC): 6 Sit to Stand (QC): 6 Chair/Drt-oz-Rcqcu Xfer(QC): 4 Car Transfer (QC): 4 Gait Training Does the Patient Walk?: Yes Walk 10 feet (QC): 4 Walk 50 ft with 2 Turns(QC): 4 Walk 150 ft (QC): 4 Walking 10ft/uneven surface-QC: 4 Gait Assistive Device: FWW Wheelchair Training Does the Pt Use a Wheelchair?: No Wheel 50 ft with 2 turns (QC): 9 Wheel 150 ft (QC): 9 Stair Training #of Steps: 12 1 Step (curb) (QC): 4 4 Steps (QC): 4 12 Steps (QC): 4 Balance Picking up an Object (QC): 6 ADL-Treatment Eating (QC): 6 Oral Hygiene (QC): 6 (seated) Shower/Bathe Self (QC): 5 Upper Body Dressing (QC): 5 Lower Body Dressing (QC): 4 (VCs for safety, SBA for pant hike) On/Off Footwear (QC): 3 (Min A overall. 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
[2022-11-07] MEDS: DOCUSATE SODIUM 100 MG (COLACE) CAP PO SCH ×2 (09:32→19:42)
[2022-11-07] MEDS: BISACODYL 5 MG (DULCOLAX) TABLET PO SCH (09:33)
[2022-11-07] MEDS: polyethylene glycoL POWDER 17 GM (MIRALAX) PACK PO SCH ×2 (09:33→19:42)
[2022-11-07] MEDS: SENNA W/DOCUSATE (SENOKOT S) TABLET PO SCH ×2 (09:33→19:32)
[2022-11-07] MEDS: PANTOPRAZOLE 20 MG TABLET (PROTONIX) PO SCH (09:53)
[2022-11-07] MEDS: FINASTERIDE (PROSCAR) 5 MG TAB PO SCH (09:53)
[2022-11-07] MEDS: APIXABAN 2.5 MG (ELIQUIS) TABLET PO SCH ×2 (09:53→19:32)
[2022-11-07] MEDS: DIPHENOXYLATE/ATROPINE 2.5MG/0.025MG (LOMOTIL) TAB PO PRN (09:57)
[2022-11-07] MEDS: TAMSULOSIN 0.4 MG (FLOMAX) CAP PO SCH (18:45)
[2022-11-07 19:31] VITALS: BP 166/84
[2022-11-07] MEDS: ALPRAZolam 0.5 MG (XANAX) TAB PO SCH (19:31)
[2022-11-07] MEDS: MELATONIN 3 MG TABLET PO SCH (19:32)
[2022-11-08] MEDS: ACETAMINOPHEN 325 MG TABLET PO PRN ×4 (04:26→18:34)
[2022-11-08] MEDS: hydrALAZINE (APRESOLINE) 25 MG TAB PO SCH ×3 (05:57→20:15)
--- NOTE | 2022-11-08 06:09 | PM&R Progress Note ---
Subjective HPI/CC On Admission Date Seen by Provider: Nov 08, 2022 Time Seen by Provider: 09:00 Subjective/Events-last exam 11/08/2022: Doing well Feels overwhelmed and tearful today so I reassured and he requested the Xanax to be 0.5mg instead of 0.25mg BM ok 11/07/2022: Doing really well Pain controlled No falls Improved overall 11/06/2022: Doing well No issues Pain controlled Labs reviewed No falls BM+ Review of Systems General: Fatigue, Malaise Objective Exam Vital Signs Vital Signs Date Time Temp Pulse Resp B/P (MAP) Pulse Ox O2 Delivery O2 Flow Rate FiO2 11/08/22 09:30 Room Air 11/08/22 08:07 36.4 66 18 163/77 (105) 97 Capillary Refill : General Appearance: No Apparent Distress, WD/WN HEENT: PERRL/EOMI, Normal ENT Inspection, Pharynx Normal Neck: Full Range of Motion, Normal Inspection, Non Tender, Supple, Carotid Bruit Respiratory: Chest Non Tender, Lungs Clear, Normal Breath Sounds, No Accessory Muscle Use, No Respiratory Distress Cardiovascular: Regular Rate, Rhythm, No Edema, No Gallop, No JVD, No Murmur, Normal Peripheral Pulses Gastrointestinal: Normal Bowel Sounds, No Organomegaly, No Pulsatile Mass, Non Tender, Soft Back: Normal Inspection, No CVA Tenderness, No Vertebral Tenderness Extremity: Normal Capillary Refill, Normal Inspection, Normal Range of Motion ( except right leg), Non Tender, No Calf Tenderness, No Pedal Edema Neurologic/Psychiatric: Alert, Oriented x3, No Motor/Sensory Deficits, Normal Mood/Affect Skin: Normal Color, Warm/Dry Lymphatic: No Adenopathy Results/Procedures Lab Patient resulted labs reviewed. FIM Transfers Therapy Code Descriptions/Definitions Functional [place] Measure: 0=Not Assessed/NA 4=Minimal Assistance 1=Total Assistance 5=Supervision or Setup 2=Maximal Assistance 6=Modified [place] 3=Moderate Assistance 7=Complete IndependenceSCALE: Activities may be completed with or without assistive devices. 6-Ioxuaflbwh-kzqvojf completes the activity by him/herself with no assistance fr om a helper. 5-Set-up or Clean-up Assistance-helper sets up or cleans up; patient completes activity. [place] assists only prior to or following the activity. 4-Supervision or Touching Assistance-helper provides verbal cues and/or touching/steadying and/or contact guard assistance as patient completes activity. Assistance may be provided throughout the activity or intermittently. 3-Partial/Moderate Assistance-helper does LESS THAN HALF the effort. [place] lifts, holds or supports trunk or limbs, but provides less than half the effort. 2-Substantial/Maximal Assistance-helper does MORE THAN HALF the effort. [place] lifts or holds trunk or limbs and provides more than half the effort. 5-Jmydekyof-viczaa does ALL the effort. Patient does none of the effort to complete the activity. Or, the assistance of 2 or more helpers is required for the patient to complete the activity. If activity was not attempted, code reason: 7-Patient Refused. 9-Not Applicable-not attempted and the patient did not perform the activity before the current illness, exacerbation or injury. 10-Not Attempted due to Environmental Limitations-(lack of equipment, weather restraints, etc.). 88-Not Attempted due to Medical Conditions or Safety Concerns. Roll Left to Right (QC): 6 Sit to Lying (QC): 6 Sit to Stand (QC): 6 Chair/Eih-pa-Iwzxp Xfer(QC): 4 Car Transfer (QC): 4 Gait Training Does the Patient Walk?: Yes Walk 10 feet (QC): 4 Walk 50 ft with 2 Turns(QC): 4 Walk 150 ft (QC): 4 Walking 10ft/uneven surface-QC: 4 Gait Assistive Device: FWW Wheelchair Training Does the Pt Use a Wheelchair?: No Wheel 50 ft with 2 turns (QC): 9 Wheel 150 ft (QC): 9 Stair Training #of Steps: 12 1 Step (curb) (QC): 4 4 Steps (QC): 4 12 Steps (QC): 4 Balance Picking up an Object (QC): 6 ADL-Treatment Eating (QC): 6 Oral Hygiene (QC): 6 (seated) Shower/Bathe Self (QC): 5 Upper Body Dressing (QC): 5 Lower Body Dressing (QC): 4 (VCs for safety, SBA for pant hike) On/Off Footwear (QC): 3 (Min A overall. 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
[2022-11-08 08:07] VITALS: BP 163/77
[2022-11-08] MEDS: APIXABAN 2.5 MG (ELIQUIS) TABLET PO SCH ×2 (08:16→20:15)
[2022-11-08] MEDS: FINASTERIDE (PROSCAR) 5 MG TAB PO SCH (08:16)
[2022-11-08] MEDS: PANTOPRAZOLE 20 MG TABLET (PROTONIX) PO SCH (08:16)
[2022-11-08] MEDS: DOCUSATE SODIUM 100 MG (COLACE) CAP PO SCH ×2 (09:12→20:33)
[2022-11-08] MEDS: BISACODYL 5 MG (DULCOLAX) TABLET PO SCH (09:13)
[2022-11-08] MEDS: SENNA W/DOCUSATE (SENOKOT S) TABLET PO SCH ×2 (09:13→20:33)
[2022-11-08] MEDS: polyethylene glycoL POWDER 17 GM (MIRALAX) PACK PO SCH ×2 (09:13→20:33)
[2022-11-08] MEDS: TAMSULOSIN 0.4 MG (FLOMAX) CAP PO SCH (17:37)
[2022-11-08] MEDS: ONDANSETRON 4 MG (ZOFRAN) ORAL DISSOLVE TAB PO PRN (17:38)
[2022-11-08] MEDS: ALPRAZolam 0.25 MG (XANAX) TAB PO PRN (17:42)
[2022-11-08 19:58] VITALS: BP 164/59
[2022-11-08] MEDS: MELATONIN 3 MG TABLET PO SCH (20:15)
[2022-11-08] MEDS: ALPRAZolam 0.5 MG (XANAX) TAB PO SCH (20:15)
[2022-11-09] MEDS: ACETAMINOPHEN 325 MG TABLET PO PRN ×3 (01:57→20:43)
--- NOTE | 2022-11-09 05:22 | PM&R Progress Note ---
Subjective HPI/CC On Admission Date Seen by Provider: Nov 09, 2022 Time Seen by Provider: 09:00 Subjective/Events-last exam 11/09/2022: Doing well Labs stable Pain controlled No tearfulness 11/08/2022: Doing well Feels overwhelmed and tearful today so I reassured and he requested the Xanax to be 0.5mg instead of 0.25mg BM ok 11/07/2022: Doing really well Pain controlled No falls Improved overall 11/06/2022: Doing well No issues Pain controlled Labs reviewed No falls BM+ Review of Systems General: Fatigue Objective Exam Vital Signs Vital Signs Date Time Temp Pulse Resp B/P (MAP) Pulse Ox O2 Delivery O2 Flow Rate FiO2 11/09/22 20:45 37.1 71 20 174/85 (114) 97 Room Air Capillary Refill : General Appearance: No Apparent Distress, WD/WN HEENT: PERRL/EOMI, Normal ENT Inspection, Pharynx Normal Neck: Full Range of Motion, Normal Inspection, Non Tender, Supple, Carotid Bruit Respiratory: Chest Non Tender, Lungs Clear, Normal Breath Sounds, No Accessory Muscle Use, No Respiratory Distress Cardiovascular: Regular Rate, Rhythm, No Edema, No Gallop, No JVD, No Murmur, Normal Peripheral Pulses Gastrointestinal: Normal Bowel Sounds, No Organomegaly, No Pulsatile Mass, Non Tender, Soft Back: Normal Inspection, No CVA Tenderness, No Vertebral Tenderness Extremity: Normal Capillary Refill, Normal Inspection, Normal Range of Motion (except right leg), Non Tender, No Calf Tenderness, No Pedal Edema Neurologic/Psychiatric: Alert, Oriented x3, No Motor/Sensory Deficits, Normal Mood/Affect Skin: Normal Color, Warm/Dry Lymphatic: No Adenopathy Results/Procedures Lab Laboratory Tests 11/09/22 05:31 Patient resulted labs reviewed. FIM Transfers Therapy Code Descriptions/Definitions Functional [place] Measure: 0=Not Assessed/NA 4=Minimal Assistance 1=Total Assistance 5=Supervision or Setup 2=Maximal Assistance 6=Modified [place] 3=Moderate Assistance 7=Complete IndependenceSCALE: Activities may be completed with or without assistive devices. 2-Yfclvpugqz-kpzvfac completes the activity by him/herself with no assistance from a helper. 5-Set-up or Clean-up Assistance-helper sets up or cleans up; patient completes activity. [place] assists only prior to or following the activity. 4-Supervision or Touching Assistance-helper provides verbal cues and/or touching/steadying and/or contact guard assistance as patient completes activity. Assistance may be provided throughout the activity or intermittently. 3-Partial/Moderate Assistance-helper does LESS THAN HALF the effort. [place] lifts, holds or supports trunk or limbs, but provides less than half the effort. 2-Substantial/Maximal Assistance-helper does MORE THAN HALF the effort. [place] lifts or holds trunk or limbs and provides more than half the effort. 4-Ofadwcxer-qtuidf does ALL the effort. Patient does none of the effort to complete the activity. Or, the assistance of 2 or more helpers is required for the patient to complete the activity. If activity was not attempted, code reason: 7-Patient Refused. 9-Not Applicable-not attempted and the patient did not perform the activity before the current illness, exacerbation or injury. 10-Not Attempted due to Environmental Limitations-(lack of equipment, weather restraints, etc.). 88-Not Attempted due to Medical Conditions or Safety Concerns. Roll Left to Right (QC): 6 Sit to Lying (QC): 6 Sit to Stand (QC): 6 Chair/Qje-ga-Ncchu Xfer(QC): 4 Car Transfer (QC): 4 Gait Training Does the Patient Walk?: Yes Walk 10 feet (QC): 4 Walk 50 ft with 2 Turns(QC): 4 Walk 150 ft (QC): 4 Walking 10ft/uneven surface-QC: 4 Gait Assistive Device: FWW Wheelchair Training Does the Pt Use a Wheelchair?: No Wheel 50 ft with 2 turns (QC): 9 Wheel 150 ft (QC): 9 Stair Training #of Steps: 12 1 Step (curb) (QC): 4 4 Steps (QC): 4 12 Steps (QC): 4 Balance Picking up an Object (QC): 6 ADL-Treatment Eating (QC): 6 Oral Hygiene (QC): 6 (seated) Shower/Bathe Self (QC): 5 Upper Body Dressing (QC): 5 Lower Body Dressing (QC): 4 (VCs for safety, SBA for pant hike) On/Off Footwear (QC): 3 (Min A overall. 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
[2022-11-09] MEDS: hydrALAZINE (APRESOLINE) 25 MG TAB PO SCH ×3 (05:32→20:43)
[2022-11-09 05:39] LABS: BASOPHILS % (AUTO) 0 % (0-10); EOSINOPHILS # (AUTO) 0.3 10^3/uL (0.0-0.3); EOSINOPHILS % (AUTO) 6 % (0-10); HEMATOCRIT 34 % (40-54); HEMOGLOBIN 11.3 g/dL (13.3-17.7); LYMPHOCYTES % (AUTO) 19 % (12-44); MEAN CORPUSCULAR HEMOGLOBIN 31 pg (25-34); MEAN CORPUSCULAR HGB CONC 33 g/dL (32-36); MEAN CORPUSCULAR VOLUME 93 fL (80-99); MEAN PLATELET VOLUME 9.5 fL (9.0-12.2); MONOCYTES # (AUTO) 0.5 10^3/uL (0.0-1.0); MONOCYTES % (AUTO) 10 % (0-12); NEUTROPHILS # (AUTO) 3.7 10^3/uL (1.8-7.8); NEUTROPHILS % (AUTO) 65 % (42-75); PLATELET COUNT 164 10^3/uL (130-400); WHITE BLOOD COUNT 5.6 10^3/uL (4.3-11.0)
[2022-11-09 05:49] VITALS: BP 173/86
[2022-11-09 06:06] LABS: ALBUMIN 2.9 GM/DL (3.2-4.5); BILIRUBIN,TOTAL 0.4 MG/DL (0.1-1.0); CALCIUM 8.3 MG/DL (8.5-10.1); CREATININE SERUM 2.93 MG/DL (0.60-1.30); POTASSIUM 4.6 MMOL/L (3.6-5.0); TOTAL PROTEIN 5.3 GM/DL (6.4-8.2)
[2022-11-09] MEDS: FINASTERIDE (PROSCAR) 5 MG TAB PO SCH (08:15)
[2022-11-09] MEDS: APIXABAN 2.5 MG (ELIQUIS) TABLET PO SCH ×2 (08:15→20:43)
[2022-11-09] MEDS: PANTOPRAZOLE 20 MG TABLET (PROTONIX) PO SCH (08:15)
[2022-11-09 08:19] VITALS: BP 170/79
[2022-11-09] MEDS: DOCUSATE SODIUM 100 MG (COLACE) CAP PO SCH ×2 (08:24→19:29)
[2022-11-09] MEDS: BISACODYL 5 MG (DULCOLAX) TABLET PO SCH (09:16)
[2022-11-09] MEDS: polyethylene glycoL POWDER 17 GM (MIRALAX) PACK PO SCH ×2 (09:17→19:29)
[2022-11-09] MEDS: SENNA W/DOCUSATE (SENOKOT S) TABLET PO SCH ×2 (09:17→19:29)
--- NOTE | 2022-11-09 09:28 | Occupational Ther Daily Note ---
OT Current Status-Daily Note Subjective Pt in recliner, agreeable to OT Tx. Pt feels like he is ready to discharge and wants to leave Wednesday. Mental Status/Objective Patient Orientation: Normal For Age ADL-Treatment Therapy Code Descriptions/Definitions Functional [place] Measure: 0=Not Assessed/NA 4=Minimal Assistance 1=Total Assistance 5=Supervision or Setup 2=Maximal Assistance 6=Modified [place] 3=Moderate Assistance 7=Complete IndependenceSCALE: Activities may be completed with or without assistive devices. 5-Lvnsvstxsw-pjheqka completes the activity by him/herself with no assistance from a helper. 5-Set-up or Clean-up Assistance-helper sets up or cleans up; patient completes activity. [place] assists only prior to or following the activity. 4-Supervision or Touching Assistance-helper provides verbal cues and/or touching/steadying and/or contact guard assistance as patient completes activity. Assistance may be provided throughout the activity or intermittently. 3-Partial/Moderate Assistance-helper does LESS THAN HALF the effort. [place] lifts, holds or supports trunk or limbs, but provides less than half the effort. 2-Substantial/Maximal Assistance-helper does MORE THAN HALF the effort. [place] lifts or holds trunk or limbs and provides more than half the effort. 7-Mvjruwzrc-sngtgs does ALL the effort. Patient does none of the effort to complete the activity. Or, the assistance of 2 or more helpers is required for the patient to complete the activity. If activity was not attempted, code reason: 7-Patient Refused. 9-Not Applicable-not attempted and the patient did not perform the activity before the current illness, exacerbation or injury. 10-Not Attempted due to Environmental Limitations-(lack of equipment, weather restraints, etc.). 88-Not Attempted due to Medical Conditions or Safety Concerns. Eating (QC): 6 Oral Hygiene (QC): 6 Shower/Bathe Self (QC): 6 Upper Body Dressing (QC): 6 Lower Body Dressing (QC): 4 (SBA, VC to sit during task to maintain precautions) On/Off Footwear: 5 (set up, OT handed pt sock aide.) Toileting Hygiene (QC): 6 Toilet Transfer (QC): 6 Other Treatment Pt in recliner, used FWW to go to closet to gather clothes. Pt then transferred into bathroom and onto toilet. Pt doffed clothes, completed toileting, then tra nsferred to SC to complete showering and dressing. Pt required VCs prior to ADLs to adhere to PWB RLE, pt tends to want to stand for LE dressing and OT educated pt on importance of sitting for task, he verbalized understanding. Pt used FWW to perform functional mobility to therapy gym, IND. OT tx focused on increasing BUE Strength and activity tolerance. Pt completed arm bike x15 mins, 20 Watt resistance, no rest breaks. During task, pt able to tell stories about various places he has visited. Pt returned to his room, transferring to EOB, IND. Post tx, pt EOB, call light in reach and all needs met. Education OT Patient Education: Correct positioning, Energy conservation, Modified ADL techniques, Progress toward Goal/Update tx plan, Purpose of tx/functional activities, Rehab process Teaching Recipient: Patient Teaching Methods: Discussion Response to Teaching: Verbalize Understanding OT Short Term Goals Short Term Goals Time Frame: Nov 13, 2022 Shower/bathe self: 5 Lower body dressin Putting on/taking off footwear: 5 OT [facility] Goals [facility] Goals Time Frame: Nov 27, 2022 Acute change in mental status: 0 Inattention: 0 Disorganized thinkin Altered level of consciousness: 0 Eating (QC): 6 Oral Hygiene (QC): 6 Toileting Hygiene (QC): 6 Shower/Bathe Self (QC): 6 Upper Body Dressing (QC): 6 Lower Body Dressing (QC): 6 On/Off Footwear (QC): 6 Additional Goals: 1-Demonstrate ADL Tasks, 2-Verbalize Understanding, 3- ImproveStrength/Jamey 1=Demonstrate adherence to instructed precautions during ADL tasks. 2=Patient will verbalize/demonstrate understanding of assistive devices/modifications for ADL. 3=Patient will improve strength/tolerance for activity to enable patient to perform ADL's. OT Education/Plan Problem List/Assessment Assessment: Decreased Activ Tolerance, Decreased UE Strength, Impaired Funct Balance, Impaired I ADL's, Impaired Self-Care Skills Discharge Recommendations Plan/Recommendations: Continue POC Treatment Plan/Plan of Care Patient would benefit from OT for education, treatment and training to promote independence in ADL's, mobility, safety and/or upper extremity function for ADL's. Plan of Care: ADL Retraining, Functional Mobility, Group Exercise/Act as Ind, UE Funct Exercise/Act Treatment Duration: Nov 27, 2022 Frequency: At least 5 of 7 days/Wk (IRF) Estimated Hrs Per Day: 1.5 hours per day Agreement: Yes Rehab Potential: Good Time Start Time: 09:00 Stop Time: 10:30 DATE: Nov 09, 2022 Total Time Billed (hr/min): 90 Billed Treatment Time 1, ADL 5 (75'), EX (15') THOR COWAN OT Nov 09, 2022 09:28
--- NOTE | 2022-11-09 10:11 | Physical Therapy Daily Note ---
PT Daily Note-Current Subjective Patient rates his pain at beginning of session at 2-3/10. States it is sore in the (R) groin and also at his (R) knee. He states that at night it went up to 6/10 when he got stiff/sore from laying in bed. He states when he gets up and moves around it is better. At conclusion of session, (R) hip pain 1-2/10 which "is just the same as it was before I fell and hurt my hip". Pleasant gentleman. States he worked for the [employer] for 30 years before retiring. Pain Section J - Health Conditions 1. Rarely or not at all 2. Occasionally 3. Frequently 4. Almost constantly 8. Unable to answer Pain Effect on Sleep: 1 Pain Interference with Therapy: 1 Pain Interference w/Day-to-Day: 1 Appearance Patient sitting on edge of bed when therapist entered room. Mental Status Patient Orientation: Person, Place, Time, Situation Transfers SCALE: Activities may be completed with or without assistive devices. 9-Pjxpuhlcsg-nnjcnhu completes the activity by him/herself with no assistance from a helper. 5-Set-up or Clean-up Assistance-helper sets up or cleans up; patient completes activity. [place] assists only prior to or following the activity. 4-Supervision or Touching Assistance-helper provides verbal cues and/or touching/steadying and/or contact guard assistance as patient completes ac tivity. Assistance may be provided throughout the activity or intermittently. 3-Partial/Moderate Assistance-helper does LESS THAN HALF the effort. [place] lifts, holds or supports trunk or limbs, but provides less than half the effort. 2-Substantial/Maximal Assistance-helper does MORE THAN HALF the effort. [place] lifts or holds trunk or limbs and provides more than half the effort. 9-Filpqjzlk-fsxaqm does ALL the effort. Patient does none of the effort to complete the activity. Or, the assistance of 2 or more helpers is required for the patient to complete the activity. If activity was not attempted, code reason: 7-Patient Refused. 9-Not Applicable-not attempted and the patient did not perform the activity before the current illness, exacerbation or injury. 10-Not Attempted due to Environmental Limitations-(lack of equipment, weather restraints, etc.). 88-Not Attempted due to Medical Conditions or Safety Concerns. Roll Left & Right (QC): 6 Sit to Lying (QC): 6 Lying to Sitting/Side of Bed(Q: 6 Sit to Stand (QC): 6 Chair/Pxl-jk-Yhuvh Xfer(QC): 5 (SBA-mod (I) with FWW, cues prior to PWB (R) LE (30-50#) with demonstration with walker.) Toilet Transfer (QC): 6 (Patient also able to perform toilet hygiene (I) and manage clothing.) Weight Bearing Right Lower Extremity: Right Partial Weight Bearing Left Lower Extremity: Left Full Weight Bearing 30 to 50 pounds on right leg Gait Training Does the Patient Walk?: Yes Distance: 200' x 2 SBA-mod (I) with FWW with prn weight bearing cues (R). Walk 10 feet (QC): 5 Walk 50 ft with 2 Turns(QC): 5 Walk 150 ft (QC): 5 Gait Assistive Device: FWW No pain increase during gait. PT demonstrated for patient how to corrrectly use FWW to decrease WB (R) during (R) stance phase. Exercises Supine Ex: Glut sets Supine ex on mat in gym. (B) limited range LTR to ease LBP in supine x 20 (R) heel slides with min (A) x [address] in hooklying x 10 (R) SAQ x 10 with bolster under knees Isometric hip adduction/ball squeeze (B) x 10 with bolster under knees. Ankle pumps x 20 (B) (R) quad set x 10 with therapist hand under knee. Able to come within 2 fingers width of having (R) leg flat on mat following QS. (R) hip abd/add with min (A) to elevate heel x 10 with pain increase Bridges x 10 without pain increase NuStep Minutes: 10 NuStep Workload: 3 Treatments Standing endurance of 6' without rest break (I) at bathroom sink for brushing teeth, washing hands, etc. No assist from therapist. Assessment Current Status: Good Progress Patient tolerated (R) LE fair-good with no pain increase, but hip flexion weakness noted - will continue to address. Tolerated upright standing activities at sink will without need of rest break x 6 minutes. Progressing towards goals for discharge. PT Short Term Goals Short Term Goals Time Frame: Nov 09, 2022 Roll Left & Right: 6 Sit to lyin Lying to sitting on side of be: 6 Sit to stand: 6 Chair/ian-ln-hamny transfer: 5 Toilet transfer: 5 Car transfer: 5 Walk 10 feet: 6 Walk 50 feet with two turns: 6 Walk 150 feet: 4 Walking 10ft on uneven surface: 6 1 step (curb): 5 4 steps: 4 12 steps: 4 Picking up objects: 6 PT Almond Sorter Goals [facility] Goals PT [facility] Goals Time Frame: Nov 18, 2022 Roll Left & Right (QC): 6 Sit to Lying (QC): 6 Lying-Sitting on Side/Bed(QC): 6 Sit to Stand (QC): 6 Chair/Icb-ro-Cprlg Xfer(QC): 6 Toilet Transfer (QC): 6 Car Transfer (QC): 6 Does the Patient Walk: Yes Walk 10 feet (QC): 6 Walk 50ft with 2 Turns (QC): 6 Walk 150 ft (QC): 6 Walking 10ft on Uneven Surface: 6 1 Step (curb) (QC): 6 4 Steps (QC): 6 12 Steps (QC): 6 Picking up an Object (QC): 6 Wheel 50 feet with 2 turns (QC: 9 Wheel 150 feet: 9 PT Plan Problem List Problem List: Activity Tolerance, Functional Strength, Balance, Bed Mobility Treatment/Plan Treatment Plan: Continue Plan of Care Treatment Plan: Bed Mobility, Concurrent Therapy, Education, Functional Activity Jamey, Functional Strength, Group Therapy, Gait, Safety, Therapeutic Exercise, Transfers Treatment Duration: Nov 18, 2022 Frequency: At least 5 of 7 days/Wk (IRF) Estimated Hrs Per Day: 1.5 hours per day Patient and/or Family Agrees t: Yes Safety Risks/Education Patient Education: Gait Training, Safety Issues Teaching Recipient: Patient Teaching Methods: Demonstration, Handout, Discussion Response to Teaching: Verbalize Understanding, Reinforcement Needed Discharge Recommendations Plan Continue to work towards maximizing (I) with upright mobility. 35-50# WB (R) LE may hamper stair ambulation goals. Time Time In: 800 Time Out: 900 DATE: Nov 09, 2022 Total Billed Treatment Time: 60 Total Billed Treatment 60': 30 EX, 15 FA, 15 GT. Abbie Cantu PT Nov 09, 2022 10:11
[2022-11-09 11:07] VITALS: BP 180/79
[2022-11-09] MEDS: ALPRAZolam 0.25 MG (XANAX) TAB PO PRN (13:56)
[2022-11-09 14:00] VITALS: BP 182/94
--- NOTE | 2022-11-09 14:13 | Physical Therapy Daily Note ---
PT Daily Note-Current Subjective No new c/o. Discussion of PWB with patient verbalizing he was glad he came to rehab vs going right home /p surgery. He is eager to return home and is agreeable to staying until . Does state he does not want to take part in any further group therapy sessions. Pain Section J - Health Conditions 1. Rarely or not at all 2. Occasionally 3. Frequently 4. Almost constantly 8. Unable to answer Pain Effect on Sleep: 1 Pain Interference with Therapy: 1 Pain Interference w/Day-to-Day: 1 Transfers SCALE: Activities may be completed with or without assistive devices. 7-Ujznwfmndh-ujfvnll completes the activity by him/herself with no assistance from a helper. 5-Set-up or Clean-up Assistance-helper sets up or cleans up; patient completes activity. [place] assists only prior to or following the activity. 4-Supervision or Touching Assistance-helper provides verbal cues and/or touching/steadying and/or contact guard assistance as patient completes activi ty. Assistance may be provided throughout the activity or intermittently. 3-Partial/Moderate Assistance-helper does LESS THAN HALF the effort. [place] lifts, holds or supports trunk or limbs, but provides less than half the effort. 2-Substantial/Maximal Assistance-helper does MORE THAN HALF the effort. [place] lifts or holds trunk or limbs and provides more than half the effort. 5-Huujgpquf-yhglub does ALL the effort. Patient does none of the effort to complete the activity. Or, the assistance of 2 or more helpers is required for the patient to complete the activity. If activity was not attempted, code reason: 7-Patient Refused. 9-Not Applicable-not attempted and the patient did not perform the activity before the current illness, exacerbation or injury. 10-Not Attempted due to Environmental Limitations-(lack of equipment, weather restraints, etc.). 88-Not Attempted due to Medical Conditions or Safety Concerns. Weight Bearing Right Lower Extremity: Right Partial Weight Bearing Left Lower Extremity: Left Full Weight Bearing 30 to 50 pounds on right leg Education on partial weight bearing and concern of going up/down multiple steps with 30-50# WB (R) LE. Patient states he will not have to go down to the basement and can wait until he is FWB (R). Does have 2 steps to enter home. Discussion of using rail and device (cane or walker) to maintain PWB with steps. Gait Training Walk 150 ft (QC): 5 (SBA-(I) with FWW to ambulate 150' - better WB adherance this pm.) Walking 10ft/uneven surface-QC: 5 (walking on foam mat 10' with FWW SBA-(I).) Stair Training 1 Step (curb) (QC): 4 (CGA-SBA with cues for sequencing to go up/down curb step x 4.) Up/down 2 steps with (B) railings with WB cues CGA with cues for stepping sequence x 2, up/down 3 steps with (B) railing with WB cues and cues for sequence - all CGA. Up/down 2 steps with 1 rail and walker(turned sideways and wedged for 2nd "railing" x 1 with min (A) and v.c. for sequencing. Treatments focus on WBS instruction with gait/curbs/steps. Assessment Current Status: Good Progress Improved WB adherance this pm with FWW use with gait. Tolerated curbs/steps without pain increase, but will need reinforcement of stepping strategy sequence with curbs/steps. PT Short Term Goals Short Term Goals Time Frame: Nov 09, 2022 Roll Left & Right: 6 Sit to lyin Lying to sitting on side of be: 6 Sit to stand: 6 Chair/ntk-uq-phdjf transfer: 5 Toilet transfer: 5 Car transfer: 5 Walk 10 feet: 6 Walk 50 feet with two turns: 6 Walk 150 feet: 4 Walking 10ft on uneven surface: 6 1 step (curb): 5 4 steps: 4 12 steps: 4 Picking up objects: 6 PT Glass Blowing Lathe Operator Goals [facility] Goals PT [facility] Goals Time Frame: Nov 18, 2022 Roll Left & Right (QC): 6 Sit to Lying (QC): 6 Lying-Sitting on Side/Bed(QC): 6 Sit to Stand (QC): 6 Chair/Cls-lr-Sfrvl Xfer(QC): 6 Toilet Transfer (QC): 6 Car Transfer (QC): 6 Does the Patient Walk: Yes Walk 10 feet (QC): 6 Walk 50ft with 2 Turns (QC): 6 Walk 150 ft (QC): 6 Walking 10ft on Uneven Surface: 6 1 Step (curb) (QC): 6 4 Steps (QC): 6 12 Steps (QC): 6 Picking up an Object (QC): 6 Wheel 50 feet with 2 turns (QC: 9 Wheel 150 feet: 9 PT Plan Problem List Problem List: Activity Tolerance, Functional Strength, Safety (stair/curb training with PWB), Balance, Gait, Transfer, Other Treatment/Plan Treatment Plan: Continue Plan of Care Treatment Plan: Bed Mobility, Concurrent Therapy, Education, Functional Activity Jamey, Functional Strength, Group Therapy, Gait, Safety, Therapeutic Exercise, Transfers Treatment Duration: Nov 18, 2022 Frequency: At least 5 of 7 days/Wk (IRF) Estimated Hrs Per Day: 1.5 hours per day Patient and/or Family Agrees t: Yes Safety Risks/Education Patient Education: Steps Teaching Recipient: Patient Teaching Methods: Demonstration, Handout, Discussion Response to Teaching: Verbalize Understanding, Return Demonstration, Reinforcement Needed states he will have available to assist with walker placement for steps. Time Time In: 1300 Time Out: 1330 DATE: Nov 09, 2022 Total Billed Treatment Time: 30 Total Billed Treatment 30 - Gt Abbie Cantu PT Nov 09, 2022 14:13
[2022-11-09 15:23] VITALS: BP 155/77
[2022-11-09] MEDS: TAMSULOSIN 0.4 MG (FLOMAX) CAP PO SCH (18:23)
[2022-11-09] MEDS: DIPHENOXYLATE/ATROPINE 2.5MG/0.025MG (LOMOTIL) TAB PO PRN (18:41)
[2022-11-09] MEDS: ALPRAZolam 0.5 MG (XANAX) TAB PO SCH (20:42)
[2022-11-09] MEDS: MELATONIN 3 MG TABLET PO SCH (20:43)
[2022-11-09 20:45] VITALS: BP 174/85
[2022-11-10] MEDS: ACETAMINOPHEN 325 MG TABLET PO PRN ×3 (03:20→18:35)
--- NOTE | 2022-11-10 04:42 | PM&R Progress Note ---
Subjective HPI/CC On Admission Date Seen by Provider: Nov 10, 2022 Time Seen by Provider: 08:30 Subjective/Events-last exam 11/10/2022: No major issues No pain reported currently Walking around well BP elevates with anxiety 11/09/2022: Doing well Labs stable Pain controlled No tearfulness 11/08/2022: Doing well Feels overwhelmed and tearful today so I reassured and he requested the Xanax to be 0.5mg instead of 0.25mg BM ok 11/07/2022: Doing really well Pain controlled No falls Improved overall 11/06/2022: Doing well No issues Pain controlled Labs reviewed No falls BM+ Review of Systems General: Fatigue, Malaise Objective Exam Vital Signs Vital Signs Date Time Temp Pulse Resp B/P (MAP) Pulse Ox O2 Delivery O2 Flow Rate FiO2 11/10/22 20:55 36.2 67 18 161/85 (110) 97 Room Air Capillary Refill : General Appearance: No Apparent Distress, WD/WN HEENT: PERRL/EOMI, Normal ENT Inspection, Pharynx Normal Neck: Full Range of Motion, Normal Inspection, Non Tender, Supple, Carotid Bruit Respiratory: Chest Non Tender, Lungs Clear, Normal Breath Sounds, No Accessory Muscle Use, No Respiratory Distress Cardiovascular: Regular Rate, Rhythm, No Edema, No Gallop, No JVD, No Murmur, Normal Peripheral Pulses Gastrointestinal: Normal Bowel Sounds, No Organomegaly, No Pulsatile Mass, Non Tender, Soft Back: Normal Inspection, No CVA Tenderness, No Vertebral Tenderness Extremity: Normal Capillary Refill, Normal Inspection, Normal Range of Motion (except right leg), Non Tender, No Calf Tenderness, No Pedal Edema Neurologic/Psychiatric: Alert, Oriented x3, No Motor/Sensory Deficits, Normal Mood/Affect Skin: Normal Color, Warm/Dry Lymphatic: No Adenopathy Results/Procedures Lab Patient resulted labs reviewed. [facility] Transfers Therapy Code Descriptions/Definitions Functional [place] Measure: 0=Not Assessed/NA 4=Minimal Assistance 1=Total Assistance 5=Supervision or Setup 2=Maximal Assistance 6=Modified [place] 3=Moderate Assistance 7=Complete IndependenceSCALE: Activities may be completed with or without assistive devices. 7-Djjcwljuaq-yivexga completes the activity by him/herself with no assistance from a helper. 5-Set-up or Clean-up Assistance-helper sets up or cleans up; patient completes activity. [place] assists only prior to or following the activity. 4-Supervision or Touching Assistance-helper provides verbal cues and/or t ouching/steadying and/or contact guard assistance as patient completes activity. Assistance may be provided throughout the activity or intermittently. 3-Partial/Moderate Assistance-helper does LESS THAN HALF the effort. [place] lifts, holds or supports trunk or limbs, but provides less than half the effort. 2-Substantial/Maximal Assistance-helper does MORE THAN HALF the effort. [place] lifts or holds trunk or limbs and provides more than half the effort. 4-Yegnzptgg-agjjys does ALL the effort. Patient does none of the effort to complete the activity. Or, the assistance of 2 or more helpers is required for the patient to complete the activity. If activity was not attempted, code reason: 7-Patient Refused. 9-Not Applicable-not attempted and the patient did not perform the activity before the current illness, exacerbation or injury. 10-Not Attempted due to Environmental Limitations-(lack of equipment, weather restraints, etc.). 88-Not Attempted due to Medical Conditions or Safety Concerns. Roll Left to Right (QC): 6 Sit to Lying (QC): 6 Sit to Stand (QC): 6 Chair/Fgl-wz-Owamh Xfer(QC): 5 (SBA-mod (I) with FWW, cues prior to PWB (R) LE (30-50#) with demonstration with walker.) Car Transfer (QC): 4 Gait Training Does the Patient Walk?: Yes Distance: 200' x 2 SBA-mod (I) with FWW with prn weight bearing cues (R). Walk 10 feet (QC): 5 Walk 50 ft with 2 Turns(QC): 5 Walk 150 ft (QC): 5 (SBA-(I) with FWW to ambulate 150' - better WB adherance this pm.) Walking 10ft/uneven surface-QC: 5 (walking on foam mat 10' with FWW SBA-(I).) Gait Assistive Device: FWW Wheelchair Training Does the Pt Use a Wheelchair?: No Wheel 50 ft with 2 turns (QC): 9 Wheel 150 ft (QC): 9 Stair Training #of Steps: 12 1 Step (curb) (QC): 4 (CGA-SBA with cues for sequencing to go up/down curb step x 4.) 4 Steps (QC): 4 12 Steps (QC): 4 Balance Picking up an Object (QC): 6 ADL-Treatment Eating (QC): 6 Oral Hygiene (QC): 6 Shower/Bathe Self (QC): 6 Upper Body Dressing (QC): 6 Lower Body Dressing (QC): 4 (SBA, VC to sit during task to maintain precautions) On/Off Footwear (QC): 5 (set up, OT handed pt sock aide.) Toileting Hygiene (QC): 6 Toilet Transfer (QC): 6 Assessment/Plan Assessment and Plan Assess & Plan/Chief Complaint Assessment: Right hip fracture with residual debility HTN CKD 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
[2022-11-10] MEDS: hydrALAZINE (APRESOLINE) 25 MG TAB PO SCH ×3 (06:20→20:31)
[2022-11-10 07:51] VITALS: BP 156/73
[2022-11-10] MEDS: FINASTERIDE (PROSCAR) 5 MG TAB PO SCH (07:52)
[2022-11-10] MEDS: APIXABAN 2.5 MG (ELIQUIS) TABLET PO SCH ×2 (07:52→20:31)
[2022-11-10] MEDS: PANTOPRAZOLE 20 MG TABLET (PROTONIX) PO SCH (07:52)
[2022-11-10] MEDS: DOCUSATE SODIUM 100 MG (COLACE) CAP PO SCH ×2 (07:53→19:45)
[2022-11-10] MEDS: BISACODYL 5 MG (DULCOLAX) TABLET PO SCH (07:53)
[2022-11-10] MEDS: polyethylene glycoL POWDER 17 GM (MIRALAX) PACK PO SCH ×2 (07:55→19:46)
[2022-11-10] MEDS: SENNA W/DOCUSATE (SENOKOT S) TABLET PO SCH ×2 (07:55→19:46)
--- NOTE | 2022-11-10 08:57 | Physical Therapy Daily Note ---
PT Daily Note-Current Subjective Patient reports he has not been out of bed today - states he ate breakfast in bed and is stiff and sore because he has not yet been out of bed. Discussed that patient should be out of bed for all meals - up to chair. Pain Section J - Health Conditions 1. Rarely or not at all 2. Occasionally 3. Frequently 4. Almost constantly 8. Unable to answer Pain Effect on Sleep: 1 Pain Interference with Therapy: 1 Pain Interference w/Day-to-Day: 1 Transfers SCALE: Activities may be completed with or without assistive devices. 6-Rngqzeetbt-archadq completes the activity by him/herself with no assistance from a helper. 5-Set-up or Clean-up Assistance-helper sets up or cleans up; patient completes activity. [place] assists only prior to or following the activity. 4-Supervision or Touching Assistance-helper provides verbal cues and/or touching/steadying and/or contact guard assistance as patient completes activity. Assistance may be provided throughout the activity or intermittently. 3-Partial/Moderate Assistance-helper does LESS THAN HALF the effort. [place] lifts, holds or supports trunk or limbs, but provides less than half the effort. 2-Substantial/Maximal Assistance-helper does MORE THAN HALF the effort. [place] lifts or holds trunk or limbs and provides more than half the effort. 3-Psukgwsob-gdznup does ALL the effort. Patient does none of the effort to complete the activity. Or, the assistance of 2 or more helpers is required for the patient to complete the activity. If activity was not attempted, code reason: 7-Patient Refused. 9-Not Applicable-not attempted and the patient did not perform the activity before the current illness, exacerbation or injury. 10-Not Attempted due to Environmental Limitations-(lack of equipment, weather restraints, etc.). 88-Not Attempted due to Medical Conditions or Safety Concerns. Sit to Lying (QC): 6 Lying to Sitting/Side of Bed(Q: 6 Sit to Stand (QC): 6 Chair/Hzy-lt-Dpydj Xfer(QC): 6 Toilet Transfer (QC): 6 all transfers with FWW, PWB (R) LE = 30-50# per PT eval. Weight Bearing Right Lower Extremity: Right Partial Weight Bearing Left Lower Extremity: Left Full Weight Bearing 30 to 50 pounds on right leg Education on partial weight bearing and concern of going up/down multiple steps with 30-50# WB (R) LE. Patient states he will not have to go down to the basement and can wait until he is FWB (R). Does have 2 steps to enter home. Discussion of using rail and device (walker) to maintain PWB with steps. Gait Training Distance: 400' Walk 10 feet (QC): 6 Walk 50 ft with 2 Turns(QC): 6 Walk 150 ft (QC): 6 Gait Assistive Device: FWW PWB (R) LE Stair Training Stair Training: Handrails/: 1 handrail, uses walker 1 Step (curb) (QC): 4 (CGA-SBA with FWW with prn PWB cues) 4 Steps (QC): 4 Stairs: Pattern: Step to Extensive training with up/down 2 steps with 1 rail and walker(turned) to get up/down steps at home. Handout and demonstration given. Patient performed up/down 2 steps with 1 rail and walker CGA x 6 with prn vc for walker placement and WB. Discussed that will be able to assist with walker placement at home. Discussed that this PT does not recommend full flight to/from basement until patient is FWB. Training to be completed with later this a.m. Exercises NuStep Minutes: 12 (3) NuStep Workload: 3 Treatments Family training with , dayna [place]. PWB status (30-50#) (R) LE and handout review. Discussed using bathroom scale at home to remind patient of 30-50# WBS (R) - agreed that this is a good idea. Curb training with observing - patient is CGA-SBA for curb step with FWW. Stair training with observing, then assisting with walker placement. Patient and able to complete at safe level for return home - CGA-SBA with 1 rail and FWW. Extensive discussion that patient and will require FWW when he returns home to maintain his PWBS (R) LE 30-50# per evaluation. A cane will not provide the weightbearing assist required with a PWB status. Discussed with both patient and that full flight of steps to the basement is not recommend until patient is FWB - for safety and to protect the (R) hip with current PWBS. Both and patient state that he will not be needing to go to the basement when he returns home. Assessment Current Status: Good Progress Performed will on 2 steps with railing and walker. Recommend avoid going to/from basement until he is FWB - he states he only has to get up 2 steps into the house only when he gets home. PT Short Term Goals Short Term Goals Time Frame: Nov 09, 2022 Roll Left & Right: 6 Sit to lyin Lying to sitting on side of be: 6 Sit to stand: 6 Chair/llb-fu-sruim transfer: 5 Toilet transfer: 5 Car transfer: 5 Walk 10 feet: 6 Walk 50 feet with two turns: 6 Walk 150 feet: 4 Walking 10ft on uneven surface: 6 1 step (curb): 5 4 steps: 4 12 steps: 4 Picking up objects: 6 PT [employer] Or Barge Mate Goals [facility] Goals PT [facility] Goals Time Frame: Nov 18, 2022 Roll Left & Right (QC): 6 Sit to Lying (QC): 6 Lying-Sitting on Side/Bed(QC): 6 Sit to Stand (QC): 6 Chair/Zen-sg-Fopyd Xfer(QC): 6 Toilet Transfer (QC): 6 Car Transfer (QC): 6 Does the Patient Walk: Yes Walk 10 feet (QC): 6 Walk 50ft with 2 Turns (QC): 6 Walk 150 ft (QC): 6 Walking 10ft on Uneven Surface: 6 1 Step (curb) (QC): 6 4 Steps (QC): 6 12 Steps (QC): 6 Picking up an Object (QC): 6 Wheel 50 feet with 2 turns (QC: 9 Wheel 150 feet: 9 PT Plan Problem List Problem List: Activity Tolerance, Functional Strength, Safety, Balance, Gait, Other (stair training) Treatment/Plan Treatment Plan: Continue Plan of Care Treatment Plan: Bed Mobility, Concurrent Therapy, Education, Functional Activity Jamey, Functional Strength, Group Therapy, Gait, Safety, Therapeutic Exercise, Transfers Treatment Duration: Nov 18, 2022 Frequency: At least 5 of 7 days/Wk (IRF) Estimated Hrs Per Day: 1.5 hours per day Patient and/or Family Agrees t: Yes Time Time In: 755 (family trainin) Time Out: 855 (family trainin) DATE: Nov 10, 2022 Total Billed Treatment Time: 90 Total Billed Treatment Gt 48, Ex 12 = individual minutes = 60'. 30' co-treatment for family training with and patient regarding protection of PWBS (R) and gait/stair/curb training, Abbie Cantu PT Nov 10, 2022 08:57
--- NOTE | 2022-11-10 09:12 | Occupational Ther Daily Note ---
OT Current Status-Daily Note Subjective Pt in therapy gym, just finished with PT tx. Pt agreeable to OT Tx with plan for to join for family training later. ADL-Treatment Therapy Code Descriptions/Definitions Functional [place] Measure: 0=Not Assessed/NA 4=Minimal Assistance 1=Total Assistance 5=Supervision or Setup 2=Maximal Assistance 6=Modified [place] 3=Moderate Assistance 7=Complete IndependenceSCALE: Activities may be completed with or without assistive devices. 1-Vbkxkxhwkf-oojepoy completes the activity by him/herself with no assistance from a helper. 5-Set-up or Clean-up Assistance-helper sets up or cleans up; patient completes activity. [place] assists only prior to or following the activity. 4-Supervision or Touching Assistance-helper provides verbal cues and/or touching/steadying and/or contact guard assistance as patient completes acti vity. Assistance may be provided throughout the activity or intermittently. 3-Partial/Moderate Assistance-helper does LESS THAN HALF the effort. [place] lifts, holds or supports trunk or limbs, but provides less than half the effort. 2-Substantial/Maximal Assistance-helper does MORE THAN HALF the effort. [place] lifts or holds trunk or limbs and provides more than half the effort. 8-Ejnyljarq-ufxlcr does ALL the effort. Patient does none of the effort to complete the activity. Or, the assistance of 2 or more helpers is required for the patient to complete the activity. If activity was not attempted, code reason: 7-Patient Refused. 9-Not Applicable-not attempted and the patient did not perform the activity before the current illness, exacerbation or injury. 10-Not Attempted due to Environmental Limitations-(lack of equipment, weather restraints, etc.). 88-Not Attempted due to Medical Conditions or Safety Concerns. Other Treatment Pt in therapy gym, agreeable to OT Tx with focus on increasing BUE Strength and activity tolerance. Pt completed arm bike x15 mins, 20 Watt resistance, no rest breaks. OT educated pt on benefits of tub transfer bench, due to his only walk in shower being in the basement, he verbalized understanding. Pt used FWW to return to his room, stood at sink to complete oral care, IND. Pt's educated on assistance required with ADLS, with main focus being pt sitting down to thread and remove pants from BLEs, she verbalized understanding. Pt's educated on tub transfer bench recommendation, pt and taken to tub, and transfer practiced with tub bench. Pt demo'd understanding and states no concerns. Pt returned to his room, demo'd ability to transfer in/out of bed without bed rails, height of bed adjusted to pt's home bed. Pt IND with supine to/from sit. Pt used FWW to perform functional mobility to therapy gym, IND. Pt completed pipe tree activity, 1lb wrist weights bilaterally, completing x5 patterns total. This was performed in order to increase BUE Strength and activity tolerance. OT/PT cotreat due to skill of 2 clinicians required which a rehab aide could not perform in order to coordinate UE/LEs, focus on higher level balance tasks, and family training with pt's , Yoly. Pt and educated on functional mobility and transfers including steps and curb steps, they demonstrate understanding. Post tx, pt at EOB, call light in reach and all needs met. Pt and state no further concerns with pt discharging . Education OT Patient Education: Correct positioning, Energy conservation, Modified ADL techniques, Progress toward Goal/Update tx plan, Purpose of tx/functional activities Teaching Recipient: Patient Teaching Methods: Discussion Response to Teaching: Verbalize Understanding OT Short Term Goals Short Term Goals Time Frame: Nov 13, 2022 Shower/bathe self: 5 Lower body dressin Putting on/taking off footwear: 5 OT M[facility] Goals Infrastructure Developer Goals Time Frame: Nov 27, 2022 Acute change in mental status: 0 Inattention: 0 Disorganized thinkin Altered level of consciousness: 0 Eating (QC): 6 Oral Hygiene (QC): 6 Toileting Hygiene (QC): 6 Shower/Bathe Self (QC): 6 Upper Body Dressing (QC): 6 Lower Body Dressing (QC): 6 On/Off Footwear (QC): 6 Additional Goals: 1-Demonstrate ADL Tasks, 2-Verbalize Understanding, 3- ImproveStrength/Jamey 1=Demonstrate adherence to instructed precautions during ADL tasks. 2=Patient will verbalize/demonstrate understanding of assistive devices/modifications for ADL. 3=Patient will improve strength/tolerance for activity to enable patient to perform ADL's. OT Education/Plan Problem List/Assessment Assessment: Decreased Activ Tolerance, Decreased UE Strength, Impaired I ADL's Discharge Recommendations Plan/Recommendations: Continue POC Equpiment Recommendations-D/C: Extended Bath Bench Treatment Plan/Plan of Care Patient would benefit from OT for education, treatment and training to promote independence in ADL's, mobility, safety and/or upper extremity function for ADL's. Plan of Care: ADL Retraining, Functional Mobility, Group Exercise/Act as Ind, UE Funct Exercise/Act Treatment Duration: Nov 27, 2022 Frequency: At least 5 of 7 days/Wk (IRF) Estimated Hrs Per Day: 1.5 hours per day Agreement: Yes Rehab Potential: Good Time Start Time: 09:00 Stop Time: 10:30 DATE: Nov 10, 2022 Total Time Billed (hr/min): 90 Billed Treatment Time OT tx [id number], [place] [id number] 1, EX (15'), ADL 2 (30'), FA 3 (45') THOR COWAN OT Nov 10, 2022 09:12
[2022-11-10] MEDS: ALPRAZolam 0.25 MG (XANAX) TAB PO PRN (10:35)
[2022-11-10 13:53] VITALS: BP 156/75
[2022-11-10] MEDS: DIPHENOXYLATE/ATROPINE 2.5MG/0.025MG (LOMOTIL) TAB PO PRN (16:44)
[2022-11-10] MEDS: TAMSULOSIN 0.4 MG (FLOMAX) CAP PO SCH (18:18)
[2022-11-10] MEDS: MELATONIN 3 MG TABLET PO SCH (20:31)
[2022-11-10] MEDS: ALPRAZolam 0.5 MG (XANAX) TAB PO SCH (20:31)
[2022-11-10 20:55] VITALS: BP 161/85
[2022-11-11] MEDS: ACETAMINOPHEN 325 MG TABLET PO PRN ×3 (03:10→20:40)
--- NOTE | 2022-11-11 05:14 | PM&R Progress Note ---
Subjective HPI/CC On Admission Date Seen by Provider: Nov 11, 2022 Time Seen by Provider: 11:00 Subjective/Events-last exam 11/11/2022: Much improved DC tomorrow Pain controlled No falls 11/10/2022: No major issues No pain reported currently Walking around well BP elevates with anxiety 11/09/2022: Doing well Labs stable Pain controlled No tearfulness 11/08/2022: Doing well Feels overwhelmed and tearful today so I reassured and he requested the Xanax to be 0.5mg instead of 0.25mg BM ok 11/07/2022: Doing really well Pain controlled No falls Improved overall 11/06/2022: Doing well No issues Pain controlled Labs reviewed No falls BM+ Review of Systems General: Fatigue, Malaise Objective Exam Vital Signs Vital Signs Date Time Temp Pulse Resp B/P (MAP) Pulse Ox O2 Delivery O2 Flow Rate FiO2 11/11/22 20:49 Room Air 11/11/22 20:36 36.6 75 18 168/83 (111) 95 Capillary Refill : General Appearance: No Apparent Distress, WD/WN HEENT: PERRL/EOMI, Normal ENT Inspection, Pharynx Normal Neck: Full Range of Motion, Normal Inspection, Non Tender, Supple, Carotid Bruit Respiratory: Chest Non Tender, Lungs Clear, Normal Breath Sounds, No Accessory Muscle Use, No Respiratory Distress Cardiovascular: Regular Rate, Rhythm, No Edema, No Gallop, No JVD, No Murmur, Normal Peripheral Pulses Gastrointestinal: Normal Bowel Sounds, No Organomegaly, No Pulsatile Mass, Non Tender, Soft Back: Normal Inspection, No CVA Tenderness, No Vertebral Tenderness Extremity: Normal Capillary Refill, Normal Inspection, Normal Range of Motion (except right leg), Non Tender, No Calf Tenderness, No Pedal Edema Neurologic/Psychiatric: Alert, Oriented x3, No Motor/Sensory Deficits, Normal Mood/Affect Skin: Normal Color, Warm/Dry Lymphatic: No Adenopathy Results/Procedures Lab Patient resulted labs reviewed. FIM Transfers Therapy Code Descriptions/Definitions Functional [place] Measure: 0=Not Assessed/NA 4=Minimal Assistance 1=Total Assistance 5=Supervision or Setup 2=Maximal Assistance 6=Modified [place] 3=Moderate Assistance 7=Complete IndependenceSCALE: Activities may be completed with or without assistive devices. 6-Kdpxlgecrs-tjtwalh completes the activity by him/herself with no assistance from a helper. 5-Set-up or Clean-up Assistance-helper sets up or cleans up; patient completes activity. [place] assists only prior to or following the activity. 4-Supervision or Touching Assistance-helper provides verbal cues and/or touching/steadying and/or contact guard assistance as patient completes activity. Assistance may be provided throughout the activity or intermittently. 3-Partial/Moderate Assistance-helper does LESS THAN HALF the effort. [place] lifts, holds or supports trunk or limbs, but provides less than half the effort. 2-Substantial/Maximal Assistance-helper does MORE THAN HALF the effort. [place] lifts or holds trunk or limbs and provides more than half the effort. 6-Yllugjwtq-ndqfre does ALL the effort. Patient does none of the effort to complete the activity. Or, the assistance of 2 or more helpers is required for the patient to complete the activity. If activity was not attempted, code reason: 7-Patient Refused. 9-Not Applicable-not attempted and the patient did not perform the activity before the current illness, exacerbation or injury. 10-Not Attempted due to Environmental Limitations-(lack of equipment, weather restraints, etc.). 88-Not Attempted due to Medical Conditions or Safety Concerns. Roll Left to Right (QC): 6 Sit to Lying (QC): 6 Sit to Stand (QC): 6 Chair/Vhy-fy-Suhaa Xfer(QC): 6 Car Transfer (QC): 4 Gait Training Does the Patient Walk?: Yes Distance: 400' Walk 10 feet (QC): 6 Walk 50 ft with 2 Turns(QC): 6 Walk 150 ft (QC): 6 Walking 10ft/uneven surface-QC: 5 (walking on foam mat 10' with FWW SBA-(I).) Gait Assistive Device: FWW Wheelchair Training Does the Pt Use a Wheelchair?: No Wheel 50 ft with 2 turns (QC): 9 Wheel 150 ft (QC): 9 Stair Training Stair Training: Handrails/: 1 handrail, uses walker #of Steps: 12 1 Step (curb) (QC): 4 (CGA-SBA with FWW with prn PWB cues) 4 Steps (QC): 4 12 Steps (QC): 4 Stairs: Pattern: Step to Balance Picking up an Object (QC): 6 ADL-Treatment Eating (QC): 6 Oral Hygiene (QC): 6 Shower/Bathe Self (QC): 6 Upper Body Dressing (QC): 6 Lower Body Dressing (QC): 4 (SBA, VC to sit during task to maintain precautions) On/Off Footwear (QC): 5 (set up, OT handed pt sock aide.) Toileting Hygiene (QC): 6 Toilet Transfer (QC): 6 Assessment/Plan Assessment and Plan Assess & Plan/Chief Complaint Assessment: Right hip fracture with residual debility HTN CKD 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
[2022-11-11] MEDS: hydrALAZINE (APRESOLINE) 25 MG TAB PO SCH ×3 (06:07→20:40)
[2022-11-11] MEDS: ALPRAZolam 0.25 MG (XANAX) TAB PO PRN (07:44)
[2022-11-11] MEDS: PANTOPRAZOLE 20 MG TABLET (PROTONIX) PO SCH (07:46)
[2022-11-11] MEDS: FINASTERIDE (PROSCAR) 5 MG TAB PO SCH (07:46)
[2022-11-11] MEDS: APIXABAN 2.5 MG (ELIQUIS) TABLET PO SCH ×2 (07:47→20:40)
[2022-11-11 08:10] VITALS: BP 164/76
--- NOTE | 2022-11-11 09:01 | Physical Therapy Daily Note ---
PT Daily Note-Current Subjective pt in bathroom upon arrival. pt stated he was feeling a little stiff this day but is willing to preform therapy. Pain Numeric Pain Scale: 3 Location: Right Location Body Site: Knee Pain Description: Ache Section J - Health Conditions 1. Rarely or not at all 2. Occasionally 3. Frequently 4. Almost constantly 8. Unable to answer Pain Effect on Sleep: 1 Pain Interference with Therapy: 1 Pain Interference w/Day-to-Day: 1 Mental Status Patient Orientation: Person, Place, Time, Situation Transfers SCALE: Activities may be completed with or without assistive devices. 7-Txefmegytu-qcsaabb completes the activity by him/herself with no assistance from a helper. 5-Set-up or Clean-up Assistance-helper sets up or cleans up; patient completes activity. [place] assists only prior to or following the activity. 4-Supervision or Touching Assistance-helper provides verbal cues and/or touching/steadying and/or contact guard assistance as patient completes ac tivity. Assistance may be provided throughout the activity or intermittently. 3-Partial/Moderate Assistance-helper does LESS THAN HALF the effort. [place] lifts, holds or supports trunk or limbs, but provides less than half the effort. 2-Substantial/Maximal Assistance-helper does MORE THAN HALF the effort. [place] lifts or holds trunk or limbs and provides more than half the effort. 7-Wupplrvya-zswjrx does ALL the effort. Patient does none of the effort to complete the activity. Or, the assistance of 2 or more helpers is required for the patient to complete the activity. If activity was not attempted, code reason: 7-Patient Refused. 9-Not Applicable-not attempted and the patient did not perform the activity before the current illness, exacerbation or injury. 10-Not Attempted due to Environmental Limitations-(lack of equipment, weather restraints, etc.). 88-Not Attempted due to Medical Conditions or Safety Concerns. Roll Left & Right (QC): 6 Sit to Lying (QC): 6 Lying to Sitting/Side of Bed(Q: 6 Sit to Stand (QC): 6 Chair/Gxx-ca-Ejwbn Xfer(QC): 6 Toilet Transfer (QC): 6 Car Transfer (QC): 6 Weight Bearing Right Lower Extremity: Right Partial Weight Bearing Left Lower Extremity: Left Full Weight Bearing 30 to 50 pounds on right leg Education on partial weight bearing and concern of going up/down multiple steps with 30-50# WB (R) LE. Patient states he will not have to go down to the basement and can wait until he is FWB (R). Does have 2 steps to enter home. Discussion of using rail and device (walker) to maintain PWB with steps. Gait Training Walk 10 feet (QC): 6 Walk 50 ft with 2 Turns(QC): 6 Walk 150 ft (QC): 6 Walking 10ft/uneven surface-QC: 4 Gait Persons Needed: 1 Gait Assistive Device: FWW Stair Training 1 Step (curb) (QC): 6 4 Steps (QC): 6 12 Steps (QC): 88 Stairs: Pattern: Step to Balance Picking up an Object (QC): 6 Exercises NuStep Minutes: 15 NuStep Workload: 3 Treatments pt was able to preform nustep and ambulate with no VC for safety this day. pt is also able to preform FA and strength training to maintain strength Assessment Current Status: Excellent Progress PT Short Term Goals Short Term Goals Time Frame: Nov 09, 2022 Roll Left & Right: 6 Sit to lyin Lying to sitting on side of be: 6 Sit to stand: 6 Chair/nph-zo-yxozs transfer: 5 Toilet transfer: 5 Car transfer: 5 Walk 10 feet: 6 Walk 50 feet with two turns: 6 Walk 150 feet: 4 Walking 10ft on uneven surface: 6 1 step (curb): 5 4 steps: 4 12 steps: 4 Picking up objects: 6 PT Penitentiary Goals Penitentiary Goals PT Penitentiary Goals Time Frame: Nov 18, 2022 Roll Left & Right (QC): 6 Sit to Lying (QC): 6 Lying-Sitting on Side/Bed(QC): 6 Sit to Stand (QC): 6 Chair/Klc-xa-Wkipl Xfer(QC): 6 Toilet Transfer (QC): 6 Car Transfer (QC): 6 Does the Patient Walk: Yes Walk 10 feet (QC): 6 Walk 50ft with 2 Turns (QC): 6 Walk 150 ft (QC): 6 Walking 10ft on Uneven Surface: 6 1 Step (curb) (QC): 6 4 Steps (QC): 6 12 Steps (QC): 6 Picking up an Object (QC): 6 Wheel 50 feet with 2 turns (QC: 9 Wheel 150 feet: 9 PT Plan Treatment/Plan Treatment Plan: Continue Plan of Care Treatment Plan: Bed Mobility, Concurrent Therapy, Education, Functional Activity Jamey, Functional Strength, Group Therapy, Gait, Safety, Therapeutic Exercise, Transfers Treatment Duration: Nov 18, 2022 Frequency: At least 5 of 7 days/Wk (IRF) Estimated Hrs Per Day: 1.5 hours per day Patient and/or Family Agrees t: Yes Time Time In: 0800 Time Out: 0900 DATE: Nov 11, 2022 Total Billed Treatment Time: 60 Total Billed Treatment 1, FA, GT x 2, EX Jessie Liu PARCEL POST CLERK Nov 11, 2022 09:01
[2022-11-11] MEDS: BISACODYL 5 MG (DULCOLAX) TABLET PO SCH (10:13)
[2022-11-11] MEDS: DOCUSATE SODIUM 100 MG (COLACE) CAP PO SCH ×2 (10:13→20:45)
[2022-11-11] MEDS: SENNA W/DOCUSATE (SENOKOT S) TABLET PO SCH ×2 (10:14→20:45)
[2022-11-11] MEDS: polyethylene glycoL POWDER 17 GM (MIRALAX) PACK PO SCH ×2 (10:14→20:45)
--- NOTE | 2022-11-11 10:40 | Occupational Ther Daily Note ---
OT Current Status-Daily Note Subjective Pt in bed, agreeable to OT tx. ADL-Treatment Therapy Code Descriptions/Definitions Functional Bee Measure: 0=Not Assessed/NA 4=Minimal Assistance 1=Total Assistance 5=Supervision or Setup 2=Maximal Assistance 6=Modified Bee 3=Moderate Assistance 7=Complete IndependenceSCALE: Activities may be completed with or without assistive devices. 7-Cbdqmimaki-ooehpul completes the activity by him/herself with no assistance from a helper. 5-Set-up or Clean-up Assistance-helper sets up or cleans up; patient completes activity. [place] assists only prior to or following the activity. 4-Supervision or Touching Assistance-helper provides verbal cues and/or touching/steadying and/or contact guard assistance as patient completes activity. Assistance may be provided throughout the activity or intermittently. 3-Partial/Moderate Assistance-helper does LESS THAN HALF the effort. [place] lifts, holds or supports trunk or limbs, but provides less than half the effort. 2-Substantial/Maximal Assistance-helper does MORE THAN HALF the effort. [place] lifts or holds trunk or limbs and provides more than half the effort. 9-Rlernbxek-qwoysr does ALL the effort. Patient does none of the effort to complete the activity. Or, the assistance of 2 or more helpers is required for the patient to complete the activity. If activity was not attempted, code reason: 7-Patient Refused. 9-Not Applicable-not attempted and the patient did not perform the activity befo re the current illness, exacerbation or injury. 10-Not Attempted due to Environmental Limitations-(lack of equipment, weather re straints, etc.). 88-Not Attempted due to Medical Conditions or Safety Concerns. Eating (QC): 6 Oral Hygiene (QC): 6 Shower/Bathe Self (QC): 6 Upper Body Dressing (QC): 6 Lower Body Dressing (QC): 6 On/Off Footwear: 6 Toileting Hygiene (QC): 6 Toilet Transfer (QC): 6 Instructions prior to task for maintaining PWB Other Treatment Pt in bed, transferred supine to sit EOB, IND. Pt used FWW to go to closet to gather clothes. Pt attempted to leave walker off to side, OT provided education on importance of keeping walker with him at all times in order to maintain PWB status of RLE, and to keep BUEs on walker during mobility, he verbalized understanding. Pt transferred into bathroom, doffed clothes, completed showering, then donned clothes. Pt stood at sink for grooming tasks. Pt used FWW to perform functional mobility too therapy gym, IND. OT tx focused on increasing BUE strength and activity tolerance. Pt completed arm bike, x20 mins, 20-25 Watt resistance. Pt returned to his room using FWW, transferring to EOB. Post tx, pt EOB, call light in reach and all needs met. Education OT Patient Education: Correct positioning, Energy conservation, Modified ADL techniques, Progress toward Goal/Update tx plan, Purpose of tx/functional activities, Rehab process Teaching Recipient: Patient Teaching Methods: Discussion Response to Teaching: Verbalize Understanding BIMS CAM BIMS Expression of Ideas and Wants: Without Difficulty Understanding Verbal Content: Understands Brief Interview/Mental Status: Yes IRF NIKKY BIMS: IRF NIKKY BIMS Response (Comments) Value Repitition of Three Words Three 3 Recalls Socks Yes, No Cue Required 2 Recalls Blue Yes, No Cue Required 2 Recalls Bed Yes, No Cue Required 2 Year Correct 3 Month Accurate Within 5 Days 2 Day Correct 1 Total 15 Should Staff Asses. Mental St[address] No CAM Mental Status Change/Baseline: 0 Inattention: 0 Disorganized thinkin Altered level of consciousness: 0 OT Short Term Goals Short Term Goals Time Frame: Nov 13, 2022 Shower/bathe self: 5 Lower body dressin Putting on/taking off footwear: 5 OT Care Home Goals Wheel Polisher Goals Time Frame: Nov 27, 2022 Acute change in mental status: 0 Inattention: 0 Disorganized thinkin Altered level of consciousness: 0 Eating (QC): 6 (met) Oral Hygiene (QC): 6 (met) Toileting Hygiene (QC): 6 (met) Shower/Bathe Self (QC): 6 (met) Upper Body Dressing (QC): 6 (met) Lower Body Dressing (QC): 6 (met) On/Off Footwear (QC): 6 (met) Additional Goals: 1-Demonstrate ADL Tasks, 2-Verbalize Understanding, 3- ImproveStrength/Jamey 1=Demonstrate adherence to instructed precautions during ADL tasks. 2=Patient will verbalize/demonstrate understanding of assistive devices/modifications for ADL. 3=Patient will improve strength/tolerance for activity to enable patient to perform ADL's. OT Education/Plan Problem List/Assessment Assessment: Decreased Activ Tolerance, Decreased UE Strength, Impaired Funct Balance, Impaired I ADL's Discharge Recommendations Plan/Recommendations: Continue POC Treatment Plan/Plan of Care Patient would benefit from OT for education, treatment and training to promote independence in ADL's, mobility, safety and/or upper extremity function for ADL's. Plan of Care: ADL Retraining, Functional Mobility, Group Exercise/Act as Ind, UE Funct Exercise/Act Treatment Duration: Nov 27, 2022 Frequency: At least 5 of 7 days/Wk (IRF) Estimated Hrs Per Day: 1.5 hours per day Agreement: Yes Rehab Potential: Good Time Start Time: 10:15 Stop Time: 11:45 DATE: Nov 11, 2022 Total Time Billed (hr/min): 90 Billed Treatment Time 1, ADL 5 (70'), EX (20') THOR COWAN OT Nov 11, 2022 10:40
[2022-11-11 14:17] VITALS: BP 139/68
--- NOTE | 2022-11-11 16:13 | Physical Therapy Daily Note ---
PT Daily Note-Current Subjective pt in bed and had finished lunch. pt willing for therapy. Pain Section J - Health Conditions 1. Rarely or not at all 2. Occasionally 3. Frequently 4. Almost constantly 8. Unable to answer Pain Effect on Sleep: 1 Pain Interference with Therapy: 1 Pain Interference w/Day-to-Day: 1 Transfers SCALE: Activities may be completed with or without assistive devices. 8-Pkxjdtqsbj-rgunxkt completes the activity by him/herself with no assistance from a helper. 5-Set-up or Clean-up Assistance-helper sets up or cleans up; patient completes activity. [place] assists only prior to or following the activity. 4-Supervision or Touching Assistance-helper provides verbal cues and/or touching/steadying and/or contact guard assistance as patient completes activity. Assistance may be provided throughout the activity or intermittently. 3-Partial/Moderate Assistance-helper does LESS THAN HALF the effort. [place] lifts, holds or supports trunk or limbs, but provides less than half the effort. 2-Substantial/Maximal Assistance-helper does MORE THAN HALF the effort. [place] lifts or holds trunk or limbs and provides more than half the effort. 4-Ezldtkhxk-urztrl does ALL the effort. Patient does none of the effort to comp lete the activity. Or, the assistance of 2 or more helpers is required for the patient to complete the activity. If activity was not attempted, code reason: 7-Patient Refused. 9-Not Applicable-not attempted and the patient did not perform the activity before the current illness, exacerbation or injury. 10-Not Attempted due to Environmental Limitations-(lack of equipment, weather restraints, etc.). 88-Not Attempted due to Medical Conditions or Safety Concerns. Weight Bearing Right Lower Extremity: Right Partial Weight Bearing Left Lower Extremity: Left Full Weight Bearing 30 to 50 pounds on right leg Education on partial weight bearing and concern of going up/down multiple steps with 30-50# WB (R) LE. Patient states he will not have to go down to the basement and can wait until he is FWB (R). Does have 2 steps to enter home. Discussion of using rail and device (walker) to maintain PWB with steps. Assessment Current Status: Excellent Progress pt ambulated 150ft with fww and supervision alejo LOB present. pt did have a slower gait pattern after having been "worn out" from morning therapy. PT Short Term Goals Short Term Goals Time Frame: Nov 09, 2022 Roll Left & Right: 6 Sit to lyin Lying to sitting on side of be: 6 Sit to stand: 6 Chair/dsn-ia-iadzy transfer: 5 Toilet transfer: 5 Car transfer: 5 Walk 10 feet: 6 Walk 50 feet with two turns: 6 Walk 150 feet: 4 Walking 10ft on uneven surface: 6 1 step (curb): 5 4 steps: 4 12 steps: 4 Picking up objects: 6 PT Spray Machine Loader Goals [facility] Goals PT Spray Machine Loader Goals Time Frame: Nov 18, 2022 Roll Left & Right (QC): 6 Sit to Lying (QC): 6 Lying-Sitting on Side/Bed(QC): 6 Sit to Stand (QC): 6 Chair/Krr-qe-Szkzs Xfer(QC): 6 Toilet Transfer (QC): 6 Car Transfer (QC): 6 Does the Patient Walk: Yes Walk 10 feet (QC): 6 Walk 50ft with 2 Turns (QC): 6 Walk 150 ft (QC): 6 Walking 10ft on Uneven Surface: 6 1 Step (curb) (QC): 6 4 Steps (QC): 6 12 Steps (QC): 6 Picking up an Object (QC): 6 Wheel 50 feet with 2 turns (QC: 9 Wheel 150 feet: 9 PT Plan Treatment/Plan Treatment Plan: Continue Plan of Care Treatment Plan: Bed Mobility, Concurrent Therapy, Education, Functional Activity Jamey, Functional Strength, Group Therapy, Gait, Safety, Therapeutic Exercise, Transfers Treatment Duration: Nov 18, 2022 Frequency: At least 5 of 7 days/Wk (IRF) Estimated Hrs Per Day: 1.5 hours per day Patient and/or Family Agrees t: Yes Time Time In: 1230 Time Out: 1 DATE: Nov 11, 2022 Total Billed Treatment Time: 30 Total Billed Treatment 1, fa, gt Jessie Liu [employer] OPERATIONS MANAGER Nov 11, 2022 16:13
[2022-11-11] MEDS: TAMSULOSIN 0.4 MG (FLOMAX) CAP PO SCH (18:14)
[2022-11-11 20:36] VITALS: BP 168/83
[2022-11-11] MEDS: ALPRAZolam 0.5 MG (XANAX) TAB PO SCH (20:40)
[2022-11-11] MEDS: MELATONIN 3 MG TABLET PO SCH (20:40)
[2022-11-12] MEDS: ACETAMINOPHEN 325 MG TABLET PO PRN (04:00)
[2022-11-12] MEDS ORDERED: OXC5T PO (05:31)
[2022-11-12] MEDS ORDERED: HYDR-3923 PO (05:31)
--- NOTE | 2022-11-12 05:32 | D/C HH Face to Face Order ---
D/C Face to Face Orders Reconcile Patient Problems Problems Reviewed?: Yes Instructions for Patient Via [facility], Patient Instructions/FollowUp: PCP 1 week Physician to follow Patient: Josie Discharge Diet for Home: No Restrictions Patient Problems: Hip fx Patient Data-Allergies,Ht & Wt Patient Allergies: Coded Allergies: Sulfa (Sulfonamide Antibiotics) (Verified Allergy, Severe, 04/27/18) ofloxacin (Verified Allergy, Unknown, 04/27/18) tetracycline (Unverified Allergy, Unknown, 04/27/18) Height (Feet): 5 Height (Inches): 9.00 Weight (Pounds): 170 Weight (Ounces): 0.0 Home Health Need/Face to Face Date of Face to Face: Nov 12, 2022 Clinical Findings: Generalized weakness and fatigue, Muscle weakness I have seen Pt jjzy-bx-hyxp: Yes Discharged To: Home Diagnosis/Conditions: Hip fx Patient is Homebound due to: Muscle weakness Homebound Status Due to the above stated illness, injury or surgical procedure (medical condition or diagnosis) and associated clinical findings, the patient is homebound because of his/her inability to leave home except with aid of a supportive device and/or person AND leaving the home requires a considerable and taxing effort or is medically contraindicated. Pt req the following assistanc: [facility] Nursing Orders Home Health Services Order: Nursing Services, D[employer]er-Evaluate & Treat, Physical Therapy-Evaluate & Treat Certify Stmt I certify that this patient is under my care and that I, a nurse practitioner or a physician; a radiology physician assistant working with me, had a face to face encounter that - meets the physician face to face encounter requirements with this patient as dated. SRIKANTH DOMINIQUE DO Nov 12, 2022 05:32
--- NOTE | 2022-11-12 05:33 | Discharge Summary ---
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 OAC Anxiety Overwhelmed on 11/08/22 Plan: Home meds Pain control Laxatives 11/06/2022: Monitor closely 11/07/2022: Monitor closely 11/08/2022: Increase dose of Xanax 11/09/2022: Monitor closely Doing well 11/10/2022: Monitor closely 11/11/2022: DC Thur (1) Fracture of femoral neck, right Discharge Summary Discharge Physical Examination Allergies: Coded Allergies: Sulfa (Sulfonamide Antibiotics) (Verified Allergy, Severe, 04/27/18) ofloxacin (Verified Allergy, Unknown, 04/27/18) tetracycline (Unverified Allergy, Unknown, 04/27/18) Vitals & I&Os Vital Signs Date Time Temp Pulse Resp B/P (MAP) Pulse Ox O2 Delivery O2 Flow Rate FiO2 11/12/22 10:48 36.4 64 16 169/83 98 Room Air General Appearance: Alert, Oriented X3, Cooperative Respiratory: Clear to Auscultation Cardiovascular: Regular Rate Psych/Mental Status: Mental Status NL Hospital Course Was the Problem List Reviewed?: Yes Rehab Course This patient is a 77 year old male who was admitted to [facility] from 11/05/22 - 11/12/22 for rehabilitation following a right Hip Fx. During his stay he worked with PT/OT daily and had a good, rather uneventful recovery. He did have some elevated BP during his stay as well as anxiety that was managed by his medical team and should be adressed in the outpatient setting. By time of discharge he was independent with all ADL's, all aspects of transfers, and with curb/steps. He was independent using a FWW up to 150ft, but required superision/touching assistance with walking on uneven surfaces. He should follow the instructions set in place by Dr. Daniels and therapy team upon discharge. BUNNY MIR Labs (last 24 hrs) Laboratory Tests 11/06/22 05:42: White Blood Count 6.7, Red Blood Count 4.11L, Hemoglobin 12.6L, Hematocrit 38L, Mean Corpuscular Volume 93, Mean Corpuscular Hemoglobin 31, Mean Corpuscular Hemoglobin Concent 33, Red Cell Distribution Width 12.8, Platelet Count 155, Mean Platelet Volume 10.3, Immature Granulocyte % (Auto) 0, Neutrophils (%) (Auto) 70, Lymphocytes (%) (Auto) 15, Monocytes (%) (Auto) 9, Eosinophils (%) (Auto) 5, Basophils (%) (Auto) 0, Neutrophils # (Auto) 4.7, Lymphocytes # (Auto) 1.0, Monocytes # (Auto) 0.6, Eosinophils # (Auto) 0.3, Basophils # (Auto) 0.0, Immature Granulocyte # (Auto) 0.0, Sodium Level 141, Potassium Level 4.7, Chloride Level 112H, Carbon Dioxide Level 19L, Anion Gap 10, Blood Urea Nitrogen 40H, Creatinine 3.12H, Estimat Glomerular Filtration Rate 20, BUN/Creatinine Ratio 13, Glucose Level 98, Calcium Level 8.6, Corrected Calcium 9.2, Total Bilirubin 0.8, Aspartate Amino Transf (AST/SGOT) 21, Alanine Aminotransferase (ALT/SGPT) 12, Alkaline Phosphatase 88, Total Protein 6.0L, Albumin 3.2 11/09/22 05:31: White Blood Count 5.6, Red Blood Count 3.71L, Hemoglobin 11.3L, Hematocrit 34L, Mean Corpuscular Volume 93, Mean Corpuscular Hemoglobin 31, Mean Corpuscular Hemoglobin Concent 33, Red Cell Distribution Width 12.5, Platelet Count 164, Mean Platelet Volume 9.5, Immature Granulocyte % (Auto) 0, Neutrophils (%) (Auto) 65, Lymphocytes (%) (Auto) 19, Monocytes (%) (Auto) 10, Eosinophils (%) (Auto) 6, Basophils (%) (Auto) 0, Neutrophils # (Auto) 3.7, Lymphocytes # (Auto) 1.0, Monocytes # (Auto) 0.5, Eosinophils # (Auto) 0.3, Basophils # (Auto) 0.0, Immature Granulocyte # (Auto) 0.0, Sodium Level 142, Potassium Level 4.6, Chloride Level 113H, Carbon Dioxide Level 20L, Anion Gap 9, Blood Urea Nitrogen 31H, Creatinine 2.93H, Estimat Glomerular Filtration Rate 21, BUN/Creatinine Ratio 11, Glucose Level 91, Calcium Level 8.3L, Corrected Calcium 9.2, Total Bilirubin 0.4, Aspartate Amino Transf (AST/SGOT) 18, Alanine Aminotransferase (ALT/SGPT) 13, Alkaline Phosphatase 68, Total Protein 5.3L, Albumin 2.9L Pending Labs Laboratory Tests 11/06/22 05:42: White Blood Count 6.7, Red Blood Count 4.11, Hemoglobin 12.6, Hematocrit 38, Mean Corpuscular Volume 93, Mean Corpuscular Hemoglobin 31, Mean Corpuscular Hemoglobin Concent 33, Red Cell Distribution Width 12.8, Platelet Count 155, Mean Platelet Volume 10.3, Immature Granulocyte % (Auto) 0, Neutrophils (%) (Auto) 70, Lymphocytes (%) (Auto) 15, Monocytes (%) (Auto) 9, Eosinophils (%) (Auto) 5, Basophils (%) (Auto) 0, Neutrophils # (Auto) 4.7, Lymphocytes # (Auto) 1.0, Monocytes # (Auto) 0.6, Eosinophils # (Auto) 0.3, Basophils # (Auto) 0.0, Immature Granulocyte # (Auto) 0.0, Sodium Level 141, Potassium Level 4.7, Chloride Level 112, Carbon Dioxide Level 19, Anion Gap 10, Blood Urea Nitrogen 40, Creatinine 3.12, Estimat Glomerular Filtration Rate 20, BUN/Creatinine Ratio 13, Glucose Level 98, Calcium Level 8.6, Corrected Calcium 9.2, Total Bilirubin 0.8, Aspartate Amino Transf (AST/SGOT) 21, Alanine Aminotransferase (ALT/SGPT) 12, Alkaline Phosphatase 88, Total Protein 6.0, Albumin 3.2 11/09/22 05:31: White Blood Count 5.6, Red Blood Count 3.71, Hemoglobin 11.3, Hematocrit 34, Mean Corpuscular Volume 93, Mean Corpuscular Hemoglobin 31, Mean Corpuscular Hemoglobin Concent 33, Red Cell Distribution Width 12.5, Platelet Count 164, Mean Platelet Volume 9.5, Immature Granulocyte % (Auto) 0, Neutrophils (%) (Au to) 65, Lymphocytes (%) (Auto) 19, Monocytes (%) (Auto) 10, Eosinophils (%) (Auto) 6, Basophils (%) (Auto) 0, Neutrophils # (Auto) 3.7, Lymphocytes # (Auto) 1.0, Monocytes # (Auto) 0.5, Eosinophils # (Auto) 0.3, Basophils # (Auto) 0.0, Immature Granulocyte # (Auto) 0.0, Sodium Level 142, Potassium Level 4.6, Chloride Level 113, Carbon Dioxide Level 20, Anion Gap 9, Blood Urea Nitrogen 31, Creatinine 2.93, Estimat Glomerular Filtration Rate 21, BUN/Creatinine Ratio 11, Glucose Level 91, Calcium Level 8.3, Corrected Calcium 9.2, Total Bilirubin 0.4, Aspartate Amino Transf (AST/SGOT) 18, Alanine Aminotransferase (ALT/SGPT) 13, Alkaline Phosphatase 68, Total Protein 5.3, Albumin 2.9 Discharge Home Medications: Active Scripts Active Oxyir Tablet (Oxycodone HCl) 5 Mg Tab 5 Mg PO TID PRN Hydralazine HCl 25 Mg Tablet 25 Mg PO TID Reported Melatonin 5 Mg Tablet 5 Mg PO HS TAKES 3MG +5MG TO EQUAL 8MG Melatonin 3 Mg Tablet 3 Mg PO HS TAKES 3MG +5MG TO EQUAL 8MG Tylenol Extra Strength (Acetaminophen) 500 Mg Tablet 500 Mg PO Q6H PRN Benadryl Allergy (Diphenhydramine HCl) 25 Mg Tablet 25 Mg PO Q6H PRN Vitamin D3 (Cholecalciferol (Vitamin D3)) 50 Mcg (2000 Unit) Capsule 50 Mcg PO 1900 Flomax (Tamsulosin HCl) 0.4 Mg Cap 0.4 Mg PO 1900 Ondansetron Odt (Ondansetron) 4 Mg Tab.rapdis 4 Mg PO QID PRN Alprazolam 0.5 Mg Tablet 0.5 Mg PO HS Jardiance (Empagliflozin) 10 Mg Tablet 10 Mg PO DAILY Finasteride 5 Mg Tablet 5 Mg PO DAILY Carvedilol 25 Mg Tablet 25 Mg PO BID Diphenoxylate-Atrop 2.5-0.025 (Diphenoxylate HCl/Atropine) 2.5 Mg-0.025 Mg Tablet 1 Ea PO BID PRN Alprazolam 0.5 Mg Tablet 0.5 Mg PO DAILY PRN Eliquis (Apixaban) 2.5 Mg Tablet 2.5 Mg PO BID LAST FILLED 07-20-2021 #180/90 DAY SUPPLY Instructions to patient/family Please see electronic discharge instructions given to patient. Diagnosis/Problems Diagnosis/Problems (1) Fracture of femoral neck, right SRIKANTH DANIELS DO Nov 12, 2022 05:33
[2022-11-12] MEDS: hydrALAZINE (APRESOLINE) 25 MG TAB PO SCH (06:30)
[2022-11-12 07:42] VITALS: BP 169/83
[2022-11-12] MEDS: ONDANSETRON 4 MG (ZOFRAN) ORAL DISSOLVE TAB PO PRN (08:38)
[2022-11-12] MEDS: APIXABAN 2.5 MG (ELIQUIS) TABLET PO SCH (08:39)
[2022-11-12] MEDS: ALPRAZolam 0.25 MG (XANAX) TAB PO PRN (08:39)
[2022-11-12] MEDS: PANTOPRAZOLE 20 MG TABLET (PROTONIX) PO SCH (08:39)
[2022-11-12] MEDS: FINASTERIDE (PROSCAR) 5 MG TAB PO SCH (08:39)
[2022-11-12] MEDS: polyethylene glycoL POWDER 17 GM (MIRALAX) PACK PO SCH (08:40)
[2022-11-12] MEDS: BISACODYL 5 MG (DULCOLAX) TABLET PO SCH (08:40)
[2022-11-12] MEDS: DOCUSATE SODIUM 100 MG (COLACE) CAP PO SCH (08:40)
[2022-11-12] MEDS: SENNA W/DOCUSATE (SENOKOT S) TABLET PO SCH (08:41)
--- NOTE | 2022-11-12 10:06 | Therapy Team Discharge Summary ---
Therapy Discharge Summary Discharge Recommendations Date of Discharge Physical Therapy Roll Left to Right (QC): 6 Sit to Lying (QC): 6 Lying to Sitting/Side of Bed(Q: 6 Sit to Stand (QC): 6 Chair/Iid-ue-Wssmj Xfer(QC): 6 Toilet Transfer (QC): 6 Car Transfer (QC): 6 Does the Patient Walk: Yes Mode of Locomotion: Walk Anticipated Mode of Locomotion: Walk Walk 10 feet (QC): 6 Walk 50 ft with 2 Turns(QC): 6 Walk 150 ft (QC): 6 Walking 10ft on uneven surface: 4 Distance: 150 Gait Assistive Device: FWW Does the Pt Use a Wheelchair: No Wheel 50 ft with 2 turns (QC): 9 Wheel 150 ft (QC): 9 #of Steps: 12 1 Step (curb) (QC): 6 4 Steps (QC): 6 12 Steps (QC): 88 Balance Sitting Static: Normal Balance Sitting Dynamic: Normal Balance-Standing Static: Good Picking up an Object (QC): 6 Occupational Therapy Pt admitted to [facility] s/p R hip fx with pinning. At [facility], pt was independent with ADLs and functional mobility at [facility], no AD. Upon initial evaluation, pt was independent with eating, required SBA oral care,min A showering and LE dressing, set up UE dressing, mod A footwear and CGA toileting. OT tx focused on increasin g BUE Strength and activity tolerance, and increasing safety and independence with ADLs and functional mobility. Pt made good progress towards goals, attaining IND level with all ADLs. Pt discharging home with spouse, d/c from OT. Decreased Activ Tolerance, Decreased UE Strength, Impaired Funct Balance, Impaired I ADL's Eating (QC): 6 Oral Hygiene (QC): 6 Shower/Bathe Self (QC): 6 Upper Body Dressing (QC): 6 Lower Body Dressing (QC): 6 On/Off Footwear (QC): 6 Toileting Hygiene (QC): 6 PT Nursing Home Goals Nursing Home Goals PT Facilities Specialist Goals Time Frame: Nov 18, 2022 Roll Left to Right (QC): 6 Sit to Lying (QC): 6 Lying-Sitting on Side/Bed(QC): 6 Sit to Stand (QC): 6 Chair/Ttr-gp-Vjcsn Xfer(QC): 6 Toilet/Commode Transfer (QC): 6 Car Transfer (QC): 6 Does the Patient Walk: Yes Walk 10 feet (QC): 6 Walk 10ft-Uneven Surface(QC): 6 Walk 50ft with 2 Turns (QC): 6 Walk 150 ft (QC): 6 Wheel 50 feet with 2 turns (QC: 9 Wheel 150 feet: 9 1 Step (curb) (QC): 6 4 Steps (QC): 6 12 Steps (QC): 6 Picking up an Object (QC): 6 OT Facilities Specialist Goals Facilities Specialist Goals Time Frame: Nov 27, 2022 Acute change in mental status: 0 Inattention: 0 Disorganized thinkin Altered level of consciousness: 0 Eating (QC): 6 (met) Oral Hygiene (QC): 6 (met) Toileting Hygiene (QC): 6 (met) Shower/Bathe Self (QC): 6 (met) Upper Body Dressing (QC): 6 (met) Lower Body Dressing (QC): 6 (met) On/Off Footwear (QC): 6 (met) Additional Goals: 1-Demonstrate ADL Tasks, 2-Verbalize Understanding, 3- ImproveStrength/Jamey 1=Demonstrate adherence to instructed precautions during ADL tasks. 2=Patient will verbalize/demonstrate understanding of assistive devices/modifications for ADL. 3=Patient will improve strength/tolerance for activity to enable patient to perform ADL's. THOR COWAN OT Nov 12, 2022 10:06
--- NOTE | 2022-11-12 10:24 | Progress Note ---
BUNNY MIR 11/12/22 1024: Progress Note Rehab Course This patient is a 77 year old male who was admitted to [facility] from 11/05/22 - 11/12/22 for rehabilitation following a right Hip Fx. During his stay he worked with PT/OT daily and had a good, rather uneventful recovery. He did have some elevated BP during his stay as well as anxiety that was managed by his medical team and should be adressed in the outpatient setting. By time of discharge he was independent with all ADL's, all aspects of transfers, and with curb/steps. He was independent using a FWW up to 150ft, but required superision/touching assistance with walking on uneven surfaces. He should follow the instructions set in place by Dr. Daniels and therapy team upon discharge. BRENDA DANIELS DO 11/13/22 0454: Supervisory-Addendum Brief Verification & Attestation Participated in pt care: history, MDM, physical Personally performed: exam, history, MDM, supervision of care Care discussed with: Medical Student Procedures: n/a Results interpretation: Verified all documentation Verification and Attestation of Medical Student E/M Service A medical student performed and documented this service in my presence. I reviewed and verified all information documented by the medical student and made modifications to such information, when appropriate. I personally performed the physical exam and medical decision making. Brenda Daniels, Nov 13, 2022,04:54 BUNNY MIR Nov 12, 2022 10:24 BRENDA DANIELS DO Nov 13, 2022 04:54
[2022-11-12 10:48] VITALS: BP 169/83
--- NOTE | 2022-11-12 15:32 | Therapy Team Discharge Summary ---
Therapy Discharge Summary Discharge Recommendations Date of Discharge Nov 12, 2022 at 10:54 Physical Therapy Patient seen on ARU s/p (R) hip fracture with patient 30-50# PWB (R) LE. At time of discharge he was (I) with all bed mobility, transfers, gait with a FWW. Curbs and 4 steps required CGA and prn assist with walker, as he only has 1 railing to enter his home and needed to use walker as second "rail". was educated on stair ambulation and PWB for patient. Do not recommend full flight of stairs until patient's WB is advanced to full - both patient and agree and patient does not need to go up/down a full flight of stairs at home. Roll Left to Right (QC): 6 Sit to Lying (QC): 6 Lying to Sitting/Side of Bed(Q: 6 Sit to Stand (QC): 6 Chair/Blo-zm-Rxyni Xfer(QC): 6 Toilet Transfer (QC): 6 Car Transfer (QC): 6 Does the Patient Walk: Yes Mode of Locomotion: Walk Anticipated Mode of Locomotion: Walk Walk 10 feet (QC): 6 Walk 50 ft with 2 Turns(QC): 6 Walk 150 ft (QC): 6 Walking 10ft on uneven surface: 6 Distance: 150 Gait Assistive Device: FWW Does the Pt Use a Wheelchair: No Wheel 50 ft with 2 turns (QC): 9 Wheel 150 ft (QC): 9 #of Steps: 2 (2 to enter home, 12 to basement but patient does not need to perform this at this time) 1 Step (curb) (QC): 4 (with FWW) 4 Steps (QC): 4 (with FWW) 12 Steps (QC): 88 Balance Sitting Static: Normal Balance Sitting Dynamic: Normal Balance-Standing Static: Good Picking up an Object (QC): 6 Occupational Therapy Decreased Activ Tolerance, Decreased UE Strength, Impaired Funct Balance, Impaired I ADL's Eating (QC): 6 Oral Hygiene (QC): 6 Shower/Bathe Self (QC): 6 Upper Body Dressing (QC): 6 Lower Body Dressing (QC): 6 On/Off Footwear (QC): 6 Toileting Hygiene (QC): 6 PT Hoe Runner Goals Hoe Runner Goals PT Hoe Runner Goals Time Frame: Nov 18, 2022 Roll Left to Right (QC): 6 Sit to Lying (QC): 6 Lying-Sitting on Side/Bed(QC): 6 Sit to Stand (QC): 6 Chair/Ckt-tt-Uxapn Xfer(QC): 6 Toilet/Commode Transfer (QC): 6 Car Transfer (QC): 6 Does the Patient Walk: Yes Walk 10 feet (QC): 6 Walk 10ft-Uneven Surface(QC): 6 Walk 50ft with 2 Turns (QC): 6 Walk 150 ft (QC): 6 Wheel 50 feet with 2 turns (QC: 9 Wheel 150 feet: 9 1 Step (curb) (QC): 6 4 Steps (QC): 6 12 Steps (QC): 6 Picking up an Object (QC): 6 OT Hoe Runner Goals Skilled Nursing Goals Time Frame: Nov 27, 2022 Acute change in mental status: 0 Inattention: 0 Disorganized thinkin Altered level of consciousness: 0 Eating (QC): 6 (met) Oral Hygiene (QC): 6 (met) Toileting Hygiene (QC): 6 (met) Shower/Bathe Self (QC): 6 (met) Upper Body Dressing (QC): 6 (met) Lower Body Dressing (QC): 6 (met) On/Off Footwear (QC): 6 (met) Additional Goals: 1-Demonstrate ADL Tasks, 2-Verbalize Understanding, 3- ImproveStrength/Jamey 1=Demonstrate adherence to instructed precautions during ADL tasks. 2=Patient will verbalize/demonstrate understanding of assistive devices/modifications for ADL. 3=Patient will improve strength/tolerance for activity to enable patient to perform ADL's. Abbie Cantu PT Nov 12, 2022 15:32
== END 2022-11-12 10:54 | disposition home health service (06) | DRG 560 ==
PROVIDERS: ADMIT Internal Medicine; ATTEND Internal Medicine
DX: S72.001D Fracture of unspecified part of neck of right femur, subsequent encounter for closed fracture with routine healing (principal); N18.4 Chronic kidney disease, stage 4 (severe); Z91.81 History of falling; I12.9 Hypertensive chronic kidney disease with stage 1 through stage 4 chronic kidney disease, or unspecified chronic kidney disease; K58.1 Irritable bowel syndrome with constipation; I25.10 Atherosclerotic heart disease of native coronary artery without angina pectoris; N40.0 Benign prostatic hyperplasia without lower urinary tract symptoms; K21.9 Gastro-esophageal reflux disease without esophagitis; M19.90 Unspecified osteoarthritis, unspecified site; H54.3 Unqualified visual loss, both eyes; F41.9 Anxiety disorder, unspecified; Z87.891 Personal history of nicotine dependence; Z86.718 Personal history of other venous thrombosis and embolism; Z79.01 Long term (current) use of anticoagulants; Z85.528 Personal history of other malignant neoplasm of kidney; Z79.84 Long term (current) use of oral hypoglycemic drugs; Z79.899 Other long term (current) drug therapy; Z88.1 Allergy status to other antibiotic agents; Z88.2 Allergy status to sulfonamides
CPT/HCPCS: 36415; 80053; 85025; 94664

== ENCOUNTER → 2022-11-17 | Outpatient (CLI) | payer MEDICARE, OTHER ==
[~2022-11-17] MED LIST changes: +HYDR-3923 PO; +OXC5T PO
== END ==
LOC: ORTHO 09:25
PROVIDERS: ATTEND Orthopaedic Surgery
DX: Z47.89 Encounter for other orthopedic aftercare (principal); I12.9 Hypertensive chronic kidney disease with stage 1 through stage 4 chronic kidney disease, or unspecified chronic kidney disease; N18.4 Chronic kidney disease, stage 4 (severe); I25.10 Atherosclerotic heart disease of native coronary artery without angina pectoris; K21.9 Gastro-esophageal reflux disease without esophagitis

== ENCOUNTER → 2022-12-16 | Outpatient (CLI) | payer MEDICARE, OTHER ==
--- NOTE | 2022-12-16 14:09 | Diagnostic Imaging Report ---
EXAMINATION: Right hip radiographs, 2 views. COMPARISON: November 02, 2022 right hip radiographs. HISTORY: 77-year-old male, right hip pain. History of prior femoral neck fracture. FINDINGS: There are intact fixation screws at the level of the right proximal femur extending across the intertrochanteric femur and femoral neck. There is no abnormal lucency surrounding the fixation screws. The right hip is not dislocated. There is no pronounced joint space loss of the right hip. There is no identified new fracture. IMPRESSION: 1. Intact fixation screws extending across the previously noted right femoral neck fracture without identified complication. 2. Unremarkable evaluation of the right hip joint. 3. No interval acute bony abnormality. Dictated by: Dictated on workstation # [id number]
== END ==
LOC: ORTHO 10:37
PROVIDERS: ATTEND Orthopaedic Surgery
DX: S72.001D Fracture of unspecified part of neck of right femur, subsequent encounter for closed fracture with routine healing (principal); X58.XXXD Exposure to other specified factors, subsequent encounter
CPT/HCPCS: 73502

== ENCOUNTER → 2023-01-19 | Outpatient (CLI) | payer MEDICARE, OTHER ==
--- NOTE | 2023-01-19 16:50 | Diagnostic Imaging Report ---
INDICATION: Right hip pain. COMPARISON: 12/16/2022. TECHNIQUE: Two radiographs of the right hip dated 01/19/2023. FINDINGS: Three partially cannulated screws are again identified within the right femoral head and neck, appearing similar to the prior examination without evidence of hardware complication. No acute fracture or dislocation. No destructive osseous process. Mild degenerative changes of the right hip with mild joint space narrowing and mild osteophyte formation. No collapse of the right femoral head. The right sacroiliac joint and pubic symphysis are intact. IMPRESSION: Post surgical changes involving the right proximal femur without hardware complication or acute osseous abnormality. Mild degenerative changes. Dictated by: Dictated on workstation # [id number]
== END ==
LOC: ORTHO 10:51
PROVIDERS: ATTEND Orthopaedic Surgery
DX: M25.551 Pain in right hip (principal); Z98.890 Other specified postprocedural states
CPT/HCPCS: 73502

== ENCOUNTER → 2023-03-09 | Outpatient (CLI) | payer MEDICARE, OTHER ==
--- NOTE | 2023-03-09 16:01 | Diagnostic Imaging Report ---
INDICATION: Pain. COMPARISON: 01/19/2023. FINDINGS: Partially threaded screws transfix the right femoral neck in anatomic alignment. No acute or untreated fracture. No articular collapse. No hardware disruption. IMPRESSION: Stable postop right hip. Dictated by: Dictated on workstation # [id number]
== END ==
LOC: ORTHO 12:53
PROVIDERS: ATTEND Orthopaedic Surgery
DX: M25.551 Pain in right hip (principal); Z98.890 Other specified postprocedural states
CPT/HCPCS: 73502; G0463; 99213